=== PATIENT | female | born 1950 | race Caucasian/White ===

== ENCOUNTER 2021-01-12 12:39 | Inpatient (IN) | payer MEDICARE, OTHER ==
[2021-01-12] MEDS ORDERED: Polyethylene Glycol 3350 Powder 17 GM Packet PO PRN (13:44)
[2021-01-12] MEDS ORDERED: Albuterol 0.083% 2.5 MG/3 ML Neb Soln NEB PRN (13:44)
[2021-01-12] MEDS ORDERED: Ondansetron 4 MG/2 ML SDV IV PRN (13:44)
[2021-01-12] MEDS ORDERED: Albuterol 6.7 GM Inhaler INH PRN ×2 (13:48→15:00)
[2021-01-12] MEDS ORDERED: Melatonin 3 MG Tab PO PRN (14:01)
--- NOTE | 2021-01-12 14:38 | CR ---
Chest: Frontal view of the chest was obtained. Comparison: No prior chest imaging is available. Heart size is normal. Upper mediastinum is normal. Lungs are clear with no acute parenchymal change. Scattered old healed rib fractures are noted. Prior right shoulder surgery is seen. Impression: 1. Findings as described above. 2. Nothing acute is seen on frontal chest x-ray. Diagnostic code #2
--- NOTE | 2021-01-12 15:54 | PCM.HP.2 ---
H&P History of Present Illness - General Date of Service: 01/12/21 Admit Problem/Dx: Admission Diagnosis/Problem Admission Diagnosis/Problem Fracture of left hip History Limitations: Reports: Other (Poor historian. Patient falling asleep dur ing interview.) - History of Present Illness Initial Comments - Free Text/Narative: 70-year-old female who was transferred from [facility] secondary to fracture of the left femoral neck. Patient states that she started having pain the day after Thanksgiving. She denies any specific fall, but in another breath she tells me she falls regularly and shows me her bruised arms. She was brought from home to the emergency department in excruciating pain, 9 out of 10, that had progressively worsened over the last couple of days. In the emergency department she was given ketorolac and Dilaudid for pain relief. X-ray of the hips showed fracture of the left femoral neck. Initially patient did have significant hypertension and tachycardia which was mainly felt to be secondary to pain. Patient also did not take her Cardizem this morning. There was initially some question if the patient had atrial fibrillation, but EKG done in the emergency department showed sinus tachycardia. Dr. Mayes was contacted who agreed to repair the hip fracture. Patient was then transferred to the medical floor for admission. Blood work from the emergency department in [place] showed white count 16.3, hemoglobin 11.4, platelets 401, sodium 128, potassium 4.7, BUN 7, creatinine 1.22, glucose 127, albumin 3.3, AST 16, ALT 17, alk phos 196, total bilirubin 0.5. On arrival to floor white count 10.68, sodium 131, potassium 4.6, BUN 9, creatinine 1.7 with an estimated GFR of 30, AST 26, ALT 19, alkaline phosphatase 177, albumin 3.1 Patient admits to 1 pack/day smoking and 2 mixed drinks with fireball daily Past medical history includes alcohol abuse, hyponatremia, tobacco abuse, emphysema, adult failure to thrive, SIADH, anemia, hypertension, hyperlipidemia, dementing neurological disease or syndrome, atrial fibrillation, acute kidney injury, stroke, distal radial fracture, physical deconditioning - Related Data Allergies/Adverse Reactions: Allergies Allergy/AdvReac Type Severity Reaction Status Date / Time amoxicillin Allergy Cannot Verified 01/12/21 13:21 Remember doxycycline Allergy Cannot Verified 01/12/21 13:21 Remember hydrocodone Allergy Cannot Verified 01/12/21 13:21 Remember Penicillins Allergy Cannot Verified 01/12/21 13:21 Remember Home Medications: Home Meds Acetaminophen [Tylenol] 2 tab PO Q6H PRN 01/12/21 [History] Albuterol [Proventil HFA] 2 puff INH Q4H PRN 01/12/21 [History] Aspirin [Ecotrin EC] 81 mg PO DAILY 01/12/21 [History] Budesonide [Pulmicort] 2 ml NEB BID 01/12/21 [History] Cholecalciferol (Vitamin D3) [Vitamin D3] 1 tab PO DAILY 01/12/21 [History] Clopidogrel Bisulfate [Plavix] 1 tab PO DAILY 01/12/21 [History] DULoxetine [Cymbalta] 1 tab PO BEDTIME 01/12/21 [History] Ferrous Sulfate [Iron] 1 tab PO BID 01/12/21 [History] Folic Acid 1 tab PO DAILY 01/12/21 [History] Furosemide [Lasix] 20 mg PO DAILY 01/12/21 [History] Hydrocodone/Acetaminophen [HYDROcodone-Acetaminophen 5-325 MG] 1 tab PO Q6H PRN 01/12/21 [History] Melatonin 1 tab PO BEDTIME PRN 01/12/21 [History] Pantoprazole Sodium [Protonix] 40 mg PO DAILY 01/12/21 [History] Potassium Chloride [Klor-Con M20] 2 tab PO BID 01/12/21 [History] Pravastatin [Pravachol] 1 tab PO BEDTIME 01/12/21 [History] QUEtiapine Fumarate [Seroquel] 50 mg PO BEDTIME 01/12/21 [History] Sennosides/Docusate Sodium [Senna-Docusate Sodium Tablet] 2 tab PO BID 01/12/21 [History] Trolamine Salicylate/Aloe Vera [Aspercreme 10%] 1 applic TOP BID PRN 01/12/21 [History] dilTIAZem HCL [Dilt-XR] 1 tab PO DAILY 01/12/21 [History] traMADol [Ultram] 1 tab PO Q6H PRN 01/12/21 [History] Past Medical History HEENT History: Reports: Cataract, Impaired Vision Other HEENT History: wears glasses Cardiovascular History: Reports: Afib, Angina, Heart Failure, High Cholesterol, Hypertension Respiratory History: Reports: COPD, Pneumonia, Recurrent, Other (See Below) Other Respiratory History: emphysema Gastrointestinal History: Reports: Chronic Diarrhea Genitourinary History: Reports: Acute Renal Failure, Urinary Incontinence [employer] History: Reports: Musculoskeletal History: Reports: Fracture Other Musculoskeletal History: hx left wrist; current left hip Neurological History: Reports: CVA Psychiatric History: Reports: Dementia Other Psychiatric History: per visit summary 01/21/20 Ailyn Luong PA-c Endocrine/Metabolic History: Reports: Other (See Below) Other Endocrine/Metabolic History: hypochloremia; hyponatermia, Syndrom of inappropriate antidiuretic hormone Hematologic History: Reports: None Dermatologic History: Reports: None - Past Surgical History HEENT Surgical History: Reports: Cataract Surgery Cardiovascular Surgical History: Reports: Carotid Endarterectomy Other Respiratory Surgeries/Procedures: no home O2 GI Surgical History: Reports: None Other GI Surgeries/Procedures: patient denies abd surgical history Endocrine Surgical History: Reports: Thyroidectomy Other Endocrine Surgeries/Procedures: thyroidectomy per patient, not sure of name of surgical procedures Social & Family History - Tobacco Use Tobacco Use Status *Q: Current Every Day Tobacco User Years of Tobacco use: 40 Packs/Tins Daily: 2 - Alcohol Use Days Per Week of Alcohol Use: 7 Number of Drinks Per Day: 2 Total Drinks Per Week: 14 Date of Last Drink: 01/11/21 Time of Last Drink: 19:00 - Recreational Drug Use Recreational Drug Use: No H&P Review of Systems - Review of Systems: Review Of Systems: Comprehensive ROS is negative, except as noted in HPI. Exam - Exam Exam: See Below - Vital Signs Vital Signs: Last Vital Signs Temp 99.0 F 01/12/21 12:45 Pulse 108 H 01/12/21 13:01 Resp 20 01/12/21 12:45 BP 127/98 H 01/12/21 12:45 Pulse Ox 96 01/12/21 13:01 Weight: 171 lb 1.6 oz - Exam Quality Assessment: No: Supplemental Oxygen General: Sedated HEENT: Conjunctiva Clear, Hearing Intact, Mucosa Moist & [place], Pupils Equal, Pupils Reactive Neck: Supple, Trachea Midline, 2 Lungs: Clear to Auscultation, Normal Respiratory Effort Cardiovascular: Regular Rhythm, Normal S1, Normal S2, Tachycardia. No: Systolic Murmur, Diastolic Murmur GI/Abdominal Exam: Normal Bowel Sounds, Soft, Non-Tender, No Organomegaly, No Distention, No Abnormal Bruit, No Mass Back Exam: Normal Inspection Extremities: Normal Inspection, Normal Range of Motion, Non-Tender, No Pedal Edema, Normal Capillary Refill Peripheral Pulses: 2+: Posterior Tibial (L), Posterior Tibial (R), Dorsalis Pedis (L), Dorsalis Pedis (R) Skin: Warm, Dry, Intact Neuro Extensive - Mental Status: Alert, Oriented x3, Normal Mood/Affect, Normal Cognition, Memory Intact Neuro Extensive - Motor, Sensory, Reflexes: CN II-XII Intact Psychiatric: Alert, Normal Affect, Normal Mood - Patient Data Lab Results Last 24 hrs: Laboratory Results - last 24 hr 01/12/21 01/12/21 01/12/21 Range/Units 14:10 14:10 14:10 WBC 10.68 H (3.98-10.04) K/mm3 RBC 4.02 (3.98-5.22) M/mm3 Hgb 11.3 (11.2-15.7) gm/dl Hct 36.0 (34.1-44.9) % MCV 89.6 (79.4-94.8) fl MCH 28.1 (25.6-32.2) pg MCHC 31.4 L (32.2-35.5) g/dl RDW Std Deviation 45.9 (36.4-46.3) fL Plt Count 418 H (182-369) K/mm3 MPV 8.7 L (9.4-12.3) fl Neut % (Auto) 77.0 H (34.0-71.1) % Lymph % (Auto) 13.1 L (19.3-51.7) % [place] % (Auto) 8.2 (4.7-12.5) % Eos % (Auto) 1.0 (0.7-5.8) Baso % (Auto) 0.2 (0.1-1.2) % Neut # (Auto) 8.22 H (1.56-6.13) K/mm3 Lymph # (Auto) 1.40 (1.18-3.74) K/mm3 [place] # (Auto) 0.88 H (0.24-0.36) K/mm3 Eos # (Auto) 0.11 (0.04-0.36) K/mm3 Baso # (Auto) 0.02 (0.01-0.08) K/mm3 PT 10.3 (9.7-12.0) SECONDS INR 0.93 Sodium 131 L (136-145) mEq/L Potassium 4.6 (3.5-5.1) mEq/L Chloride 95 L (98-107) mEq/L Carbon Dioxide 26 (21-32) mEq/L Anion Gap 14.6 (5-15) BUN 9 (7-18) mg/dL Creatinine 1.7 H (0.55-1.02) mg/dL Est Cr Clr Drug Dosing 26.59 mL/min Estimated GFR (MDRD) 30 (>60) mL/min BUN/Creatinine Ratio 5.3 L (14-18) Glucose 104 H (70-99) mg/dL Calcium 8.7 (8.5-10.1) mg/dL Magnesium 2.4 (1.8-2.4) mg/dL Total Bilirubin 0.6 (0.2-1.0) mg/dL AST 26 (15-37) U/L ALT 19 (14-59) U/L Alkaline Phosphatase 177 H (46-116) U/L Total Protein 7.3 (6.4-8.2) g/dl Albumin 3.1 L (3.4-5.0) g/dl Globulin 4.2 gm/dL Albumin/Globulin Ratio 0.7 L (1-2) Result Diagrams: 01/12/21 14:10 01/12/21 14:10 Imaging Impressions Last 24 hrs: Chest x-ray: Nothing acute is seen on frontal chest #1 Interpretation EKG Date: 01/12/21 Time: 10:43 Rhythm: NSR Rate (Beats/Min): 120 [place]: Normal P-Wave: Present QRS: Normal ST-T: Normal QT: Normal Comparison: NA - No Prior EKG EKG Interpretation Comments: Sinus tachycardia otherwise normal EKG Sepsis Event Note - Evaluation Sepsis Screening Result: No Definite Risk - Focused Exam Vital Signs: Vital Signs Temp Pulse Resp BP Pulse Ox 01/12/21 13:01 108 H 96 01/12/21 12:45 99.0 F 20 127/98 H - Problem List (1) Left displaced femoral neck fracture SNOMED Code(s): 3405808, 125873955, 598231113, 24997736228530361 ICD Code: S72.002A - FRACTURE OF UNSP PART OF NECK OF LEFT FEMUR, INIT Status: Acute Current Visit: Yes (2) Acute kidney injury SNOMED Code(s): 91987517, 12707954 ICD Code: N17.9 - ACUTE KIDNEY FAILURE, UNSPECIFIED Status: Acute Current Visit: Yes (3) COPD (chronic obstructive pulmonary disease) with emphysema SNOMED Code(s): 85152076 ICD Code: J43.9 - EMPHYSEMA, UNSPECIFIED Status: Acute Current Visit: Yes (4) Hyponatremia SNOMED Code(s): 21910241 ICD Code: E87.1 - HYPO-OSMOLALITY AND HYPONATREMIA Status: Acute Current Visit: Yes (5) Alcohol abuse SNOMED Code(s): 71734658 ICD Code: F10.10 - ALCOHOL ABUSE, UNCOMPLICATED Status: Acute Current Visit: Yes (6) Tobacco abuse SNOMED Code(s): 192804560 ICD Code: Z72.0 - TOBACCO USE Status: Acute Current Visit: Yes (7) Recurrent falls SNOMED Code(s): 374568279 ICD Code: R29.6 - REPEATED FALLS Status: Acute Current Visit: Yes Problem List Initiated/Reviewed/Updated: Yes Orders Last 24hrs: Active Orders 24 hr Category Date Time Status Patient Status [ADT] Routine ADT 01/12/21 13:41 Active Antiembolic Devices [RC] Q8H Care 01/12/21 13:48 Active Bedrest Bedside Commode [RC] ASDIRECTED Care 01/12/21 13:44 Active Cardiac Monitoring [RC] CONTINUOUS Care 01/12/21 13:45 Active Height and Weight [RC] 06 Care 01/12/21 13:44 Active Intake and Output [RC] 04,16 Care 01/12/21 13:45 Active Oxygen Therapy [RC] PRN Care 01/12/21 13:44 Active RT Aerosol Therapy [RC] ASDIRECTED Care 01/12/21 13:48 Active RT Post Treatment Assessment [RC] Click to Edit Care 01/12/21 13:50 Active VTE/DVT Education [RC] PER UNIT ROUTINE Care 01/12/21 13:44 Active Vital Signs [RC] Q4HR Care 01/12/21 13:44 Active PT Evaluation and Treatment [CONS] Routine Cons 01/12/21 13:44 Active Regular Diet [DIET] Diet 01/12/21 Dinner Active CBC WITH AUTO DIFF [HEME] AM Lab 01/13/21 05:11 Ordered COMPREHENSIVE METABOLIC PN,CMP [CHEM] AM Lab 01/13/21 05:11 Ordered MAGNESIUM [CHEM] AM Lab 01/13/21 05:11 Ordered Acetaminophen [TylenoL] Med 01/12/21 13:44 Active 650 mg PO Q4H PRN Albuterol [Proventil HFA] Med 01/12/21 15:00 Active 0 gm INH Q4H PRN Albuterol [Proventil Neb Soln] Med 01/12/21 13:44 Active 2.5 mg NEB Q2H PRN Budesonide [Pulmicort] Med 01/12/21 21:00 Active 0.5 mg NEB BID DULoxetine [Cymbalta] Med 01/12/21 21:00 Active 30 mg PO BEDTIME Diltiazem [Cardizem CD] Med 01/13/21 09:00 Active 120 mg PO DAILY Folic Acid Med 01/13/21 09:00 Active 1 mg PO DAILY Furosemide [Lasix] Med 01/13/21 09:00 Active 20 mg PO DAILY HYDROmorphone [Dilaudid] Med 01/12/21 13:44 Active 0.5 mg IVPUSH Q2H PRN Melatonin Med 01/12/21 14:01 Active 3 mg PO BEDTIME PRN Ondansetron [Zofran] Med 01/12/21 13:44 Active 4 mg IV Q6H PRN Pantoprazole [ProTONIX] Med 01/13/21 09:00 Active 40 mg PO DAILY Potassium Chloride [Klor-Con M20] Med 01/12/21 21:00 Active 40 meq PO BID Pravastatin [Pravachol] Med 01/12/21 21:00 Active 20 mg PO BEDTIME QUEtiapine [SEROqueL] Med 01/12/21 21:00 Active 50 mg PO BEDTIME Sennosides [Senna] Med 01/12/21 21:00 Active 17.2 mg PO BID Sodium Chloride 0.9% @ 100 MLS/HR(1000ml Bag) Med 01/12/21 16:00 Ordered Sodium Chloride 0.9% [Normal Saline] 1,000 ml IV ASDIRECTED oxyCODONE Med 01/12/21 13:44 Active 5 mg PO Q4H PRN polyethylene glycoL 3350 [MiraLAX] Med 01/12/21 13:44 Active 17 gm PO DAILY PRN traMADol [Ultram] Med 01/12/21 13:48 Active 50 mg PO Q6H PRN Sequential Compression Device [OM.PC] Per Unit Routine Oth 01/12/21 13:46 Ordered Resuscitation Status Routine Resus Stat 01/12/21 13:44 Ordered Medication Orders Acetaminophen (Acetaminophen 325 Mg Tab) 650 mg PO Q4H PRN PRN Reason: Pain (Mild 1-3)/fever Albuterol (Albuterol 0.083% 2.5 Mg/3 Ml Neb Soln) 2.5 mg NEB Q2H PRN PRN Reason: Shortness Of Breath/wheezing Albuterol (Albuterol 6.7 Gm Inhaler) 0 gm INH Q4H PRN PRN Reason: shortness of breath Budesonide (Budesonide 0.5 Mg/2 Ml Neb Susp) 0.5 mg NEB BID KRISHNA Diltiazem HCl (Diltiazem 120 Mg Cap.Cd) 120 mg PO DAILY KRISHNA Duloxetine HCl (Duloxetine 30 Mg Cap) 30 mg PO BEDTIME KRISHNA Folic Acid (Folic Acid 1 Mg Tab) 1 mg PO DAILY KRISHNA Furosemide (Furosemide 20 Mg Tab) 20 mg PO DAILY KRISHNA Hydromorphone HCl (Hydromorphone 0.5 Mg/0.5 Ml Syringe) 0.5 mg IVPUSH Q2H PRN PRN Reason: Pain (severe 7-10) Sodium Chloride (Normal Saline) 1,000 mls @ 100 mls/hr IV ASDIRECTED [facility] Melatonin (Melatonin 3 Mg Tab) 3 mg PO BEDTIME PRN PRN Reason: INSOMNIA Ondansetron HCl (Ondansetron 4 Mg/2 Ml Sdv) 4 mg IV Q6H PRN PRN Reason: Nausea/Vomiting Oxycodone HCl (Oxycodone 5 Mg Tab) 5 mg PO Q4H PRN PRN Reason: Pain (moderate 4-6) Pantoprazole Sodium (Pantoprazole 40 Mg Tab.Cr) 40 mg PO DAILY [facility] Polyethylene Glycol (Polyethylene Glycol 3350 Powder 17 Gm Packet) 17 gm PO DAILY PRN PRN Reason: Constipation Potassium Chloride (Potassium Chloride 20 Meq Tab.Er) 40 meq PO BID KRISHNA Pravastatin Sodium (Pravastatin 20 Mg Tab) 20 mg PO BEDTIME KRISHNA Quetiapine Fumarate (Quetiapine 25 Mg Tab) 50 mg PO BEDTIME KRISHNA Senna (Sennosides 8.6 Mg Tab) 17.2 mg PO BID KRISHNA Tramadol HCl (Tramadol 50 Mg Tab) 50 mg PO Q6H PRN PRN Reason: Pain Assessment/Plan Comment:: 70-year-old female from [place], [place] transferred from [place] emergency department with left femoral neck fracture. Symptoms of pain started the day after Thanksgiving. Left femoral neck fracture * Dr. Mayes in orthopedics consulted * Patient denies recent fall History of recurrent falls Alcohol abuse with previous fractures secondary to falls * Patient admits to 2 mixed drinks with Fireball whiskey per day * Multiple bruises on her arms indicative of recent falls. * She is on Seroquel 50 mg nightly. Tobacco abuse * Admits to 1 pack/day COPD * Home meds include budesonide and albuterol Chronic hyponatremia * Sodium 131 on admission Acute kidney injury * Creatinine prior to arrival was 1.22 this morning. After receiving Toradol and on arrival here creatinine increased to 1.7 Dementia History of stroke * Patient has unreliable history secondary to the above. History of atrial fibrillation currently in sinus rhythm Plan * Admit to medical floor * Normal saline at 100 mL an hour * Offer nicotine patch * Follow CBC, CMP, mag, * Pain control * PT after surgery * Patient appears to be high risk for withdrawal. Current tachycardia is likely secondary to pain and mild dehydration. We will continue to monitor closely us [facility] protocols * EKG and chest x-ray suggest no significant cardiac medical problems * CODE STATUS: Full code * VTE prophylaxis currently with SCDs, but will need Lovenox. - Mortality Measure Prognosis:: Good
[2021-01-12] MEDS: HYDROmorphone 0.5 MG/0.5 ML Syringe IVPUSH PRN (16:30)
[2021-01-12] MEDS: Sodium Chloride 0.9% 1,000 ML IV SCH (16:30)
[2021-01-12] MEDS ORDERED: LORazepam 1 MG Tab PO PRN (18:38)
[2021-01-12] MEDS: QUEtiapine 25 MG Tab PO SCH (20:09)
[2021-01-12] MEDS: Potassium Chloride 20 MEQ Tab.ER PO SCH (20:09)
[2021-01-12] MEDS: Pravastatin 20 MG Tab PO SCH (20:10)
[2021-01-12] MEDS: DULoxetine 30 MG Cap PO SCH (20:10)
[2021-01-12] MEDS ORDERED: Sennosides 8.6 MG Tab PO SCH (21:00)
[2021-01-12] MEDS: Budesonide 0.5 MG/2 ML Neb Susp NEB SCH (21:03)
[2021-01-12] MEDS: Albuterol/Ipratropium 3.0-0.5 MG/3 ML Neb Soln NEB SCH (21:03)
[2021-01-13] MEDS: HYDROmorphone 0.5 MG/0.5 ML Syringe IVPUSH PRN ×2 (00:29→03:57)
[2021-01-13] MEDS: Sodium Chloride 0.9% 1,000 ML IV SCH ×2 (02:05→15:54)
[2021-01-13] MEDS: Albuterol/Ipratropium 3.0-0.5 MG/3 ML Neb Soln NEB SCH ×4 (02:57→21:30)
--- NOTE | 2021-01-13 08:25 | PCM.PN ---
- General Info Date of Service: 01/13/21 Admission Dx/Problem (Free Text): Admission Diagnosis/Problem Admission Diagnosis/Problem Fracture of left hip Functional Status: Reports: Pain Controlled, Tolerating Diet, Urinating. Denies: Ambulating (Bedrest), New Symptoms - Review of Systems General: Reports: No Symptoms. Denies: Fever, Weakness, Fatigue, Malaise, Chills HEENT: Reports: No Symptoms. Denies: Headaches, Sore Throat Pulmonary: Reports: No Symptoms. Denies: Shortness of Breath, Cough, Sputum, Wheezing Cardiovascular: Reports: No Symptoms. Denies: Chest Pain, Palpitations, Dyspnea on Exertion, Edema Gastrointestinal: Reports: No Symptoms. Denies: Abdominal Pain, Constipation, Diarrhea, Nausea, Vomiting Genitourinary: Reports: No Symptoms. Denies: Pain Musculoskeletal: Reports: Leg Pain (left ), Joint Pain (Left hip) Skin: Reports: No Symptoms. Denies: Cyanosis Neurological: Reports: Tremors, Difficulty Walking. Denies: Confusion, Seizure Psychiatric: Reports: No Symptoms. Denies: Confusion - Patient Data Vitals - Most Recent: Last Vital Signs Temp 98.2 F 01/13/21 03:55 Pulse 107 H 01/13/21 03:55 Resp 18 01/13/21 03:55 BP 126/82 01/13/21 03:55 Pulse Ox 92 L 01/13/21 03:55 Weight - Most Recent: 173 lb 14.4 oz I&O - Last 24 Hours: Intake & Output 01/12/21 01/13/21 01/13/21 22:59 06:59 14:59 Intake Total 1560 Balance 1560 Lab Results Last 24 Hours: Laboratory Results - last 24 hr 01/12/21 01/12/21 01/12/21 Range/Units 14:10 14:10 14:10 WBC 10.68 H (3.98-10.04) K/mm3 RBC 4.02 (3.98-5.22) M/mm3 Hgb 11.3 (11.2-15.7) gm/dl Hct 36.0 (34.1-44.9) % MCV 89.6 (79.4-94.8) fl MCH 28.1 (25.6-32.2) pg MCHC 31.4 L (32.2-35.5) g/dl RDW Std Deviation 45.9 (36.4-46.3) fL Plt Count 418 H (182-369) K/mm3 MPV 8.7 L (9.4-12.3) fl Neut % (Auto) 77.0 H (34.0-71.1) % Lymph % (Auto) 13.1 L (19.3-51.7) % [place] % (Auto) 8.2 (4.7-12.5) % Eos % (Auto) 1.0 (0.7-5.8) Baso % (Auto) 0.2 (0.1-1.2) % Neut # (Auto) 8.22 H (1.56-6.13) K/mm3 Lymph # (Auto) 1.40 (1.18-3.74) K/mm3 [place] # (Auto) 0.88 H (0.24-0.36) K/mm3 Eos # (Auto) 0.11 (0.04-0.36) K/mm3 Baso # (Auto) 0.02 (0.01-0.08) K/mm3 PT 10.3 (9.7-12.0) SECONDS INR 0.93 Sodium 131 L (136-145) mEq/L Potassium 4.6 (3.5-5.1) mEq/L Chloride 95 L (98-107) mEq/L Carbon Dioxide 26 (21-32) mEq/L Anion Gap 14.6 (5-15) BUN 9 (7-18) mg/dL Creatinine 1.7 H (0.55-1.02) mg/dL Est Cr Clr Drug Dosing 26.59 mL/min Estimated GFR (MDRD) 30 (>60) mL/min BUN/Creatinine Ratio 5.3 L (14-18) Glucose 104 H (70-99) mg/dL Calcium 8.7 (8.5-10.1) mg/dL Magnesium 2.4 (1.8-2.4) mg/dL Total Bilirubin 0.6 (0.2-1.0) mg/dL AST 26 (15-37) U/L ALT 19 (14-59) U/L Alkaline Phosphatase 177 H (46-116) U/L Total Protein 7.3 (6.4-8.2) g/dl Albumin 3.1 L (3.4-5.0) g/dl Globulin 4.2 gm/dL Albumin/Globulin Ratio 0.7 L (1-2) 01/13/21 01/13/21 Range/Units 06:10 06:10 WBC 11.72 H (3.98-10.04) K/mm3 RBC 3.68 L (3.98-5.22) M/mm3 Hgb 10.3 L (11.2-15.7) gm/dl Hct 33.5 L (34.1-44.9) % MCV 91.0 (79.4-94.8) fl MCH 28.0 (25.6-32.2) pg MCHC 30.7 L (32.2-35.5) g/dl RDW Std Deviation 47.6 H (36.4-46.3) fL Plt Count 351 (182-369) K/mm3 MPV 8.8 L (9.4-12.3) fl Neut % (Auto) 75.4 H (34.0-71.1) % Lymph % (Auto) 12.1 L (19.3-51.7) % [place] % (Auto) 8.1 (4.7-12.5) % Eos % (Auto) 3.9 (0.7-5.8) Baso % (Auto) 0.3 (0.1-1.2) % Neut # (Auto) 8.84 H (1.56-6.13) K/mm3 Lymph # (Auto) 1.42 (1.18-3.74) K/mm3 [place] # (Auto) 0.95 H (0.24-0.36) K/mm3 Eos # (Auto) 0.46 H (0.04-0.36) K/mm3 Baso # (Auto) 0.03 (0.01-0.08) K/mm3 PT (9.7-12.0) SECONDS INR Sodium 131 L (136-145) mEq/L Potassium 5.1 (3.5-5.1) mEq/L Chloride 99 (98-107) mEq/L Carbon Dioxide 23 (21-32) mEq/L Anion Gap 14.1 (5-15) BUN 11 (7-18) mg/dL Creatinine 1.6 H (0.55-1.02) mg/dL Est Cr Clr Drug Dosing 28.25 mL/min Estimated GFR (MDRD) 32 (>60) mL/min BUN/Creatinine Ratio 6.9 L (14-18) Glucose 104 H (70-99) mg/dL Calcium 8.1 L (8.5-10.1) mg/dL Magnesium 2.3 (1.8-2.4) mg/dL Total Bilirubin 0.6 (0.2-1.0) mg/dL AST 67 H (15-37) U/L ALT 25 (14-59) U/L Alkaline Phosphatase 148 H (46-116) U/L Total Protein 6.2 L (6.4-8.2) g/dl Albumin 2.8 L (3.4-5.0) g/dl Globulin 3.4 gm/dL Albumin/Globulin Ratio 0.8 L (1-2) Med Orders - Current: Current Medications Acetaminophen (Acetaminophen 325 Mg Tab) 650 mg PO Q4H PRN PRN Reason: Pain (Mild 1-3)/fever Albuterol (Albuterol 0.083% 2.5 Mg/3 Ml Neb Soln) 2.5 mg NEB Q2H PRN PRN Reason: Shortness Of Breath/wheezing Albuterol (Albuterol 6.7 Gm Inhaler) 0 gm INH Q4H PRN PRN Reason: shortness of breath Albuterol/Ipratropium (Albuterol/Ipratropium 3.0-0.5 Mg/3 Ml Neb Soln) 3 ml NEB Q6HRRT [facility] Last Admin: 01/13/21 02:57 Dose: 3 ml Documented by: Budesonide (Budesonide 0.5 Mg/2 Ml Neb Susp) 0.5 mg NEB BID [facility] Last Admin: 01/12/21 21:03 Dose: 0.5 mg Documented by: Morphine Sulfate 8 mg/Epinephrine HCl 0.3 mg/Cefuroxime Sodium 750 mg/Ketorolac Tromethamine 30 mg/Sodium Chloride 7.9 ml 0 mg .XX ASDIRECTED PRN PRN Reason: Pain Stop: 01/13/21 18:00 Diltiazem HCl (Diltiazem 120 Mg Cap.Cd) 120 mg PO DAILY [facility] Duloxetine HCl (Duloxetine 30 Mg Cap) 30 mg PO BEDTIME [facility] Last Admin: 01/12/21 20:10 Dose: 30 mg Documented by: Folic Acid (Folic Acid 1 Mg Tab) 1 mg PO DAILY [facility] Furosemide (Furosemide 20 Mg Tab) 20 mg PO DAILY [facility] Hydromorphone HCl (Hydromorphone 0.5 Mg/0.5 Ml Syringe) 0.5 mg IVPUSH Q2H PRN PRN Reason: Pain (severe 7-10) Last Admin: 01/13/21 03:57 Dose: 0.5 mg Documented by: Sodium Chloride (Normal Saline) 1,000 mls @ 100 mls/hr IV ASDIRECTED [facility] Last Admin: 01/13/21 02:05 Dose: 100 mls/hr Documented by: Lorazepam (Lorazepam 1 Mg Tab) 0 mg PO Q1H PRN; Protocol PRN Reason: Withdrawal Symptoms Lorazepam (Lorazepam 2 Mg/Ml Sdv) 0 mg IVPUSH Q15M PRN; Protocol PRN Reason: Withdrawal Symptoms Melatonin (Melatonin 3 Mg Tab) 3 mg PO BEDTIME PRN PRN Reason: INSOMNIA Ondansetron HCl (Ondansetron 4 Mg/2 Ml Sdv) 4 mg IV Q6H PRN PRN Reason: Nausea/Vomiting Oxycodone HCl (Oxycodone 5 Mg Tab) 5 mg PO Q4H PRN PRN Reason: Pain (moderate 4-6) Pantoprazole Sodium (Pantoprazole 40 Mg Tab.Cr) 40 mg PO DAILY [facility] Polyethylene Glycol (Polyethylene Glycol 3350 Powder 17 Gm Packet) 17 gm PO DAILY PRN PRN Reason: Constipation Potassium Chloride (Potassium Chloride 20 Meq Tab.Er) 40 meq PO BID [facility] Last Admin: 01/12/21 20:09 Dose: 40 meq Documented by: Pravastatin Sodium (Pravastatin 20 Mg Tab) 20 mg PO BEDTIME [facility] Last Admin: 01/12/21 20:10 Dose: 20 mg Documented by: Quetiapine Fumarate (Quetiapine 25 Mg Tab) 50 mg PO BEDTIME [facility] Last Admin: 01/12/21 20:09 Dose: 50 mg Documented by: Senna/Docusate Sodium (Docusate Sodium/Sennosides 50-8.6 Mg Tab) 2 tab PO BID [facility] Last Admin: 01/12/21 20:09 Dose: 2 tab Documented by: Tramadol HCl (Tramadol 50 Mg Tab) 50 mg PO Q6H PRN PRN Reason: Pain Discontinued Medications Albuterol (Albuterol 6.7 Gm Inhaler) 0 gm INH QID PRN PRN Reason: shortness of breath - Exam Quality Assessment: Supplemental Oxygen (1.5L), DVT Prophylaxis. No: Urine Catheter General: Alert, Oriented, Cooperative, No Acute Distress HEENT: Pupils Equal, Pupils Reactive, Mucous Membr. Moist/Blanding Neck: Supple, Trachea Midline Lungs: Clear to Auscultation, Normal Respiratory Effort Cardiovascular: Regular Rhythm, Tachycardia GI/Abdominal Exam: Normal Bowel Sounds, Soft, Non-Tender, No Distention (Female) Exam: Deferred Back Exam: Normal Inspection, Full Range of Motion Extremities: Normal Range of Motion, No Pedal Edema, Normal Capillary Refill, Leg Pain (left leg and hip), Limited Range of Motion (2/2 pain ) Skin: Warm, Dry, Intact, Ecchymosis (Scattered) Neurological: No New Focal Deficit Psy/Mental Status: Alert, Normal Affect, Normal Mood - Patient Data Lab Results Last 24 hrs: Laboratory Results - last 24 hr 01/12/21 01/12/21 01/12/21 Range/Units 14:10 14:10 14:10 WBC 10.68 H (3.98-10.04) K/mm3 RBC 4.02 (3.98-5.22) M/mm3 Hgb 11.3 (11.2-15.7) gm/dl Hct 36.0 (34.1-44.9) % MCV 89.6 (79.4-94.8) fl MCH 28.1 (25.6-32.2) pg MCHC 31.4 L (32.2-35.5) g/dl RDW Std Deviation 45.9 (36.4-46.3) fL Plt Count 418 H (182-369) K/mm3 MPV 8.7 L (9.4-12.3) fl Neut % (Auto) 77.0 H (34.0-71.1) % Lymph % (Auto) 13.1 L (19.3-51.7) % [place] % (Auto) 8.2 (4.7-12.5) % Eos % (Auto) 1.0 (0.7-5.8) Baso % (Auto) 0.2 (0.1-1.2) % Neut # (Auto) 8.22 H (1.56-6.13) K/mm3 Lymph # (Auto) 1.40 (1.18-3.74) K/mm3 [place] # (Auto) 0.88 H (0.24-0.36) K/mm3 Eos # (Auto) 0.11 (0.04-0.36) K/mm3 Baso # (Auto) 0.02 (0.01-0.08) K/mm3 PT 10.3 (9.7-12.0) SECONDS INR 0.93 Sodium 131 L (136-145) mEq/L Potassium 4.6 (3.5-5.1) mEq/L Chloride 95 L (98-107) mEq/L Carbon Dioxide 26 (21-32) mEq/L Anion Gap 14.6 (5-15) BUN 9 (7-18) mg/dL Creatinine 1.7 H (0.55-1.02) mg/dL Est Cr Clr Drug Dosing 26.59 mL/min Estimated GFR (MDRD) 30 (>60) mL/min BUN/Creatinine Ratio 5.3 L (14-18) Glucose 104 H (70-99) mg/dL Calcium 8.7 (8.5-10.1) mg/dL Magnesium 2.4 (1.8-2.4) mg/dL Total Bilirubin 0.6 (0.2-1.0) mg/dL AST 26 (15-37) U/L ALT 19 (14-59) U/L Alkaline Phosphatase 177 H (46-116) U/L Total Protein 7.3 (6.4-8.2) g/dl Albumin 3.1 L (3.4-5.0) g/dl Globulin 4.2 gm/dL Albumin/Globulin Ratio 0.7 L (1-2) 01/13/21 01/13/21 Range/Units 06:10 06:10 WBC 11.72 H (3.98-10.04) K/mm3 RBC 3.68 L (3.98-5.22) M/mm3 Hgb 10.3 L (11.2-15.7) gm/dl Hct 33.5 L (34.1-44.9) % MCV 91.0 (79.4-94.8) fl MCH 28.0 (25.6-32.2) pg MCHC 30.7 L (32.2-35.5) g/dl RDW Std Deviation 47.6 H (36.4-46.3) fL Plt Count 351 (182-369) K/mm3 MPV 8.8 L (9.4-12.3) fl Neut % (Auto) 75.4 H (34.0-71.1) % Lymph % (Auto) 12.1 L (19.3-51.7) % [place] % (Auto) 8.1 (4.7-12.5) % Eos % (Auto) 3.9 (0.7-5.8) Baso % (Auto) 0.3 (0.1-1.2) % Neut # (Auto) 8.84 H (1.56-6.13) K/mm3 Lymph # (Auto) 1.42 (1.18-3.74) K/mm3 [place] # (Auto) 0.95 H (0.24-0.36) K/mm3 Eos # (Auto) 0.46 H (0.04-0.36) K/mm3 Baso # (Auto) 0.03 (0.01-0.08) K/mm3 PT (9.7-12.0) SECONDS INR Sodium 131 L (136-145) mEq/L Potassium 5.1 (3.5-5.1) mEq/L Chloride 99 (98-107) mEq/L Carbon Dioxide 23 (21-32) mEq/L Anion Gap 14.1 (5-15) BUN 11 (7-18) mg/dL Creatinine 1.6 H (0.55-1.02) mg/dL Est Cr Clr Drug Dosing 28.25 mL/min Estimated GFR (MDRD) 32 (>60) mL/min BUN/Creatinine Ratio 6.9 L (14-18) Glucose 104 H (70-99) mg/dL Calcium 8.1 L (8.5-10.1) mg/dL Magnesium 2.3 (1.8-2.4) mg/dL Total Bilirubin 0.6 (0.2-1.0) mg/dL AST 67 H (15-37) U/L ALT 25 (14-59) U/L Alkaline Phosphatase 148 H (46-116) U/L Total Protein 6.2 L (6.4-8.2) g/dl Albumin 2.8 L (3.4-5.0) g/dl Globulin 3.4 gm/dL Albumin/Globulin Ratio 0.8 L (1-2) Result Diagrams: 01/13/21 06:10 01/13/21 06:10 Sepsis Event Note - Evaluation Sepsis Screening Result: No Definite Risk - Focused Exam Vital Signs: Vital Signs Temp Pulse Resp BP Pulse Ox Pulse Ox 01/13/21 03:55 98.2 F 107 H 18 126/82 92 L 01/13/21 02:57 95 01/12/21 23:59 98.4 F 111 H 20 130/64 93 L 01/12/21 21:05 91 L - Problem List & Annotations (1) Acute kidney injury SNOMED Code(s): 86226284, 08996057 Code(s): N17.9 - ACUTE KIDNEY FAILURE, UNSPECIFIED Status: Acute Priority: High Current Visit: Yes (2) Alcohol abuse SNOMED Code(s): 00567290 Code(s): F10.10 - ALCOHOL ABUSE, UNCOMPLICATED Status: Chronic Priority: High Current Visit: Yes (3) COPD (chronic obstructive pulmonary disease) with emphysema SNOMED Code(s): 28665793 Code(s): J43.9 - EMPHYSEMA, UNSPECIFIED Status: Chronic Priority: Medium Current Visit: Yes Qualifiers: Emphysema type: unspecified Qualified Code(s): J43.9 - Emphysema, unspecified (4) Hyponatremia SNOMED Code(s): 36718649 Code(s): E87.1 - HYPO-OSMOLALITY AND HYPONATREMIA Status: Chronic Priority: Medium Current Visit: Yes (5) Left displaced femoral neck fracture SNOMED Code(s): 7366920, 038193010, 581682894, 19476459820935649 Code(s): S72.002A - FRACTURE OF UNSP PART OF NECK OF LEFT FEMUR, INIT Status: Acute Priority: High Current Visit: Yes (6) Recurrent falls SNOMED Code(s): 858949793 Code(s): R29.6 - REPEATED FALLS Status: Chronic Priority: Medium Current Visit: Yes (7) Tobacco abuse SNOMED Code(s): 631828874 Code(s): Z72.0 - TOBACCO USE Status: Chronic Priority: Medium Current Visit: Yes - Problem List Review Problem List Initiated/Reviewed/Updated: Yes - Plan Plan:: 70-year-old female from [place], [place] transferred from [place] emergency department with left femoral neck fracture. Symptoms of pain started the day after Thanksgiving. 01/12/2021 Left femoral neck fracture * Dr. Mayes in orthopedics consulted * Patient denies recent fall History of recurrent falls Alcohol abuse with previous fractures secondary to falls * Patient admits to 2 mixed drinks with [place]ball whiskey per day * Multiple bruises on her arms indicative of recent falls. * She is on Seroquel 50 mg nightly. Tobacco abuse * Admits to 1 pack/day COPD * Home meds include budesonide and albuterol Chronic hyponatremia * Sodium 131 on admission Acute kidney injury * Creatinine prior to arrival was 1.22 this morning. After receiving Toradol and on arrival here creatinine increased to 1.7 Dementia History of stroke * Patient has unreliable history secondary to the above. History of atrial fibrillation currently in sinus rhythm 01/13/2021 7-year-old female admitted to floor with a left hip fracture requiring surgical fixation. Dr. Mayes, orthopedic surgeon is consulted and will perform surgery later today. Patient remains on bedrest. Normal saline continues at 100 mL/h. Renal function has slightly improved although we are unsure of her baseline. She does have a history of daily alcohol use. CIWAA score has been 5-6. She remains on CIWAA protocol. She is on a daily folic acid and we have added thiamine. She denies any history of withdrawal seizures. She is a daily nicotine user and on a nicotine patch. She remains tachycardic. WBC today is elevated 11.72 which is likely due to stress. Hemoglobin is down to 10.3 we will monitor. Neutrophils are elevated 75.4. Sodium remains 131. Potassium 5.1. Chloride 99. Carbon dioxide 23. Anion gap 14.1. BUN is 11. Creatinine is down to 1.6. GFR is up to 32. Glucose 104. Calcium 8.1. Magnesium 2.3. Total bilirubin 0.6. AST is 67, ALT 25, alkaline phosphatase 148. Protein is 6.2. Albumin is 2.8. She remains on 1.5 L of oxygen likely secondary to narcotic use. She is n.p.o. Home medications have been continued as ordered. She will have PT and OT after surgery. Plan will be for discharge tomorrow pending stability. Plan * Admit to medical floor * Normal saline at 100 mL an hour * Offer nicotine patch * Follow CBC, CMP, mag, * Pain control * PT/OT after surgery * Patient appears to be high risk for withdrawal. Current tachycardia is likely secondary to pain and mild dehydration. We will continue to monitor closely us CIWA protocols * EKG and chest x-ray suggest no significant cardiac medical problems * CODE STATUS: Full code * VTE prophylaxis currently with SCDs, but will need Lovenox post surgically
--- NOTE | 2021-01-13 08:26 | PCM.PREANE ---
Preanesthetic Assessment - Procedure Proposed Procedure: ORIF left hip - Anesthesia/Transfusion/Family Hx Anesthesia History: Prior Anesthesia Without Reaction Family History of Anesthesia Reaction: No Transfusion History: No Prior Transfusion(s) - Review of Systems General: Weakness Pulmonary: Shortness of Breath ("at times") Cardiovascular: Dyspnea on Exertion Gastrointestinal: No Symptoms Neurological: Numbness (feet), Difficulty Walking Other: Reports: Easy Bleeding, Easy Bruising, Thyroid Problems, Neck Pain - Physical Assessment NPO Status Date: 01/12/21 NPO Status Time: 00:00 Vital Signs: Last Vital Signs Temp 36.8 C 01/13/21 03:55 Pulse 107 H 01/13/21 03:55 Resp 18 01/13/21 03:55 BP 126/82 01/13/21 03:55 Pulse Ox 92 L 01/13/21 03:55 Height: 1.63 m Weight: 78.88 kg ASA Class: 3 Mental Status: Alert & Oriented x3 Airway Class: Mallampati = 2 Dentition: Reports: Dentures Thyro-Mental Finger Breadths: 2 Mouth Opening Finger Breadths: 2 ROM/Head Extension: Full Lungs: Clear to Auscultation, Normal Respiratory Effort Cardiovascular: Regular Rhythm, Tachycardia - Lab Values: Laboratory Last Values WBC 11.72 K/mm3 (3.98-10.04) H 01/13/21 06:10 RBC 3.68 M/mm3 (3.98-5.22) L 01/13/21 06:10 Hgb 10.3 gm/dl (11.2-15.7) L 01/13/21 06:10 Hct 33.5 % (34.1-44.9) L 01/13/21 06:10 MCV 91.0 fl (79.4-94.8) 01/13/21 06:10 MCH 28.0 pg (25.6-32.2) 01/13/21 06:10 MCHC 30.7 g/dl (32.2-35.5) L 01/13/21 06:10 RDW Std Deviation 47.6 fL (36.4-46.3) H 01/13/21 06:10 Plt Count 351 K/mm3 (182-369) 01/13/21 06:10 MPV 8.8 fl (9.4-12.3) L 01/13/21 06:10 Neut % (Auto) 75.4 % (34.0-71.1) H 01/13/21 06:10 Lymph % (Auto) 12.1 % (19.3-51.7) L 01/13/21 06:10 [place] % (Auto) 8.1 % (4.7-12.5) 01/13/21 06:10 Eos % (Auto) 3.9 (0.7-5.8) 01/13/21 06:10 Baso % (Auto) 0.3 % (0.1-1.2) 01/13/21 06:10 Neut # (Auto) 8.84 K/mm3 (1.56-6.13) H 01/13/21 06:10 Lymph # (Auto) 1.42 K/mm3 (1.18-3.74) 01/13/21 06:10 [place] # (Auto) 0.95 K/mm3 (0.24-0.36) H 01/13/21 06:10 Eos # (Auto) 0.46 K/mm3 (0.04-0.36) H 01/13/21 06:10 Baso # (Auto) 0.03 K/mm3 (0.01-0.08) 01/13/21 06:10 PT 10.3 SECONDS (9.7-12.0) 01/12/21 14:10 INR 0.93 01/12/21 14:10 Sodium 131 mEq/L (136-145) L 01/13/21 06:10 Potassium 5.1 mEq/L (3.5-5.1) 01/13/21 06:10 Chloride 99 mEq/L (98-107) 01/13/21 06:10 Carbon Dioxide 23 mEq/L (21-32) 01/13/21 06:10 Anion Gap 14.1 (5-15) 01/13/21 06:10 BUN 11 mg/dL (7-18) 01/13/21 06:10 Creatinine 1.6 mg/dL (0.55-1.02) H 01/13/21 06:10 Est Cr Clr Drug Dosing 28.25 mL/min 01/13/21 06:10 Estimated GFR (MDRD) 32 mL/min (>60) 01/13/21 06:10 BUN/Creatinine Ratio 6.9 (14-18) L 01/13/21 06:10 Glucose 104 mg/dL (70-99) H 01/13/21 06:10 Calcium 8.1 mg/dL (8.5-10.1) L 01/13/21 06:10 Magnesium 2.3 mg/dL (1.8-2.4) 01/13/21 06:10 Total Bilirubin 0.6 mg/dL (0.2-1.0) 01/13/21 06:10 AST 67 U/L (15-37) H 01/13/21 06:10 ALT 25 U/L (14-59) 01/13/21 06:10 Alkaline Phosphatase 148 U/L (46-116) H 01/13/21 06:10 Total Protein 6.2 g/dl (6.4-8.2) L 01/13/21 06:10 Albumin 2.8 g/dl (3.4-5.0) L 01/13/21 06:10 Globulin 3.4 gm/dL 01/13/21 06:10 Albumin/Globulin Ratio 0.8 (1-2) L 01/13/21 06:10 - Imaging/EKG Impressions: EKG sinus tachycardia rate 120 - Allergies Allergies/Adverse Reactions: Allergies Allergy/AdvReac Type Severity Reaction Status Date / Time amoxicillin Allergy Cannot Verified 01/12/21 13:21 Remember doxycycline Allergy Cannot Verified 01/12/21 13:21 Remember hydrocodone Allergy Cannot Verified 01/12/21 13:21 Remember Penicillins Allergy Cannot Verified 01/12/21 13:21 Remember - Anesthesia Plan Pre-Op Medication Ordered: None - Acknowledgements Anesthesia Type Planned: Spinal Pt an Appropriate Candidate for the Planned Anesthesia: Yes Alternatives and Risks of Anesthesia Discussed w Pt/Guardian: Yes Pt/Guardian Understands and Agrees with Anesthesia Plan: Yes PreAnesthesia Questionnaire HEENT History: Reports: Cataract, Impaired Vision Other HEENT History: wears glasses Cardiovascular History: Reports: Afib, Angina, Heart Failure, High Cholesterol, Hypertension Respiratory History: Reports: COPD, Pneumonia, Recurrent, Other (See Below) Other Respiratory History: emphysema Gastrointestinal History: Reports: Chronic Diarrhea Genitourinary History: Reports: Acute Renal Failure, Urinary Incontinence [employer] History: Reports: Musculoskeletal History: Reports: Fracture Other Musculoskeletal History: hx left wrist; current left hip Neurological History: Reports: CVA Psychiatric History: Reports: Dementia Other Psychiatric History: per visit summary 01/21/20 Ailyn Luong PA-c Endocrine/Metabolic History: Reports: Other (See Below) Other Endocrine/Metabolic History: hypochloremia; hyponatermia, Syndrom of inappropriate antidiuretic hormone Hematologic History: Reports: None Dermatologic History: Reports: None - Past Surgical History HEENT Surgical History: Reports: Cataract Surgery Cardiovascular Surgical History: Reports: Carotid Endarterectomy Other Respiratory Surgeries/Procedures: no home O2 GI Surgical History: Reports: None Other GI Surgeries/Procedures: patient denies abd surgical history Endocrine Surgical History: Reports: Thyroidectomy Other Endocrine Surgeries/Procedures: thyroidectomy per patient, not sure of name of surgical procedures - SUBSTANCE USE Tobacco Use Status *Q: Current Every Day Tobacco User Tobacco Use Within Last Twelve Months: Cigarettes Days Per Week of Alcohol Use: 7 Number of Drinks Per Day: 2 Total Drinks Per Week: 14 Date of Last Drink: 01/11/21 Time of Last Drink: 19:00 Recreational Drug Use History: No - HOME MEDS Home Medications: Home Meds Acetaminophen [Tylenol] 2 tab PO Q6H PRN 01/12/21 [History] Albuterol [Proventil HFA] 2 puff INH Q4H PRN 01/12/21 [History] Aspirin [Ecotrin EC] 81 mg PO DAILY 01/12/21 [History] Budesonide [Pulmicort] 2 ml NEB BID 01/12/21 [History] Cholecalciferol (Vitamin D3) [Vitamin D3] 1 tab PO DAILY 01/12/21 [History] Clopidogrel Bisulfate [Plavix] 1 tab PO DAILY 01/12/21 [History] DULoxetine [Cymbalta] 1 tab PO BEDTIME 01/12/21 [History] Ferrous Sulfate [Iron] 1 tab PO BID 01/12/21 [History] Folic Acid 1 tab PO DAILY 01/12/21 [History] Furosemide [Lasix] 20 mg PO DAILY 01/12/21 [History] Hydrocodone/Acetaminophen [HYDROcodone-Acetaminophen 5-325 MG] 1 tab PO Q6H PRN 01/12/21 [History] Melatonin 1 tab PO BEDTIME PRN 01/12/21 [History] Pantoprazole Sodium [Protonix] 40 mg PO DAILY 01/12/21 [History] Potassium Chloride [Klor-Con M20] 2 tab PO BID 01/12/21 [History] Pravastatin [Pravachol] 1 tab PO BEDTIME 01/12/21 [History] QUEtiapine Fumarate [Seroquel] 50 mg PO BEDTIME 01/12/21 [History] Sennosides/Docusate Sodium [Senna-Docusate Sodium Tablet] 2 tab PO BID 01/12/21 [History] Trolamine Salicylate/Aloe Vera [Aspercreme 10%] 1 applic TOP BID PRN 01/12/21 [History] dilTIAZem HCL [Dilt-XR] 1 tab PO DAILY 01/12/21 [History] traMADol [Ultram] 1 tab PO Q6H PRN 01/12/21 [History] - CURRENT (IN HOUSE) MEDS Current Meds: Current Medications Acetaminophen (Acetaminophen 325 Mg Tab) 650 mg PO Q4H PRN PRN Reason: Pain (Mild 1-3)/fever Albuterol (Albuterol 0.083% 2.5 Mg/3 Ml Neb Soln) 2.5 mg NEB Q2H PRN PRN Reason: Shortness Of Breath/wheezing Albuterol (Albuterol 6.7 Gm Inhaler) 0 gm INH Q4H PRN PRN Reason: shortness of breath Albuterol/Ipratropium (Albuterol/Ipratropium 3.0-0.5 Mg/3 Ml Neb Soln) 3 ml NEB Q6HRRT [facility] Last Admin: 01/13/21 02:57 Dose: 3 ml Documented by: Budesonide (Budesonide 0.5 Mg/2 Ml Neb Susp) 0.5 mg NEB BID [facility] Last Admin: 01/12/21 21:03 Dose: 0.5 mg Documented by: Morphine Sulfate 8 mg/Epinephrine HCl 0.3 mg/Cefuroxime Sodium 750 mg/Ketorolac Tromethamine 30 mg/Sodium Chloride 7.9 ml 0 mg .XX ASDIRECTED PRN PRN Reason: Pain Stop: 01/13/21 18:00 Diltiazem HCl (Diltiazem 120 Mg Cap.Cd) 120 mg PO DAILY [facility] Duloxetine HCl (Duloxetine 30 Mg Cap) 30 mg PO BEDTIME [facility] Last Admin: 01/12/21 20:10 Dose: 30 mg Documented by: Folic Acid (Folic Acid 1 Mg Tab) 1 mg PO DAILY [facility] Furosemide (Furosemide 20 Mg Tab) 20 mg PO DAILY [facility] Hydromorphone HCl (Hydromorphone 0.5 Mg/0.5 Ml Syringe) 0.5 mg IVPUSH Q2H PRN PRN Reason: Pain (severe 7-10) Last Admin: 01/13/21 03:57 Dose: 0.5 mg Documented by: Sodium Chloride (Normal Saline) 1,000 mls @ 100 mls/hr IV ASDIRECTED [facility] Last Admin: 01/13/21 02:05 Dose: 100 mls/hr Documented by: Lorazepam (Lorazepam 1 Mg Tab) 0 mg PO Q1H PRN; Protocol PRN Reason: Withdrawal Symptoms Lorazepam (Lorazepam 2 Mg/Ml Sdv) 0 mg IVPUSH Q15M PRN; Protocol PRN Reason: Withdrawal Symptoms Melatonin (Melatonin 3 Mg Tab) 3 mg PO BEDTIME PRN PRN Reason: INSOMNIA Ondansetron HCl (Ondansetron 4 Mg/2 Ml Sdv) 4 mg IV Q6H PRN PRN Reason: Nausea/Vomiting Oxycodone HCl (Oxycodone 5 Mg Tab) 5 mg PO Q4H PRN PRN Reason: Pain (moderate 4-6) Pantoprazole Sodium (Pantoprazole 40 Mg Tab.Cr) 40 mg PO DAILY [facility] Polyethylene Glycol (Polyethylene Glycol 3350 Powder 17 Gm Packet) 17 gm PO DAILY PRN PRN Reason: Constipation Potassium Chloride (Potassium Chloride 20 Meq Tab.Er) 40 meq PO BID [facility] Last Admin: 01/12/21 20:09 Dose: 40 meq Documented by: Pravastatin Sodium (Pravastatin 20 Mg Tab) 20 mg PO BEDTIME [facility] Last Admin: 01/12/21 20:10 Dose: 20 mg Documented by: Quetiapine Fumarate (Quetiapine 25 Mg Tab) 50 mg PO BEDTIME [facility] Last Admin: 01/12/21 20:09 Dose: 50 mg Documented by: Senna/Docusate Sodium (Docusate Sodium/Sennosides 50-8.6 Mg Tab) 2 tab PO BID [facility] Last Admin: 01/12/21 20:09 Dose: 2 tab Documented by: Tramadol HCl (Tramadol 50 Mg Tab) 50 mg PO Q6H PRN PRN Reason: Pain Discontinued Medications Albuterol (Albuterol 6.7 Gm Inhaler) 0 gm INH QID PRN PRN Reason: shortness of breath
[2021-01-13] MEDS: Potassium Chloride 20 MEQ Tab.ER PO SCH ×2 (09:27→20:58)
[2021-01-13] MEDS: Diltiazem 120 MG Cap.CD PO SCH (09:27)
[2021-01-13] MEDS: Pantoprazole 40 MG Tab.CR PO SCH (09:29)
[2021-01-13] MEDS: Budesonide 0.5 MG/2 ML Neb Susp NEB SCH ×2 (09:34→21:30)
[2021-01-13] MEDS ORDERED: Nicotine 14 MG/24 Hr Patch TRDERM ONE ×2 (10:21→16:00)
[2021-01-13] MEDS ORDERED: Midazolam 1 MG/ML 2 ML SDV ONE (10:41)
[2021-01-13] MEDS ORDERED: Propofol 200 MG/20 ML SDV ONE (10:41)
[2021-01-13] MEDS ORDERED: Ondansetron 4 MG/2 ML SDV ONE (10:41)
[2021-01-13] MEDS ORDERED: fentaNYL 250 MCG/5 ML SDV ONE ×2 (10:41→12:51)
[2021-01-13] MEDS ORDERED: Rocuronium 50 MG/5 ML Vial ONE (10:41)
[2021-01-13] MEDS ORDERED: Lidocaine 1% 4 ML ONE (10:42)
[2021-01-13] MEDS ORDERED: ceFAZolin 1 GM Vial ONE (10:47)
[2021-01-13] MEDS ORDERED: Lactated Ringers 1,000 ML ONE (11:05)
[2021-01-13] MEDS: Morphine 8 MG, EPINEPHrine 0.3 MG, Cefuroxime 750 MG, Ketorolac 30 MG, Sodium Chloride ... PRN ×10 (13:08→13:13)
[2021-01-13] MEDS: Vancomycin 1 GM SDV ONE ×2 (13:08→13:13)
[2021-01-13] MEDS ORDERED: fentaNYL 100 MCG/2 ML SDV IVPUSH PRN (13:55)
--- NOTE | 2021-01-13 13:56 | PCM.POSTAN ---
POST ANESTHESIA ASSESSMENT - MENTAL STATUS Mental Status: Alert, Somnolent - VITAL SIGNS Vital Signs: Last Vital Signs Temp 37.6 C 01/13/21 07:47 Pulse 104 H 01/13/21 09:27 Resp 22 H 01/13/21 07:47 BP 150/72 H 01/13/21 09:27 Pulse Ox 97 01/13/21 09:35 - RESPIRATORY Respiratory Status: Respiratory Rate WNL, Airway Patent, O2 Saturation Stable, Supplemental Oxygen - CARDIOVASCULAR CV Status: Pulse Rate WNL, Blood Pressure Stable - GASTROINTESTINAL GI Status: No Symptoms - PAIN Pain Score: 0 - POST OP HYDRATION Hydration Status: Adequate & Stable - OBSERVATIONS Free Text/Narrative:: no anesthesia complications noted
--- NOTE | 2021-01-13 15:09 | CR ---
Pelvis and left hip: AP view of the pelvis was obtained as well as crosstable lateral views of the left hip. Comparison: No prior study is available. Left hip prosthesis is seen. Components are aligned. Vascular calcification is noted. Underlying bony structure show nothing acute. Impression: 1. Normal appearing left hip prosthesis. 2. Vascular calcification. Diagnostic code #2
[2021-01-13] MEDS: Folic Acid 1 MG Tab PO SCH (15:33)
[2021-01-13] MEDS: Furosemide 20 MG Tab PO SCH (15:34)
[2021-01-13] MEDS: Thiamine 100 MG Tab PO SCH (15:34)
[2021-01-13] MEDS: ceFAZolin 2 GM in Premix Bag 1 BAG IV SCH (18:02)
[2021-01-13] MEDS: LORazepam 2 MG/ML SDV IVPUSH PRN (18:03)
[2021-01-13] MEDS: QUEtiapine 25 MG Tab PO SCH (21:05)
[2021-01-13] MEDS: DULoxetine 30 MG Cap PO SCH (21:05)
[2021-01-13] MEDS: Ferrous Sulfate 324 MG Tab.EC PO SCH (21:05)
[2021-01-13] MEDS: Pravastatin 20 MG Tab PO SCH (21:05)
[2021-01-14] MEDS: oxyCODONE 5 MG Tab PO PRN ×2 (02:15→08:54)
[2021-01-14] MEDS: Sodium Chloride 0.9% 1,000 ML IV SCH (02:16)
[2021-01-14] MEDS: Albuterol/Ipratropium 3.0-0.5 MG/3 ML Neb Soln NEB SCH ×4 (02:25→20:02)
[2021-01-14] MEDS: ceFAZolin 2 GM in Premix Bag 1 BAG IV SCH ×2 (03:17→10:40)
--- NOTE | 2021-01-14 08:04 | PCM48HPAN ---
Post Anesthesia Note - EVALUATION WITHIN 48HRS OF ANESTHETIC Vital Signs in Normal Range: Yes Patient Participated in Evaluation: Yes Respiratory Function Stable: Yes Airway Patent: Yes Cardiovascular Function Stable: Yes Hydration Status Stable: Yes Pain Control Satisfactory: Yes (states has a little pain) Nausea and Vomiting Control Satisfactory: Yes Mental Status Recovered: Yes Vital Signs: Last Vital Signs Temp 98.8 F 01/14/21 03:26 Pulse 100 01/14/21 03:26 Resp 18 01/14/21 03:26 BP 110/62 01/14/21 03:26 Pulse Ox 90 L 01/14/21 03:26 - COMMENTS/OBSERVATIONS Free Text/Narrative:: patient states only a little pain- pulling at covers and ekg cords. reorientated.
--- NOTE | 2021-01-14 08:35 | PCM.PN ---
- General Info Date of Service: 01/14/21 Admission Dx/Problem (Free Text): Admission Diagnosis/Problem Admission Diagnosis/Problem Fracture of left hip Functional Status: Reports: Pain Controlled, Tolerating Diet, Ambulating, Urinating. Denies: New Symptoms - Review of Systems General: Reports: Weakness. Denies: Fever, Fatigue, Malaise, Chills HEENT: Reports: No Symptoms. Denies: Headaches, Sore Throat Pulmonary: Reports: No Symptoms. Denies: Shortness of Breath, Cough, Sputum, Wheezing Cardiovascular: Reports: No Symptoms. Denies: Chest Pain, Palpitations, Dyspnea on Exertion Gastrointestinal: Reports: No Symptoms. Denies: Abdominal Pain, Constipation, Diarrhea, Nausea, Vomiting Genitourinary: Reports: No Symptoms. Denies: Pain Musculoskeletal: Reports: Leg Pain (left hip ), Joint Pain (left hip) Skin: Reports: No Symptoms. Denies: Cyanosis Neurological: Reports: Confusion, Tremors, Difficulty Walking, Weakness, Gait Disturbance. Denies: Dizziness, Headache, Numbness, Pre-Existing Deficit, Seizure, Syncope, Tingling, Trouble Speaking Psychiatric: Reports: Hallucinations. Denies: Agitation - Patient Data Vitals - Most Recent: Last Vital Signs Temp 98.8 F 01/14/21 03:26 Pulse 100 01/14/21 03:26 Resp 18 01/14/21 03:26 BP 110/62 01/14/21 03:26 Pulse Ox 90 L 01/14/21 03:26 Weight - Most Recent: 177 lb 3.2 oz I&O - Last 24 Hours: Intake & Output 01/13/21 01/14/21 01/14/21 22:59 06:59 14:59 Intake Total 0 1585 Balance 0 1585 Lab Results Last 24 Hours: Laboratory Results - last 24 hr 01/13/21 01/14/21 01/14/21 Range/Units 17:01 07:39 07:39 WBC 10.74 H (3.98-10.04) K/mm3 RBC 3.14 L (3.98-5.22) M/mm3 Hgb 9.0 L (11.2-15.7) gm/dl Hct 29.5 L (34.1-44.9) % MCV 93.9 (79.4-94.8) fl MCH 28.7 (25.6-32.2) pg MCHC 30.5 L (32.2-35.5) g/dl RDW Std Deviation 49.5 H (36.4-46.3) fL Plt Count 285 (182-369) K/mm3 MPV 9.0 L (9.4-12.3) fl Neut % (Auto) 78.0 H (34.0-71.1) % Lymph % (Auto) 11.0 L (19.3-51.7) % [place] % (Auto) 7.9 (4.7-12.5) % Eos % (Auto) 2.9 (0.7-5.8) Baso % (Auto) 0.2 (0.1-1.2) % Neut # (Auto) 8.38 H (1.56-6.13) K/mm3 Lymph # (Auto) 1.18 (1.18-3.74) K/mm3 [place] # (Auto) 0.85 H (0.24-0.36) K/mm3 Eos # (Auto) 0.31 (0.04-0.36) K/mm3 Baso # (Auto) 0.02 (0.01-0.08) K/mm3 Sodium 139 (136-145) mEq/L Potassium 4.9 (3.5-5.1) mEq/L Chloride 104 (98-107) mEq/L Carbon Dioxide 27 (21-32) mEq/L Anion Gap 12.9 (5-15) BUN 13 (7-18) mg/dL Creatinine 1.2 H (0.55-1.02) mg/dL Est Cr Clr Drug Dosing 37.67 mL/min Estimated GFR (MDRD) 44 (>60) mL/min BUN/Creatinine Ratio 10.8 L (14-18) Glucose 105 H (70-99) mg/dL Calcium 7.8 L (8.5-10.1) mg/dL Magnesium 2.1 (1.8-2.4) mg/dL Total Bilirubin 0.4 (0.2-1.0) mg/dL AST 62 H (15-37) U/L ALT 20 (14-59) U/L Alkaline Phosphatase 118 H (46-116) U/L Total Protein 5.6 L (6.4-8.2) g/dl Albumin 2.4 L (3.4-5.0) g/dl Globulin 3.2 gm/dL Albumin/Globulin Ratio 0.8 L (1-2) MRSA (PCR) Negative Med Orders - Current: Current Medications Acetaminophen (Acetaminophen 325 Mg Tab) 650 mg PO Q4H PRN PRN Reason: Pain (Mild 1-3)/fever Albuterol (Albuterol 0.083% 2.5 Mg/3 Ml Neb Soln) 2.5 mg NEB Q2H PRN PRN Reason: Shortness Of Breath/wheezing Albuterol (Albuterol 6.7 Gm Inhaler) 0 gm INH Q4H PRN PRN Reason: shortness of breath Albuterol/Ipratropium (Albuterol/Ipratropium 3.0-0.5 Mg/3 Ml Neb Soln) 3 ml NEB Q6HRRT [facility] Last Admin: 01/14/21 02:25 Dose: 3 ml Documented by: Aspirin (Aspirin 81 Mg Tab.Ec) 81 mg PO DAILY [facility] Budesonide (Budesonide 0.5 Mg/2 Ml Neb Susp) 0.5 mg NEB BID [facility] Last Admin: 01/13/21 21:30 Dose: 0.5 mg Documented by: Clopidogrel Bisulfate (Clopidogrel 75 Mg Tab) 75 mg PO DAILY [facility] Diltiazem HCl (Diltiazem 120 Mg Cap.Cd) 120 mg PO DAILY [facility] Last Admin: 01/13/21 09:27 Dose: 120 mg Documented by: Duloxetine HCl (Duloxetine 30 Mg Cap) 30 mg PO BEDTIME [facility] Last Admin: 01/13/21 21:05 Dose: 30 mg Documented by: Ferrous Sulfate (Ferrous Sulfate 324 Mg Tab.Ec) 324 mg PO BID [facility] Last Admin: 01/13/21 21:05 Dose: 324 mg Documented by: Folic Acid (Folic Acid 1 Mg Tab) 1 mg PO DAILY [facility] Last Admin: 01/13/21 15:33 Dose: Not Given Documented by: Furosemide (Furosemide 20 Mg Tab) 20 mg PO DAILY [facility] Last Admin: 01/13/21 15:34 Dose: Not Given Documented by: Hydromorphone HCl (Hydromorphone 0.5 Mg/0.5 Ml Syringe) 0.5 mg IVPUSH Q2H PRN PRN Reason: Pain (severe 7-10) Last Admin: 01/13/21 03:57 Dose: 0.5 mg Documented by: Sodium Chloride (Normal Saline) 1,000 mls @ 100 mls/hr IV ASDIRECTED [facility] Last Admin: 01/14/21 02:16 Dose: 100 mls/hr Documented by: Cefazolin Sodium/Dextrose 2 gm (/ Premix) 50 mls @ 100 mls/hr IV Q8H [facility] Stop: 01/14/21 11:29 Last Admin: 01/14/21 03:17 Dose: 100 mls/hr Documented by: Lorazepam (Lorazepam 1 Mg Tab) 0 mg PO Q1H PRN; Protocol PRN Reason: Withdrawal Symptoms Lorazepam (Lorazepam 2 Mg/Ml Sdv) 0 mg IVPUSH Q15M PRN; Protocol PRN Reason: Withdrawal Symptoms Last Admin: 01/13/21 18:03 Dose: 1 mg Documented by: Melatonin (Melatonin 3 Mg Tab) 3 mg PO BEDTIME PRN PRN Reason: INSOMNIA Ondansetron HCl (Ondansetron 4 Mg/2 Ml Sdv) 4 mg IV Q6H PRN PRN Reason: Nausea/Vomiting Oxycodone HCl (Oxycodone 5 Mg Tab) 5 mg PO Q4H PRN PRN Reason: Pain (moderate 4-6) Last Admin: 01/14/21 02:15 Dose: 5 mg Documented by: Pantoprazole Sodium (Pantoprazole 40 Mg Tab.Cr) 40 mg PO DAILY [facility] Last Admin: 01/13/21 09:29 Dose: 40 mg Documented by: Polyethylene Glycol (Polyethylene Glycol 3350 Powder 17 Gm Packet) 17 gm PO DAILY PRN PRN Reason: Constipation Pravastatin Sodium (Pravastatin 20 Mg Tab) 20 mg PO BEDTIME [facility] Last Admin: 01/13/21 21:05 Dose: 20 mg Documented by: Quetiapine Fumarate (Quetiapine 25 Mg Tab) 50 mg PO BEDTIME [facility] Last Admin: 01/13/21 21:05 Dose: 50 mg Documented by: Senna/Docusate Sodium (Docusate Sodium/Sennosides 50-8.6 Mg Tab) 2 tab PO BID [facility] Last Admin: 01/13/21 21:05 Dose: 2 tab Documented by: Thiamine HCl (Thiamine 100 Mg Tab) 100 mg PO DAILY [facility] Last Admin: 01/13/21 15:34 Dose: Not Given Documented by: Tramadol HCl (Tramadol 50 Mg Tab) 50 mg PO Q6H PRN PRN Reason: Pain Discontinued Medications Albuterol (Albuterol 6.7 Gm Inhaler) 0 gm INH QID PRN PRN Reason: shortness of breath Cefazolin Sodium (Cefazolin 1 Gm Vial) Confirm Administered Dose 2 gm .ROUTE .STK-MED ONE Stop: 01/13/21 10:48 Morphine Sulfate 8 mg/Epinephrine HCl 0.3 mg/Cefuroxime Sodium 750 mg/Ketorolac Tromethamine 30 mg/Sodium Chloride 7.9 ml 0 mg .XX ASDIRECTED PRN PRN Reason: Pain Stop: 01/13/21 18:00 Last Admin: 01/13/21 13:13 Dose: 788.3 mg Documented by: Fentanyl (Fentanyl 250 Mcg/5 Ml Sdv) Confirm Administered Dose 250 mcg .ROUTE .STK-MED ONE Stop: 01/13/21 10:42 Fentanyl (Fentanyl 250 Mcg/5 Ml Sdv) Confirm Administered Dose 250 mcg .ROUTE .STK-MED ONE Stop: 01/13/21 12:52 Fentanyl (Fentanyl 100 Mcg/2 Ml Sdv) 50 mcg IVPUSH Q5M PRN PRN Reason: Pain Stop: 01/13/21 18:00 Lidocaine HCl (Xylocaine-Mpf 1%) Confirm Administered Dose 4 mls @ as directed .ROUTE .STK-MED ONE Stop: 01/13/21 10:43 Lactated Ringer's (Ringers, Lactated) Confirm Administered Dose 1,000 mls @ as directed .ROUTE .STK-MED ONE Stop: 01/13/21 11:06 Midazolam HCl (Midazolam 1 Mg/Ml 2 Ml Sdv) Confirm Administered Dose 2 mg .ROUTE .STK-MED ONE Stop: 01/13/21 10:42 Miscellaneous Information (Remove Patch) 0 ea TRDERM ONETIME ONE Stop: 01/13/21 10:31 Last Admin: 01/13/21 15:48 Dose: Not Given Documented by: Miscellaneous Medication (Phenylephrine Hcl In 0.9% Nacl 1 Mg/10 Ml Syringe) Confirm Administered Dose 1 mg .ROUTE .STK-MED ONE Stop: 01/13/21 12:19 Nicotine (Nicotine 14 Mg/24 Hr Patch) 14 mg TRDERM ONETIME ONE Stop: 01/13/21 16:01 Last Admin: 01/13/21 15:54 Dose: 14 mg Documented by: Ondansetron HCl (Ondansetron 4 Mg/2 Ml Sdv) Confirm Administered Dose 4 mg .ROUTE .STK-MED ONE Stop: 01/13/21 10:42 Potassium Chloride (Potassium Chloride 20 Meq Tab.Er) 40 meq PO BID [facility] Last Admin: 01/13/21 20:58 Dose: Not Given Documented by: Propofol (Propofol 200 Mg/20 Ml Sdv) Confirm Administered Dose 200 mg .ROUTE .STK-MED ONE Stop: 01/13/21 10:42 Rocuronium [place] (Rocuronium 50 Mg/5 Ml Vial) Confirm Administered Dose 50 mg .ROUTE .STK-MED ONE Stop: 01/13/21 10:42 Tranexamic Acid (Tranexamic Acid 1,000 Mg/10 Ml Amp) Confirm Administered Dose 1,000 mg .ROUTE .STK-MED ONE Stop: 01/13/21 11:39 Last Admin: 01/13/21 13:13 Dose: 1,000 mg Documented by: Vancomycin HCl (Vancomycin 1 Gm Sdv) Confirm Administered Dose 1 gm .ROUTE .STK- MED ONE Stop: 01/13/21 11:39 Last Admin: 01/13/21 13:13 Dose: 1 gm Documented by: - Exam Quality Assessment: Supplemental Oxygen (1H), DVT Prophylaxis Urinary Catheter Total Time: 0Days 3Hours General: Alert, Cooperative, No Acute Distress. No: Oriented HEENT: Pupils Equal, Pupils Reactive, Mucous Membr. Moist/[place] Neck: Supple, Trachea Midline Lungs: Clear to Auscultation, Normal Respiratory Effort Cardiovascular: Regular Rate, Regular Rhythm GI/Abdominal Exam: Normal Bowel Sounds, Soft, Non-Tender, No Distention (Female) Exam: Deferred Back Exam: Normal Inspection, Full Range of Motion Extremities: Non-Tender, No Pedal Edema, Leg Pain, Limited Range of Motion Peripheral Pulses: 2+: Radial (L), Radial (R), Dorsalis Pedis (L), Dorsalis Pedis (R) Skin: Warm, Dry, Intact Wound/Incisions: Dressing Dry and Intact, No Drainage Neurological: No New Focal Deficit Psy/Mental Status: Alert, Normal Affect, Hallucinations, Withdrawal Symptoms. No: Labile Mood, Anxious, Depressed, Agitated - Patient Data Lab Results Last 24 hrs: Laboratory Results - last 24 hr 01/13/21 01/14/21 01/14/21 Range/Units 17:01 07:39 07:39 WBC 10.74 H (3.98-10.04) K/mm3 RBC 3.14 L (3.98-5.22) M/mm3 Hgb 9.0 L (11.2-15.7) gm/dl Hct 29.5 L (34.1-44.9) % MCV 93.9 (79.4-94.8) fl MCH 28.7 (25.6-32.2) pg MCHC 30.5 L (32.2-35.5) g/dl RDW Std Deviation 49.5 H (36.4-46.3) fL Plt Count 285 (182-369) K/mm3 MPV 9.0 L (9.4-12.3) fl Neut % (Auto) 78.0 H (34.0-71.1) % Lymph % (Auto) 11.0 L (19.3-51.7) % [place] % (Auto) 7.9 (4.7-12.5) % Eos % (Auto) 2.9 (0.7-5.8) Baso % (Auto) 0.2 (0.1-1.2) % Neut # (Auto) 8.38 H (1.56-6.13) K/mm3 Lymph # (Auto) 1.18 (1.18-3.74) K/mm3 [place] # (Auto) 0.85 H (0.24-0.36) K/mm3 Eos # (Auto) 0.31 (0.04-0.36) K/mm3 Baso # (Auto) 0.02 (0.01-0.08) K/mm3 Sodium 139 (136-145) mEq/L Potassium 4.9 (3.5-5.1) mEq/L Chloride 104 (98-107) mEq/L Carbon Dioxide 27 (21-32) mEq/L Anion Gap 12.9 (5-15) BUN 13 (7-18) mg/dL Creatinine 1.2 H (0.55-1.02) mg/dL Est Cr Clr Drug Dosing 37.67 mL/min Estimated GFR (MDRD) 44 (>60) mL/min BUN/Creatinine Ratio 10.8 L (14-18) Glucose 105 H (70-99) mg/dL Calcium 7.8 L (8.5-10.1) mg/dL Magnesium 2.1 (1.8-2.4) mg/dL Total Bilirubin 0.4 (0.2-1.0) mg/dL AST 62 H (15-37) U/L ALT 20 (14-59) U/L Alkaline Phosphatase 118 H (46-116) U/L Total Protein 5.6 L (6.4-8.2) g/dl Albumin 2.4 L (3.4-5.0) g/dl Globulin 3.2 gm/dL Albumin/Globulin Ratio 0.8 L (1-2) MRSA (PCR) Negative Result Diagrams: 01/14/21 07:39 01/14/21 07:39 Sepsis Event Note - Evaluation Sepsis Screening Result: No Definite Risk - Focused Exam Vital Signs: Vital Signs Temp Pulse Resp BP Pulse Ox Pulse Ox 01/14/21 03:26 98.8 F 100 18 110/62 90 L 01/14/21 02:26 91 L 01/14/21 02:19 103 H 98 01/13/21 23:55 97 01/13/21 23:54 97 01/13/21 23:49 98.2 F 69 18 123/81 97 01/13/21 21:33 96 01/13/21 21:30 96 01/13/21 21:29 96 01/13/21 21:20 98 01/13/21 21:02 99 140/87 92 L - Problem List & Annotations (1) Acute kidney injury SNOMED Code(s): 05401407, 66416256 Code(s): N17.9 - ACUTE KIDNEY FAILURE, UNSPECIFIED Status: Acute Priority: High Current Visit: Yes (2) Alcohol abuse SNOMED Code(s): 39587350 Code(s): F10.10 - ALCOHOL ABUSE, UNCOMPLICATED Status: Chronic Priority: High Current Visit: Yes (3) COPD (chronic obstructive pulmonary disease) with emphysema SNOMED Code(s): 87853887 Code(s): J43.9 - EMPHYSEMA, UNSPECIFIED Status: Chronic Priority: Medium Current Visit: Yes Qualifiers: Emphysema type: unspecified Qualified Code(s): J43.9 - Emphysema, unspecified (4) Hyponatremia SNOMED Code(s): 06417127 Code(s): E87.1 - HYPO-OSMOLALITY AND HYPONATREMIA Status: Resolved Prior ity: Medium Current Visit: Yes (5) Left displaced femoral neck fracture SNOMED Code(s): 8765712, 731521870, 955570017, 07383172514574583 Code(s): S72.002A - FRACTURE OF UNSP PART OF NECK OF LEFT FEMUR, INIT Status: Acute Priority: High Current Visit: Yes (6) Recurrent falls SNOMED Code(s): 397018353 Code(s): R29.6 - REPEATED FALLS Status: Chronic Priority: Medium Curre nt Visit: Yes (7) Tobacco abuse SNOMED Code(s): 008165598 Code(s): Z72.0 - TOBACCO USE Status: Chronic Priority: Medium Current Visit: Yes (8) Alcohol withdrawal SNOMED Code(s): 627776515 Code(s): F10.239 - ALCOHOL DEPENDENCE WITH WITHDRAWAL, UNSPECIFIED Status: Acute Priority: High Current Visit: Yes Qualifiers: Complication of substance-induced condition: with delirium Qualified Code(s): F10.231 - Alcohol dependence with withdrawal delirium (9) S/P hip hemiarthroplasty SNOMED Code(s): 924650776, 871945973, 072023228, 346013358 Code(s): Z96.649 - PRESENCE OF UNSPECIFIED ARTIFICIAL HIP JOINT Status: Acute Priority: High Current Visit: Yes - Problem List Review Problem List Initiated/Reviewed/Updated: Yes - My Orders Last 24 Hours: My Active Orders 01/13/21 08:26 Consult to Occupational Therapy [OT Evaluation and Treatment] [CONS] Routine 01/13/21 09:00 Thiamine [Vitamin B-1] 100 mg PO DAILY 01/13/21 Dinner Regular Diet [DIET] 01/13/21 21:00 Ferrous Sulfate 324 mg PO BID 01/14/21 09:00 Aspirin [Halfprin] 81 mg PO DAILY Clopidogrel [Plavix] 75 mg PO DAILY - Plan Plan:: 70-year-old female from [place], [place] transferred from [facility] emergency department with left femoral neck fracture. Symptoms of pain started the day after Thanksgiving. 01/12/2021 Left femoral neck fracture * Dr. Mayes in orthopedics consulted * Patient denies recent fall History of recurrent falls Alcohol abuse with previous fractures secondary to falls * Patient admits to 2 mixed drinks with [place]ball whiskey per day * Multiple bruises on her arms indicative of recent falls. * She is on Seroquel 50 mg nightly. Tobacco abuse * Admits to 1 pack/day COPD * Home meds include budesonide and albuterol Chronic hyponatremia * Sodium 131 on admission Acute kidney injury * Creatinine prior to arrival was 1.22 this morning. After receiving Toradol and on arrival here creatinine increased to 1.7 Dementia History of stroke * Patient has unreliable history secondary to the above. History of atrial fibrillation currently in sinus rhythm 01/13/2021 70-year-old female admitted to floor with a left hip fracture requiring surgical fixation. Dr. Mayes, orthopedic surgeon is consulted and will perform surgery later today. Patient remains on bedrest. Normal saline continues at 100 mL/h. Renal function has slightly improved although we are unsure of her baseline. She does have a history of daily alcohol use. CIWAA score has been 5-6. She remains on CIWAA protocol. She is on a daily folic acid and we have added patsy ine. She denies any history of withdrawal seizures. She is a daily nicotine user and on a nicotine patch. She remains tachycardic. WBC today is elevated 11.72 which is likely due to stress. Hemoglobin is down to 10.3 we will monitor. Neutrophils are elevated 75.4. Sodium remains 131. Potassium 5.1. Chloride 99. Carbon dioxide 23. Anion gap 14.1. BUN is 11. Creatinine is down to 1.6. GFR is up to 32. Glucose 104. Calcium 8.1. Magnesium 2.3. Total bilirubin 0.6. AST is 67, ALT 25, alkaline phosphatase 148. Protein is 6.2. Albumin is 2.8. She remains on 1.5 L of oxygen likely secondary to narcotic use. She is n.p.o. Home medications have been continued as ordered. She will have PT and OT after surgery. Plan will be for discharge tomorrow pending stability. 01/14/2021 Alcohol withdrawal * CIWA score up to 9 * Starting to hallucinate * Tremorous This is a 7-year-old female omitted the floor with a left hip fracture which was surgically repaired by Dr. Mayes on 01/13/2021 with a left hip hemiarthroplasty. Since that time patient has began displaying withdrawal symptoms. Her CIWA score has been up to 9 and she has been hallucinating at times. She is a daily drinker. CIWA protocol has been increased every hour. PT and OT did see her today and are recommending SNF placement although this evaluation is likely skew ed by her withdrawal symptoms. In addition to her CIWA protocol Ativan we have started Librium 50 mg twice daily. We will consider upgrading to the ICU if her symptoms continue to worsen. Labs today show WBC of 10.74 which is likely stress related. Hemoglobin is 9.0. Platelet 285,000. Neutrophils are elevated at 78.0. Sodium is 139. Potassium 4.9. Chloride 104. Carbon dioxide 27. Anion gap is 12.9. BUN is 13. Creatinine 1.2. GFR 44. Glucose 105. Calcium 7.8. Magnesium 2.1. Total bilirubin 0.4. AST 62, ALT is 20, alkaline phosphatase 118. Protein is 5.6. Albumin is 2.4. MRSA screen was negative. We will continue with SCDs and PAO hose for VT prophylaxis and at patient's home aspirin and Plavix. Patient is a very high fall risk. Nursing has noted a concern with the patient choking on water and we will add his swallow evaluation. Unknown length of stay pending severity of detox and progression with therapies. Plan * Admit to medical floor (Monitor need for ICU upgrade) * Nicotine patch * Follow CBC, CMP, mag * Pain control * PT/OT * CM/SW consultation * Q1Hr CIWA protocol * Start Librium 50mg BID * Telemetry * Swallow evaluation * Home medications as ordered * Thiamine supplementation * EKG and chest x-ray suggest no significant cardiac medical problems * CODE STATUS: Full code * VTE prophylaxis: SCDs and PAO hose, home ASA and Plavix
[2021-01-14] MEDS: Furosemide 20 MG Tab PO SCH (08:48)
[2021-01-14] MEDS: Folic Acid 1 MG Tab PO SCH (08:49)
[2021-01-14] MEDS: Pantoprazole 40 MG Tab.CR PO SCH (08:49)
[2021-01-14] MEDS: Diltiazem 120 MG Cap.CD PO SCH (08:49)
[2021-01-14] MEDS: Ferrous Sulfate 324 MG Tab.EC PO SCH ×2 (08:49→22:00)
[2021-01-14] MEDS: Clopidogrel 75 MG Tab PO SCH (08:49)
[2021-01-14] MEDS: Aspirin 81 MG Tab.EC PO SCH (08:54)
[2021-01-14] MEDS: Thiamine 100 MG Tab PO SCH (08:54)
[2021-01-14] MEDS: LORazepam 2 MG/ML SDV IVPUSH PRN (09:51)
[2021-01-14] MEDS: chlordiazePOXIDE 25 MG Cap PO SCH ×2 (11:04→21:59)
[2021-01-14] MEDS: Budesonide 0.5 MG/2 ML Neb Susp NEB SCH ×2 (11:33→20:02)
[2021-01-14] MEDS ORDERED: LORazepam 2 MG/ML SDV IVPUSH PRN (12:30)
[2021-01-14] MEDS ORDERED: LORazepam 2 MG/ML SDV IVPUSH STA (12:36)
[2021-01-14] MEDS: HYDROmorphone 0.5 MG/0.5 ML Syringe IVPUSH PRN (19:08)
[2021-01-14] MEDS: QUEtiapine 25 MG Tab PO SCH (21:58)
[2021-01-14] MEDS: Pravastatin 20 MG Tab PO SCH (21:59)
[2021-01-14] MEDS: DULoxetine 30 MG Cap PO SCH (22:02)
[2021-01-15] MEDS: Albuterol/Ipratropium 3.0-0.5 MG/3 ML Neb Soln NEB SCH ×4 (02:51→20:20)
[2021-01-15] MEDS: oxyCODONE 5 MG Tab PO PRN ×2 (05:11→13:36)
[2021-01-15] MEDS: chlordiazePOXIDE 25 MG Cap PO SCH ×2 (08:23→21:13)
[2021-01-15] MEDS: Ferrous Sulfate 324 MG Tab.EC PO SCH ×2 (08:27→21:15)
[2021-01-15] MEDS: Pantoprazole 40 MG Tab.CR PO SCH (08:27)
[2021-01-15] MEDS: Aspirin 81 MG Tab.EC PO SCH (08:27)
[2021-01-15] MEDS: Folic Acid 1 MG Tab PO SCH (08:28)
[2021-01-15] MEDS: Clopidogrel 75 MG Tab PO SCH (08:29)
[2021-01-15] MEDS: Diltiazem 120 MG Cap.CD PO SCH (08:29)
[2021-01-15] MEDS: Furosemide 20 MG Tab PO SCH (08:29)
[2021-01-15] MEDS: Thiamine 100 MG Tab PO SCH (08:29)
[2021-01-15] MEDS: Budesonide 0.5 MG/2 ML Neb Susp NEB SCH ×2 (08:53→20:20)
--- NOTE | 2021-01-15 12:58 | PCM.PN ---
- General Info Date of Service: 01/15/21 Admission Dx/Problem (Free Text): Admission Diagnosis/Problem Admission Diagnosis/Problem Fracture of left hip Subjective Update: Patient is confused this morning. She had mostly mumbling speech but denies any pain. Functional Status: Reports: Pain Controlled - Review of Systems General: Reports: Other (Unable to give review of systems) - Patient Data Vitals - Most Recent: Last Vital Signs Temp 99.0 F 01/15/21 08:19 Pulse 100 01/15/21 08:29 Resp 17 01/15/21 08:19 BP 134/64 01/15/21 08:29 Pulse Ox 92 L 01/15/21 08:54 Weight - Most Recent: 176 lb 14.4 oz I&O - Last 24 Hours: Intake & Output 01/14/21 01/15/21 01/15/21 22:59 06:59 14:59 Intake Total 770 400 Balance 770 400 Med Orders - Current: Current Medications Acetaminophen (Acetaminophen 325 Mg Tab) 650 mg PO Q4H PRN PRN Reason: Pain (Mild 1-3)/fever Albuterol (Albuterol 0.083% 2.5 Mg/3 Ml Neb Soln) 2.5 mg NEB Q2H PRN PRN Reason: Shortness Of Breath/wheezing Albuterol (Albuterol 6.7 Gm Inhaler) 0 gm INH Q4H PRN PRN Reason: shortness of breath Albuterol/Ipratropium (Albuterol/Ipratropium 3.0-0.5 Mg/3 Ml Neb Soln) 3 ml NEB Q6HRRT [facility] Last Admin: 01/15/21 08:53 Dose: 3 ml Documented by: Aspirin (Aspirin 81 Mg Tab.Ec) 81 mg PO DAILY [facility] Last Admin: 01/15/21 08:27 Dose: 81 mg Documented by: Budesonide (Budesonide 0.5 Mg/2 Ml Neb Susp) 0.5 mg NEB BID [facility] Last Admin: 01/15/21 08:53 Dose: 0.5 mg Documented by: Chlordiazepoxide HCl (Chlordiazepoxide 25 Mg Cap) 50 mg PO BID [facility] Last Admin: 01/15/21 08:23 Dose: 50 mg Documented by: Clopidogrel Bisulfate (Clopidogrel 75 Mg Tab) 75 mg PO DAILY [facility] Last Admin: 12/04/21 08:29 Dose: 75 mg Documented by: Diltiazem HCl (Diltiazem 120 Mg Cap.Cd) 120 mg PO DAILY [facility] Last Admin: 01/15/21 08:29 Dose: 120 mg Documented by: Duloxetine HCl (Duloxetine 30 Mg Cap) 30 mg PO BEDTIME [facility] Last Admin: 01/14/21 22:02 Dose: 30 mg Documented by: Ferrous Sulfate (Ferrous Sulfate 324 Mg Tab.Ec) 324 mg PO BID [facility] Last Admin: 01/15/21 08:27 Dose: 324 mg Documented by: Folic Acid (Folic Acid 1 Mg Tab) 1 mg PO DAILY [facility] Last Admin: 01/15/21 08:28 Dose: 1 mg Documented by: Furosemide (Furosemide 20 Mg Tab) 20 mg PO DAILY [facility] Last Admin: 01/15/21 08:29 Dose: 20 mg Documented by: Hydromorphone HCl (Hydromorphone 0.5 Mg/0.5 Ml Syringe) 0.5 mg IVPUSH Q2H PRN PRN Reason: Pain (severe 7-10) Last Admin: 01/14/21 19:08 Dose: 0.5 mg Documented by: Lorazepam (Lorazepam 2 Mg/Ml Sdv) 1 - 3 mg IVPUSH Q1H PRN; Protocol PRN Reason: withdrawl Melatonin (Melatonin 3 Mg Tab) 3 mg PO BEDTIME PRN PRN Reason: INSOMNIA Ondansetron HCl (Ondansetron 4 Mg/2 Ml Sdv) 4 mg IV Q6H PRN PRN Reason: Nausea/Vomiting Oxycodone HCl (Oxycodone 5 Mg Tab) 5 mg PO Q4H PRN PRN Reason: Pain (moderate 4-6) Last Admin: 01/15/21 05:11 Dose: 5 mg Documented by: Pantoprazole Sodium (Pantoprazole 40 Mg Tab.Cr) 40 mg PO DAILY [facility] Last Admin: 01/15/21 08:27 Dose: 40 mg Documented by: Polyethylene Glycol (Polyethylene Glycol 3350 Powder 17 Gm Packet) 17 gm PO DAILY PRN PRN Reason: Constipation Pravastatin Sodium (Pravastatin 20 Mg Tab) 20 mg PO BEDTIME [facility] Last Admin: 01/14/21 21:59 Dose: 20 mg Documented by: Quetiapine Fumarate (Quetiapine 25 Mg Tab) 50 mg PO BEDTIME [facility] Last Admin: 01/14/21 21:58 Dose: 50 mg Documented by: Senna/Docusate Sodium (Docusate Sodium/Sennosides 50-8.6 Mg Tab) 2 tab PO BID [facility] Last Admin: 01/15/21 08:23 Dose: 2 tab Documented by: Thiamine HCl (Thiamine 100 Mg Tab) 100 mg PO DAILY [facility] Last Admin: 01/15/21 08:29 Dose: 100 mg Documented by: Tramadol HCl (Tramadol 50 Mg Tab) 50 mg PO Q6H PRN PRN Reason: Pain Discontinued Medications Albuterol (Albuterol 6.7 Gm Inhaler) 0 gm INH QID PRN PRN Reason: shortness of breath Cefazolin Sodium (Cefazolin 1 Gm Vial) Confirm Administered Dose 2 gm .ROUTE .STK-MED ONE Stop: 01/13/21 10:48 Morphine Sulfate 8 mg/Epinephrine HCl 0.3 mg/Cefuroxime Sodium 750 mg/Ketorolac Tromethamine 30 mg/Sodium Chloride 7.9 ml 0 mg .XX ASDIRECTED PRN PRN Reason: Pain Stop: 01/13/21 18:00 Last Admin: 01/13/21 13:13 Dose: 788.3 mg Documented by: Fentanyl (Fentanyl 250 Mcg/5 Ml Sdv) Confirm Administered Dose 250 mcg .ROUTE .STK-MED ONE Stop: 01/13/21 10:42 Fentanyl (Fentanyl 250 Mcg/5 Ml Sdv) Confirm Administered Dose 250 mcg .ROUTE .STK-MED ONE Stop: 01/13/21 12:52 Fentanyl (Fentanyl 100 Mcg/2 Ml Sdv) 50 mcg IVPUSH Q5M PRN PRN Reason: Pain Stop: 01/13/21 18:00 Sodium Chloride (Normal Saline) 1,000 mls @ 100 mls/hr IV ASDIRECTED [facility] Last Admin: 01/14/21 02:16 Dose: 100 mls/hr Documented by: Lidocaine HCl (Xylocaine-Mpf 1%) Confirm Administered Dose 4 mls @ as directed .ROUTE .STK-MED ONE Stop: 01/13/21 10:43 Lactated Ringer's (Ringers, Lactated) Confirm Administered Dose 1,000 mls @ as directed .ROUTE .STK-MED ONE Stop: 01/13/21 11:06 Cefazolin Sodium/Dextrose 2 gm (/ Premix) 50 mls @ 100 mls/hr IV Q8H [facility] Stop: 01/14/21 11:29 Last Admin: 01/14/21 10:40 Dose: 100 mls/hr Documented by: Lorazepam (Lorazepam 1 Mg Tab) 0 mg PO Q1H PRN; Protocol PRN Reason: Withdrawal Symptoms Last Admin: 01/14/21 11:04 Dose: 1 mg Documented by: Lorazepam (Lorazepam 2 Mg/Ml Sdv) 0 mg IVPUSH Q15M PRN; Protocol PRN Reason: Withdrawal Symptoms Last Admin: 01/14/21 09:51 Dose: 1 mg Documented by: Lorazepam (Lorazepam 2 Mg/Ml Sdv) 2 mg IVPUSH ONETIME STA Stop: 01/14/21 12:37 Last Admin: 01/14/21 20:56 Dose: Not Given Documented by: Midazolam HCl (Midazolam 1 Mg/Ml 2 Ml Sdv) Confirm Administered Dose 2 mg .ROUTE .STK-MED ONE Stop: 01/13/21 10:42 Miscellaneous Information (Remove Patch) 0 ea TRDERM ONETIME ONE Stop: 01/13/21 10:31 Last Admin: 01/13/21 15:48 Dose: Not Given Documented by: Miscellaneous Medication (Phenylephrine Hcl In 0.9% Nacl 1 Mg/10 Ml Syringe) Confirm Administered Dose 1 mg .ROUTE .STK-MED ONE Stop: 01/13/21 12:19 Nicotine (Nicotine 14 Mg/24 Hr Patch) 14 mg TRDERM ONETIME ONE Stop: 01/13/21 16:01 Last Admin: 01/13/21 15:54 Dose: 14 mg Documented by: Ondansetron HCl (Ondansetron 4 Mg/2 Ml Sdv) Confirm Administered Dose 4 mg .ROUTE .STK-MED ONE Stop: 01/13/21 10:42 Potassium Chloride (Potassium Chloride 20 Meq Tab.Er) 40 meq PO BID [facility] Last Admin: 01/13/21 20:58 Dose: Not Given Documented by: Propofol (Propofol 200 Mg/20 Ml Sdv) Confirm Administered Dose 200 mg .ROUTE .S TK-MED ONE Stop: 01/13/21 10:42 Rocuronium Mcdonald (Rocuronium 50 Mg/5 Ml Vial) Confirm Administered Dose 50 mg .ROUTE .STK-MED ONE Stop: 01/13/21 10:42 Tranexamic Acid (Tranexamic Acid 1,000 Mg/10 Ml Amp) Confirm Administered Dose 1,000 mg .ROUTE .STK-MED ONE Stop: 01/13/21 11:39 Last Admin: 01/13/21 13:13 Dose: 1,000 mg Documented by: Vancomycin HCl (Vancomycin 1 Gm Sdv) Confirm Administered Dose 1 gm .ROUTE .STK- MED ONE Stop: 01/13/21 11:39 Last Admin: 01/13/21 13:13 Dose: 1 gm Documented by: - Exam Quality Assessment: Supplemental Oxygen Urinary Catheter Total Time: 0Days 3Hours General: Sedated. No: Alert HEENT: Pupils Equal Neck: Supple Lungs: Clear to Auscultation, Normal Respiratory Effort Cardiovascular: Regular Rate, Regular Rhythm GI/Abdominal Exam: Normal Bowel Sounds, Soft, Non-Tender, No Distention, No Abnormal Bruit Extremities: Normal Inspection, Normal Range of Motion, Non-Tender, No Pedal Edema, Normal Capillary Refill Skin: Warm, Dry, Intact Psy/Mental Status: Withdrawal Symptoms - Patient Data Result Diagrams: 01/14/21 07:39 01/14/21 07:39 Sepsis Event Note - Evaluation Sepsis Screening Result: No Definite Risk - Focused Exam Vital Signs: Vital Signs Temp Pulse Resp BP Pulse Ox Pulse Ox 01/15/21 08:54 92 L 01/15/21 08:29 100 134/64 01/15/21 08:19 99.0 F 100 17 134/64 92 L 01/15/21 05:09 97.9 F 97 14 146/75 H 97 01/15/21 02:55 97 - Problem List & Annotations (1) Left displaced femoral neck fracture SNOMED Code(s): 3031418, 063773735, 222635397, 66685985596708077 Code(s): S72.002A - FRACTURE OF UNSP PART OF NECK OF LEFT FEMUR, INIT Status: Acute Priority: High Current Visit: Yes (2) Acute kidney injury SNOMED Code(s): 03681031, 34463470 Code(s): N17.9 - ACUTE KIDNEY FAILURE, UNSPECIFIED Status: Acute Priority: High Current Visit: Yes (3) COPD (chronic obstructive pulmonary disease) with emphysema SNOMED Code(s): 40944232 Code(s): J43.9 - EMPHYSEMA, UNSPECIFIED Status: Chronic Priority: Medium Current Visit: Yes Qualifiers: Emphysema type: unspecified Qualified Code(s): J43.9 - Emphysema, unspecified (4) Hyponatremia SNOMED Code(s): 28394326 Code(s): E87.1 - HYPO-OSMOLALITY AND HYPONATREMIA Status: Resolved Priority: Medium Current Visit: Yes (5) Alcohol abuse SNOMED Code(s): 91277781 Code(s): F10.10 - ALCOHOL ABUSE, UNCOMPLICATED Status: Chronic Priority: High Current Visit: Yes (6) Tobacco abuse SNOMED Code(s): 411713118 Code(s): Z72.0 - TOBACCO USE Status: Chronic Priority: Medium Current Visit: Yes (7) Recurrent falls SNOMED Code(s): 349620835 Code(s): R29.6 - REPEATED FALLS Status: Chronic Priority: Medium Current Visit: Yes - Problem List Review Problem List Initiated/Reviewed/Updated: Yes - My Orders Last 24 Hours: My Active Orders 01/15/21 08:02 Antiembolic Devices [RC] PER UNIT ROUTINE PAO Hose [Antiembolic Hose] [OM.PC] Routine - Plan Plan:: 70-year-old female from [place], [place] transferred from [place] emergency department with left femoral neck fracture. Symptoms of pain started the day after Thanksgiving. 01/12/2021 Left femoral neck fracture * Dr. Mayes in orthopedics consulted * Patient denies recent fall History of recurrent falls Alcohol abuse with previous fractures secondary to falls * Patient admits to 2 mixed drinks with Fireball whiskey per day * Multiple bruises on her arms indicative of recent falls. * She is on Seroquel 50 mg nightly. Tobacco abuse * Admits to 1 pack/day COPD * Home meds include budesonide and albuterol Chronic hyponatremia * Sodium 131 on admission Acute kidney injury * Creatinine prior to arrival was 1.22 this morning. After receiving Toradol and on arrival here creatinine increased to 1.7 Dementia History of stroke * Patient has unreliable history secondary to the above. History of atrial fibrillation currently in sinus rhythm 01/13/2021 70-year-old female admitted to floor with a left hip fracture requiring surgical fixation. Dr. Mayes, orthopedic surgeon is consulted and will perform surgery later today. Patient remains on bedrest. Normal saline continues at 100 mL/h. Renal function has slightly improved although we are unsure of her baseline. She does have a history of daily alcohol use. CIWAA score has been 5-6. She remains on CIWAA protocol. She is on a daily folic acid and we have added thiamine. She denies any history of withdrawal seizures. She is a daily nicotine user and on a nicotine patch. She remains tachycardic. WBC today is elevated 11.72 which is likely due to stress. Hemoglobin is down to 10.3 we will monitor. Neutrophils are elevated 75.4. Sodium remains 131. Potassium 5.1. Chloride 99. Carbon dioxide 23. Anion gap 14.1. BUN is 11. Creatinine is down to 1.6. GFR is up to 32. Glucose 104. Calcium 8.1. Magnesium 2.3. Total bilirubin 0.6. AST is 67, ALT 25, alkaline phosphatase 148. Protein is 6.2. Albumin is 2.8. She remains on 1.5 L of oxygen likely secondary to narcotic use. She is n.p.o. Home medications have been continued as ordered. She will have PT and OT after surgery. Plan will be for discharge tomorrow pending stability. 01/14/2021 Alcohol withdrawal * CIWA score up to 9 * Starting to hallucinate * Tremorous This is a 7-year-old female omitted the floor with a left hip fracture which was surgically repaired by Dr. Mayes on 01/13/2021 with a left hip hemiarthroplasty. Since that time patient has began displaying withdrawal symptoms. Her CIWA score has been up to 9 and she has been hallucinating at times. She is a daily drinker. CIWA protocol has been increased every hour. PT and OT did see her today and are recommending SNF placement although this evaluation is likely skewed by her withdrawal symptoms. In addition to her CIWA protocol Ativan we have started Librium 50 mg twice daily. We will consider upgrading to the ICU if her symptoms continue to worsen. Labs today show WBC of 10.74 which is likely stress related. Hemoglobin is 9.0. Platelet 285,000. Neutrophils are elevated at 78.0. Sodium is 139. Potassium 4.9. Chloride 104. Carbon dioxide 27. Anion gap is 12.9. BUN is 13. Creatinine 1.2. GFR 44. Glucose 105. Calcium 7.8. Magnesium 2.1. Total bilirubin 0.4. AST 62, ALT is 20, alkaline phosphatase 118. Protein is 5.6. Albumin is 2.4. MRSA screen was negative. We will continue with SCDs and PAO hose for VT prophylaxis and at patient's home aspirin and Plavix. Patient is a very high fall risk. Nursing has noted a concern with the patient choking on water and we will add his swallow evaluat ion. Unknown length of stay pending severity of detox and progression with therapies. 01/15/2021 Patient CIWA scores have been low this morning at 1 and 2. She is on lithium s cheduled to help with withdrawal. She still has episodes of confusion, but according to nursing they are interspersed with times where she is alert and oriented. When asleep she does need 1 L nasal cannula. Patient is still requiring some oxycodone for pain. Patient will continue in the hospital for placement. Plan * Admit to medical floor (Monitor need for ICU upgrade) * Nicotine patch * Follow CBC, CMP, mag * Pain control * PT/OT * CM/SW consultation * Q1Hr CIWA protocol * Decrease to Librium 25mg 3 times daily in the morning * Telemetry * Swallow evaluation * Home medications as ordered * Thiamine supplementation * EKG and chest x-ray suggest no significant cardiac medical problems * CODE STATUS: Full code * VTE prophylaxis: SCDs and PAO hose, home ASA and Plavix
[2021-01-15] MEDS: DULoxetine 30 MG Cap PO SCH (21:14)
[2021-01-15] MEDS: QUEtiapine 25 MG Tab PO SCH (21:14)
[2021-01-15] MEDS: Pravastatin 20 MG Tab PO SCH (21:15)
[2021-01-16] MEDS: Albuterol/Ipratropium 3.0-0.5 MG/3 ML Neb Soln NEB SCH ×4 (02:23→20:44)
[2021-01-16] MEDS: oxyCODONE 5 MG Tab PO PRN ×3 (05:37→14:37)
[2021-01-16] MEDS: Budesonide 0.5 MG/2 ML Neb Susp NEB SCH ×2 (08:14→20:44)
[2021-01-16] MEDS ORDERED: Potassium Chloride 20 MEQ Tab.ER PO ONE (08:49)
[2021-01-16] MEDS ORDERED: chlordiazePOXIDE 25 MG Cap PO SCH (09:00)
[2021-01-16] MEDS: Magnesium Oxide 400 MG Tab PO SCH ×2 (10:03→22:26)
[2021-01-16] MEDS: Thiamine 100 MG Tab PO SCH (10:03)
[2021-01-16] MEDS: Pantoprazole 40 MG Tab.CR PO SCH (10:04)
[2021-01-16] MEDS: Diltiazem 120 MG Cap.CD PO SCH (10:04)
[2021-01-16] MEDS: Folic Acid 1 MG Tab PO SCH (10:04)
[2021-01-16] MEDS: Ferrous Sulfate 324 MG Tab.EC PO SCH ×2 (10:04→22:27)
[2021-01-16] MEDS: Clopidogrel 75 MG Tab PO SCH (10:04)
[2021-01-16] MEDS: Furosemide 20 MG Tab PO SCH (10:05)
[2021-01-16] MEDS: Aspirin 81 MG Tab.EC PO SCH (10:06)
--- NOTE | 2021-01-16 14:40 | PCM.PN ---
- General Info Date of Service: 01/16/21 Admission Dx/Problem (Free Text): Admission Diagnosis/Problem Admission Diagnosis/Problem Fracture of left hip Subjective Update: Patient had a little more confusion this morning. There was some reported choking on her medications and it was much more difficult for her to take her medications this morning. As the afternoon went on she had developed a fever and became more lethargic and required a Vikram lift. She responded less to vocal cues. This morning she was switched from Librium 50 mg every 12 hours to 25 mg every 12 hours. She continues to get oxycodone for pain. When I spoke to her this morning she did state that she drinks 2 large drinks a night. When I showed her based on my finger with it was at least 3 inches that she admitted to. - Review of Systems General: Reports: Other (Unable to obtain review of systems) - Patient Data Vitals - Most Recent: Last Vital Signs Temp 97.2 F 01/16/21 12:26 Pulse 114 H 01/16/21 12:26 Resp 30 H 01/16/21 12:26 BP 143/106 H 01/16/21 12:26 Pulse Ox 93 L 01/16/21 12:26 Weight - Most Recent: 175 lb 3.2 oz I&O - Last 24 Hours: Intake & Output 01/15/21 01/16/21 01/16/21 22:59 06:59 14:59 Intake Total 480 200 Balance 480 200 Lab Results Last 24 Hours: Laboratory Results - last 24 hr 01/16/21 01/16/21 Range/Units 06:00 06:00 WBC 10.20 H (3.98-10.04) K/mm3 RBC 3.62 L (3.98-5.22) M/mm3 Hgb 10.1 L (11.2-15.7) gm/dl Hct 33.2 L (34.1-44.9) % MCV 91.7 (79.4-94.8) fl MCH 27.9 (25.6-32.2) pg MCHC 30.4 L (32.2-35.5) g/dl RDW Std Deviation 47.9 H (36.4-46.3) fL Plt Count 385 H D (182-369) K/mm3 MPV 8.9 L (9.4-12.3) fl Neut % (Auto) 77.4 H (34.0-71.1) % Lymph % (Auto) 8.7 L (19.3-51.7) % [place] % (Auto) 9.5 (4.7-12.5) % Eos % (Auto) 3.9 (0.7-5.8) Baso % (Auto) 0.2 (0.1-1.2) % Neut # (Auto) 7.89 H (1.56-6.13) K/mm3 Lymph # (Auto) 0.89 L (1.18-3.74) K/mm3 [place]ton # (Auto) 0.97 H (0.24-0.36) K/mm3 Eos # (Auto) 0.40 H (0.04-0.36) K/mm3 Baso # (Auto) 0.02 (0.01-0.08) K/mm3 Sodium 138 (136-145) mEq/L Potassium 3.3 L D (3.5-5.1) mEq/L Chloride 100 (98-107) mEq/L Carbon Dioxide 26 (21-32) mEq/L Anion Gap 15.3 H (5-15) BUN 12 (7-18) mg/dL Creatinine 0.9 (0.55-1.02) mg/dL Est Cr Clr Drug Dosing 50.23 mL/min Estimated GFR (MDRD) > 60 (>60) mL/min BUN/Creatinine Ratio 13.3 L (14-18) Glucose 94 (70-99) mg/dL Calcium 8.1 L (8.5-10.1) mg/dL Phosphorus 2.9 (2.6-4.7) mg/dL Magnesium 1.7 L (1.8-2.4) mg/dL Total Bilirubin 0.5 (0.2-1.0) mg/dL AST 51 H (15-37) U/L ALT 13 L (14-59) U/L Alkaline Phosphatase 109 (46-116) U/L Total Protein 5.9 L (6.4-8.2) g/dl Albumin 2.3 L (3.4-5.0) g/dl Globulin 3.6 gm/dL Albumin/Globulin Ratio 0.6 L (1-2) Med Orders - Current: Current Medications Acetaminophen (Acetaminophen 325 Mg Tab) 650 mg PO Q4H PRN PRN Reason: Pain (Mild 1-3)/fever Albuterol (Albuterol 0.083% 2.5 Mg/3 Ml Neb Soln) 2.5 mg NEB Q2H PRN PRN Reason: Shortness Of Breath/wheezing Albuterol (Albuterol 6.7 Gm Inhaler) 0 gm INH Q4H PRN PRN Reason: shortness of breath Albuterol/Ipratropium (Albuterol/Ipratropium 3.0-0.5 Mg/3 Ml Neb Soln) 3 ml NEB Q6HRRT [facility] Last Admin: 01/16/21 08:14 Dose: 3 ml Documented by: Aspirin (Aspirin 81 Mg Tab.Ec) 81 mg PO DAILY [facility] Last Admin: 01/16/21 10:06 Dose: 81 mg Documented by: Budesonide (Budesonide 0.5 Mg/2 Ml Neb Susp) 0.5 mg NEB BID [facility] Last Admin: 01/16/21 08:14 Dose: 0.5 mg Documented by: Chlordiazepoxide HCl (Chlordiazepoxide 25 Mg Cap) 25 mg PO BID [facility] Last Admin: 01/16/21 10:05 Dose: 25 mg Documented by: Clopidogrel Bisulfate (Clopidogrel 75 Mg Tab) 75 mg PO DAILY [facility] Last Admin: 01/16/21 10:04 Dose: 75 mg Documented by: Diltiazem HCl (Diltiazem 120 Mg Cap.Cd) 120 mg PO DAILY [facility] Last Admin: 01/16/21 10:04 Dose: 120 mg Documented by: Duloxetine HCl (Duloxetine 30 Mg Cap) 30 mg PO BEDTIME [facility] Last Admin: 01/15/21 21:14 Dose: 30 mg Documented by: Ferrous Sulfate (Ferrous Sulfate 324 Mg Tab.Ec) 324 mg PO BID [facility] Last Admin: 01/16/21 10:04 Dose: 324 mg Documented by: Folic Acid (Folic Acid 1 Mg Tab) 1 mg PO DAILY [facility] Last Admin: 01/16/21 10:04 Dose: 1 mg Documented by: Furosemide (Furosemide 20 Mg Tab) 20 mg PO DAILY [facility] Last Admin: 01/16/21 10:05 Dose: 20 mg Documented by: Hydromorphone HCl (Hydromorphone 0.5 Mg/0.5 Ml Syringe) 0.5 mg IVPUSH Q2H PRN PRN Reason: Pain (severe 7-10) Last Admin: 01/14/21 19:08 Dose: 0.5 mg Documented by: Lorazepam (Lorazepam 2 Mg/Ml Sdv) 1 - 3 mg IVPUSH Q1H PRN; Protocol PRN Reason: withdrawl Magnesium Oxide (Magnesium Oxide 400 Mg Tab) 400 mg PO BID [facility] Last Admin: 01/16/21 10:03 Dose: 400 mg Documented by: Melatonin (Melatonin 3 Mg Tab) 3 mg PO BEDTIME PRN PRN Reason: INSOMNIA Ondansetron HCl (Ondansetron 4 Mg/2 Ml Sdv) 4 mg IV Q6H PRN PRN Reason: Nausea/Vomiting Oxycodone HCl (Oxycodone 5 Mg Tab) 5 mg PO Q4H PRN PRN Reason: Pain (moderate 4-6) Last Admin: 01/16/21 10:37 Dose: 5 mg Documented by: Pantoprazole Sodium (Pantoprazole 40 Mg Tab.Cr) 40 mg PO DAILY [facility] Last Admin: 01/16/21 10:04 Dose: 40 mg Documented by: Polyethylene Glycol (Polyethylene Glycol 3350 Powder 17 Gm Packet) 17 gm PO DAILY PRN PRN Reason: Constipation Pravastatin Sodium (Pravastatin 20 Mg Tab) 20 mg PO BEDTIME [facility] Last Admin: 01/15/21 21:15 Dose: 20 mg Documented by: Quetiapine Fumarate (Quetiapine 25 Mg Tab) 50 mg PO BEDTIME [facility] Last Admin: 01/15/21 21:14 Dose: 50 mg Documented by: Senna/Docusate Sodium (Docusate Sodium/Sennosides 50-8.6 Mg Tab) 2 tab PO BID [facility] Last Admin: 01/16/21 10:03 Dose: 2 tab Documented by: Thiamine HCl (Thiamine 100 Mg Tab) 100 mg PO DAILY [facility] Last Admin: 01/16/21 10:03 Dose: 100 mg Documented by: Tramadol HCl (Tramadol 50 Mg Tab) 50 mg PO Q6H PRN PRN Reason: Pain Discontinued Medications Albuterol (Albuterol 6.7 Gm Inhaler) 0 gm INH QID PRN PRN Reason: shortness of breath Cefazolin Sodium (Cefazolin 1 Gm Vial) Confirm Administered Dose 2 gm .ROUTE .[facility]-MED ONE Stop: 01/13/21 10:48 Chlordiazepoxide HCl (Chlordiazepoxide 25 Mg Cap) 50 mg PO BID [facility] Last Admin: 01/15/21 21:13 Dose: 50 mg Documented by: Morphine Sulfate 8 mg/Epinephrine HCl 0.3 mg/Cefuroxime Sodium 750 mg/Ketorolac Tromethamine 30 mg/Sodium Chloride 7.9 ml 0 mg .XX ASDIRECTED PRN PRN Reason: Pain Stop: 01/13/21 18:00 Last Admin: 01/13/21 13:13 Dose: 788.3 mg Documented by: Fentanyl (Fentanyl 250 Mcg/5 Ml Sdv) Confirm Administered Dose 250 mcg .ROUTE .STK-MED ONE Stop: 01/13/21 10:42 Fentanyl (Fentanyl 250 Mcg/5 Ml Sdv) Confirm Administered Dose 250 mcg .ROUTE .STK-MED ONE Stop: 01/13/21 12:52 Fentanyl (Fentanyl 100 Mcg/2 Ml Sdv) 50 mcg IVPUSH Q5M PRN PRN Reason: Pain Stop: 01/13/21 18:00 Sodium Chloride (Normal Saline) 1,000 mls @ 100 mls/hr IV ASDIRECTED [facility] Last Admin: 01/14/21 02:16 Dose: 100 mls/hr Documented by: Lidocaine HCl (Xylocaine-Mpf 1%) Confirm Administered Dose 4 mls @ as directed .ROUTE .STK-MED ONE Stop: 01/13/21 10:43 Lactated Ringer's (Ringers, Lactated) Confirm Administered Dose 1,000 mls @ as directed .ROUTE .STK-MED ONE Stop: 01/13/21 11:06 Cefazolin Sodium/Dextrose 2 gm (/ Premix) 50 mls @ 100 mls/hr IV Q8H [facility] Stop: 01/14/21 11:29 Last Admin: 01/14/21 10:40 Dose: 100 mls/hr Documented by: Lorazepam (Lorazepam 1 Mg Tab) 0 mg PO Q1H PRN; Protocol PRN Reason: Withdrawal Symptoms Last Admin: 01/14/21 11:04 Dose: 1 mg Documented by: Lorazepam (Lorazepam 2 Mg/Ml Sdv) 0 mg IVPUSH Q15M PRN; Protocol PRN Reason: Withdrawal Symptoms Last Admin: 01/14/21 09:51 Dose: 1 mg Documented by: Lorazepam (Lorazepam 2 Mg/Ml Sdv) 2 mg IVPUSH ONETIME STA Stop: 01/14/21 12:37 Last Admin: 01/14/21 20:56 Dose: Not Given Documented by: Midazolam HCl (Midazolam 1 Mg/Ml 2 Ml Sdv) Confirm Administered Dose 2 mg .ROUTE .STK-MED ONE Stop: 01/13/21 10:42 Miscellaneous Information (Remove Patch) 0 ea TRDERM ONETIME ONE Stop: 01/13/21 10:31 Last Admin: 01/13/21 15:48 Dose: Not Given Documented by: Miscellaneous Medication (Phenylephrine Hcl In 0.9% Nacl 1 Mg/10 Ml Syringe) Confirm Administered Dose 1 mg .ROUTE .STK-MED ONE Stop: 01/13/21 12:19 Nicotine (Nicotine 14 Mg/24 Hr Patch) 14 mg TRDERM ONETIME ONE Stop: 01/13/21 16:01 Last Admin: 01/13/21 15:54 Dose: 14 mg Documented by: Ondansetron HCl (Ondansetron 4 Mg/2 Ml Sdv) Confirm Administered Dose 4 mg .ROUTE .STK-MED ONE Stop: 01/13/21 10:42 Potassium Chloride (Potassium Chloride 20 Meq Tab.Er) 40 meq PO BID [facility] Last Admin: 01/13/21 20:58 Dose: Not Given Documented by: Potassium Chloride (Potassium Chloride 20 Meq Tab.Er) 40 meq PO ONETIME ONE Stop: 01/16/21 08:50 Last Admin: 01/16/21 10:05 Dose: 40 meq Documented by: Propofol (Propofol 200 Mg/20 Ml Sdv) Confirm Administered Dose 200 mg .ROUTE .STK-MED ONE Stop: 01/13/21 10:42 Rocuronium [place] (Rocuronium 50 Mg/5 Ml Vial) Confirm Administered Dose 50 mg .ROUTE .STK-MED ONE Stop: 01/13/21 10:42 Tranexamic Acid (Tranexamic Acid 1,000 Mg/10 Ml Amp) Confirm Administered Dose 1,000 mg .ROUTE .STK-MED ONE Stop: 01/13/21 11:39 Last Admin: 01/13/21 13:13 Dose: 1,000 mg Documented by: Vancomycin HCl (Vancomycin 1 Gm Sdv) Confirm Administered Dose 1 gm .ROUTE .STK- MED ONE Stop: 01/13/21 11:39 Last Admin: 12/02/21 13:13 Dose: 1 gm Documented by: - Exam Quality Assessment: Supplemental Oxygen Urinary Catheter Total Time: 0Days 3Hours General: Lethargic HEENT: Pupils Equal Neck: Supple Lungs: Normal Respiratory Effort, Crackles (Bibasilar) Cardiovascular: Regular Rhythm, Tachycardia GI/Abdominal Exam: Normal Bowel Sounds, Soft, Non-Tender, No Distention Extremities: Normal Inspection, No Pedal Edema, Normal Capillary Refill Skin: Warm, Dry, Intact Psy/Mental Status: Withdrawal Symptoms - Patient Data Lab Results Last 24 hrs: Laboratory Results - last 24 hr 01/16/21 01/16/21 Range/Units 06:00 06:00 WBC 10.20 H (3.98-10.04) K/mm3 RBC 3.62 L (3.98-5.22) M/mm3 Hgb 10.1 L (11.2-15.7) gm/dl Hct 33.2 L (34.1-44.9) % MCV 91.7 (79.4-94.8) fl MCH 27.9 (25.6-32.2) pg MCHC 30.4 L (32.2-35.5) g/dl RDW Std Deviation 47.9 H (36.4-46.3) fL Plt Count 385 H D (182-369) K/mm3 MPV 8.9 L (9.4-12.3) fl Neut % (Auto) 77.4 H (34.0-71.1) % Lymph % (Auto) 8.7 L (19.3-51.7) % Overton % (Auto) 9.5 (4.7-12.5) % Eos % (Auto) 3.9 (0.7-5.8) Baso % (Auto) 0.2 (0.1-1.2) % Neut # (Auto) 7.89 H (1.56-6.13) K/mm3 Lymph # (Auto) 0.89 L (1.18-3.74) K/mm3 [place]ton # (Auto) 0.97 H (0.24-0.36) K/mm3 Eos # (Auto) 0.40 H (0.04-0.36) K/mm3 Baso # (Auto) 0.02 (0.01-0.08) K/mm3 Sodium 138 (136-145) mEq/L Potassium 3.3 L D (3.5-5.1) mEq/L Chloride 100 (98-107) mEq/L Carbon Dioxide 26 (21-32) mEq/L Anion Gap 15.3 H (5-15) BUN 12 (7-18) mg/dL Creatinine 0.9 (0.55-1.02) mg/dL Est Cr Clr Drug Dosing 50.23 mL/min Estimated GFR (MDRD) > 60 (>60) mL/min BUN/Creatinine Ratio 13.3 L (14-18) Glucose 94 (70-99) mg/dL Calcium 8.1 L (8.5-10.1) mg/dL Phosphorus 2.9 (2.6-4.7) mg/dL Magnesium 1.7 L (1.8-2.4) mg/dL Total Bilirubin 0.5 (0.2-1.0) mg/dL AST 51 H (15-37) U/L ALT 13 L (14-59) U/L Alkaline Phosphatase 109 (46-116) U/L Total Protein 5.9 L (6.4-8.2) g/dl Albumin 2.3 L (3.4-5.0) g/dl Globulin 3.6 gm/dL Albumin/Globulin Ratio 0.6 L (1-2) Result Diagrams: 01/16/21 15:29 01/16/21 06:00 Sepsis Event Note - Evaluation Sepsis Screening Result: No Definite Risk - Focused Exam Vital Signs: Vital Signs Temp Pulse Resp BP BP Pulse Ox Pulse Ox 01/16/21 12:26 97.2 F 114 H 30 H 143/106 H 93 L 01/16/21 10:04 109 H 134/90 01/16/21 08:14 91 L 01/16/21 08:02 99.3 F 109 H 24 H 134/90 89 L 01/16/21 05:19 98.2 F 106 H 18 147/86 H 92 L - Problem List & Annotations (1) Left displaced femoral neck fracture SNOMED Code(s): 8016859, 967501022, 740653055, 67067117417967476 Code(s): S72.002A - FRACTURE OF UNSP PART OF NECK OF LEFT FEMUR, INIT Status: Acute Priority: High Current Visit: Yes (2) Acute kidney injury SNOMED Code(s): 23753055, 40126660 Code(s): N17.9 - ACUTE KIDNEY FAILURE, UNSPECIFIED Status: Acute P riority: High Current Visit: Yes (3) COPD (chronic obstructive pulmonary disease) with emphysema SNOMED Code(s): 17844117 Code(s): J43.9 - EMPHYSEMA, UNSPECIFIED Status: Chronic Priority: Medium Current Visit: Yes Qualifiers: Emphysema type: unspecified Qualified Code(s): J43.9 - Emphysema, unspecified (4) Hyponatremia SNOMED Code(s): 69608850 Code(s): E87.1 - HYPO-OSMOLALITY AND HYPONATREMIA Status: Resolved Priority: Medium Current Visit: Yes (5) Alcohol abuse SNOMED Code(s): 67309096 Code(s): F10.10 - ALCOHOL ABUSE, UNCOMPLICATED Status: Chronic Priority: High Current Visit: Yes (6) Tobacco abuse SNOMED Code(s): 230751444 Code(s): Z72.0 - TOBACCO USE Status: Chronic Priority: Medium Current Visit: Yes (7) Recurrent falls SNOMED Code(s): 569989639 Code(s): R29.6 - REPEATED FALLS Status: Chronic Priority: Medium Current Visit: Yes - Problem List Review Problem List Initiated/Reviewed/Updated: Yes - My Orders Last 24 Hours: My Active Orders 01/16/21 09:00 Magnesium Oxide 400 mg PO BID chlordiazePOXIDE [Librium] 25 mg PO BID - Plan Plan:: 70-year-old female from [place], [place] transferred from [place] emergency department with left femoral neck fracture. Symptoms of pain started the day after Thanksgiving. 01/12/2021 Left femoral neck fracture * Dr. Mayes in orthopedics consulted * Patient denies recent fall History of recurrent falls Alcohol abuse with previous fractures secondary to falls * Patient admits to 2 mixed drinks with Fireball whiskey per day * Multiple bruises on her arms indicative of recent falls. * She is on Seroquel 50 mg nightly. Tobacco abuse * Admits to 1 pack/day COPD * Home meds include budesonide and albuterol Chronic hyponatremia * Sodium 131 on admission Acute kidney injury * Creatinine prior to arrival was 1.22 this morning. After receiving Toradol and on arrival here creatinine increased to 1.7 Dementia History of stroke * Patient has unreliable history secondary to the above. History of atrial fibrillation currently in sinus rhythm 01/13/2021 70-year-old female admitted to floor with a left hip fracture requiring surgical fixation. Dr. Mayes, orthopedic surgeon is consulted and will perform surgery later today. Patient remains on bedrest. Normal saline continues at 100 mL/h. Renal function has slightly improved although we are unsure of her baseline. She does have a history of daily alcohol use. CIWAA score has been 5-6. She remains on CIWAA protocol. She is on a daily folic acid and we have added thiamine. She denies any history of withdrawal seizures. She is a daily nicotine user and on a nicotine patch. She remains tachycardic. WBC today is elevated 11.72 which is likely due to stress. Hemoglobin is down to 10.3 we will monitor. Neutrophils are elevated 75.4. Sodium remains 131. Potassium 5.1. Chloride 99. Carbon dioxide 23. Anion gap 14.1. BUN is 11. Creatinine is down to 1.6. GFR is up to 32. Glucose 104. Calcium 8.1. Magnesium 2.3. Total bilirubin 0.6. AST is 67, ALT 25, alkaline phosphatase 148. Protein is 6.2. Albumin is 2.8. She remains on 1.5 L of oxygen likely secondary to n arcotic use. She is n.p.o. Home medications have been continued as ordered. She will have PT and OT after surgery. Plan will be for discharge tomorrow pending stability. 01/14/2021 Alcohol withdrawal * CIWA score up to 9 * Starting to hallucinate * Tremorous This is a 7-year-old female omitted the floor with a left hip fracture which was surgically repaired by Dr. Maeys on 01/13/2021 with a left hip hemiarthroplasty. Since that time patient has began displaying withdrawal symptoms. Her CIWA score has been up to 9 and she has been hallucinating at times. She is a daily drinker. CIWA protocol has been increased every hour. PT and OT did see her today and are recommending SNF placement although this evaluation is likely skewed by her withdrawal symptoms. In addition to her CIWA protocol Ativan we have started Librium 50 mg twice daily. We will consider upgrading to the ICU if her symptoms continue to worsen. Labs today show WBC of 10.74 which is likely stress related. Hemoglobin is 9.0. Platelet 285,000. Neutrophils are elevat ed at 78.0. Sodium is 139. Potassium 4.9. Chloride 104. Carbon dioxide 27. Anion gap is 12.9. BUN is 13. Creatinine 1.2. GFR 44. Glucose 105. Calcium 7.8. Magnesium 2.1. Total bilirubin 0.4. AST 62, ALT is 20, alkaline phosphatase 118. Protein is 5.6. Albumin is 2.4. MRSA screen was negative. We will continue with SCDs and PAO kay for VT prophylaxis and at patient's home aspirin and Plavix. Patient is a very high fall risk. Nursing has noted a concern with the patient choking on water and we will add his swallow evaluation. Unknown length of stay pending severity of detox and progression with therapies. 01/15/2021 Patient CIWA scores have been low this morning at 1 and 2. She is on lithium scheduled to help with withdrawal. She still has episodes of confusion, but according to nursing they are interspersed with times where she is alert and or iented. When asleep she does need 1 L nasal cannula. Patient is still requiring some oxycodone for pain. Patient will continue in the hospital for placement. 01/16/2021 70-year-old female with left hip fracture and alcohol withdrawal developed worsening mental status this morning and more difficulty taking her medications. Nurse reports that she did choke a little on her medications this morning. By this afternoon patient had a fever, became more lethargic and was less responsive. Morning labs were improved with a white count of 10.2. Potassium was down a little at 3.3 as well as a lower magnesium 1.7. Both of these were replaced. Renal function was normal with a creatinine of 0.9. AST was 51 and ALT 13. Patient is receiving oxycodone for breakthrough pain. Last dose of Librium 50 mg was last night at 9 PM and she was switched to 15 mg this morning. Sepsis protocol was started at approximately 1515, please see nursing note for exact timing. CBC, CMP, lactic acid, chest x-ray, blood cultures, UA were all ordered. Fluid bolus of 500 mL of normal saline was ordered. Zosyn after blood cultures obtained. Chest x-ray showed poor inspiration making it difficult to rule out vascular congestion. No significant infiltrates noted. Plan * Admit to medical floor (Monitor need for ICU upgrade) * Nicotine patch * Follow CBC, CMP, mag * Pain control * PT/OT * CM/SW consultation * Q1Hr CIWA protocol * Stop Librium * Start Zosyn for possible aspiration pneumonitis * Continue CIWAA's * Telemetry * Swallow evaluation * Home medications as ordered * Thiamine supplementation * CODE STATUS: Full code * VTE prophylaxis: SCDs and PAO jonie, home ASA and Plavix
[2021-01-16] MEDS ORDERED: Acetaminophen 650 MG Supp RECTAL ONE (15:52)
[2021-01-16] MEDS ORDERED: Sodium Chloride 0.9% 500 ML IV ONE (15:57)
--- NOTE | 2021-01-16 16:20 | CR ---
Chest: Portable view of the chest was obtained. Comparison: Prior chest x-ray of 01/12/21. Heart size is normal. Upper mediastinum felt to be within normal limits for portable technique. Lungs are clear with no acute parenchymal change. Prior right shoulder surgery is noted. Bony structures are osteopenic. Old fractures are noted within several left-sided ribs. Impression: 1. Findings as noted above. 2. Nothing acute is seen on portable chest x-ray. Diagnostic code #2
[2021-01-16 17:26] LABS: CORONAVIRUS COVID-19 NAA NEGATIVE (NEGATIVE)
[2021-01-16] MEDS ORDERED: Diltiazem IR 30 MG Tab PO ONE (19:55)
[2021-01-16] MEDS ORDERED: Piperacillin/Tazobactam 4.5 GM in Sodium Chloride 0.9% 100 ML IV ONE (20:55)
[2021-01-16] MEDS ORDERED: cefTRIAXone 2 GM in Sodium Chloride 0.9% 100 ML IV SCH (21:00)
[2021-01-16] MEDS: cefTRIAXone 2 GM in Sodium Chloride 0.9% 100 ML IV SCH (22:09)
[2021-01-16] MEDS: Sodium Chloride 0.9% 1,000 ML IV SCH (22:09)
[2021-01-16] MEDS: DULoxetine 30 MG Cap PO SCH (22:27)
[2021-01-16] MEDS: Pravastatin 20 MG Tab PO SCH (22:27)
[2021-01-16] MEDS: QUEtiapine 25 MG Tab PO SCH (22:27)
[2021-01-16] MEDS: Acetaminophen 325 MG Tab PO PRN (22:27)
[2021-01-17] MEDS: Albuterol/Ipratropium 3.0-0.5 MG/3 ML Neb Soln NEB SCH ×4 (02:17→20:37)
[2021-01-17] MEDS: oxyCODONE 5 MG Tab PO PRN (04:18)
[2021-01-17] MEDS: Sodium Chloride 0.9% 1,000 ML IV SCH (06:34)
[2021-01-17] MEDS: Budesonide 0.5 MG/2 ML Neb Susp NEB SCH ×2 (08:07→20:37)
--- NOTE | 2021-01-17 08:51 | PCM.PN ---
- General Info Date of Service: 01/17/21 Admission Dx/Problem (Free Text): Admission Diagnosis/Problem Admission Diagnosis/Problem Fracture of left hip Functional Status: Reports: Pain Controlled, Urinating, New Symptoms. Denies: Ambulating - Review of Systems Systems Review Comment:: Unable to reliably obtain ROS due to patient's mental status. - Patient Data Vitals - Most Recent: Last Vital Signs Temp 99.0 F 01/17/21 04:08 Pulse 91 01/17/21 04:08 Resp 18 01/17/21 04:08 BP 134/81 01/17/21 04:08 Pulse Ox 96 01/17/21 08:08 Weight - Most Recent: 174 lb 14.4 oz I&O - Last 24 Hours: Intake & Output 01/16/21 01/17/21 01/17/21 22:59 06:59 14:59 Intake Total 1420 891 Output Total 80 Balance 1340 891 Lab Results Last 24 Hours: Laboratory Results - last 24 hr 01/16/21 01/16/21 01/16/21 Range/Units 15:29 16:42 16:57 WBC 12.80 H (3.98-10.04) K/mm3 RBC 4.20 (3.98-5.22) M/mm3 Hgb 11.8 D (11.2-15.7) gm/dl Hct 37.9 (34.1-44.9) % MCV 90.2 (79.4-94.8) fl MCH 28.1 (25.6-32.2) pg MCHC 31.1 L (32.2-35.5) g/dl RDW Std Deviation 47.8 H (36.4-46.3) fL Plt Count 371 H (182-369) K/mm3 MPV 9.0 L (9.4-12.3) fl Puncture Site ABG pH (7.35-7.45) ABG pCO2 (35.0-45.0) mmHg ABG pO2 (80.0-100.0) mmHg ABG HCO3 (22.0-26.0) meq/L ABG O2 Saturation (96.0-97.0) % ABG Base Excess (-2-2.0) Mario Test A-a Gradient mmHg O2 Delivery Device Oxygen Flow Rate FiO2 (21.00-100.00) % Sodium (136-145) mEq/L Potassium (3.5-5.1) mEq/L Chloride (98-107) mEq/L Carbon Dioxide (21-32) mEq/L Anion Gap (5-15) BUN (7-18) mg/dL Creatinine (0.55-1.02) mg/dL Est Cr Clr Drug Dosing mL/min Estimated GFR (MDRD) (>60) mL/min BUN/Creatinine Ratio (14-18) Glucose (70-99) mg/dL Lactic Acid 1.2 (0.4-2.0) mmol/L Calcium (8.5-10.1) mg/dL Magnesium (1.8-2.4) mg/dL Total Bilirubin (0.2-1.0) mg/dL AST (15-37) U/L ALT (14-59) U/L Alkaline Phosphatase (46-116) U/L Total Protein (6.4-8.2) g/dl Albumin (3.4-5.0) g/dl Globulin gm/dL Albumin/Globulin Ratio (1-2) Urine Color (Yellow) Urine Appearance (Clear) Urine pH (5.0-8.0) Ur Specific [place] (1.005-1.030) Urine Protein (Negative) Urine Glucose (UA) (Negative) Urine Ketones (Negative) Urine Occult Blood (Negative) Urine Nitrite (Negative) Urine Bilirubin (Negative) Urine Urobilinogen (0.2-1.0) Ur Leukocyte Esterase (Negative) U Hyaline Cast (Auto) (0-5) /lpf Urine RBC (0-5) /hpf Urine WBC (0-5) /hpf Ur Squamous Epith Cells (0-5) /hpf Urine Bacteria (FEW) /hpf Urine Mucus (FEW) /hpf Influenza Type A RNA Negative (NEGATIVE) Influenza Type B RNA Negative (NEGATIVE) SARS-CoV-2 RNA (BASIM) Negative (NEGATIVE) 01/16/21 01/16/21 01/17/21 Range/Units 17:15 17:50 08:15 WBC (3.98-10.04) K/mm3 RBC (3.98-5.22) M/mm3 Hgb (11.2-15.7) gm/dl Hct (34.1-44.9) % MCV (79.4-94.8) fl MCH (25.6-32.2) pg MCHC (32.2-35.5) g/dl RDW Std Deviation (36.4-46.3) fL Plt Count (182-369) K/mm3 MPV (9.4-12.3) fl Puncture Site Rt radial ABG pH 7.45 (7.35-7.45) ABG pCO2 38.2 (35.0-45.0) mmHg ABG pO2 57.0 L (80.0-100.0) mmHg ABG HCO3 25.8 (22.0-26.0) meq/L ABG O2 Saturation 86.2 L (96.0-97.0) % ABG Base Excess 2.3 H (-2-2.0) Mario Test Positive A-a Gradient 66 mmHg O2 Delivery Device Nasal cannula Oxygen Flow Rate 1.0 FiO2 24.00 (21.00-100.00) % Sodium 138 (136-145) mEq/L Potassium 3.6 (3.5-5.1) mEq/L Chloride 100 (98-107) mEq/L Carbon Dioxide 28 (21-32) mEq/L Anion Gap 13.6 (5-15) BUN 13 (7-18) mg/dL Creatinine 1.1 H (0.55-1.02) mg/dL Est Cr Clr Drug Dosing 41.09 mL/min Estimated GFR (MDRD) 49 (>60) mL/min BUN/Creatinine Ratio 11.8 L (14-18) Glucose 113 H (70-99) mg/dL Lactic Acid (0.4-2.0) mmol/L Calcium 8.6 (8.5-10.1) mg/dL Magnesium 1.8 (1.8-2.4) mg/dL Total Bilirubin 0.6 (0.2-1.0) mg/dL AST 51 H (15-37) U/L ALT 14 (14-59) U/L Alkaline Phosphatase 110 (46-116) U/L Total Protein 7.0 (6.4-8.2) g/dl Albumin 2.4 L (3.4-5.0) g/dl Globulin 4.6 gm/dL Albumin/Globulin Ratio 0.5 L (1-2) Urine Color Light yellow (Yellow) Urine Appearance Slt cloudy H (Clear) Urine pH 5.5 (5.0-8.0) Ur Specific [place] 1.015 (1.005-1.030) Urine Protein Negative (Negative) Urine Glucose (UA) Negative (Negative) Urine Ketones 1+ H (Negative) Urine Occult Blood Trace-lysed H (Negative) Urine Nitrite Negative (Negative) Urine Bilirubin Negative (Negative) Urine Urobilinogen 0.2 (0.2-1.0) Ur Leukocyte Esterase 1+ H (Negative) U Hyaline Cast (Auto) 5-10 H (0-5) /lpf Urine RBC 5-10 H (0-5) /hpf Urine WBC 40-50 H (0-5) /hpf Ur Squamous Epith Cells 10-20 H (0-5) /hpf Urine Bacteria Few (FEW) /hpf Urine Mucus Few (FEW) /hpf Influenza Type A RNA (NEGATIVE) Influenza Type B RNA (NEGATIVE) SARS-CoV-2 RNA (BASIM) (NEGATIVE) Med Orders - Current: Current Medications Acetaminophen (Acetaminophen 325 Mg Tab) 650 mg PO Q4H PRN PRN Reason: Pain (Mild 1-3)/fever Last Admin: 01/16/21 22:27 Dose: 650 mg Documented by: Albuterol (Albuterol 0.083% 2.5 Mg/3 Ml Neb Soln) 2.5 mg NEB Q2H PRN PRN Reason: Shortness Of Breath/wheezing Albuterol (Albuterol 6.7 Gm Inhaler) 0 gm INH Q4H PRN PRN Reason: shortness of breath Albuterol/Ipratropium (Albuterol/Ipratropium 3.0-0.5 Mg/3 Ml Neb Soln) 3 ml NEB Q6HRRT [facility] Last Admin: 01/17/21 08:07 Dose: 3 ml Documented by: Aspirin (Aspirin 81 Mg Tab.Ec) 81 mg PO DAILY [facility] Last Admin: 01/16/21 10:06 Dose: 81 mg Documented by: Budesonide (Budesonide 0.5 Mg/2 Ml Neb Susp) 0.5 mg NEB BID [facility] Last Admin: 01/17/21 08:07 Dose: 0.5 mg Documented by: Clopidogrel Bisulfate (Clopidogrel 75 Mg Tab) 75 mg PO DAILY [facility] Last Admin: 01/16/21 10:04 Dose: 75 mg Documented by: Diltiazem HCl (Diltiazem 180 Mg Cap.Cd) 180 mg PO DAILY [facility] Duloxetine HCl (Duloxetine 30 Mg Cap) 30 mg PO BEDTIME [facility] Last Admin: 01/16/21 22:27 Dose: 30 mg Documented by: Ferrous Sulfate (Ferrous Sulfate 324 Mg Tab.Ec) 324 mg PO BID [facility] Last Admin: 01/16/21 22:27 Dose: 324 mg Documented by: Folic Acid (Folic Acid 1 Mg Tab) 1 mg PO DAILY [facility] Last Admin: 01/16/21 10:04 Dose: 1 mg Documented by: Furosemide (Furosemide 20 Mg Tab) 20 mg PO DAILY [facility] Last Admin: 01/16/21 10:05 Dose: 20 mg Documented by: Hydromorphone HCl (Hydromorphone 0.5 Mg/0.5 Ml Syringe) 0.5 mg IVPUSH Q2H PRN PRN Reason: Pain (severe 7-10) Last Admin: 01/14/21 19:08 Dose: 0.5 mg Documented by: Sodium Chloride (Normal Saline) 1,000 mls @ 125 mls/hr IV ASDIRECTED [facility] Last Admin: 01/17/21 06:34 Dose: 125 mls/hr Documented by: Ceftriaxone Sodium 2 gm/ (Sodium Chloride) 100 mls @ 200 mls/hr IV Q24H [facility] Last Admin: 01/16/21 22:09 Dose: 200 mls/hr Documented by: Lorazepam (Lorazepam 2 Mg/Ml Sdv) 1 - 3 mg IVPUSH Q1H PRN; Protocol PRN Reason: withdrawl Magnesium Oxide (Magnesium Oxide 400 Mg Tab) 400 mg PO BID [facility] Last Admin: 01/16/21 22:26 Dose: 400 mg Documented by: Melatonin (Melatonin 3 Mg Tab) 3 mg PO BEDTIME PRN PRN Reason: INSOMNIA Ondansetron HCl (Ondansetron 4 Mg/2 Ml Sdv) 4 mg IV Q6H PRN PRN Reason: Nausea/Vomiting Oxycodone HCl (Oxycodone 5 Mg Tab) 5 mg PO Q4H PRN PRN Reason: Pain (moderate 4-6) Last Admin: 01/17/21 04:18 Dose: 5 mg Documented by: Pantoprazole Sodium (Pantoprazole 40 Mg Tab.Cr) 40 mg PO DAILY [facility] Last Admin: 01/16/21 10:04 Dose: 40 mg Documented by: Polyethylene Glycol (Polyethylene Glycol 3350 Powder 17 Gm Packet) 17 gm PO DAILY PRN PRN Reason: Constipation Pravastatin Sodium (Pravastatin 20 Mg Tab) 20 mg PO BEDTIME [facility] Last Admin: 01/16/21 22:27 Dose: 20 mg Documented by: Quetiapine Fumarate (Quetiapine 25 Mg Tab) 50 mg PO BEDTIME [facility] Last Admin: 01/16/21 22:27 Dose: 50 mg Documented by: Senna/Docusate Sodium (Docusate Sodium/Sennosides 50-8.6 Mg Tab) 2 tab PO BID [facility] Last Admin: 01/17/21 04:46 Dose: Not Given Documented by: Thiamine HCl (Thiamine 100 Mg Tab) 100 mg PO DAILY [facility] Last Admin: 01/16/21 10:03 Dose: 100 mg Documented by: Tramadol HCl (Tramadol 50 Mg Tab) 50 mg PO Q6H PRN PRN Reason: Pain Discontinued Medications Acetaminophen (Acetaminophen 650 Mg Supp) 650 mg RECTAL ONETIME ONE Stop: 01/16/21 15:53 Last Admin: 01/16/21 16:03 Dose: 650 mg Documented by: Albuterol (Albuterol 6.7 Gm Inhaler) 0 gm INH QID PRN PRN Reason: shortness of breath Cefazolin Sodium (Cefazolin 1 Gm Vial) Confirm Administered Dose 2 gm .ROUTE .STK-MED ONE Stop: 01/13/21 10:48 Chlordiazepoxide HCl (Chlordiazepoxide 25 Mg Cap) 50 mg PO BID [facility] Last Admin: 01/15/21 21:13 Dose: 50 mg Documented by: Chlordiazepoxide HCl (Chlordiazepoxide 25 Mg Cap) 25 mg PO BID [facility] Last Admin: 01/16/21 10:05 Dose: 25 mg Documented by: Morphine Sulfate 8 mg/Epinephrine HCl 0.3 mg/Cefuroxime Sodium 750 mg/Ketorolac Tromethamine 30 mg/Sodium Chloride 7.9 ml 0 mg .XX ASDIRECTED PRN PRN Reason: Pain Stop: 01/13/21 18:00 Last Admin: 01/13/21 13:13 Dose: 788.3 mg Documented by: Diltiazem HCl (Diltiazem 120 Mg Cap.Cd) 120 mg PO DAILY [facility] Last Admin: 01/16/21 10:04 Dose: 120 mg Documented by: Diltiazem HCl (Diltiazem Ir 30 Mg Tab) 30 mg PO ONETIME ONE Stop: 01/16/21 19:56 Last Admin: 01/16/21 22:08 Dose: 30 mg Documented by: Fentanyl (Fentanyl 250 Mcg/5 Ml Sdv) Confirm Administered Dose 250 mcg .ROUTE .STK-MED ONE Stop: 01/13/21 10:42 Fentanyl (Fentanyl 250 Mcg/5 Ml Sdv) Confirm Administered Dose 250 mcg .ROUTE .STK-MED ONE Stop: 01/13/21 12:52 Fentanyl (Fentanyl 100 Mcg/2 Ml Sdv) 50 mcg IVPUSH Q5M PRN PRN Reason: Pain Stop: 01/13/21 18:00 Sodium Chloride (Normal Saline) 1,000 mls @ 100 mls/hr IV ASDIRECTED [facility] Last Admin: 01/14/21 02:16 Dose: 100 mls/hr Documented by: Lidocaine HCl (Xylocaine-Mpf 1%) Confirm Administered Dose 4 mls @ as directed .ROUTE .STK-MED ONE Stop: 01/13/21 10:43 Lactated Ringer's (Ringers, Lactated) Confirm Administered Dose 1,000 mls @ as directed .ROUTE .STK-MED ONE Stop: 01/13/21 11:06 Cefazolin Sodium/Dextrose 2 gm (/ Premix) 50 mls @ 100 mls/hr IV Q8H [facility] Stop: 01/14/21 11:29 Last Admin: 01/14/21 10:40 Dose: 100 mls/hr Documented by: Sodium Chloride (Normal Saline) 500 mls @ 999 mls/hr IV .BOLUS ONE Stop: 01/16/21 16:27 Last Admin: 01/16/21 16:16 Dose: 999 mls/hr Documented by: Piperacillin Sod/Tazobactam (Sod 4.5 gm/ Sodium Chloride) 100 mls @ 200 mls/hr IV ONETIME ONE Stop: 01/16/21 21:24 Last Admin: 01/16/21 22:50 Dose: Not Given Documented by: Lorazepam (Lorazepam 1 Mg Tab) 0 mg PO Q1H PRN; Protocol PRN Reason: Withdrawal Symptoms Last Admin: 01/14/21 11:04 Dose: 1 mg Documented by: Lorazepam (Lorazepam 2 Mg/Ml Sdv) 0 mg IVPUSH Q15M PRN; Protocol PRN Reason: Withdrawal Symptoms Last Admin: 01/14/21 09:51 Dose: 1 mg Documented by: Lorazepam (Lorazepam 2 Mg/Ml Sdv) 2 mg IVPUSH ONETIME STA Stop: 01/14/21 12:37 Last Admin: 01/14/21 20:56 Dose: Not Given Documented by: Midazolam HCl (Midazolam 1 Mg/Ml 2 Ml Sdv) Confirm Administered Dose 2 mg .ROUTE .STK-MED ONE Stop: 01/13/21 10:42 Miscellaneous Information (Remove Patch) 0 ea TRDERM ONETIME ONE Stop: 01/13/21 10:31 Last Admin: 01/13/21 15:48 Dose: Not Given Documented by: Miscellaneous Medication (Phenylephrine Hcl In 0.9% Nacl 1 Mg/10 Ml Syringe) Confirm Administered Dose 1 mg .ROUTE .STK-MED ONE Stop: 01/13/21 12:19 Nicotine (Nicotine 14 Mg/24 Hr Patch) 14 mg TRDERM ONETIME ONE Stop: 01/13/21 16:01 Last Admin: 01/13/21 15:54 Dose: 14 mg Documented by: Ondansetron HCl (Ondansetron 4 Mg/2 Ml Sdv) Confirm Administered Dose 4 mg .ROUTE .STK-MED ONE Stop: 01/13/21 10:42 Potassium Chloride (Potassium Chloride 20 Meq Tab.Er) 40 meq PO BID [facility] Last Admin: 01/13/21 20:58 Dose: Not Given Documented by: Potassium Chloride (Potassium Chloride 20 Meq Tab.Er) 40 meq PO ONETIME ONE Stop: 01/16/21 08:50 Last Admin: 01/16/21 10:05 Dose: 40 meq Documented by: Propofol (Propofol 200 Mg/20 Ml Sdv) Confirm Administered Dose 200 mg .ROUTE .STK-MED ONE Stop: 01/13/21 10:42 Rocuronium [place] (Rocuronium 50 Mg/5 Ml Vial) Confirm Administered Dose 50 mg .ROUTE .STK-MED ONE Stop: 01/13/21 10:42 Tranexamic Acid (Tranexamic Acid 1,000 Mg/10 Ml Amp) Confirm Administered Dose 1,000 mg .ROUTE .STK-MED ONE Stop: 01/13/21 11:39 Last Admin: 01/13/21 13:13 Dose: 1,000 mg Documented by: Vancomycin HCl (Vancomycin 1 Gm Sdv) Confirm Administered Dose 1 gm .ROUTE .[employer] ONE Stop: 01/13/21 11:39 Last Admin: 01/13/21 13:13 Dose: 1 gm Documented by: - Exam Quality Assessment: Supplemental Oxygen (1L), DVT Prophylaxis. No: Urine Catheter Urinary Catheter Total Time: 3Days 6Hours General: Cooperative, Lethargic (Somewhat ). No: Oriented HEENT: Pupils Equal, Pupils Reactive, Mucous Membr. Moist/[place] Neck: Supple, Trachea Midline Lungs: Normal Respiratory Effort, Rhonchi Cardiovascular: Regular Rhythm, Tachycardia GI/Abdominal Exam: Normal Bowel Sounds, Soft, Non-Tender, No Distention (Female) Exam: Deferred Back Exam: Normal Inspection, Full Range of Motion Extremities: Normal Inspection, Normal Range of Motion, Non-Tender, No Pedal Edema, Normal Capillary Refill, Other (Bandage in place on left upper thigh) Peripheral Pulses: 3+: Radial (L), Radial (R), Dorsalis Pedis (L), Dorsalis Pedis (R) Skin: Warm, Dry, Intact Wound/Incisions: Dressing Dry and Intact Neurological: No New Focal Deficit Psy/Mental Status: Withdrawal Symptoms (Questionable). No: Hallucinations - Patient Data Lab Results Last 24 hrs: Laboratory Results - last 24 hr 01/16/21 01/16/21 01/16/21 Range/Units 15:29 16:42 16:57 WBC 12.80 H (3.98-10.04) K/mm3 RBC 4.20 (3.98-5.22) M/mm3 Hgb 11.8 D (11.2-15.7) gm/dl Hct 37.9 (34.1-44.9) % MCV 90.2 (79.4-94.8) fl MCH 28.1 (25.6-32.2) pg MCHC 31.1 L (32.2-35.5) g/dl RDW Std Deviation 47.8 H (36.4-46.3) fL Plt Count 371 H (182-369) K/mm3 MPV 9.0 L (9.4-12.3) fl Puncture Site ABG pH (7.35-7.45) ABG pCO2 (35.0-45.0) mmHg ABG pO2 (80.0-100.0) mmHg ABG HCO3 (22.0-26.0) meq/L ABG O2 Saturation (96.0-97.0) % ABG Base Excess (-2-2.0) Mario Test A-a Gradient mmHg O2 Delivery Device Oxygen Flow Rate FiO2 (21.00-100.00) % Sodium (136-145) mEq/L Potassium (3.5-5.1) mEq/L Chloride (98-107) mEq/L Carbon Dioxide (21-32) mEq/L Anion Gap (5-15) BUN (7-18) mg/dL Creatinine (0.55-1.02) mg/dL Est Cr Clr Drug Dosing mL/min Estimated GFR (MDRD) (>60) mL/min BUN/Creatinine Ratio (14-18) Glucose (70-99) mg/dL Lactic Acid 1.2 (0.4-2.0) mmol/L Calcium (8.5-10.1) mg/dL Magnesium (1.8-2.4) mg/dL Total Bilirubin (0.2-1.0) mg/dL AST (15-37) U/L ALT (14-59) U/L Alkaline Phosphatase (46-116) U/L Total Protein (6.4-8.2) g/dl Albumin (3.4-5.0) g/dl Globulin gm/dL Albumin/Globulin Ratio (1-2) Urine Color (Yellow) Urine Appearance (Clear) Urine pH (5.0-8.0) Ur Specific [place] (1.005-1.030) Urine Protein (Negative) Urine Glucose (UA) (Negative) Urine Ketones (Negative) Urine Occult Blood (Negative) Urine Nitrite (Negative) Urine Bilirubin (Negative) Urine Urobilinogen (0.2-1.0) Ur Leukocyte Esterase (Negative) U Hyaline Cast (Auto) (0-5) /lpf Urine RBC (0-5) /hpf Urine WBC (0-5) /hpf Ur Squamous Epith Cells (0-5) /hpf Urine Bacteria (FEW) /hpf Urine Mucus (FEW) /hpf Influenza Type A RNA Negative (NEGATIVE) Influenza Type B RNA Negative (NEGATIVE) SARS-CoV-2 RNA (BASIM) Negative (NEGATIVE) 01/16/21 01/16/21 01/17/21 Range/Units 17:15 17:50 08:15 WBC (3.98-10.04) K/mm3 RBC (3.98-5.22) M/mm3 Hgb (11.2-15.7) gm/dl Hct (34.1-44.9) % MCV (79.4-94.8) fl MCH (25.6-32.2) pg MCHC (32.2-35.5) g/dl RDW Std Deviation (36.4-46.3) fL Plt Count (182-369) K/mm3 MPV (9.4-12.3) fl Puncture Site Rt radial ABG pH 7.45 (7.35-7.45) ABG pCO2 38.2 (35.0-45.0) mmHg ABG pO2 57.0 L (80.0-100.0) mmHg ABG HCO3 25.8 (22.0-26.0) meq/L ABG O2 Saturation 86.2 L (96.0-97.0) % ABG Base Excess 2.3 H (-2-2.0) Mario Test Positive A-a Gradient 66 mmHg O2 Delivery Device Nasal cannula Oxygen Flow Rate 1.0 FiO2 24.00 (21.00-100.00) % Sodium 138 (136-145) mEq/L Potassium 3.6 (3.5-5.1) mEq/L Chloride 100 (98-107) mEq/L Carbon Dioxide 28 (21-32) mEq/L Anion Gap 13.6 (5-15) BUN 13 (7-18) mg/dL Creatinine 1.1 H (0.55-1.02) mg/dL Est Cr Clr Drug Dosing 41.09 mL/min Estimated GFR (MDRD) 49 (>60) mL/min BUN/Creatinine Ratio 11.8 L (14-18) Glucose 113 H (70-99) mg/dL Lactic Acid (0.4-2.0) mmol/L Calcium 8.6 (8.5-10.1) mg/dL Magnesium 1.8 (1.8-2.4) mg/dL Total Bilirubin 0.6 (0.2-1.0) mg/dL AST 51 H (15-37) U/L ALT 14 (14-59) U/L Alkaline Phosphatase 110 (46-116) U/L Total Protein 7.0 (6.4-8.2) g/dl Albumin 2.4 L (3.4-5.0) g/dl Globulin 4.6 gm/dL Albumin/Globulin Ratio 0.5 L (1-2) Urine Color Light yellow (Yellow) Urine Appearance Slt cloudy H (Clear) Urine pH 5.5 (5.0-8.0) Ur Specific [place] 1.015 (1.005-1.030) Urine Protein Negative (Negative) Urine Glucose (UA) Negative (Negative) Urine Ketones 1+ H (Negative) Urine Occult Blood Trace-lysed H (Negative) Urine Nitrite Negative (Negative) Urine Bilirubin Negative (Negative) Urine Urobilinogen 0.2 (0.2-1.0) Ur Leukocyte Esterase 1+ H (Negative) U Hyaline Cast (Auto) 5-10 H (0-5) /lpf Urine RBC 5-10 H (0-5) /hpf Urine WBC 40-50 H (0-5) /hpf Ur Squamous Epith Cells 10-20 H (0-5) /hpf Urine Bacteria Few (FEW) /hpf Urine Mucus Few (FEW) /hpf Influenza Type A RNA (NEGATIVE) Influenza Type B RNA (NEGATIVE) SARS-CoV-2 RNA (BASIM) (NEGATIVE) Result Diagrams: 01/17/21 09:00 01/17/21 09:00 Sepsis Event Note - Evaluation Sepsis Screening Result: No Definite Risk - Focused Exam Vital Signs: Vital Signs Temp Temp Pulse Resp BP Pulse Ox Pulse Ox 01/17/21 08:08 96 01/17/21 04:08 99.0 F 91 18 134/81 94 L 01/17/21 02:17 96 01/16/21 23:25 98.9 F 98.9 F 01/16/21 23:13 100.4 F 113 H 24 H 140/74 92 L 01/16/21 22:27 100.4 F - Problem List & Annotations (1) Acute kidney injury SNOMED Code(s): 41723819, 39222003 Code(s): N17.9 - ACUTE KIDNEY FAILURE, UNSPECIFIED Status: Acute Priority: High Current Visit: Yes (2) Alcohol abuse SNOMED Code(s): 40079035 Code(s): F10.10 - ALCOHOL ABUSE, UNCOMPLICATED Status: Chronic Priority: High Current Visit: Yes (3) COPD (chronic obstructive pulmonary disease) with emphysema SNOMED Code(s): 60355475 Code(s): J43.9 - EMPHYSEMA, UNSPECIFIED Status: Chronic Priority: Medium Current Visit: Yes Qualifiers: Emphysema type: unspecified Qualified Code(s): J43.9 - Emphysema, unspecified (4) Hyponatremia SNOMED Code(s): 37674691 Code(s): E87.1 - HYPO-OSMOLALITY AND HYPONATREMIA Status: Resolved Priority: Medium Current Visit: Yes (5) Left displaced femoral neck fracture SNOMED Code(s): 8096718, 103550962, 575536365, [id number] Code(s): S72.002A - FRACTURE OF UNSP PART OF NECK OF LEFT FEMUR, INIT Status: Acute Priority: High Current Visit: Yes (6) Recurrent falls SNOMED Code(s): 484317476 Code(s): R29.6 - REPEATED FALLS Status: Chronic Priority: Medium Current Visit: Yes (7) Tobacco abuse SNOMED Code(s): 394739087 Code(s): Z72.0 - TOBACCO USE Status: Chronic Priority: Medium Current Visit: Yes (8) Alcohol withdrawal SNOMED Code(s): 649342841 Code(s): F10.239 - ALCOHOL DEPENDENCE WITH WITHDRAWAL, UNSPECIFIED Status: Acute Priority: High Current Visit: Yes Qualifiers: Complication of substance-induced condition: with delirium Qualified Code(s): F10.231 - Alcohol dependence with withdrawal delirium (9) S/P hip hemiarthroplasty SNOMED Code(s): 899441935, 298691092, 696717179, 506885078 Code(s): Z96.649 - PRESENCE OF UNSPECIFIED ARTIFICIAL HIP JOINT Status: Acute Priority: High Current Visit: Yes (10) Fever SNOMED Code(s): 117155032 Code(s): R50.9 - FEVER, UNSPECIFIED Status: Acute Priority: High Current Visit: Yes Qualifiers: Fever type: unspecified Qualified Code(s): R50.9 - Fever, unspecified (11) UTI (urinary tract infection) SNOMED Code(s): 14484295 Code(s): N39.0 - URINARY TRACT INFECTION, SITE NOT SPECIFIED Status: Acute Priority: High Current Visit: Yes Qualifiers: Urinary tract infection type: acute cystitis Hematuria presence: with hematuria Qualified Code(s): N30.01 - Acute cystitis with hematuria (12) Sepsis SNOMED Code(s): 52304341 Code(s): A41.9 - SEPSIS, UNSPECIFIED ORGANISM Status: Acute Priority: High Current Visit: Yes Qualifiers: Sepsis type: sepsis due to unspecified organism Sepsis acute organ dysfunction status: with acute organ dysfunction Severe sepsis acute organ dysfunction type: acute renal failure Acute renal failure type: unspecified Severe sepsis shock status: without septic shock Qualified Code(s): A41.9 - Sepsis, unspecified organism; R65.20 - Severe sepsis without septic shock; N17.9 - Acute kidney failure, unspecified (13) Hypomagnesemia SNOMED Code(s): 920798230 Code(s): E83.42 - HYPOMAGNESEMIA Status: Acute Priority: Medium Current Visit: Yes (14) Hypokalemia SNOMED Code(s): 16560115 Code(s): E87.6 - HYPOKALEMIA Status: Acute Priority: High Current Visit: Yes (15) Leukocytosis SNOMED Code(s): 249693768, 949621215 Code(s): D72.829 - ELEVATED WHITE BLOOD CELL COUNT, UNSPECIFIED Status: Acu te Priority: High Current Visit: Yes Qualifiers: Leukocytosis type: unspecified Qualified Code(s): D72.829 - Elevated white blood cell count, unspecified (16) Elevated C-reactive protein (CRP) SNOMED Code(s): 509855529651770 Code(s): R79.82 - ELEVATED C-REACTIVE PROTEIN (CRP) Status: Acute Priority: High Current Visit: Yes - Problem List Review Problem List Initiated/Reviewed/Updated: Yes - Plan Plan:: 70-year-old female from [place], [place] transferred from [place] emergency department with left femoral neck fracture. Symptoms of pain started the day after Thanksgiving. 01/12/2021 Left femoral neck fracture * Dr. Mayes in orthopedics consulted * Patient denies recent fall History of recurrent falls Alcohol abuse with previous fractures secondary to falls * Patient admits to 2 mixed drinks with Fireball whiskey per day * Multiple bruises on her arms indicative of recent falls. * She is on Seroquel 50 mg nightly. Tobacco abuse * Admits to 1 pack/day COPD * Home meds include budesonide and albuterol Chronic hyponatremia * Sodium 131 on admission Acute kidney injury * Creatinine prior to arrival was 1.22 this morning. After receiving Toradol and on arrival here creatinine increased to 1.7 Dementia History of stroke * Patient has unreliable history secondary to the above. History of atrial fibrillation currently in sinus rhythm 01/13/2021 70-year-old female admitted to floor with a left hip fracture requiring surgical fixation. Dr. Mayes, orthopedic surgeon is consulted and will perform surgery later today. Patient remains on bedrest. Normal saline continues at 100 mL/h. Renal function has slightly improved although we are unsure of her baseline. She does have a history of daily alcohol use. CIWAA score has been 5-6. She remains on CIWAA protocol. She is on a daily folic acid and we have added patsy ine. She denies any history of withdrawal seizures. She is a daily nicotine user and on a nicotine patch. She remains tachycardic. WBC today is elevated 11.72 which is likely due to stress. Hemoglobin is down to 10.3 we will monitor. Neutrophils are elevated 75.4. Sodium remains 131. Potassium 5.1. Chloride 99. Carbon dioxide 23. Anion gap 14.1. BUN is 11. Creatinine is down to 1.6. GFR is up to 32. Glucose 104. Calcium 8.1. Magnesium 2.3. Total bilirubin 0.6. AST is 67, ALT 25, alkaline phosphatase 148. Protein is 6.2. Albumin is 2.8. She remains on 1.5 L of oxygen likely secondary to narcotic use. She is n.p.o. Home medications have been continued as ordered. She will have PT and OT after surgery. Plan will be for discharge tomorrow pending stability. 01/14/2021 Alcohol withdrawal * CIWA score up to 9 * Starting to hallucinate * Tremorous This is a 7-year-old female omitted the floor with a left hip fracture which was surgically repaired by Dr. Mayes on 01/13/2021 with a left hip hemiarthroplasty. Since that time patient has began displaying withdrawal symptoms. Her CIWA score has been up to 9 and she has been hallucinating at times. She is a daily drinker. CIWA protocol has been increased every hour. PT and OT did see her today and are recommending SNF placement although this evaluation is likely skew ed by her withdrawal symptoms. In addition to her CIWA protocol Ativan we have started Librium 50 mg twice daily. We will consider upgrading to the ICU if her symptoms continue to worsen. Labs today show WBC of 10.74 which is likely stress related. Hemoglobin is 9.0. Platelet 285,000. Neutrophils are elevated at 78.0. Sodium is 139. Potassium 4.9. Chloride 104. Carbon dioxide 27. Anion gap is 12.9. BUN is 13. Creatinine 1.2. GFR 44. Glucose 105. Calcium 7.8. Magnesium 2.1. Total bilirubin 0.4. AST 62, ALT is 20, alkaline phosphatase 118. Protein is 5.6. Albumin is 2.4. MRSA screen was negative. We will continue with SCDs and PAO quinonese for VT prophylaxis and at patient's home aspirin and Plavix. Patient is a very high fall risk. Nursing has noted a concern with the patient choking on water and we will add his swallow evaluation. Unknown length of stay pending severity of detox and progression with therapies. 01/15/2021 Patient CIWA scores have been low this morning at 1 and 2. She is on lithium scheduled to help with withdrawal. She still has episodes of confusion, but according to nursing they are interspersed with times where she is alert and oriented. When asleep she does need 1 L nasal cannula. Patient is still requiring some oxycodone for pain. Patient will continue in the hospital for placement. 01/16/2021 70-year-old female with left hip fracture and alcohol withdrawal developed worsening mental status this morning and more difficulty taking her medications. Nurse reports that she did choke a little on her medications this morning. By this afternoon patient had a fever, became more lethargic and was less responsive. Morning labs were improved with a white count of 10.2. Potassium was down a little at 3.3 as well as a lower magnesium 1.7. Both of these were replaced. Renal function was normal with a creatinine of 0.9. AST was 51 and ALT 13. Patient is receiving oxycodone for breakthrough pain. Last dose of Librium 50 mg was last night at 9 PM and she was switched to 15 mg this morning. Sepsis protocol was started at approximately 1515, please see nursing note for exact timing. CBC, CMP, lactic acid, chest x-ray, blood cultures, UA were all ordered. Fluid bolus of 500 mL of normal saline was ordered. Zosyn after blood cultures obtained. Chest x-ray showed poor inspiration making it difficult to rule out vascular congestion. No significant infiltrates noted. 01/17/2021 SANTIAGO, Improved Sepsis Suspected UTI Fever Leukocytosis Elevated CRP * Fever 102.9 on evening of 01/16/2021 * UA obtained but contaminated * Urine culture pending * Mildly lethargic * Vikram lift currently * Blood cultures obtained and pending * Renal function improving * Started on Rocephin Hypomagnesemia * Magnesium 1.7 * Supplemented Hypokalemia * Potassium 3.2 * Supplemented 01/17/2021 This is a 7-year-old female admitted the floor after a fall resulting in a left hip hemireplacement which was performed by Dr. Mayes on 01/13/2021. Patient is a known chronic alcohol abuser and does report at least 2 large drinks per night. Unfortunately postsurgically she did begin to detox and was started on Librium which has since been stopped due to changes in her mentation. On the evening of 01/16/2021 she was noted to have acute fever of 102.9. Blood cultures were obtained along with a UA and chest x-ray. UA appears contaminated and unfortunately repeat was not obtained. Unfortunately antibiotic choice is somewhat limited due to patient's allergies to doxycycline and penicillins. She was ultimately started on 2 g Rocephin and today vancomycin with pharmacy to dose was added due to recent surgery and continued low-grade fevers. Patient remains quite confused and at times somewhat lethargic. Swallow eval was ordered and as this progressed patient begins to trail off and lose focus. At this time they are recommending nectar thickened liquids with clear liquid diet and they will attempt to reevaluate. CIWA score has been between 4 and 6 when assessed. This has been lengthened to every 6 4 hours. She remains on 1 L of oxygen. Labs today show an elevated WBC of 15.68. Hemoglobin is 10.9. Platelet are 407,000. Neutrophils are elevated at 89.2%. ABG was obtained in the right radial with a pH of 7.45. PCO2 of 38.2. PO2 57.0. HCO3 of 25.8. O2 saturation of 86.2. Base excess of 2.3. This was obtained on 1 L. Sodium is 141. Potassium is 3.2 and this will be supplemented IV. Chloride is 104. Carbon dioxide is 25. Anion gap is 15.2. BUN is 11. Creatinine 1.0. GFR is up to 55. Magnesium is 1.7 and this will be supplemented via IV. Total bilirubin 0.4. AST is 31, ALT 13, alkaline phosphatase 101. CRP is up to 17.7 although this may be skewed due to the patient's recent surgery. Protein is 6.1. Albumin is 2.3. Procalcitonin and blood and urine cultures are still pending we will watch for these. We will order a 2 view chest x-ray today. Unknown length of stay due to new onset fever with sepsis and suspected UTI. Plan * Admit to medical floor (Monitor need for ICU upgrade) * Nicotine patch * Follow CBC, CMP, mag * Pain control * PT/OT * CM/SW consultation for placement * Q4Hr CIWA protocol * Continue rocephin 2gm for possible UTI * Start vancomycin with pharmacy to dose * Telemetry * Swallow evaluation - nectar thick with clear liquids recommended at moment due to non-cooperation/lethargy * Home medications as ordered * Thiamine supplementation * Supplement magnesium and potassium IV due to swallow difficulty * Repeat CXR today * CODE STATUS: Full code * VTE prophylaxis: SCDs and PAO kay, home ASA and Plavix
[2021-01-17] MEDS: Magnesium Oxide 400 MG Tab PO SCH (09:44)
[2021-01-17] MEDS: Ferrous Sulfate 324 MG Tab.EC PO SCH ×2 (09:45→21:12)
[2021-01-17] MEDS: Pantoprazole 40 MG Tab.CR PO SCH (09:45)
[2021-01-17] MEDS: Thiamine 100 MG Tab PO SCH (09:45)
[2021-01-17] MEDS: Furosemide 20 MG Tab PO SCH (09:45)
[2021-01-17] MEDS: Diltiazem 180 MG Cap.CD PO SCH (09:45)
[2021-01-17] MEDS: Clopidogrel 75 MG Tab PO SCH (09:45)
[2021-01-17] MEDS: Aspirin 81 MG Tab.EC PO SCH (09:45)
[2021-01-17] MEDS: Folic Acid 1 MG Tab PO SCH (09:45)
[2021-01-17] MEDS ORDERED: LORazepam 2 MG/ML SDV IVPUSH PRN (11:18)
[2021-01-17] MEDS ORDERED: Vancomycin 1 GM, Vancomycin 250 MG in Sodium Chloride 0.9% 250 ML IV ONE (11:30)
[2021-01-17] MEDS ORDERED: Magnesium Sulfate/Water 2 GM in Premix Bag 1 BAG IV ONE (11:30)
--- NOTE | 2021-01-17 11:41 | CR ---
Chest: PA and lateral views of the chest were obtained. Comparison: Prior chest x-ray of 01/16/11. Heart size is normal. Upper mediastinum is within normal limits. Slight haziness is seen within the lingula. Lungs otherwise are clear. Prior right shoulder surgery is seen. Impression: 1. Slight haziness within the lingula most likely due to atelectasis. 2. Nothing acute is otherwise seen. Diagnostic code #2
[2021-01-17] MEDS: Potassium Chloride 10 MEQ in Premix Bag 1 BAG IV SCH ×4 (11:49→15:17)
[2021-01-17] MEDS: HYDROmorphone 0.5 MG/0.5 ML Syringe IVPUSH PRN (13:42)
--- NOTE | 2021-01-17 17:37 | CT ---
Head CT Technique: Multiple axial sections through the brain were obtained. Intravenous contrast was not utilized. Reconstructed coronal and sagittal images were obtained. Comparison: No prior intracranial imaging is available. Findings: Ventricles along with basal cisterns and sulci over the convexities are mildly prominent. There is diminished density noted within the periventricular and subcortical white matter which is most likely due to small vessel ischemic demyelination change. 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 No other abnormal parenchymal densities are seen. No evidence of intracranial hemorrhage is seen. No midline shift or mass-effect is seen. Bone window settings were reviewed. Visualized mastoid sinuses and paranasal sinuses show nothing acute. No acute calvarial abnormality is appreciated. Slight atherosclerotic calcification is seen within the carotid siphon. Impression: 1. Senescent change as noted above. 2. No acute intracranial abnormality is appreciated. Diagnostic code #2
[2021-01-17] MEDS: cefTRIAXone 2 GM in Sodium Chloride 0.9% 100 ML IV SCH (21:10)
[2021-01-17] MEDS: Acetaminophen 325 MG Tab PO PRN (21:11)
[2021-01-17] MEDS: DULoxetine 30 MG Cap PO SCH (21:12)
[2021-01-17] MEDS: Pravastatin 20 MG Tab PO SCH (21:12)
[2021-01-18] MEDS: Albuterol/Ipratropium 3.0-0.5 MG/3 ML Neb Soln NEB SCH ×4 (02:40→20:14)
[2021-01-18] MEDS: Acetaminophen 325 MG Tab PO PRN ×2 (04:27→12:14)
--- NOTE | 2021-01-18 07:11 | PCM.PN ---
- General Info Date of Service: 01/18/21 Admission Dx/Problem (Free Text): Admission Diagnosis/Problem Admission Diagnosis/Problem Fracture of left hip Functional Status: Reports: Pain Controlled, Urinating. Denies: Tolerating Diet (NPO but advancing to nectar thickened clear liquids now. NURSE PRACTITIONER ADULT eval today to further advance ), Ambulating, New Symptoms - Review of Systems General: Reports: Weakness. Denies: Fever, Fatigue, Malaise, Chills HEENT: Reports: No Symptoms. Denies: Headaches, Sore Throat Pulmonary: Reports: No Symptoms. Denies: Shortness of Breath, Cough, Sputum, Wheezing Cardiovascular: Reports: No Symptoms. Denies: Chest Pain, Palpitations, Dyspnea on Exertion, Edema Gastrointestinal: Reports: No Symptoms. Denies: Abdominal Pain, Constipation, Diarrhea, Nausea, Vomiting Genitourinary: Reports: No Symptoms. Denies: Pain Musculoskeletal: Reports: Leg Pain (left ), Joint Pain (left hip) Skin: Reports: No Symptoms. Denies: Cyanosis Neurological: Reports: Confusion (mild - improving ), Difficulty Walking, Weakness, Gait Disturbance. Denies: Dizziness, Headache, Numbness, Paresthesia, Pre-Existing Deficit, Seizure, Syncope, Tingling, Tremors, Trouble Speaking, Change in Speech Psychiatric: Reports: No Symptoms. Denies: Depression, Mood Lability, Anxiety, Agitation, Hallucinations - Patient Data Vitals - Most Recent: Last Vital Signs Temp 98.8 F 01/18/21 04:08 Pulse 97 01/18/21 04:08 Resp 16 01/18/21 04:08 BP 136/100 H 01/18/21 04:19 Pulse Ox 96 01/18/21 04:08 Weight - Most Recent: 174 lb 12.8 oz I&O - Last 24 Hours: Intake & Output 01/17/21 01/18/21 01/18/21 22:59 06:59 14:59 Intake Total 800 450 Output Total 60 Balance 740 450 Lab Results Last 24 Hours: Laboratory Results - last 24 hr 01/16/21 01/17/21 01/17/21 Range/Units 20:10 08:15 09:00 WBC 15.68 H (3.98-10.04) K/mm3 RBC 3.84 L (3.98-5.22) M/mm3 Hgb 10.9 L (11.2-15.7) gm/dl Hct 35.0 (34.1-44.9) % MCV 91.1 (79.4-94.8) fl MCH 28.4 (25.6-32.2) pg MCHC 31.1 L (32.2-35.5) g/dl RDW Std Deviation 47.8 H (36.4-46.3) fL Plt Count 407 H (182-369) K/mm3 MPV 9.2 L (9.4-12.3) fl Neut % (Auto) 89.2 H (34.0-71.1) % Lymph % (Auto) 4.1 L (19.3-51.7) % [place] % (Auto) 6.1 (4.7-12.5) % Eos % (Auto) 0.1 L (0.7-5.8) Baso % (Auto) 0.2 (0.1-1.2) % Neut # (Auto) 13.97 H (1.56-6.13) K/mm3 Lymph # (Auto) 0.65 L (1.18-3.74) K/mm3 [place] # (Auto) 0.96 H (0.24-0.36) K/mm3 Eos # (Auto) 0.02 L (0.04-0.36) K/mm3 Baso # (Auto) 0.03 (0.01-0.08) K/mm3 Puncture Site Rt radial ABG pH 7.45 (7.35-7.45) ABG pCO2 38.2 (35.0-45.0) mmHg ABG pO2 57.0 L (80.0-100.0) mmHg ABG HCO3 25.8 (22.0-26.0) meq/L ABG O2 Saturation 86.2 L (96.0-97.0) % ABG Base Excess 2.3 H (-2-2.0) Mario Test Positive A-a Gradient 66 mmHg O2 Delivery Device Nasal cannula Oxygen Flow Rate 1.0 FiO2 24.00 (21.00-100.00) % Sodium (136-145) mEq/L Potassium (3.5-5.1) mEq/L Chloride (98-107) mEq/L Carbon Dioxide (21-32) mEq/L Anion Gap (5-15) BUN (7-18) mg/dL Creatinine (0.55-1.02) mg/dL Est Cr Clr Drug Dosing mL/min Estimated GFR (MDRD) (>60) mL/min BUN/Creatinine Ratio (14-18) Glucose (70-99) mg/dL Calcium (8.5-10.1) mg/dL Magnesium (1.8-2.4) mg/dL Total Bilirubin (0.2-1.0) mg/dL AST (15-37) U/L ALT (14-59) U/L Alkaline Phosphatase (46-116) U/L Ammonia (11-32) umol/L C-Reactive Protein (<1.0) mg/dL Total Protein (6.4-8.2) g/dl Albumin (3.4-5.0) g/dl Globulin gm/dL Albumin/Globulin Ratio (1-2) Procalcitonin 0.19 H ng/mL 01/17/21 01/17/21 01/18/21 Range/Units 09:00 19:48 05:10 WBC 13.89 H (3.98-10.04) K/mm3 RBC 3.74 L (3.98-5.22) M/mm3 Hgb 10.5 L (11.2-15.7) gm/dl Hct 33.6 L (34.1-44.9) % MCV 89.8 (79.4-94.8) fl MCH 28.1 (25.6-32.2) pg MCHC 31.3 L (32.2-35.5) g/dl RDW Std Deviation 47.1 H (36.4-46.3) fL Plt Count 366 (182-369) K/mm3 MPV 9.2 L (9.4-12.3) fl Neut % (Auto) 86.3 H (34.0-71.1) % Lymph % (Auto) 5.6 L (19.3-51.7) % [place] % (Auto) 5.9 (4.7-12.5) % Eos % (Auto) 1.6 (0.7-5.8) Baso % (Auto) 0.3 (0.1-1.2) % Neut # (Auto) 11.99 H (1.56-6.13) K/mm3 Lymph # (Auto) 0.78 L (1.18-3.74) K/mm3 [place] # (Auto) 0.82 H (0.24-0.36) K/mm3 Eos # (Auto) 0.22 (0.04-0.36) K/mm3 Baso # (Auto) 0.04 (0.01-0.08) K/mm3 Puncture Site ABG pH (7.35-7.45) ABG pCO2 (35.0-45.0) mmHg ABG pO2 (80.0-100.0) mmHg ABG HCO3 (22.0-26.0) meq/L ABG O2 Saturation (96.0-97.0) % ABG Base Excess (-2-2.0) Mario Test A-a Gradient mmHg O2 Delivery Device Oxygen Flow Rate FiO2 (21.00-100.00) % Sodium 141 (136-145) mEq/L Potassium 3.2 L (3.5-5.1) mEq/L Chloride 104 (98-107) mEq/L Carbon Dioxide 25 (21-32) mEq/L Anion Gap 15.2 H (5-15) BUN 11 (7-18) mg/dL Creatinine 1.0 (0.55-1.02) mg/dL Est Cr Clr Drug Dosing 45.20 mL/min Estimated GFR (MDRD) 55 (>60) mL/min BUN/Creatinine Ratio 11.0 L (14-18) Glucose 104 H (70-99) mg/dL Calcium 8.0 L (8.5-10.1) mg/dL Magnesium 1.7 L (1.8-2.4) mg/dL Total Bilirubin 0.4 (0.2-1.0) mg/dL AST 31 (15-37) U/L ALT 13 L (14-59) U/L Alkaline Phosphatase 101 (46-116) U/L Ammonia < 10 L (11-32) umol/L C-Reactive Protein 17.1 H* (<1.0) mg/dL Total Protein 6.1 L (6.4-8.2) g/dl Albumin 2.3 L (3.4-5.0) g/dl Globulin 3.8 gm/dL Albumin/Globulin Ratio 0.6 L (1-2) Procalcitonin ng/mL 01/18/21 Range/Units 05:10 WBC (3.98-10.04) K/mm3 RBC (3.98-5.22) M/mm3 Hgb (11.2-15.7) gm/dl Hct (34.1-44.9) % MCV (79.4-94.8) fl MCH (25.6-32.2) pg MCHC (32.2-35.5) g/dl RDW Std Deviation (36.4-46.3) fL Plt Count (182-369) K/mm3 MPV (9.4-12.3) fl Neut % (Auto) (34.0-71.1) % Lymph % (Auto) (19.3-51.7) % [place] % (Auto) (4.7-12.5) % Eos % (Auto) (0.7-5.8) Baso % (Auto) (0.1-1.2) % Neut # (Auto) (1.56-6.13) K/mm3 Lymph # (Auto) (1.18-3.74) K/mm3 [place] # (Auto) (0.24-0.36) K/mm3 Eos # (Auto) (0.04-0.36) K/mm3 Baso # (Auto) (0.01-0.08) K/mm3 Puncture Site ABG pH (7.35-7.45) ABG pCO2 (35.0-45.0) mmHg ABG pO2 (80.0-100.0) mmHg ABG HCO3 (22.0-26.0) meq/L ABG O2 Saturation (96.0-97.0) % ABG Base Excess (-2-2.0) Mario Test A-a Gradient mmHg O2 Delivery Device Oxygen Flow Rate FiO2 (21.00-100.00) % Sodium 143 (136-145) mEq/L Potassium 2.7 L (3.5-5.1) mEq/L Chloride 104 (98-107) mEq/L Carbon Dioxide 26 (21-32) mEq/L Anion Gap 15.7 H (5-15) BUN 13 (7-18) mg/dL Creatinine 0.9 (0.55-1.02) mg/dL Est Cr Clr Drug Dosing 50.23 mL/min Estimated GFR (MDRD) > 60 (>60) mL/min BUN/Creatinine Ratio 14.4 (14-18) Glucose 106 H (70-99) mg/dL Calcium 7.9 L (8.5-10.1) mg/dL Magnesium (1.8-2.4) mg/dL Total Bilirubin 0.3 (0.2-1.0) mg/dL AST 21 (15-37) U/L ALT 15 (14-59) U/L Alkaline Phosphatase 88 (46-116) U/L Ammonia (11-32) umol/L C-Reactive Protein 16.0 H* (<1.0) mg/dL Total Protein 5.7 L (6.4-8.2) g/dl Albumin 2.1 L (3.4-5.0) g/dl Globulin 3.6 gm/dL Albumin/Globulin Ratio 0.6 L (1-2) Procalcitonin ng/mL Med Orders - Current: Current Medications Acetaminophen (Acetaminophen 325 Mg Tab) 650 mg PO Q4H PRN PRN Reason: Pain (Mild 1-3)/fever Last Admin: 01/18/21 04:27 Dose: 650 mg Documented by: Albuterol (Albuterol 0.083% 2.5 Mg/3 Ml Neb Soln) 2.5 mg NEB Q2H PRN PRN Reason: Shortness Of Breath/wheezing Albuterol (Albuterol 6.7 Gm Inhaler) 0 gm INH Q4H PRN PRN Reason: shortness of breath Albuterol/Ipratropium (Albuterol/Ipratropium 3.0-0.5 Mg/3 Ml Neb Soln) 3 ml NEB Q6HRRT [facility] Last Admin: 01/18/21 02:40 Dose: 3 ml Documented by: Aspirin (Aspirin 81 Mg Tab.Ec) 81 mg PO DAILY [facility] Last Admin: 01/17/21 09:45 Dose: 81 mg Documented by: Budesonide (Budesonide 0.5 Mg/2 Ml Neb Susp) 0.5 mg NEB BID [facility] Last Admin: 01/17/21 20:37 Dose: 0.5 mg Documented by: Clopidogrel Bisulfate (Clopidogrel 75 Mg Tab) 75 mg PO DAILY [facility] Last Admin: 01/17/21 09:45 Dose: 75 mg Documented by: Diltiazem HCl (Diltiazem 180 Mg Cap.Cd) 180 mg PO DAILY [facility] Last Admin: 01/17/21 09:45 Dose: 180 mg Documented by: Duloxetine HCl (Duloxetine 30 Mg Cap) 30 mg PO BEDTIME [facility] Last Admin: 01/17/21 21:12 Dose: 30 mg Documented by: Ferrous Sulfate (Ferrous Sulfate 324 Mg Tab.Ec) 324 mg PO BID [facility] Last Admin: 01/17/21 21:12 Dose: 324 mg Documented by: Folic Acid (Folic Acid 1 Mg Tab) 1 mg PO DAILY [facility] Last Admin: 01/17/21 09:45 Dose: 1 mg Documented by: Furosemide (Furosemide 20 Mg Tab) 20 mg PO DAILY [facility] Last Admin: 01/17/21 09:45 Dose: 20 mg Documented by: Hydromorphone HCl (Hydromorphone 0.5 Mg/0.5 Ml Syringe) 0.5 mg IVPUSH Q2H PRN PRN Reason: Pain (severe 7-10) Last Admin: 01/17/21 13:42 Dose: 0.5 mg Documented by: Ceftriaxone Sodium 2 gm/ (Sodium Chloride) 100 mls @ 200 mls/hr IV Q24H [facility] Last Admin: 01/17/21 21:10 Dose: 200 mls/hr Documented by: Vancomycin HCl 1 gm/ Sodium (Chloride) 250 mls @ 250 mls/hr IV Q12H [facility] Last Admin: 01/17/21 22:32 Dose: 250 mls/hr Documented by: Lorazepam (Lorazepam 2 Mg/Ml Sdv) 1 - 3 mg IVPUSH Q4H PRN; Protocol PRN Reason: withdrawl Melatonin (Melatonin 3 Mg Tab) 3 mg PO BEDTIME PRN PRN Reason: INSOMNIA Ondansetron HCl (Ondansetron 4 Mg/2 Ml Sdv) 4 mg IV Q6H PRN PRN Reason: Nausea/Vomiting Oxycodone HCl (Oxycodone 5 Mg Tab) 5 mg PO Q4H PRN PRN Reason: Pain (moderate 4-6) Last Admin: 01/17/21 04:18 Dose: 5 mg Documented by: Pantoprazole Sodium (Pantoprazole 40 Mg Tab.Cr) 40 mg PO DAILY [facility] Last Admin: 01/17/21 09:45 Dose: 40 mg Documented by: Polyethylene Glycol (Polyethylene Glycol 3350 Powder 17 Gm Packet) 17 gm PO DAILY PRN PRN Reason: Constipation Pravastatin Sodium (Pravastatin 20 Mg Tab) 20 mg PO BEDTIME [facility] Last Admin: 01/17/21 21:12 Dose: 20 mg Documented by: Senna/Docusate Sodium (Docusate Sodium/Sennosides 50-8.6 Mg Tab) 2 tab PO BID [facility] Last Admin: 01/17/21 21:18 Dose: Not Given Documented by: Thiamine HCl (Thiamine 100 Mg Tab) 100 mg PO DAILY [facility] Last Admin: 01/17/21 09:45 Dose: 100 mg Documented by: Tramadol HCl (Tramadol 50 Mg Tab) 50 mg PO Q6H PRN PRN Reason: Pain Vancomycin HCl (Pharmacy To Dose - Vancomycin) 1 dose .XX ASDIRECTED PRN PRN Reason: RX TO DOSE VANCO Discontinued Medications Acetaminophen (Acetaminophen 650 Mg Supp) 650 mg RECTAL ONETIME ONE Stop: 01/16/21 15:53 Last Admin: 01/16/21 16:03 Dose: 650 mg Documented by: Albuterol (Albuterol 6.7 Gm Inhaler) 0 gm INH QID PRN PRN Reason: shortness of breath Cefazolin Sodium (Cefazolin 1 Gm Vial) Confirm Administered Dose 2 gm .ROUTE .STK-MED ONE Stop: 01/13/21 10:48 Chlordiazepoxide HCl (Chlordiazepoxide 25 Mg Cap) 50 mg PO BID [facility] Last Admin: 01/15/21 21:13 Dose: 50 mg Documented by: Chlordiazepoxide HCl (Chlordiazepoxide 25 Mg Cap) 25 mg PO BID [facility] Last Admin: 01/16/21 10:05 Dose: 25 mg Documented by: Morphine Sulfate 8 mg/Epinephrine HCl 0.3 mg/Cefuroxime Sodium 750 mg/Ketorolac Tromethamine 30 mg/Sodium Chloride 7.9 ml 0 mg .XX ASDIRECTED PRN PRN Reason: Pain Stop: 01/13/21 18:00 Last Admin: 01/13/21 13:13 Dose: 788.3 mg Documented by: Diltiazem HCl (Diltiazem 120 Mg Cap.Cd) 120 mg PO DAILY [facility] Last Admin: 01/16/21 10:04 Dose: 120 mg Documented by: Diltiazem HCl (Diltiazem Ir 30 Mg Tab) 30 mg PO ONETIME ONE Stop: 01/16/21 19:56 Last Admin: 01/16/21 22:08 Dose: 30 mg Documented by: Fentanyl (Fentanyl 250 Mcg/5 Ml Sdv) Confirm Administered Dose 250 mcg .ROUTE .STK-MED ONE Stop: 01/13/21 10:42 Fentanyl (Fentanyl 250 Mcg/5 Ml Sdv) Confirm Administered Dose 250 mcg .ROUTE .STK-MED ONE Stop: 01/13/21 12:52 Fentanyl (Fentanyl 100 Mcg/2 Ml Sdv) 50 mcg IVPUSH Q5M PRN PRN Reason: Pain Stop: 01/13/21 18:00 Sodium Chloride (Normal Saline) 1,000 mls @ 100 mls/hr IV ASDIRECTED [facility] Last Admin: 01/14/21 02:16 Dose: 100 mls/hr Documented by: Lidocaine HCl (Xylocaine-Mpf 1%) Confirm Administered Dose 4 mls @ as directed .ROUTE .STK-MED ONE Stop: 01/13/21 10:43 Lactated Ringer's (Ringers, Lactated) Confirm Administered Dose 1,000 mls @ as directed .ROUTE .STK-MED ONE Stop: 01/13/21 11:06 Cefazolin Sodium/Dextrose 2 gm (/ Premix) 50 mls @ 100 mls/hr IV Q8H [facility] Stop: 01/14/21 11:29 Last Admin: 01/14/21 10:40 Dose: 100 mls/hr Documented by: Sodium Chloride (Normal Saline) 500 mls @ 999 mls/hr IV .BOLUS ONE Stop: 01/16/21 16:27 Last Admin: 01/16/21 16:16 Dose: 999 mls/hr Documented by: Sodium Chloride (Normal Saline) 1,000 mls @ 125 mls/hr IV ASDIRECTED [facility] Last Admin: 01/17/21 06:34 Dose: 125 mls/hr Documented by: Piperacillin Sod/Tazobactam (Sod 4.5 gm/ Sodium Chloride) 100 mls @ 200 mls/hr IV ONETIME ONE Stop: 01/16/21 21:24 Last Admin: 01/16/21 22:50 Dose: Not Given Documented by: Potassium Chloride 10 meq/ (Premix) 100 mls @ 100 mls/hr IV Q1H [facility] Stop: 01/17/21 14:29 Last Admin: 01/17/21 15:17 Dose: 100 mls/hr Documented by: Vancomycin HCl 1 gm/Vancomycin HCl 250 mg/ Sodium Chloride 250 mls @ 166.667 mls/hr IV ONETIME ONE Stop: 01/17/21 12:59 Last Admin: 01/17/21 11:48 Dose: 166.667 mls/hr Documented by: Magnesium Sulfate 2 gm/ Premix 50 mls @ 25 mls/hr IV ONETIME ONE Stop: 01/17/21 13:29 Last Admin: 01/17/21 13:04 Dose: 25 mls/hr Documented by: Lorazepam (Lorazepam 1 Mg Tab) 0 mg PO Q1H PRN; Protocol PRN Reason: Withdrawal Symptoms Last Admin: 01/14/21 11:04 Dose: 1 mg Documented by: Lorazepam (Lorazepam 2 Mg/Ml Sdv) 0 mg IVPUSH Q15M PRN; Protocol PRN Reason: Withdrawal Symptoms Last Admin: 01/14/21 09:51 Dose: 1 mg Documented by: Lorazepam (Lorazepam 2 Mg/Ml Sdv) 1 - 3 mg IVPUSH Q1H PRN; Protocol PRN Reason: withdrawl Lorazepam (Lorazepam 2 Mg/Ml Sdv) 2 mg IVPUSH ONETIME STA Stop: 01/14/21 12:37 Last Admin: 01/14/21 20:56 Dose: Not Given Documented by: Magnesium Oxide (Magnesium Oxide 400 Mg Tab) 400 mg PO BID [facility] Last Admin: 01/17/21 09:44 Dose: 400 mg Documented by: Midazolam HCl (Midazolam 1 Mg/Ml 2 Ml Sdv) Confirm Administered Dose 2 mg .ROUTE .STK-MED ONE Stop: 01/13/21 10:42 Miscellaneous Information (Remove Patch) 0 ea TRDERM ONETIME ONE Stop: 01/13/21 10:31 Last Admin: 01/13/21 15:48 Dose: Not Given Documented by: Miscellaneous Medication (Phenylephrine Hcl In 0.9% Nacl 1 Mg/10 Ml Syringe) Confirm Administered Dose 1 mg .ROUTE .STK-MED ONE Stop: 01/13/21 12:19 Nicotine (Nicotine 14 Mg/24 Hr Patch) 14 mg TRDERM ONETIME ONE Stop: 01/13/21 16:01 Last Admin: 01/13/21 15:54 Dose: 14 mg Documented by: Ondansetron HCl (Ondansetron 4 Mg/2 Ml Sdv) Confirm Administered Dose 4 mg .ROUTE .STK-MED ONE Stop: 01/13/21 10:42 Potassium Chloride (Potassium Chloride 20 Meq Tab.Er) 40 meq PO BID [facility] Last Admin: 01/13/21 20:58 Dose: Not Given Documented by: Potassium Chloride (Potassium Chloride 20 Meq Tab.Er) 40 meq PO ONETIME ONE Stop: 01/16/21 08:50 Last Admin: 01/16/21 10:05 Dose: 40 meq Documented by: Propofol (Propofol 200 Mg/20 Ml Sdv) Confirm Administered Dose 200 mg .ROUTE .STK-MED ONE Stop: 01/13/21 10:42 Quetiapine Fumarate (Quetiapine 25 Mg Tab) 50 mg PO BEDTIME [facility] Last Admin: 01/16/21 22:27 Dose: 50 mg Documented by: Rocuronium [place] (Rocuronium 50 Mg/5 Ml Vial) Confirm Administered Dose 50 mg .ROUTE .STK-MED ONE Stop: 01/13/21 10:42 Tranexamic Acid (Tranexamic Acid 1,000 Mg/10 Ml Amp) Confirm Administered Dose 1,000 mg .ROUTE .STK-MED ONE Stop: 01/13/21 11:39 Last Admin: 01/13/21 13:13 Dose: 1,000 mg Documented by: Vancomycin HCl (Vancomycin 1 Gm Sdv) Confirm Administered Dose 1 gm .ROUTE .STK- MED ONE Stop: 01/13/21 11:39 Last Admin: 01/13/21 13:13 Dose: 1 gm Documented by: - Exam Quality Assessment: DVT Prophylaxis. No: Supplemental Oxygen, Urine Catheter Urinary Catheter Total Time: 3Days 6Hours General: Alert, Oriented (mostly), Cooperative, No Acute Distress. No: Sedated, Lethargic, Obtunded HEENT: Pupils Equal, Pupils Reactive, Mucous Membr. Moist/[place] Neck: Supple, Trachea Midline Lungs: Normal Respiratory Effort, Decreased Breath Sounds, Rhonchi Cardiovascular: Regular Rate, Regular Rhythm GI/Abdominal Exam: Normal Bowel Sounds, Soft, Non-Tender, No Distention (Female) Exam: Deferred Back Exam: Normal Inspection, Decreased Range of Motion Extremities: Normal Inspection, Normal Range of Motion, Non-Tender, No Pedal Edema, Normal Capillary Refill, Other (Bandage in place on left upper thigh) Peripheral Pulses: 2+: Radial (L), Radial (R), Dorsalis Pedis (L), Dorsalis Pedis (R) Skin: Warm, Dry, Intact Wound/Incisions: Dressing Dry and Intact Neurological: No New Focal Deficit Psy/Mental Status: Alert. No: Labile Mood, Anxious, Agitated, Hallucinations, Withdrawal Symptoms - Patient Data Lab Results Last 24 hrs: Laboratory Results - last 24 hr 01/16/21 01/17/21 01/17/21 Range/Units 20:10 08:15 09:00 WBC 15.68 H (3.98-10.04) K/mm3 RBC 3.84 L (3.98-5.22) M/mm3 Hgb 10.9 L (11.2-15.7) gm/dl Hct 35.0 (34.1-44.9) % MCV 91.1 (79.4-94.8) fl MCH 28.4 (25.6-32.2) pg MCHC 31.1 L (32.2-35.5) g/dl RDW Std Deviation 47.8 H (36.4-46.3) fL Plt Count 407 H (182-369) K/mm3 MPV 9.2 L (9.4-12.3) fl Neut % (Auto) 89.2 H (34.0-71.1) % Lymph % (Auto) 4.1 L (19.3-51.7) % [place] % (Auto) 6.1 (4.7-12.5) % Eos % (Auto) 0.1 L (0.7-5.8) Baso % (Auto) 0.2 (0.1-1.2) % Neut # (Auto) 13.97 H (1.56-6.13) K/mm3 Lymph # (Auto) 0.65 L (1.18-3.74) K/mm3 [place] # (Auto) 0.96 H (0.24-0.36) K/mm3 Eos # (Auto) 0.02 L (0.04-0.36) K/mm3 Baso # (Auto) 0.03 (0.01-0.08) K/mm3 Puncture Site Rt radial ABG pH 7.45 (7.35-7.45) ABG pCO2 38.2 (35.0-45.0) mmHg ABG pO2 57.0 L (80.0-100.0) mmHg ABG HCO3 25.8 (22.0-26.0) meq/L ABG O2 Saturation 86.2 L (96.0-97.0) % ABG Base Excess 2.3 H (-2-2.0) Mario Test Positive A-a Gradient 66 mmHg O2 Delivery Device Nasal cannula Oxygen Flow Rate 1.0 FiO2 24.00 (21.00-100.00) % Sodium (136-145) mEq/L Potassium (3.5-5.1) mEq/L Chloride (98-107) mEq/L Carbon Dioxide (21-32) mEq/L Anion Gap (5-15) BUN (7-18) mg/dL Creatinine (0.55-1.02) mg/dL Est Cr Clr Drug Dosing mL/min Estimated GFR (MDRD) (>60) mL/min BUN/Creatinine Ratio (14-18) Glucose (70-99) mg/dL Calcium (8.5-10.1) mg/dL Magnesium (1.8-2.4) mg/dL Total Bilirubin (0.2-1.0) mg/dL AST (15-37) U/L ALT (14-59) U/L Alkaline Phosphatase (46-116) U/L Ammonia (11-32) umol/L C-Reactive Protein (<1.0) mg/dL Total Protein (6.4-8.2) g/dl Albumin (3.4-5.0) g/dl Globulin gm/dL Albumin/Globulin Ratio (1-2) Procalcitonin 0.19 H ng/mL 01/17/21 01/17/21 01/18/21 Range/Units 09:00 19:48 05:10 WBC 13.89 H (3.98-10.04) K/mm3 RBC 3.74 L (3.98-5.22) M/mm3 Hgb 10.5 L (11.2-15.7) gm/dl Hct 33.6 L (34.1-44.9) % MCV 89.8 (79.4-94.8) fl MCH 28.1 (25.6-32.2) pg MCHC 31.3 L (32.2-35.5) g/dl RDW Std Deviation 47.1 H (36.4-46.3) fL Plt Count 366 (182-369) K/mm3 MPV 9.2 L (9.4-12.3) fl Neut % (Auto) 86.3 H (34.0-71.1) % Lymph % (Auto) 5.6 L (19.3-51.7) % [place] % (Auto) 5.9 (4.7-12.5) % Eos % (Auto) 1.6 (0.7-5.8) Baso % (Auto) 0.3 (0.1-1.2) % Neut # (Auto) 11.99 H (1.56-6.13) K/mm3 Lymph # (Auto) 0.78 L (1.18-3.74) K/mm3 [place] # (Auto) 0.82 H (0.24-0.36) K/mm3 Eos # (Auto) 0.22 (0.04-0.36) K/mm3 Baso # (Auto) 0.04 (0.01-0.08) K/mm3 Puncture Site ABG pH (7.35-7.45) ABG pCO2 (35.0-45.0) mmHg ABG pO2 (80.0-100.0) mmHg ABG HCO3 (22.0-26.0) meq/L ABG O2 Saturation (96.0-97.0) % ABG Base Excess (-2-2.0) Mario Test A-a Gradient mmHg O2 Delivery Device Oxygen Flow Rate FiO2 (21.00-100.00) % Sodium 141 (136-145) mEq/L Potassium 3.2 L (3.5-5.1) mEq/L Chloride 104 (98-107) mEq/L Carbon Dioxide 25 (21-32) mEq/L Anion Gap 15.2 H (5-15) BUN 11 (7-18) mg/dL Creatinine 1.0 (0.55-1.02) mg/dL Est Cr Clr Drug Dosing 45.20 mL/min Estimated GFR (MDRD) 55 (>60) mL/min BUN/Creatinine Ratio 11.0 L (14-18) Glucose 104 H (70-99) mg/dL Calcium 8.0 L (8.5-10.1) mg/dL Magnesium 1.7 L (1.8-2.4) mg/dL Total Bilirubin 0.4 (0.2-1.0) mg/dL AST 31 (15-37) U/L ALT 13 L (14-59) U/L Alkaline Phosphatase 101 (46-116) U/L Ammonia < 10 L (11-32) umol/L C-Reactive Protein 17.1 H* (<1.0) mg/dL Total Protein 6.1 L (6.4-8.2) g/dl Albumin 2.3 L (3.4-5.0) g/dl Globulin 3.8 gm/dL Albumin/Globulin Ratio 0.6 L (1-2) Procalcitonin ng/mL 01/18/21 Range/Units 05:10 WBC (3.98-10.04) K/mm3 RBC (3.98-5.22) M/mm3 Hgb (11.2-15.7) gm/dl Hct (34.1-44.9) % MCV (79.4-94.8) fl MCH (25.6-32.2) pg MCHC (32.2-35.5) g/dl RDW Std Deviation (36.4-46.3) fL Plt Count (182-369) K/mm3 MPV (9.4-12.3) fl Neut % (Auto) (34.0-71.1) % Lymph % (Auto) (19.3-51.7) % [place] % (Auto) (4.7-12.5) % Eos % (Auto) (0.7-5.8) Baso % (Auto) (0.1-1.2) % Neut # (Auto) (1.56-6.13) K/mm3 Lymph # (Auto) (1.18-3.74) K/mm3 [place] # (Auto) (0.24-0.36) K/mm3 Eos # (Auto) (0.04-0.36) K/mm3 Baso # (Auto) (0.01-0.08) K/mm3 Puncture Site ABG pH (7.35-7.45) ABG pCO2 (35.0-45.0) mmHg ABG pO2 (80.0-100.0) mmHg ABG HCO3 (22.0-26.0) meq/L ABG O2 Saturation (96.0-97.0) % ABG Base Excess (-2-2.0) Mario Test A-a Gradient mmHg O2 Delivery Device Oxygen Flow Rate FiO2 (21.00-100.00) % Sodium 143 (136-145) mEq/L Potassium 2.7 L (3.5-5.1) mEq/L Chloride 104 (98-107) mEq/L Carbon Dioxide 26 (21-32) mEq/L Anion Gap 15.7 H (5-15) BUN 13 (7-18) mg/dL Creatinine 0.9 (0.55-1.02) mg/dL Est Cr Clr Drug Dosing 50.23 mL/min Estimated GFR (MDRD) > 60 (>60) mL/min BUN/Creatinine Ratio 14.4 (14-18) Glucose 106 H (70-99) mg/dL Calcium 7.9 L (8.5-10.1) mg/dL Magnesium (1.8-2.4) mg/dL Total Bilirubin 0.3 (0.2-1.0) mg/dL AST 21 (15-37) U/L ALT 15 (14-59) U/L Alkaline Phosphatase 88 (46-116) U/L Ammonia (11-32) umol/L C-Reactive Protein 16.0 H* (<1.0) mg/dL Total Protein 5.7 L (6.4-8.2) g/dl Albumin 2.1 L (3.4-5.0) g/dl Globulin 3.6 gm/dL Albumin/Globulin Ratio 0.6 L (1-2) Procalcitonin ng/mL Result Diagrams: 01/18/21 05:10 01/18/21 05:10 Sepsis Event Note - Evaluation Sepsis Screening Result: Sepsis Risk - Focused Exam Vital Signs: Vital Signs Temp Temp Pulse Resp BP Pulse Ox Pulse Ox 01/18/21 04:19 136/100 H 01/18/21 04:08 98.8 F 97 16 166/97 H 96 01/18/21 02:41 94 L 01/17/21 23:53 97.9 F 100 18 141/93 H 95 01/17/21 21:20 98.2 F 01/17/21 20:37 97 01/17/21 20:15 103 H 92 L 01/17/21 20:14 99.0 F 107 H 21 H 141/95 H 93 L - Problem List & Annotations (1) Acute kidney injury SNOMED Code(s): 36029084, 77899300 Code(s): N17.9 - ACUTE KIDNEY FAILURE, UNSPECIFIED Status: Resolved Priority: High Current Visit: Yes (2) Alcohol abuse SNOMED Code(s): 05692064 Code(s): F10.10 - ALCOHOL ABUSE, UNCOMPLICATED Status: Chronic Priority: High Current Visit: Yes (3) COPD (chronic obstructive pulmonary disease) with emphysema SNOMED Code(s): 73158597 Code(s): J43.9 - EMPHYSEMA, UNSPECIFIED Status: Chronic Priority: Medium Current Visit: Yes Qualifiers: Emphysema type: unspecified Qualified Code(s): J43.9 - Emphysema, unspecified (4) Hyponatremia SNOMED Code(s): 01940020 Code(s): E87.1 - HYPO-OSMOLALITY AND HYPONATREMIA Status: Resolved Priority: Medium Current Visit: Yes (5) Left displaced femoral neck fracture SNOMED Code(s): 8567350, 809510879, 194389076, [id number] Code(s): S72.002A - FRACTURE OF UNSP PART OF NECK OF LEFT FEMUR, INIT Status: Acute Priority: High Current Visit: Yes (6) Recurrent falls SNOMED Code(s): 620338772 Code(s): R29.6 - REPEATED FALLS Status: Chronic Priority: Medium Current Visit: Yes (7) Tobacco abuse SNOMED Code(s): 416962605 Code(s): Z72.0 - TOBACCO USE Status: Chronic Priority: Medium Current Visit: Yes (8) Alcohol withdrawal SNOMED Code(s): 223214941 Code(s): F10.239 - ALCOHOL DEPENDENCE WITH WITHDRAWAL, UNSPECIFIED Status: Resolved Priority: High Current Visit: Yes Qualifiers: Complication of substance-induced condition: with delirium Qualified Code(s): F10.231 - Alcohol dependence with withdrawal delirium (9) S/P hip hemiarthroplasty SNOMED Code(s): 715671650, 431913758, 798674668, 769460009 Code(s): Z96.649 - PRESENCE OF UNSPECIFIED ARTIFICIAL HIP JOINT Status: Acute Priority: High Current Visit: Yes (10) Fever SNOMED Code(s): 360149380 Code(s): R50.9 - FEVER, UNSPECIFIED Status: Resolved Priority: High Current Visit: Yes Qualifiers: Fever type: unspecified Qualified Code(s): R50.9 - Fever, unspecified (11) UTI (urinary tract infection) SNOMED Code(s): 46430775 Code(s): N39.0 - URINARY TRACT INFECTION, SITE NOT SPECIFIED Status: Ruled- out Priority: High Current Visit: Yes Qualifiers: Urinary tract infection type: acute cystitis Hematuria presence: with hematuria Qualified Code(s): N30.01 - Acute cystitis with hematuria (12) Sepsis SNOMED Code(s): 61704188 Code(s): A41.9 - SEPSIS, UNSPECIFIED ORGANISM Status: Resolved Priority: High Current Visit: Yes Qualifiers: Sepsis type: sepsis due to unspecified organism Sepsis acute organ dysfunction status: with acute organ dysfunction Severe sepsis acute organ dysfunction type: acute renal failure Acute renal failure type: unspecified Severe sepsis shock status: without septic shock Qualified Code(s): A41.9 - Sepsis, unspecified organism; R65.20 - Severe sepsis without septic shock; N17.9 - Acute kidney failure, unspecified (13) Hypomagnesemia SNOMED Code(s): 470640215 Code(s): E83.42 - HYPOMAGNESEMIA Status: Resolved Priority: Medium Current Visit: Yes (14) Hypokalemia SNOMED Code(s): 65920302 Code(s): E87.6 - HYPOKALEMIA Status: Acute Priority: High Current Visit: Yes (15) Leukocytosis SNOMED Code(s): 224310755, 975270507 Code(s): D72.829 - ELEVATED WHITE BLOOD CELL COUNT, UNSPECIFIED Status: Acute Priority: High Current Visit: Yes Qualifiers: Leukocytosis type: unspecified Qualified Code(s): D72.829 - Elevated white blood cell count, unspecified (16) Elevated C-reactive protein (CRP) SNOMED Code(s): 349976159878662 Code(s): R79.82 - ELEVATED C-REACTIVE PROTEIN (CRP) Status: Acute Priority: High Current Visit: Yes - Problem List Review Problem List Initiated/Reviewed/Updated: Yes - My Orders Last 24 Hours: My Active Orders 01/17/21 10:30 Pharmacy to Dose - Vancomycin 1 dose .XX ASDIRECTED PRN 01/17/21 11:18 LORazepam [Ativan] 1 - 3 mg IVPUSH Q4H PRN 01/17/21 Dinner NPO [Nothing Per Oral Diet] [DIET] 01/17/21 23:30 Vancomycin [Vancocin] 1 gm Sodium Chloride 0.9% [Normal Saline AdvBag] 250 ml IV Q12H 01/19/21 05:11 CBC WITH AUTO DIFF [HEME] AM CMP [COMPREHENSIVE METABOLIC PN,CMP] [CHEM] AM CRP [C-REACTIVE PROTEIN] [CHEM] AM 01/19/21 10:30 VANCOMYCIN TROUGH [CHEM] Timed 01/20/21 05:11 CBC WITH AUTO DIFF [HEME] AM CMP [COMPREHENSIVE METABOLIC PN,CMP] [CHEM] AM CRP [C-REACTIVE PROTEIN] [CHEM] AM 01/21/21 05:11 CBC WITH AUTO DIFF [HEME] AM CMP [COMPREHENSIVE METABOLIC PN,CMP] [CHEM] AM CRP [C-REACTIVE PROTEIN] [CHEM] AM - Plan Plan:: 70-year-old female from [place], [place] transferred from [facility] emergency department with left femoral neck fracture. Symptoms of pain started the day after Thanksgiving. 01/12/2021 Left femoral neck fracture * Dr. Mayes in orthopedics consulted * Patient denies recent fall History of recurrent falls Alcohol abuse with previous fractures secondary to falls * Patient admits to 2 mixed drinks with Fireball whiskey per day * Multiple bruises on her arms indicative of recent falls. * She is on Seroquel 50 mg nightly. Tobacco abuse * Admits to 1 pack/day COPD * Home meds include budesonide and albuterol Chronic hyponatremia * Sodium 131 on admission Acute kidney injury * Creatinine prior to arrival was 1.22 this morning. After receiving Toradol and on arrival here creatinine increased to 1.7 Dementia History of stroke * Patient has unreliable history secondary to the above. History of atrial fibrillation currently in sinus rhythm 01/13/2021 70-year-old female admitted to floor with a left hip fracture requiring surgical fixation. Dr. Mayes, orthopedic surgeon is consulted and will perform surgery later today. Patient remains on bedrest. Normal saline continues at 100 mL/h. Renal function has slightly improved although we are unsure of her baseline. She does have a history of daily alcohol use. CIWAA score has been 5-6. She remains on CIWAA protocol. She is on a daily folic acid and we have added thiamine. She denies any history of withdrawal seizures. She is a daily nicotine user and on a nicotine patch. She remains tachycardic. WBC today is elevated 11.72 which is likely due to stress. Hemoglobin is down to 10.3 we will monitor. Neutrophils are elevated 75.4. Sodium remains 131. Potassium 5.1. Chloride 99. Carbon dioxide 23. Anion gap 14.1. BUN is 11. Creatinine is down to 1.6. GFR is up to 32. Glucose 104. Calcium 8.1. Magnesium 2.3. Total bilirubin 0.6. AST is 67, ALT 25, alkaline phosphatase 148. Protein is 6.2. Albumin is 2.8. She remains on 1.5 L of oxygen likely secondary to jimmie cotic use. She is n.p.o. Home medications have been continued as ordered. She will have PT and OT after surgery. Plan will be for discharge tomorrow pending stability. 01/14/2021 Alcohol withdrawal * CIWA score up to 9 * Starting to hallucinate * Tremorous This is a 7-year-old female omitted the floor with a left hip fracture which was surgically repaired by Dr. Mayes on 01/13/2021 with a left hip hemiarthroplasty. Since that time patient has began displaying withdrawal symptoms. Her CIWA score has been up to 9 and she has been hallucinating at times. She is a daily drinker. CIWA protocol has been increased every hour. PT and OT did see her today and are recommending SNF placement although this evaluation is likely skewed by her withdrawal symptoms. In addition to her CIWA protocol Ativan we have started Librium 50 mg twice daily. We will consider upgrading to the ICU if her symptoms continue to worsen. Labs today show WBC of 10.74 which is likely stress related. Hemoglobin is 9.0. Platelet 285,000. Neutrophils are elevated at 78.0. Sodium is 139. Potassium 4.9. Chloride 104. Carbon dioxide 27. Anion gap is 12.9. BUN is 13. Creatinine 1.2. GFR 44. Glucose 105. Calcium 7.8. Magnesium 2.1. Total bilirubin 0.4. AST 62, ALT is 20, alkaline phosphatase 118. Protein is 5.6. Albumin is 2.4. MRSA screen was negative. We will continue with SCDs and PAO hose for VT prophylaxis and at patient's home aspirin and Plavix. Patient is a very high fall risk. Nursing has noted a concern with the patient choking on water and we will add his swallow evaluation. Unknown length of stay pending severity of detox and progression with therapies. 01/15/2021 Patient CIWA scores have been low this morning at 1 and 2. She is on lithium scheduled to help with withdrawal. She still has episodes of confusion, but according to nursing they are interspersed with times where she is alert and oriented. When asleep she does need 1 L nasal cannula. Patient is still requiring some oxycodone for pain. Patient will continue in the hospital for placement. 01/16/2021 70-year-old female with left hip fracture and alcohol withdrawal developed worsening mental status this morning and more difficulty taking her medications. Nurse reports that she did choke a little on her medications this morning. By this afternoon patient had a fever, became more lethargic and was less responsive. Morning labs were improved with a white count of 10.2. Potassium was down a little at 3.3 as well as a lower magnesium 1.7. Both of these were replaced. Renal function was normal with a creatinine of 0.9. AST was 51 and ALT 13. Patient is receiving oxycodone for breakthrough pain. Last dose of Librium 50 mg was last night at 9 PM and she was switched to 15 mg this morning. Sepsis protocol was started at approximately 1515, please see nursing note for exact timing. CBC, CMP, lactic acid, chest x-ray, blood cultures, UA were all ordered. Fluid bolus of 500 mL of normal saline was ordered. Zosyn after blood cultures obtained. Chest x-ray showed poor inspiration making it difficult to rule out vascular congestion. No significant infiltrates noted. 01/17/2021 SANTIAGO, Improved Sepsis Suspected UTI Fever Leukocytosis Elevated CRP * Fever 102.9 on evening of 01/16/2021 * UA obtained but contaminated * Urine culture pending * Mildly lethargic * Vikram lift currently * Blood cultures obtained and pending * Renal function improving * Started on Rocephin Hypomagnesemia * Magnesium 1.7 * Supplemented Hypokalemia * Potassium 3.2 * Supplemented 01/17/2021 This is a 70-year-old female admitted the floor after a fall resulting in a left hip hemireplacement which was performed by Dr. Mayes on 01/13/2021. Patient is a known chronic alcohol abuser and does report at least 2 large drinks per night. Unfortunately postsurgically she did begin to detox and was started on Librium which has since been stopped due to changes in her mentation. On the evening of 01/16/2021 she was noted to have acute fever of 102.9. Blood cultures were obtained along with a UA and chest x-ray. UA appears contaminated and unfortunately repeat was not obtained. Unfortunately antibiotic choice is somewhat limited due to patient's allergies to doxycycline and penicillins. She was ultimately started on 2 g Rocephin and today vancomycin with pharmacy to dose was added due to recent surgery and continued low-grade fevers. Patient remains quite confused and at times somewhat lethargic. Swallow eval was ordered and as this progressed patient begins to trail off and lose focus. At this time they are recommending nectar thickened liquids with clear liquid diet and they will attempt to reevaluate. CIWA score has been between 4 and 6 when assessed. This has been lengthened to every 6 4 hours. She remains on 1 L of oxygen. Labs today show an elevated WBC of 15.68. Hemoglobin is 10.9. Platel et are 407,000. Neutrophils are elevated at 89.2%. ABG was obtained in the right radial with a pH of 7.45. PCO2 of 38.2. PO2 57.0. HCO3 of 25.8. O2 saturation of 86.2. Base excess of 2.3. This was obtained on 1 L. Sodium is 141. Potassium is 3.2 and this will be supplemented IV. Chloride is 104. Carbon dioxide is 25. Anion gap is 15.2. BUN is 11. Creatinine 1.0. GFR is up to 55. Magnesium is 1.7 and this will be supplemented via IV. Total bilirubin 0.4. AST is 31, ALT 13, alkaline phosphatase 101. CRP is up to 17.7 although this may be skewed due to the patient's recent surgery. Protein is 6.1. Albumin is 2.3. Procalcitonin and blood and urine cultures are still pending we will watch for these. We will order a 2 view chest x-ray today. Unknown length of stay due to new onset fever with sepsis and suspected UTI. 01/18/2021 70-year-old female admitted to the floor for surgery after a fall. Left hip hemireplacement was performed by Dr. Mayes on 01/13/2021. Postsurgically patient was noted to go through alcohol withdrawals. She was on Librium and Ativan. Her CIWA score has greatly decreased and she has been stopped from Librium. For the past few days she has been noted to have a decreased mental status and yesterday was placed n.p.o. at advice of NURSE PRACTITIONER ADULT. Her home Seroquel was stopped. She has had no more fevers. Ammonia level was checked and was less than 10 due to her AMS. Head CT scan without contrast was obtained and showed senescent change but nothing acute. Chest x-ray yesterday showed atelectasis but no infiltrates. Urine culture obtained when patient was noted to have fevers shows no growth. Blood cultures are still pending. She remains on Rocephin 2 g daily and vancomycin with pharmacy to dose. Procalcitonin was mildly elevated at 0.19. Patient has otherwise become much more alert today. She remains mildly confused but is able to carry on a conversation. Diet will be advanced to clear liquids with nectar thick and we will have NURSE PRACTITIONER ADULT evaluate her again with the plan to further advance. PT and OT will resume. Labs today show WBC of 13.89 which is likely skewed due to her recent surgery. Hemoglobin is 10.5. Platelet 366,000. Neutrophils are elevated 86.3. Sodium is 143. Potassium is down to 2.7 and will be supplemented. This is likely low due to her not eating for a few days. Chloride is 104. Carbon dioxide is 26. Anion gap is 15.7. BUN is 13. Creatinine 0.9. GFR greater than 60. Glucose is 106. Calcium 7.9. Magnesium 2.1. Bilirubin 0.3. AST is 21, ALT 15, alkaline phosphatase 88. CRP is 16.0, again likely skewed due to patient's recent surgery. Protein is 5.7. Albumin is 2.1. Plan will be to advance diet and work with therapies today. We will look into antibiotics more once blood cultures return. Likely discharge in 1 to 2 days pending continued improvement and progression with therapies. Plan * Admit to medical floor (Monitor need for ICU upgrade) * Nicotine patch * Follow CBC, CMP, mag * Pain control * PT/OT * CM/SW consultation for placement * Q4Hr CIWA protocol * Continue rocephin 2gm * Continue vancomycin with pharmacy to dose * Telemetry * Swallow evaluation - nectar thick with clear liquids recommended at moment and will advance further * Home medications as ordered * Thiamine supplementation * Supplement potassium IV due to swallow difficulty * CODE STATUS: Full code * VTE prophylaxis: SCDs and PAO kay, home ASA and Plavix
[2021-01-18] MEDS: Budesonide 0.5 MG/2 ML Neb Susp NEB SCH ×2 (08:45→20:14)
[2021-01-18] MEDS: Diltiazem 180 MG Cap.CD PO SCH (09:18)
[2021-01-18] MEDS: Furosemide 20 MG Tab PO SCH (09:18)
[2021-01-18] MEDS: Ferrous Sulfate 324 MG Tab.EC PO SCH ×2 (09:18→21:52)
[2021-01-18] MEDS: Pantoprazole 40 MG Tab.CR PO SCH (09:18)
[2021-01-18] MEDS: Potassium Chloride 10 MEQ in Premix Bag 1 BAG IV SCH ×6 (09:18→16:23)
[2021-01-18] MEDS: Folic Acid 1 MG Tab PO SCH (09:18)
[2021-01-18] MEDS: Aspirin 81 MG Tab.EC PO SCH (09:18)
[2021-01-18] MEDS: Clopidogrel 75 MG Tab PO SCH (09:18)
[2021-01-18] MEDS: Thiamine 100 MG Tab PO SCH (09:18)
[2021-01-18] MEDS ORDERED: Sodium Chloride 0.9% 0 ML ONE (09:39)
[2021-01-18] MEDS ORDERED: Sodium Chloride 0.9% 250 ML ONE (09:40)
[2021-01-18] MEDS: Vancomycin 125 MG Cap PO SCH ×2 (17:45→21:52)
[2021-01-18] MEDS: cefTRIAXone 2 GM in Sodium Chloride 0.9% 100 ML IV SCH (21:49)
[2021-01-18] MEDS: Pravastatin 20 MG Tab PO SCH (21:51)
[2021-01-18] MEDS: DULoxetine 30 MG Cap PO SCH (21:52)
[2021-01-19] MEDS: Acetaminophen 325 MG Tab PO PRN ×2 (00:59→20:50)
[2021-01-19] MEDS: Albuterol/Ipratropium 3.0-0.5 MG/3 ML Neb Soln NEB SCH ×4 (02:41→20:00)
--- NOTE | 2021-01-19 07:00 | PCM.PN ---
<Carlos Ramirez - Last Filed: 01/19/21 09:21> - General Info Date of Service: 01/19/21 Admission Dx/Problem (Free Text): Admission Diagnosis/Problem Admission Diagnosis/Problem Fracture of left hip Functional Status: Reports: Pain Controlled, Tolerating Diet (Advanced today ), Ambulating, Urinating, New Symptoms (Significant diarrhea for past few days). Denies: Incentive Spirometry - Review of Systems General: Reports: No Symptoms, Weakness. Denies: Fever, Fatigue, Malaise, Chills HEENT: Reports: No Symptoms. Denies: Headaches, Sore Throat Pulmonary: Reports: No Symptoms. Denies: Shortness of Breath, Cough, Sputum, Wheezing Cardiovascular: Reports: No Symptoms. Denies: Chest Pain, Palpitations, Dyspnea on Exertion, Edema Gastrointestinal: Reports: Diarrhea. Denies: Abdominal Pain, Constipation, Nausea, Vomiting Genitourinary: Reports: No Symptoms. Denies: Pain Musculoskeletal: Reports: Leg Pain Skin: Reports: No Symptoms. Denies: Cyanosis Neurological: Reports: Difficulty Walking, Weakness, Gait Disturbance. Denies: Confusion, Dizziness, Headache, Numbness, Seizure, Syncope, Tingling, Trouble Speaking, Change in Speech Psychiatric: Reports: No Symptoms - Patient Data Vitals - Most Recent: Last Vital Signs Temp 96.6 F L 01/19/21 03:35 Pulse 99 01/19/21 03:35 Resp 18 01/19/21 03:35 BP 158/90 H 01/19/21 04:00 Pulse Ox 93 L 01/19/21 03:35 Weight - Most Recent: 174 lb 12.8 oz I&O - Last 24 Hours: Intake & Output 01/18/21 01/19/21 01/19/21 22:59 06:59 14:59 Intake Total 1574 451 Balance 1574 451 Lab Results Last 24 Hours: Laboratory Results - last 24 hr 01/18/21 01/18/21 01/18/21 Range/Units 05:10 05:10 14:30 WBC (3.98-10.04) K/mm3 RBC (3.98-5.22) M/mm3 Hgb (11.2-15.7) gm/dl Hct (34.1-44.9) % MCV (79.4-94.8) fl MCH (25.6-32.2) pg MCHC (32.2-35.5) g/dl RDW Std Deviation (36.4-46.3) fL Plt Count (182-369) K/mm3 MPV (9.4-12.3) fl Neut % (Auto) (34.0-71.1) % Lymph % (Auto) (19.3-51.7) % Wirt % (Auto) (4.7-12.5) % Eos % (Auto) (0.7-5.8) Baso % (Auto) (0.1-1.2) % Neut # (Auto) (1.56-6.13) K/mm3 Lymph # (Auto) (1.18-3.74) K/mm3 Wirt # (Auto) (0.24-0.36) K/mm3 Eos # (Auto) (0.04-0.36) K/mm3 Baso # (Auto) (0.01-0.08) K/mm3 Magnesium 2.1 (1.8-2.4) mg/dL C-Reactive Protein 16.0 H* (<1.0) mg/dL C.difficile 027-NAP1-B1 Presumptive negative C. difficile Tox (PCR) Positive H 01/19/21 Range/Units 05:20 WBC 13.33 H (3.98-10.04) K/mm3 RBC 3.65 L (3.98-5.22) M/mm3 Hgb 10.3 L (11.2-15.7) gm/dl Hct 32.6 L (34.1-44.9) % MCV 89.3 (79.4-94.8) fl MCH 28.2 (25.6-32.2) pg MCHC 31.6 L (32.2-35.5) g/dl RDW Std Deviation 46.3 (36.4-46.3) fL Plt Count 366 (182-369) K/mm3 MPV 10.0 (9.4-12.3) fl Neut % (Auto) 77.4 H (34.0-71.1) % Lymph % (Auto) 10.5 L (19.3-51.7) % Wirt % (Auto) 6.8 (4.7-12.5) % Eos % (Auto) 4.7 (0.7-5.8) Baso % (Auto) 0.2 (0.1-1.2) % Neut # (Auto) 10.34 H (1.56-6.13) K/mm3 Lymph # (Auto) 1.40 (1.18-3.74) K/mm3 Wirt # (Auto) 0.90 H (0.24-0.36) K/mm3 Eos # (Auto) 0.62 H (0.04-0.36) K/mm3 Baso # (Auto) 0.02 (0.01-0.08) K/mm3 Magnesium (1.8-2.4) mg/dL C-Reactive Protein (<1.0) mg/dL C.difficile 027-NAP1-B1 C. difficile Tox (PCR) Christian Results Last 24 Hours: Microbiology 01/16/21 17:15 Blood Culture - Preliminary Blood - Venous - Lab Draw 01/16/21 16:57 Blood Culture - Preliminary Blood - Venous 01/16/21 17:50 Urine Culture - Final Urine Med Orders - Current: Current Medications Acetaminophen (Acetaminophen 325 Mg Tab) 650 mg PO Q4H PRN PRN Reason: Pain (Mild 1-3)/fever Last Admin: 01/19/21 00:59 Dose: 650 mg Documented by: Albuterol (Albuterol 0.083% 2.5 Mg/3 Ml Neb Soln) 2.5 mg NEB Q2H PRN PRN Reason: Shortness Of Breath/wheezing Albuterol (Albuterol 6.7 Gm Inhaler) 0 gm INH Q4H PRN PRN Reason: shortness of breath Albuterol/Ipratropium (Albuterol/Ipratropium 3.0-0.5 Mg/3 Ml Neb Soln) 3 ml NEB Q6HRRT [facility] Last Admin: 01/19/21 02:41 Dose: 3 ml Documented by: Aspirin (Aspirin 81 Mg Tab.Ec) 81 mg PO DAILY [facility] Last Admin: 01/18/21 09:18 Dose: 81 mg Documented by: Budesonide (Budesonide 0.5 Mg/2 Ml Neb Susp) 0.5 mg NEB BID [facility] Last Admin: 01/18/21 20:14 Dose: 0.5 mg Documented by: Clopidogrel Bisulfate (Clopidogrel 75 Mg Tab) 75 mg PO DAILY [facility] Last Admin: 01/18/21 09:18 Dose: 75 mg Documented by: Diltiazem HCl (Diltiazem 180 Mg Cap.Cd) 180 mg PO DAILY [facility] Last Admin: 01/18/21 09:18 Dose: 180 mg Documented by: Duloxetine HCl (Duloxetine 30 Mg Cap) 30 mg PO BEDTIME [facility] Last Admin: 01/18/21 21:52 Dose: 30 mg Documented by: Ferrous Sulfate (Ferrous Sulfate 324 Mg Tab.Ec) 324 mg PO BID [facility] Last Admin: 01/18/21 21:52 Dose: 324 mg Documented by: Folic Acid (Folic Acid 1 Mg Tab) 1 mg PO DAILY [facility] Last Admin: 01/18/21 09:18 Dose: 1 mg Documented by: Furosemide (Furosemide 20 Mg Tab) 20 mg PO DAILY [facility] Last Admin: 01/18/21 09:18 Dose: 20 mg Documented by: Hydromorphone HCl (Hydromorphone 0.5 Mg/0.5 Ml Syringe) 0.5 mg IVPUSH Q2H PRN PRN Reason: Pain (severe 7-10) Last Admin: 01/17/21 13:42 Dose: 0.5 mg Documented by: Ceftriaxone Sodium 2 gm/ (Sodium Chloride) 100 mls @ 200 mls/hr IV Q24H [facility] Stop: 01/20/21 22:29 Last Admin: 01/18/21 21:49 Dose: 200 mls/hr Documented by: Lorazepam (Lorazepam 2 Mg/Ml Sdv) 1 - 3 mg IVPUSH Q4H PRN; Protocol PRN Reason: withdrawl Melatonin (Melatonin 3 Mg Tab) 3 mg PO BEDTIME PRN PRN Reason: INSOMNIA Ondansetron HCl (Ondansetron 4 Mg/2 Ml Sdv) 4 mg IV Q6H PRN PRN Reason: Nausea/Vomiting Oxycodone HCl (Oxycodone 5 Mg Tab) 5 mg PO Q4H PRN PRN Reason: Pain (moderate 4-6) Last Admin: 01/17/21 04:18 Dose: 5 mg Documented by: Pantoprazole Sodium (Pantoprazole 40 Mg Tab.Cr) 40 mg PO DAILY [facility] Last Admin: 01/18/21 09:18 Dose: 40 mg Documented by: Polyethylene Glycol (Polyethylene Glycol 3350 Powder 17 Gm Packet) 17 gm PO DAILY PRN PRN Reason: Constipation Pravastatin Sodium (Pravastatin 20 Mg Tab) 20 mg PO BEDTIME [facility] Last Admin: 01/18/21 21:51 Dose: 20 mg Documented by: Senna/Docusate Sodium (Docusate Sodium/Sennosides 50-8.6 Mg Tab) 2 tab PO BID [facility] Last Admin: 01/18/21 21:51 Dose: Not Given Documented by: Thiamine HCl (Thiamine 100 Mg Tab) 100 mg PO DAILY [facility] Last Admin: 01/18/21 09:18 Dose: 100 mg Documented by: Tramadol HCl (Tramadol 50 Mg Tab) 50 mg PO Q6H PRN PRN Reason: Pain Vancomycin HCl (Vancomycin 125 Mg Cap) 125 mg PO QID [facility] Stop: 01/28/21 17:01 Last Admin: 01/18/21 21:52 Dose: 125 mg Documented by: Discontinued Medications Acetaminophen (Acetaminophen 650 Mg Supp) 650 mg RECTAL ONETIME ONE Stop: 01/16/21 15:53 Last Admin: 01/16/21 16:03 Dose: 650 mg Documented by: Albuterol (Albuterol 6.7 Gm Inhaler) 0 gm INH QID PRN PRN Reason: shortness of breath Cefazolin Sodium (Cefazolin 1 Gm Vial) Confirm Administered Dose 2 gm .ROUTE .STK-MED ONE Stop: 01/13/21 10:48 Chlordiazepoxide HCl (Chlordiazepoxide 25 Mg Cap) 50 mg PO BID [facility] Last Admin: 01/15/21 21:13 Dose: 50 mg Documented by: Chlordiazepoxide HCl (Chlordiazepoxide 25 Mg Cap) 25 mg PO BID [facility] Last Admin: 01/16/21 10:05 Dose: 25 mg Documented by: Morphine Sulfate 8 mg/Epinephrine HCl 0.3 mg/Cefuroxime Sodium 750 mg/Ketorolac Tromethamine 30 mg/Sodium Chloride 7.9 ml 0 mg .XX ASDIRECTED PRN PRN Reason: Pain Stop: 01/13/21 18:00 Last Admin: 01/13/21 13:13 Dose: 788.3 mg Documented by: Diltiazem HCl (Diltiazem 120 Mg Cap.Cd) 120 mg PO DAILY [facility] Last Admin: 01/16/21 10:04 Dose: 120 mg Documented by: Diltiazem HCl (Diltiazem Ir 30 Mg Tab) 30 mg PO ONETIME ONE Stop: 01/16/21 19:56 Last Admin: 01/16/21 22:08 Dose: 30 mg Documented by: Fentanyl (Fentanyl 250 Mcg/5 Ml Sdv) Confirm Administered Dose 250 mcg .ROUTE .STK-MED ONE Stop: 01/13/21 10:42 Fentanyl (Fentanyl 250 Mcg/5 Ml Sdv) Confirm Administered Dose 250 mcg .ROUTE .STK-MED ONE Stop: 01/13/21 12:52 Fentanyl (Fentanyl 100 Mcg/2 Ml Sdv) 50 mcg IVPUSH Q5M PRN PRN Reason: Pain Stop: 01/13/21 18:00 Sodium Chloride (Normal Saline) 1,000 mls @ 100 mls/hr IV ASDIRECTED [facility] Last Admin: 01/14/21 02:16 Dose: 100 mls/hr Documented by: Lidocaine HCl (Xylocaine-Mpf 1%) Confirm Administered Dose 4 mls @ as directed .ROUTE .STK-MED ONE Stop: 01/13/21 10:43 Lactated Ringer's (Ringers, Lactated) Confirm Administered Dose 1,000 mls @ as directed .ROUTE .STK-MED ONE Stop: 01/13/21 11:06 Cefazolin Sodium/Dextrose 2 gm (/ Premix) 50 mls @ 100 mls/hr IV Q8H [facility] Stop: 01/14/21 11:29 Last Admin: 01/14/21 10:40 Dose: 100 mls/hr Documented by: Sodium Chloride (Normal Saline) 500 mls @ 999 mls/hr IV .BOLUS ONE Stop: 01/16/21 16:27 Last Admin: 01/16/21 16:16 Dose: 999 mls/hr Documented by: Sodium Chloride (Normal Saline) 1,000 mls @ 125 mls/hr IV ASDIRECTED [facility] Last Admin: 01/17/21 06:34 Dose: 125 mls/hr Documented by: Piperacillin Sod/Tazobactam (Sod 4.5 gm/ Sodium Chloride) 100 mls @ 200 mls/hr IV ONETIME ONE Stop: 01/16/21 21:24 Last Admin: 01/16/21 22:50 Dose: Not Given Documented by: Potassium Chloride 10 meq/ (Premix) 100 mls @ 100 mls/hr IV Q1H [facility] Stop: 01/17/21 14:29 Last Admin: 01/17/21 15:17 Dose: 100 mls/hr Documented by: Vancomycin HCl 1 gm/Vancomycin HCl 250 mg/ Sodium Chloride 250 mls @ 166.667 mls/hr IV ONETIME ONE Stop: 01/17/21 12:59 Last Admin: 01/17/21 11:48 Dose: 166.667 mls/hr Documented by: Magnesium Sulfate 2 gm/ Premix 50 mls @ 25 mls/hr IV ONETIME ONE Stop: 01/17/21 13:29 Last Admin: 01/17/21 13:04 Dose: 25 mls/hr Documented by: Vancomycin HCl 1 gm/ Sodium (Chloride) 250 mls @ 250 mls/hr IV Q12H [facility] Last Admin: 01/17/21 22:32 Dose: 250 mls/hr Documented by: Potassium Chloride 10 meq/ (Premix) 100 mls @ 100 mls/hr IV Q1H [facility] Stop: 01/18/21 14:59 Last Admin: 01/18/21 16:23 Dose: 100 mls/hr Documented by: Sodium Chloride (Normal Saline Advbag) Confirm Administered Dose 100 mls @ as directed .ROUTE .STK-MED ONE Stop: 01/18/21 09:40 Last Admin: 01/18/21 10:08 Dose: Not Given Documented by: Sodium Chloride (Normal Saline Advbag) Confirm Administered Dose 250 mls @ as directed .ROUTE .STK-MED ONE Stop: 01/18/21 09:41 Last Admin: 01/18/21 10:41 Dose: 30 mls/hr Documented by: Lorazepam (Lorazepam 1 Mg Tab) 0 mg PO Q1H PRN; Protocol PRN Reason: Withdrawal Symptoms Last Admin: 01/14/21 11:04 Dose: 1 mg Documented by: Lorazepam (Lorazepam 2 Mg/Ml Sdv) 0 mg IVPUSH Q15M PRN; Protocol PRN Reason: Withdrawal Symptoms Last Admin: 01/14/21 09:51 Dose: 1 mg Documented by: Lorazepam (Lorazepam 2 Mg/Ml Sdv) 1 - 3 mg IVPUSH Q1H PRN; Protocol PRN Reason: withdrawl Lorazepam (Lorazepam 2 Mg/Ml Sdv) 2 mg IVPUSH ONETIME [facility] Stop: 01/14/21 12:37 Last Admin: 01/14/21 20:56 Dose: Not Given Documented by: Magnesium Oxide (Magnesium Oxide 400 Mg Tab) 400 mg PO BID [facility] Last Admin: 01/17/21 09:44 Dose: 400 mg Documented by: Midazolam HCl (Midazolam 1 Mg/Ml 2 Ml Sdv) Confirm Administered Dose 2 mg .ROUTE .STK-MED ONE Stop: 01/13/21 10:42 Miscellaneous Information (Remove Patch) 0 ea TRDERM ONETIME ONE Stop: 01/13/21 10:31 Last Admin: 01/13/21 15:48 Dose: Not Given Documented by: Miscellaneous Medication (Phenylephrine Hcl In 0.9% Nacl 1 Mg/10 Ml Syringe) Confirm Administered Dose 1 mg .ROUTE .STK-MED ONE Stop: 01/13/21 12:19 Nicotine (Nicotine 14 Mg/24 Hr Patch) 14 mg TRDERM ONETIME ONE Stop: 01/13/21 16:01 Last Admin: 01/13/21 15:54 Dose: 14 mg Documented by: Ondansetron HCl (Ondansetron 4 Mg/2 Ml Sdv) Confirm Administered Dose 4 mg .ROUTE .STK-MED ONE Stop: 01/13/21 10:42 Potassium Chloride (Potassium Chloride 20 Meq Tab.Er) 40 meq PO BID [facility] Last Admin: 01/13/21 20:58 Dose: Not Given Documented by: Potassium Chloride (Potassium Chloride 20 Meq Tab.Er) 40 meq PO ONETIME ONE Stop: 01/16/21 08:50 Last Admin: 01/16/21 10:05 Dose: 40 meq Documented by: Propofol (Propofol 200 Mg/20 Ml Sdv) Confirm Administered Dose 200 mg .ROUTE .STK-MED ONE Stop: 01/13/21 10:42 Quetiapine Fumarate (Quetiapine 25 Mg Tab) 50 mg PO BEDTIME [facility] Last Admin: 01/16/21 22:27 Dose: 50 mg Documented by: Rocuronium [place] (Rocuronium 50 Mg/5 Ml Vial) Confirm Administered Dose 50 mg .ROUTE .STK-MED ONE Stop: 01/13/21 10:42 Tranexamic Acid (Tranexamic Acid 1,000 Mg/10 Ml Amp) Confirm Administered Dose 1,000 mg .ROUTE .STK-MED ONE Stop: 01/13/21 11:39 Last Admin: 01/13/21 13:13 Dose: 1,000 mg Documented by: Vancomycin HCl (Vancomycin 1 Gm Sdv) Confirm Administered Dose 1 gm .ROUTE .STK- MED ONE Stop: 01/13/21 11:39 Last Admin: 01/13/21 13:13 Dose: 1 gm Documented by: Vancomycin HCl (Pharmacy To Dose - Vancomycin) 1 dose .XX ASDIRECTED PRN PRN Reason: RX TO DOSE VANCO - Exam Quality Assessment: DVT Prophylaxis. No: Supplemental Oxygen, Urine Catheter Urinary Catheter Total Time: 3Days 6Hours General: Alert, Oriented, Cooperative, No Acute Distress HEENT: Pupils Equal, Pupils Reactive, Mucous Membr. Moist/[place] Neck: Supple, Trachea Midline Lungs: Clear to Auscultation, Normal Respiratory Effort Cardiovascular: Regular Rate, Regular Rhythm GI/Abdominal Exam: Normal Bowel Sounds, Soft, Non-Tender, No Distention (Female) Exam: Deferred Back Exam: Normal Inspection, Decreased Range of Motion Extremities: No Pedal Edema, Normal Capillary Refill, Leg Pain (Left hip), Limited Range of Motion Peripheral Pulses: 2+: Radial (L), Radial (R), Dorsalis Pedis (L), Dorsalis Pedis (R) Skin: Warm, Dry, Intact Wound/Incisions: Dressing Dry and Intact Neurological: No New Focal Deficit Psy/Mental Status: Alert, Normal Affect, Normal Mood. No: Withdrawal Symptoms - Patient Data Lab Results Last 24 hrs: Laboratory Results - last 24 hr 01/18/21 01/18/21 01/18/21 Range/Units 05:10 05:10 14:30 WBC (3.98-10.04) K/mm3 RBC (3.98-5.22) M/mm3 Hgb (11.2-15.7) gm/dl Hct (34.1-44.9) % MCV (79.4-94.8) fl MCH (25.6-32.2) pg MCHC (32.2-35.5) g/dl RDW Std Deviation (36.4-46.3) fL Plt Count (182-369) K/mm3 MPV (9.4-12.3) fl Neut % (Auto) (34.0-71.1) % Lymph % (Auto) (19.3-51.7) % Wirt % (Auto) (4.7-12.5) % Eos % (Auto) (0.7-5.8) Baso % (Auto) (0.1-1.2) % Neut # (Auto) (1.56-6.13) K/mm3 Lymph # (Auto) (1.18-3.74) K/mm3 Wirt # (Auto) (0.24-0.36) K/mm3 Eos # (Auto) (0.04-0.36) K/mm3 Baso # (Auto) (0.01-0.08) K/mm3 Magnesium 2.1 (1.8-2.4) mg/dL C-Reactive Protein 16.0 H* (<1.0) mg/dL C.difficile 027-NAP1-B1 Presumptive negative C. difficile Tox (PCR) Positive H 01/19/21 Range/Units 05:20 WBC 13.33 H (3.98-10.04) K/mm3 RBC 3.65 L (3.98-5.22) M/mm3 Hgb 10.3 L (11.2-15.7) gm/dl Hct 32.6 L (34.1-44.9) % MCV 89.3 (79.4-94.8) fl MCH 28.2 (25.6-32.2) pg MCHC 31.6 L (32.2-35.5) g/dl RDW Std Deviation 46.3 (36.4-46.3) fL Plt Count 366 (182-369) K/mm3 MPV 10.0 (9.4-12.3) fl Neut % (Auto) 77.4 H (34.0-71.1) % Lymph % (Auto) 10.5 L (19.3-51.7) % Wirt % (Auto) 6.8 (4.7-12.5) % Eos % (Auto) 4.7 (0.7-5.8) Baso % (Auto) 0.2 (0.1-1.2) % Neut # (Auto) 10.34 H (1.56-6.13) K/mm3 Lymph # (Auto) 1.40 (1.18-3.74) K/mm3 Wirt # (Auto) 0.90 H (0.24-0.36) K/mm3 Eos # (Auto) 0.62 H (0.04-0.36) K/mm3 Baso # (Auto) 0.02 (0.01-0.08) K/mm3 Magnesium (1.8-2.4) mg/dL C-Reactive Protein (<1.0) mg/dL C.difficile 027-NAP1-B1 C. difficile Tox (PCR) Result Diagrams: 01/19/21 05:20 01/19/21 05:20 Christian Results Last 24 hrs: Microbiology 01/16/21 17:15 Blood Culture - Preliminary Blood - Venous - Lab Draw 01/16/21 16:57 Blood Culture - Preliminary Blood - Venous 01/16/21 17:50 Urine Culture - Final Urine Sepsis Event Note - Evaluation Sepsis Screening Result: No Definite Risk - Focused Exam Vital Signs: Vital Signs Temp Pulse Resp BP BP Pulse Ox Pulse Ox 01/19/21 04:00 158/90 H 01/19/21 03:35 96.6 F L 99 18 167/88 H 93 L 01/19/21 02:41 93 L 01/19/21 00:10 97.9 F 98 20 165/83 H 92 L 01/18/21 22:58 98.6 F 96 18 163/84 H 94 L 01/18/21 20:15 95 01/18/21 19:42 88 159/88 H 95 01/18/21 19:40 97.3 F 87 20 143/104 H 94 L - Problem List & Annotations (1) Acute kidney injury SNOMED Code(s): 90220974, 67755286 Code(s): N17.9 - ACUTE KIDNEY FAILURE, UNSPECIFIED Status: Resolved Priority: High Current Visit: Yes (2) Alcohol abuse SNOMED Code(s): 21987654 Code(s): F10.10 - ALCOHOL ABUSE, UNCOMPLICATED Status: Chronic Priority: High Current Visit: Yes (3) COPD (chronic obstructive pulmonary disease) with emphysema SNOMED Code(s): 50515531 Code(s): J43.9 - EMPHYSEMA, UNSPECIFIED Status: Chronic Priority: Medium Current Visit: Yes Qualifiers: Emphysema type: unspecified Qualified Code(s): J43.9 - Emphysema, unspecified (4) Hyponatremia SNOMED Code(s): 25213760 Code(s): E87.1 - HYPO-OSMOLALITY AND HYPONATREMIA Status: Resolved Priority: Medium Current Visit: Yes (5) Left displaced femoral neck fracture SNOMED Code(s): 0668611, 844279188, 306514087, 00565078860836126 Code(s): S72.002A - FRACTURE OF UNSP PART OF NECK OF LEFT FEMUR, INIT Status: Acute Priority: High Current Visit: Yes (6) Recurrent falls SNOMED Code(s): 393378769 Code(s): R29.6 - REPEATED FALLS Status: Chronic Priority: Medium Current Visit: Yes (7) Tobacco abuse SNOMED Code(s): 848872197 Code(s): Z72.0 - TOBACCO USE Status: Chronic Priority: Medium Current Visit: Yes (8) Alcohol withdrawal SNOMED Code(s): 961301787 Code(s): F10.239 - ALCOHOL DEPENDENCE WITH WITHDRAWAL, UNSPECIFIED Status: Resolved Priority: High Current Visit: Yes Qualifiers: Complication of substance-induced condition: with delirium Qualified Code(s): F10.231 - Alcohol dependence with withdrawal delirium (9) S/P hip hemiarthroplasty SNOMED Code(s): 396226935, 429848430, 038994365, 251574566 Code(s): Z96.649 - PRESENCE OF UNSPECIFIED ARTIFICIAL HIP JOINT Status: Acute Priority: High Current Visit: Yes (10) Fever SNOMED Code(s): 936787153 Code(s): R50.9 - FEVER, UNSPECIFIED Status: Resolved Priority: High Current Visit: Yes Qualifiers: Fever type: unspecified Qualified Code(s): R50.9 - Fever, unspecified (11) UTI (urinary tract infection) SNOMED Code(s): 25103016 Code(s): N39.0 - URINARY TRACT INFECTION, SITE NOT SPECIFIED Status: Ruled- out Priority: High Current Visit: Yes Qualifiers: Urinary tract infection type: acute cystitis Hematuria presence: with hematuria Qualified Code(s): N30.01 - Acute cystitis with hematuria (12) Sepsis SNOMED Code(s): 41991315 Code(s): A41.9 - SEPSIS, UNSPECIFIED ORGANISM Status: Resolved Priority: High Current Visit: Yes Qualifiers: Sepsis type: sepsis due to unspecified organism Sepsis acute organ dysfunction status: with acute organ dysfunction Severe sepsis acute organ dysfunction type: acute renal failure Acute renal failure type: unspecified Severe sepsis shock status: without septic shock Qualified Code(s): A41.9 - Sepsis, unspecified organism; R65.20 - Severe sepsis without septic shock; N17.9 - Acute kidney failure, unspecified (13) Hypomagnesemia SNOMED Code(s): 404552597 Code(s): E83.42 - HYPOMAGNESEMIA Status: Resolved Priority: Medium Current Visit: Yes (14) Hypokalemia SNOMED Code(s): 39301640 Code(s): E87.6 - HYPOKALEMIA Status: Acute Priority: High Current Visit: Yes (15) Leukocytosis SNOMED Code(s): 770816207, 584223051 Code(s): D72.829 - ELEVATED WHITE BLOOD CELL COUNT, UNSPECIFIED Status: Acute Priority: High Current Visit: Yes Qualifiers: Leukocytosis type: unspecified Qualified Code(s): D72.829 - Elevated white blood cell count, unspecified (16) Elevated C-reactive protein (CRP) SNOMED Code(s): 535122399111208 Code(s): R79.82 - ELEVATED C-REACTIVE PROTEIN (CRP) Status: Acute Priority: High Current Visit: Yes (17) C. difficile diarrhea SNOMED Code(s): 1422688392690 Code(s): A04.72 - ENTEROCOLITIS D/T CLOSTRIDIUM DIFFICILE, NOT SPCF RECUR Status: Acute Priority: High Current Visit: Yes - Problem List Review Problem List Initiated/Reviewed/Updated: Yes - My Orders Last 24 Hours: My Active Orders 01/18/21 Lunch Thickened Liquids [DIET] 01/18/21 14:30 C DIFFICILE TOXIN IMMUNOASSAY [MREF] Stat 01/18/21 15:15 Aspiration Precautions [RC] ASDIRECTED 01/18/21 15:24 Isolation [COMM] Stat 01/18/21 17:00 Vancomycin [Vancocin 125 MG Capsule] 125 mg PO QID 01/19/21 05:20 CMP [COMPREHENSIVE METABOLIC PN,CMP] [CHEM] AM CRP [C-REACTIVE PROTEIN] [CHEM] AM MAGNESIUM [CHEM] AM 01/20/21 05:11 CBC WITH AUTO DIFF [HEME] AM CMP [COMPREHENSIVE METABOLIC PN,CMP] [CHEM] AM CRP [C-REACTIVE PROTEIN] [CHEM] AM MAGNESIUM [CHEM] AM 01/21/21 05:11 CBC WITH AUTO DIFF [HEME] AM CMP [COMPREHENSIVE METABOLIC PN,CMP] [CHEM] AM CRP [C-REACTIVE PROTEIN] [CHEM] AM MAGNESIUM [CHEM] AM 01/22/21 05:11 MAGNESIUM [CHEM] AM - Plan Plan:: 70-year-old female from [place], [place] transferred from [place] emergency department with left femoral neck fracture. Symptoms of pain started the day after Thanksgiving. 01/12/2021 Left femoral neck fracture * Dr. Mayes in orthopedics consulted * Patient denies recent fall History of recurrent falls Alcohol abuse with previous fractures secondary to falls * Patient admits to 2 mixed drinks with [place] whiskey per day * Multiple bruises on her arms indicative of recent falls. * She is on Seroquel 50 mg nightly. Tobacco abuse * Admits to 1 pack/day COPD * Home meds include budesonide and albuterol Chronic hyponatremia * Sodium 131 on admission Acute kidney injury * Creatinine prior to arrival was 1.22 this morning. After receiving Toradol and on arrival here creatinine increased to 1.7 Dementia History of stroke * Patient has unreliable history secondary to the above. History of atrial fibrillation currently in sinus rhythm 01/13/2021 70-year-old female admitted to floor with a left hip fracture requiring surgical fixation. Dr. Mayes, orthopedic surgeon is consulted and will perform surgery later today. Patient remains on bedrest. Normal saline continues at 100 mL/h. Renal function has slightly improved although we are unsure of her baseline. She does have a history of daily alcohol use. CIWAA score has been 5-6. She remains on CIWAA protocol. She is on a daily folic acid and we have added thiamine. She denies any history of withdrawal seizures. She is a daily nicotine user and on a nicotine patch. She remains tachycardic. WBC today is elevated 11.72 which is likely due to stress. Hemoglobin is down to 10.3 we will monitor. Neutrophils are elevated 75.4. Sodium remains 131. Potassium 5.1. Chloride 99. Carbon dioxide 23. Anion gap 14.1. BUN is 11. Creatinine is down to 1.6. GFR is up to 32. Glucose 104. Calcium 8.1. Magnesium 2.3. Total bilirubin 0.6. AST is 67, ALT 25, alkaline phosphatase 148. Protein is 6.2. Albumin is 2.8. She remains on 1.5 L of oxygen likely secondary to narcotic use. She is n.p.o. Home medications have been continued as ordered. She will have PT and OT after surgery. Plan will be for discharge tomorrow pending stability. 01/14/2021 Alcohol withdrawal * CIWA score up to 9 * Starting to hallucinate * Tremorous This is a 7-year-old female omitted the floor with a left hip fracture which was surgically repaired by Dr. Mayes on 01/13/2021 with a left hip hemiarthroplasty. Since that time patient has began displaying withdrawal symptoms. Her CIWA score has been up to 9 and she has been hallucinating at times. She is a daily drinker. CIWA protocol has been increased every hour. PT and OT did see her today and are recommending SNF placement although this evaluation is likely skewed by her withdrawal symptoms. In addition to her CIWA protocol Ativan we have started Librium 50 mg twice daily. We will consider upgrading to the ICU if her symptoms continue to worsen. Labs today show WBC of 10.74 which is likely stress related. Hemoglobin is 9.0. Platelet 285,000. Neutrophils are elevated at 78.0. Sodium is 139. Potassium 4.9. Chloride 104. Carbon dioxide 27. Anion gap is 12.9. BUN is 13. Creatinine 1.2. GFR 44. Glucose 105. Calcium 7.8. Magnesium 2.1. Total bilirubin 0.4. AST 62, ALT is 20, alkaline phosphatase 118. Protein is 5.6. Albumin is 2.4. MRSA screen was negative. We will continue with SCDs and PAO hose for VT prophylaxis and at patient's home aspirin and Plavix. Patient is a very high fall risk. Nursing has noted a concern with the patient choking on water and we will add his swallow evaluation. Unknown length of stay pending severity of detox and progression with therapies. 01/15/2021 Patient CIWA scores have been low this morning at 1 and 2. She is on lithium scheduled to help with withdrawal. She still has episodes of confusion, but according to nursing they are interspersed with times where she is alert and oriented. When asleep she does need 1 L nasal cannula. Patient is still requiring some oxycodone for pain. Patient will continue in the hospital for placement. 01/16/2021 70-year-old female with left hip fracture and alcohol withdrawal developed worsening mental status this morning and more difficulty taking her medications. Nurse reports that she did choke a little on her medications this morning. By this afternoon patient had a fever, became more lethargic and was less responsive. Morning labs were improved with a white count of 10.2. Potassium was down a little at 3.3 as well as a lower magnesium 1.7. Both of these were replaced. Renal function was normal with a creatinine of 0.9. AST was 51 and ALT 13. Patient is receiving oxycodone for breakthrough pain. Last dose of Librium 50 mg was last night at 9 PM and she was switched to 15 mg this morning. Sepsis protocol was started at approximately 1515, please see nursing note for exact timing. CBC, CMP, lactic acid, chest x-ray, blood cultures, UA were all ordered. Fluid bolus of 500 mL of normal saline was ordered. Zosyn after blood cultures obtained. Chest x-ray showed poor inspiration making it difficult to rule out vascular congestion. No significant infiltrates noted. 01/17/2021 SANTIAGO, Improved Sepsis Suspected UTI Fever Leukocytosis Elevated CRP * Fever 102.9 on evening of 01/16/2021 * UA obtained but contaminated * Urine culture pending * Mildly lethargic * Vikram lift currently * Blood cultures obtained and pending * Renal function improving * Started on Rocephin Hypomagnesemia * Magnesium 1.7 * Supplemented Hypokalemia * Potassium 3.2 * Supplemented This is a 70-year-old female admitted the floor after a fall resulting in a left hip hemireplacement which was performed by Dr. Mayes on 01/13/2021. Patient is a known chronic alcohol abuser and does report at least 2 large drinks per night. Unfortunately postsurgically she did begin to detox and was started on Librium which has since been stopped due to changes in her mentation. On the evening of 01/16/2021 she was noted to have acute fever of 102.9. Blood cultures were obtained along with a UA and chest x-ray. UA appears contaminated and un fortunately repeat was not obtained. Unfortunately antibiotic choice is somewhat limited due to patient's allergies to doxycycline and penicillins. She was ultimately started on 2 g Rocephin and today vancomycin with pharmacy to dose was added due to recent surgery and continued low-grade fevers. Patient remains quite confused and at times somewhat lethargic. Swallow eval was ordered and as this progressed patient begins to trail off and lose focus. At this time they are recommending nectar thickened liquids with clear liquid diet and they will attempt to reevaluate. CIWA score has been between 4 and 6 when assessed. This has been lengthened to every 6 4 hours. She remains on 1 L of oxygen. Labs today show an elevated WBC of 15.68. Hemoglobin is 10.9. Platelet are 407,000. Neutrophils are elevated at 89.2%. ABG was obtained in the right radial with a pH of 7.45. PCO2 of 38.2. PO2 57.0. HCO3 of 25.8. O2 saturation of 86.2. Base excess of 2.3. This was obtained on 1 L. Sodium is 141. Potassium is 3.2 and this will be supplemented IV. Chloride is 104. Carbon dioxide is 25. Anion gap is 15.2. BUN is 11. Creatinine 1.0. GFR is up to 55. Magnesium is 1.7 and this will be supplemented via IV. Total bilirubin 0.4. AST is 31, ALT 13, alkaline phosphatase 101. CRP is up to 17.7 although this may be skewed due to the patient's recent surgery. Protein is 6.1 . Albumin is 2.3. Procalcitonin and blood and urine cultures are still pending we will watch for these. We will order a 2 view chest x-ray today. Unknown length of stay due to new onset fever with sepsis and suspected UTI. 01/18/2021 70-year-old female admitted to the floor for surgery after a fall. Left hip hemireplacement was performed by Dr. Mayes on 01/13/2021. Postsurgically patient was noted to go through alcohol withdrawals. She was on Librium and Ativan. He r CIWA score has greatly decreased and she has been stopped from Librium. For the past few days she has been noted to have a decreased mental status and yesterday was placed n.p.o. at advice of [facility]. Her home Seroquel was stopped. She has had no more fevers. Ammonia level was checked and was less than 10 due to her AMS. Head CT scan without contrast was obtained and showed senescent change but nothing acute. Chest x-ray yesterday showed atelectasis but no infiltrates. Urine culture obtained when patient was noted to have fevers shows no growth. Blood cultures are still pending. She remains on Rocephin 2 g daily and vancomycin with pharmacy to dose. Procalcitonin was mildly elevated at 0.19. Patient has otherwise become much more alert today. She remains mildly confused but is able to carry on a conversation. Diet will be advanced to clear liquids with nectar thick and we will have [facility] evaluate her again with the plan to further advance. PT and OT will resume. Labs today show WBC of 13.89 which is likely skewed due to her recent surgery. Hemoglobin is 10.5. Platelet 366,000. Neutrophils are elevated 86.3. Sodium is 143. Potassium is down to 2.7 and will be supplemented. This is likely low due to her not eating for a few days. Chloride is 104. Carbon dioxide is 26. Anion gap is 15.7. BUN is 13. Creatinine 0.9. GFR greater than 60. Glucose is 106. Calcium 7.9. Magnesium 2.1. Bilirubin 0.3. AST is 21, ALT 15, alkaline phosphatase 88. CRP is 16.0, again likely skewed due to patient's recent surgery. Protein is 5.7. Albumin is 2.1. Plan will be to advance diet and work with therapies today. We will look into antibiotics more once blood cultures return. Likely discharge in 1 to 2 days pending continued improvement and progression with therapies. 01/19/2021 C. difficile diarrhea * Multiple diarrhea stools noted by nursing * Patient reports generalized abdominal pain * Patient did receive antibiotics while here * C. difficile positive on 01/18/2021 This is a 70-year-old female admitted to the floor after a fall resulting in left hip fracture. She underwent surgical fixation and subsequently started to detox thereafter while recovering. She has since been doing well and CIWA protocol was discontinued. She was noted to have altered mental status and her home Seroquel was discontinued. She was having difficulty with eating and a swallow eval was ordered. This has improved with her mentation and she is now o n NDD3 diet with thin liquids and crushed pills. Unfortunately she was noted to have significant watery diarrhea and C. difficile was obtained and was positive. Patient did have multiple antibiotics due to surgery and a postoperative fever. She has had no's fever since then. Blood and urine cult ures remain negative. IV antibiotics have been discontinued and p.o. vancomycin has been started for her C. difficile. Today labs show WBC of 13.33. Hemoglobin is 10.3. Platelet 366,000. Neutrophils are elevated at 77.4%. Sodium is 138. Potassium is 2.8. Chloride is 100. Carbon dioxide is 27. Anion gap is 13.8. BUN is 9. Creatinine is 0.8. GFR is greater than 60. Glucose is 96. Magnesium is 1.6. Calcium is 8.2. Bilirubin is 0.2. AST is 34, ALT is 20. Alkaline phosphatase is 87. CRP is 12.8. Protein is 5.6. Albumin is 2.1. We will supplement magnesium and potassium which are likely low due to GI losses. Patient continues on PT and OT and will likely need placement. Plan * Admitted to medical floor * Nicotine patch * Follow CBC, CMP, mag * Pain control * PT/OT * CM/SW consultation for placement * Discontinue CIWA protocol * Discontinue Rocephin * Discontinued vancomycin * P.o. vancomycin 125 mg 4 times daily for a total of 10 days * Telemetry * Swallow evaluation -NDD3 diet with thin liquids and crushed pills * Home medications as ordered * Thiamine supplementation * Supplement potassium IV and effervescent due to swallowing difficulty * Supplement magnesium 2 g IV * CODE STATUS: Full code * VTE prophylaxis: SCDs and PAO hose, home ASA and Plavix <Josef Rodriguez Jr - Last Filed: 01/19/21 20:03> - Patient Data Vitals - Most Recent: Last Vital Signs Temp 96.1 F L 01/19/21 14:48 Pulse 91 01/19/21 14:48 Resp 21 H 01/19/21 14:48 BP 173/88 H 01/19/21 14:48 Pulse Ox 95 01/19/21 19:58 I&O - Last 24 Hours: Intake & Output 01/19/21 01/19/21 01/19/21 06:59 14:59 22:59 Intake Total 451 240 600 Balance 451 240 600 Lab Results Last 24 Hours: Laboratory Results - last 24 hr 01/19/21 01/19/21 Range/Units 05:20 05:20 WBC 13.33 H (3.98-10.04) K/mm3 RBC 3.65 L (3.98-5.22) M/mm3 Hgb 10.3 L (11.2-15.7) gm/dl Hct 32.6 L (34.1-44.9) % MCV 89.3 (79.4-94.8) fl MCH 28.2 (25.6-32.2) pg MCHC 31.6 L (32.2-35.5) g/dl RDW Std Deviation 46.3 (36.4-46.3) fL Plt Count 366 (182-369) K/mm3 MPV 10.0 (9.4-12.3) fl Neut % (Auto) 77.4 H (34.0-71.1) % Lymph % (Auto) 10.5 L (19.3-51.7) % Wirt % (Auto) 6.8 (4.7-12.5) % Eos % (Auto) 4.7 (0.7-5.8) Baso % (Auto) 0.2 (0.1-1.2) % Neut # (Auto) 10.34 H (1.56-6.13) K/mm3 Lymph # (Auto) 1.40 (1.18-3.74) K/mm3 Wirt # (Auto) 0.90 H (0.24-0.36) K/mm3 Eos # (Auto) 0.62 H (0.04-0.36) K/mm3 Baso # (Auto) 0.02 (0.01-0.08) K/mm3 Sodium 138 (136-145) mEq/L Potassium 2.8 L (3.5-5.1) mEq/L Chloride 100 (98-107) mEq/L Carbon Dioxide 27 (21-32) mEq/L Anion Gap 13.8 (5-15) BUN 9 (7-18) mg/dL Creatinine 0.8 (0.55-1.02) mg/dL Est Cr Clr Drug Dosing 56.50 mL/min Estimated GFR (MDRD) > 60 (>60) mL/min BUN/Creatinine Ratio 11.3 L (14-18) Glucose 96 (70-99) mg/dL Calcium 8.2 L (8.5-10.1) mg/dL Magnesium 1.6 L (1.8-2.4) mg/dL Total Bilirubin 0.2 (0.2-1.0) mg/dL AST 34 (15-37) U/L ALT 20 (14-59) U/L Alkaline Phosphatase 87 (46-116) U/L C-Reactive Protein 12.8 H* (<1.0) mg/dL Total Protein 5.6 L (6.4-8.2) g/dl Albumin 2.1 L (3.4-5.0) g/dl Globulin 3.5 gm/dL Albumin/Globulin Ratio 0.6 L (1-2) Christian Results Last 24 Hours: Microbiology 01/18/21 14:30 Clostridioides difficile Toxin Assay - Final Stool / Feces Med Orders - Current: Current Medications Acetaminophen (Acetaminophen 325 Mg Tab) 650 mg PO Q4H PRN PRN Reason: Pain (Mild 1-3)/fever Last Admin: 01/19/21 00:59 Dose: 650 mg Documented by: Albuterol (Albuterol 0.083% 2.5 Mg/3 Ml Neb Soln) 2.5 mg NEB Q2H PRN PRN Reason: Shortness Of Breath/wheezing Albuterol (Albuterol 6.7 Gm Inhaler) 0 gm INH Q4H PRN PRN Reason: shortness of breath Albuterol/Ipratropium (Albuterol/Ipratropium 3.0-0.5 Mg/3 Ml Neb Soln) 3 ml NEB Q6HRRT [facility] Last Admin: 01/19/21 20:00 Dose: 3 ml Documented by: Aspirin (Aspirin 81 Mg Tab.Ec) 81 mg PO DAILY [facility] Last Admin: 01/19/21 08:13 Dose: 81 mg Documented by: Budesonide (Budesonide 0.5 Mg/2 Ml Neb Susp) 0.5 mg NEB BID [facility] Last Admin: 01/19/21 20:00 Dose: 0.5 mg Documented by: Clopidogrel Bisulfate (Clopidogrel 75 Mg Tab) 75 mg PO DAILY [facility] Last Admin: 01/19/21 08:14 Dose: 75 mg Documented by: Diltiazem HCl (Diltiazem 180 Mg Cap.Cd) 180 mg PO DAILY [facility] Last Admin: 01/19/21 08:13 Dose: 180 mg Documented by: Duloxetine HCl (Duloxetine 30 Mg Cap) 30 mg PO BEDTIME [facility] Last Admin: 01/18/21 21:52 Dose: 30 mg Documented by: Ferrous Sulfate (Ferrous Sulfate 324 Mg Tab.Ec) 324 mg PO BID [facility] Last Admin: 01/19/21 08:13 Dose: 324 mg Documented by: Folic Acid (Folic Acid 1 Mg Tab) 1 mg PO DAILY [facility] Last Admin: 01/19/21 08:14 Dose: 1 mg Documented by: Furosemide (Furosemide 20 Mg Tab) 20 mg PO DAILY [facility] Last Admin: 01/19/21 08:13 Dose: 20 mg Documented by: Hydromorphone HCl (Hydromorphone 0.5 Mg/0.5 Ml Syringe) 0.5 mg IVPUSH Q2H PRN PRN Reason: Pain (severe 7-10) Last Admin: 01/17/21 13:42 Dose: 0.5 mg Documented by: Lorazepam (Lorazepam 2 Mg/Ml Sdv) 1 - 3 mg IVPUSH Q4H PRN; Protocol PRN Reason: withdrawl Melatonin (Melatonin 3 Mg Tab) 3 mg PO BEDTIME PRN PRN Reason: INSOMNIA Ondansetron HCl (Ondansetron 4 Mg/2 Ml Sdv) 4 mg IV Q6H PRN PRN Reason: Nausea/Vomiting Oxycodone HCl (Oxycodone 5 Mg Tab) 5 mg PO Q4H PRN PRN Reason: Pain (moderate 4-6) Last Admin: 01/17/21 04:18 Dose: 5 mg Documented by: Pantoprazole Sodium (Pantoprazole 40 Mg Tab.Cr) 40 mg PO DAILY [facility] Last Admin: 01/19/21 08:14 Dose: 40 mg Documented by: Polyethylene Glycol (Polyethylene Glycol 3350 Powder 17 Gm Packet) 17 gm PO DAILY PRN PRN Reason: Constipation Pravastatin Sodium (Pravastatin 20 Mg Tab) 20 mg PO BEDTIME [facility] Last Admin: 01/18/21 21:51 Dose: 20 mg Documented by: Thiamine HCl (Thiamine 100 Mg Tab) 100 mg PO DAILY [facility] Last Admin: 01/19/21 08:13 Dose: 100 mg Documented by: Tramadol HCl (Tramadol 50 Mg Tab) 50 mg PO Q6H PRN PRN Reason: Pain Vancomycin HCl (Vancomycin 125 Mg Cap) 125 mg PO QID [facility] Stop: 01/28/21 17:01 Last Admin: 01/19/21 16:50 Dose: 125 mg Documented by: Discontinued Medications Acetaminophen (Acetaminophen 650 Mg Supp) 650 mg RECTAL ONETIME ONE Stop: 01/16/21 15:53 Last Admin: 01/16/21 16:03 Dose: 650 mg Documented by: Albuterol (Albuterol 6.7 Gm Inhaler) 0 gm INH QID PRN PRN Reason: shortness of breath Cefazolin Sodium (Cefazolin 1 Gm Vial) Confirm Administered Dose 2 gm .ROUTE .STK-MED ONE Stop: 01/13/21 10:48 Chlordiazepoxide HCl (Chlordiazepoxide 25 Mg Cap) 50 mg PO BID [facility] Last Admin: 01/15/21 21:13 Dose: 50 mg Documented by: Chlordiazepoxide HCl (Chlordiazepoxide 25 Mg Cap) 25 mg PO BID [facility] Last Admin: 01/16/21 10:05 Dose: 25 mg Documented by: Morphine Sulfate 8 mg/Epinephrine HCl 0.3 mg/Cefuroxime Sodium 750 mg/Ketorolac Tromethamine 30 mg/Sodium Chloride 7.9 ml 0 mg .XX ASDIRECTED PRN PRN Reason: Pain Stop: 01/13/21 18:00 Last Admin: 01/13/21 13:13 Dose: 788.3 mg Documented by: Diltiazem HCl (Diltiazem 120 Mg Cap.Cd) 120 mg PO DAILY [facility] Last Admin: 01/16/21 10:04 Dose: 120 mg Documented by: Diltiazem HCl (Diltiazem Ir 30 Mg Tab) 30 mg PO ONETIME ONE Stop: 01/16/21 19:56 Last Admin: 01/16/21 22:08 Dose: 30 mg Documented by: Fentanyl (Fentanyl 250 Mcg/5 Ml Sdv) Confirm Administered Dose 250 mcg .ROUTE .STK-MED ONE Stop: 01/13/21 10:42 Fentanyl (Fentanyl 250 Mcg/5 Ml Sdv) Confirm Administered Dose 250 mcg .ROUTE .STK-MED ONE Stop: 01/13/21 12:52 Fentanyl (Fentanyl 100 Mcg/2 Ml Sdv) 50 mcg IVPUSH Q5M PRN PRN Reason: Pain Stop: 01/13/21 18:00 Sodium Chloride (Normal Saline) 1,000 mls @ 100 mls/hr IV ASDIRECTED [facility] Last Admin: 01/14/21 02:16 Dose: 100 mls/hr Documented by: Lidocaine HCl (Xylocaine-Mpf 1%) Confirm Administered Dose 4 mls @ as directed .ROUTE .STK-MED ONE Stop: 01/13/21 10:43 Lactated Ringer's (Ringers, Lactated) Confirm Administered Dose 1,000 mls @ as directed .ROUTE .STK-MED ONE Stop: 01/13/21 11:06 Cefazolin Sodium/Dextrose 2 gm (/ Premix) 50 mls @ 100 mls/hr IV Q8H [facility] Stop: 01/14/21 11:29 Last Admin: 01/14/21 10:40 Dose: 100 mls/hr Documented by: Sodium Chloride (Normal Saline) 500 mls @ 999 mls/hr IV .BOLUS ONE Stop: 01/16/21 16:27 Last Admin: 01/16/21 16:16 Dose: 999 mls/hr Documented by: Sodium Chloride (Normal Saline) 1,000 mls @ 125 mls/hr IV ASDIRECTED [facility] Last Admin: 01/17/21 06:34 Dose: 125 mls/hr Documented by: Piperacillin Sod/Tazobactam (Sod 4.5 gm/ Sodium Chloride) 100 mls @ 200 mls/hr IV ONETIME ONE Stop: 01/16/21 21:24 Last Admin: 01/16/21 22:50 Dose: Not Given Documented by: Ceftriaxone Sodium 2 gm/ (Sodium Chloride) 100 mls @ 200 mls/hr IV Q24H [facility] Stop: 01/20/21 22:29 Last Admin: 01/18/21 21:49 Dose: 200 mls/hr Documented by: Potassium Chloride 10 meq/ (Premix) 100 mls @ 100 mls/hr IV Q1H [facility] Stop: 01/17/21 14:29 Last Admin: 01/17/21 15:17 Dose: 100 mls/hr Documented by: Vancomycin HCl 1 gm/Vancomycin HCl 250 mg/ Sodium Chloride 250 mls @ 166.667 mls/hr IV ONETIME ONE Stop: 01/17/21 12:59 Last Admin: 01/17/21 11:48 Dose: 166.667 mls/hr Documented by: Magnesium Sulfate 2 gm/ Premix 50 mls @ 25 mls/hr IV ONETIME ONE Stop: 01/17/21 13:29 Last Admin: 01/17/21 13:04 Dose: 25 mls/hr Documented by: Vancomycin HCl 1 gm/ Sodium (Chloride) 250 mls @ 250 mls/hr IV Q12H [facility] Last Admin: 01/17/21 22:32 Dose: 250 mls/hr Documented by: Potassium Chloride 10 meq/ (Premix) 100 mls @ 100 mls/hr IV Q1H [facility] Stop: 01/18/21 14:59 Last Admin: 01/18/21 16:23 Dose: 100 mls/hr Documented by: Sodium Chloride (Normal Saline Advbag) Confirm Administered Dose 100 mls @ as directed .ROUTE .STK-MED ONE Stop: 01/18/21 09:40 Last Admin: 01/18/21 10:08 Dose: Not Given Documented by: Sodium Chloride (Normal Saline Advbag) Confirm Administered Dose 250 mls @ as directed .ROUTE .STK-MED ONE Stop: 01/18/21 09:41 Last Admin: 01/18/21 10:41 Dose: 30 mls/hr Documented by: Magnesium Sulfate 2 gm/ Premix 50 mls @ 25 mls/hr IV ONETIME ONE Stop: 01/19/21 10:25 Last Admin: 01/19/21 09:57 Dose: 25 mls/hr Documented by: Potassium Chloride 10 meq/ (Premix) 100 mls @ 100 mls/hr IV Q1H [facility] Stop: 01/19/21 12:29 Last Admin: 01/19/21 13:48 Dose: 100 mls/hr Documented by: Lorazepam (Lorazepam 1 Mg Tab) 0 mg PO Q1H PRN; Protocol PRN Reason: Withdrawal Symptoms Last Admin: 01/14/21 11:04 Dose: 1 mg Documented by: Lorazepam (Lorazepam 2 Mg/Ml Sdv) 0 mg IVPUSH Q15M PRN; Protocol PRN Reason: Withdrawal Symptoms Last Admin: 01/14/21 09:51 Dose: 1 mg Documented by: Lorazepam (Lorazepam 2 Mg/Ml Sdv) 1 - 3 mg IVPUSH Q1H PRN; Protocol PRN Reason: withdrawl Lorazepam (Lorazepam 2 Mg/Ml Sdv) 2 mg IVPUSH ONETIME [facility] Stop: 01/14/21 12:37 Last Admin: 01/14/21 20:56 Dose: Not Given Documented by: Magnesium Oxide (Magnesium Oxide 400 Mg Tab) 400 mg PO BID [facility] Last Admin: 01/17/21 09:44 Dose: 400 mg Documented by: Midazolam HCl (Midazolam 1 Mg/Ml 2 Ml Sdv) Confirm Administered Dose 2 mg .ROUTE .STK-MED ONE Stop: 01/13/21 10:42 Miscellaneous Information (Remove Patch) 0 ea TRDERM ONETIME ONE Stop: 01/13/21 10:31 Last Admin: 01/13/21 15:48 Dose: Not Given Documented by: Miscellaneous Medication (Phenylephrine Hcl In 0.9% Nacl 1 Mg/10 Ml Syringe) Confirm Administered Dose 1 mg .ROUTE .STK-MED ONE Stop: 01/13/21 12:19 Nicotine (Nicotine 14 Mg/24 Hr Patch) 14 mg TRDERM ONETIME ONE Stop: 01/13/21 16:01 Last Admin: 01/13/21 15:54 Dose: 14 mg Documented by: Ondansetron HCl (Ondansetron 4 Mg/2 Ml Sdv) Confirm Administered Dose 4 mg .ROUTE .STK-MED ONE Stop: 01/13/21 10:42 Potassium Bicarbonate (Potassium Bicarbonate/Cit Ac 20 Meq Effervescent Tab) 40 meq PO ONETIME ONE Stop: 01/19/21 08:26 Last Admin: 01/19/21 09:57 Dose: 40 meq Documented by: Potassium Chloride (Potassium Chloride 20 Meq Tab.Er) 40 meq PO BID [facility] Last Admin: 01/13/21 20:58 Dose: Not Given Documented by: Potassium Chloride (Potassium Chloride 20 Meq Tab.Er) 40 meq PO ONETIME ONE Stop: 01/16/21 08:50 Last Admin: 01/16/21 10:05 Dose: 40 meq Documented by: Propofol (Propofol 200 Mg/20 Ml Sdv) Confirm Administered Dose 200 mg .ROUTE .STK-MED ONE Stop: 01/13/21 10:42 Quetiapine Fumarate (Quetiapine 25 Mg Tab) 50 mg PO BEDTIME [facility] Last Admin: 01/16/21 22:27 Dose: 50 mg Documented by: Rocuronium [place] (Rocuronium 50 Mg/5 Ml Vial) Confirm Administered Dose 50 mg .ROUTE .STK-MED ONE Stop: 01/13/21 10:42 Senna/Docusate Sodium (Docusate Sodium/Sennosides 50-8.6 Mg Tab) 2 tab PO BID [facility] Last Admin: 01/19/21 08:15 Dose: Not Given Documented by: Tranexamic Acid (Tranexamic Acid 1,000 Mg/10 Ml Amp) Confirm Administered Dose 1,000 mg .ROUTE .STK-MED ONE Stop: 01/13/21 11:39 Last Admin: 01/13/21 13:13 Dose: 1,000 mg Documented by: Vancomycin HCl (Vancomycin 1 Gm Sdv) Confirm Administered Dose 1 gm .ROUTE .STK- MED ONE Stop: 01/13/21 11:39 Last Admin: 01/13/21 13:13 Dose: 1 gm Documented by: Vancomycin HCl (Pharmacy To Dose - Vancomycin) 1 dose .XX ASDIRECTED PRN PRN Reason: RX TO DOSE VANCO - Patient Data Lab Results Last 24 hrs: Laboratory Results - last 24 hr 01/19/21 01/19/21 Range/Units 05:20 05:20 WBC 13.33 H (3.98-10.04) K/mm3 RBC 3.65 L (3.98-5.22) M/mm3 Hgb 10.3 L (11.2-15.7) gm/dl Hct 32.6 L (34.1-44.9) % MCV 89.3 (79.4-94.8) fl MCH 28.2 (25.6-32.2) pg MCHC 31.6 L (32.2-35.5) g/dl RDW Std Deviation 46.3 (36.4-46.3) fL Plt Count 366 (182-369) K/mm3 MPV 10.0 (9.4-12.3) fl Neut % (Auto) 77.4 H (34.0-71.1) % Lymph % (Auto) 10.5 L (19.3-51.7) % Wirt % (Auto) 6.8 (4.7-12.5) % Eos % (Auto) 4.7 (0.7-5.8) Baso % (Auto) 0.2 (0.1-1.2) % Neut # (Auto) 10.34 H (1.56-6.13) K/mm3 Lymph # (Auto) 1.40 (1.18-3.74) K/mm3 Wirt # (Auto) 0.90 H (0.24-0.36) K/mm3 Eos # (Auto) 0.62 H (0.04-0.36) K/mm3 Baso # (Auto) 0.02 (0.01-0.08) K/mm3 Sodium 138 (136-145) mEq/L Potassium 2.8 L (3.5-5.1) mEq/L Chloride 100 (98-107) mEq/L Carbon Dioxide 27 (21-32) mEq/L Anion Gap 13.8 (5-15) BUN 9 (7-18) mg/dL Creatinine 0.8 (0.55-1.02) mg/dL Est Cr Clr Drug Dosing 56.50 mL/min Estimated GFR (MDRD) > 60 (>60) mL/min BUN/Creatinine Ratio 11.3 L (14-18) Glucose 96 (70-99) mg/dL Calcium 8.2 L (8.5-10.1) mg/dL Magnesium 1.6 L (1.8-2.4) mg/dL Total Bilirubin 0.2 (0.2-1.0) mg/dL AST 34 (15-37) U/L ALT 20 (14-59) U/L Alkaline Phosphatase 87 (46-116) U/L C-Reactive Protein 12.8 H* (<1.0) mg/dL Total Protein 5.6 L (6.4-8.2) g/dl Albumin 2.1 L (3.4-5.0) g/dl Globulin 3.5 gm/dL Albumin/Globulin Ratio 0.6 L (1-2) Result Diagrams: 01/19/21 05:20 01/19/21 05:20 Christian Results Last 24 hrs: Microbiology 01/18/21 14:30 Clostridioides difficile Toxin Assay - Final Stool / Feces Sepsis Event Note - Focused Exam Vital Signs: Vital Signs Temp Pulse Resp BP Pulse Ox Pulse Ox 01/19/21 19:58 95 01/19/21 15:03 95 01/19/21 14:48 96.1 F L 91 21 H 173/88 H 95 01/19/21 12:02 96.4 F L 52 L 21 H 136/94 H 93 L 01/19/21 08:16 97.9 F 95 18 179/85 H 93 L - Plan Plan:: Case discussed in full. Agree with evaluation, assessment and plan. -Be Lopez Jr.
[2021-01-19] MEDS: Furosemide 20 MG Tab PO SCH (08:13)
[2021-01-19] MEDS: Aspirin 81 MG Tab.EC PO SCH (08:13)
[2021-01-19] MEDS: Thiamine 100 MG Tab PO SCH (08:13)
[2021-01-19] MEDS: Ferrous Sulfate 324 MG Tab.EC PO SCH ×2 (08:13→20:46)
[2021-01-19] MEDS: Diltiazem 180 MG Cap.CD PO SCH (08:13)
[2021-01-19] MEDS: Clopidogrel 75 MG Tab PO SCH (08:14)
[2021-01-19] MEDS: Vancomycin 125 MG Cap PO SCH ×4 (08:14→20:46)
[2021-01-19] MEDS: Folic Acid 1 MG Tab PO SCH (08:14)
[2021-01-19] MEDS: Pantoprazole 40 MG Tab.CR PO SCH (08:14)
[2021-01-19] MEDS ORDERED: Potassium Bicarbonate/Cit Ac 20 MEQ Effervescent Tab PO ONE (08:25)
[2021-01-19] MEDS ORDERED: Magnesium Sulfate/Water 2 GM in Premix Bag 1 BAG IV ONE (08:26)
--- NOTE | 2021-01-19 08:52 | PCM.OPNOTE ---
- General Post-Op/Procedure Note Date of Surgery/Procedure: 01/13/21 Operative Procedure(s): left hip hemiarthroplasty Pre Op Diagnosis: left hip displaced femoral neck fracture Post-Op Diagnosis: Same Anesthesia Technique: General ET Tube, Local Primary Surgeon: Bard Mayes Anesthesia Provider: Samy Maloney Website Developer: Maricruz Winkler Website Developer: Sasha Burciaga EBL in mLs: 250 Complications: None Condition: Good Free Text/Narrative:: Intake & Output 01/18/21 01/19/21 01/19/21 22:59 06:59 14:59 Intake Total 1574 451 Balance 1574 451 5 stem 43 head +0 neck sleeve
[2021-01-19] MEDS: Potassium Chloride 10 MEQ in Premix Bag 1 BAG IV SCH ×4 (09:57→13:48)
[2021-01-19] MEDS: Budesonide 0.5 MG/2 ML Neb Susp NEB SCH ×2 (11:26→20:00)
--- NOTE | 2021-01-19 12:11 | OR ---
DATE OF OPERATION: 01/13/2021 SURGEON: Brad Mayes MD OPERATION PERFORMED: Left hip hemiarthroplasty. PREOPERATIVE DIAGNOSIS: Left hip displaced femoral neck fracture. POSTOPERATIVE DIAGNOSIS: Left hip displaced femoral neck fracture. ANESTHESIA: General endotracheal intubation with local. ANESTHESIA PROVIDER: Samy Maloney CRNA ASSISTANTS: Maricruz Winkler PA-C and Sasha Burciaga LPN. ESTIMATED BLOOD LOSS: 250 mL. COMPLICATIONS: None. CONDITION: Stable. IMPLANTS: 1. [place] size 5 Accolade II stem. 2. [place] size 43 mm hemiarthroplasty unipolar head. 3. Breanne +0 neck sleeve. DESCRIPTION OF PROCEDURE: The patient was identified in the preoperative holding area. Proper site was marked and identified by the surgeon. The patient was taken back to the operating theater where after adequate anesthesia, the patient was placed in right lateral decubitus position. Axillary roll was placed. Pegs were placed. Bony prominences were well padded, pegs were well padded. The patient's gluteal fold was parallel to the floor, and left hip was then sterilely prepped and draped in usual sterile fashion. OR time-out was performed. The patient received 2 g IV Ancef. At this time, standard posterior incision was made, centered over the greater trochanter. This was taken down to the IT band and gluteal fascia, which was incised along the incisional length. Charnley retractor was placed. Short external rotators were identified and takedown of the short external rotators was done from the level of the piriformis down to the lesser trochanter making sure to keep the hip labrum intact. The fracture site was identified. The fracture was removed with the head and neck. No clean- up cut was needed as it broke right at the level of the lesser trochanter, but the lesser and greater trochanter were intact. At this time, starter awl was placed down the canal. Starting with the 0 broach, I was able to broach up to a size 5 which was found to be rotationally and vertically stable. A standard 127 degree neck with a 0 neck sleeve and 43 head were then placed. The patient had adequate denominational of leg lengths and was stable throughout range of motion. Hip was dislocated. The trial implants were removed. The size 5 Accolade II stem was impacted in place along with the 0 neck sleeve and a 43 mm hemiarthroplasty unipolar head. Hip was then relocated. #5 Ethibond suture was used for closure of the short external rotators and capsule. 1 L pulse lavage irrigation with Ancef was irrigated through the hip along with 400 mL Irrisept irrigation. Topical tranexamic acid and vancomycin powder were applied. Periarticular injection was completed. #2 barbed suture was used for closure of the IT band and gluteal fascia. 2-0 Vicryl was used subcutaneously, and Prineo was used for skin closure. The patient tolerated the procedure well and was sent to the PACU in stable condition. REKHA /[id number]
[2021-01-19] MEDS: DULoxetine 30 MG Cap PO SCH (20:46)
[2021-01-19] MEDS: Pravastatin 20 MG Tab PO SCH (20:46)
[2021-01-20] MEDS: Albuterol/Ipratropium 3.0-0.5 MG/3 ML Neb Soln NEB SCH ×4 (02:50→20:24)
[2021-01-20] MEDS: Acetaminophen 325 MG Tab PO PRN ×3 (03:26→17:23)
[2021-01-20] MEDS ORDERED: Potassium Bicarbonate/Cit Ac 20 MEQ Effervescent Tab PO ONE (07:04)
[2021-01-20] MEDS ORDERED: Magnesium Sulfate/Water 4 GM in Premix Bag 1 BAG IV ONE (07:05)
--- NOTE | 2021-01-20 07:06 | PCM.PN ---
<Carlos Ramirez - Last Filed: 01/20/21 09:24> - General Info Date of Service: 01/20/21 Admission Dx/Problem (Free Text): Admission Diagnosis/Problem Admission Diagnosis/Problem Fracture of left hip Functional Status: Reports: Pain Controlled, Tolerating Diet, Ambulating, Urinating. Denies: New Symptoms - Review of Systems General: Reports: Weakness. Denies: Fever, Fatigue, Malaise, Chills HEENT: Reports: No Symptoms. Denies: Headaches, Sore Throat Pulmonary: Reports: No Symptoms. Denies: Shortness of Breath, Cough, Sputum, Wheezing Cardiovascular: Reports: No Symptoms. Denies: Chest Pain, Palpitations, Dyspnea on Exertion, Edema Gastrointestinal: Reports: Abdominal Pain (Mild generalized), Diarrhea (Improving). Denies: Constipation, Nausea, Vomiting Genitourinary: Reports: No Symptoms. Denies: Pain Musculoskeletal: Reports: Leg Pain (left), Joint Pain (left hip) Skin: Reports: No Symptoms. Denies: Cyanosis Neurological: Reports: Difficulty Walking, Weakness, Gait Disturbance. Denies: Confusion, Dizziness, Headache, Numbness, Seizure, Syncope, Tingling Psychiatric: Reports: No Symptoms - Patient Data Vitals - Most Recent: Last Vital Signs Temp 97.2 F 01/20/21 03:27 Pulse 104 H 01/20/21 03:27 Resp 18 01/20/21 03:27 BP 168/92 H 01/20/21 03:43 Pulse Ox 97 01/20/21 03:27 Weight - Most Recent: 173 lb 1.6 oz I&O - Last 24 Hours: Intake & Output 01/19/21 01/20/21 01/20/21 22:59 06:59 14:59 Intake Total 600 900 Output Total 150 Balance 600 750 Lab Results Last 24 Hours: Laboratory Results - last 24 hr 01/19/21 01/20/21 01/20/21 Range/Units 05:20 05:00 05:00 WBC 14.12 H (3.98-10.04) K/mm3 RBC 3.93 L (3.98-5.22) M/mm3 Hgb 10.9 L (11.2-15.7) gm/dl Hct 34.4 (34.1-44.9) % MCV 87.5 (79.4-94.8) fl MCH 27.7 (25.6-32.2) pg MCHC 31.7 L (32.2-35.5) g/dl RDW Std Deviation 45.1 (36.4-46.3) fL Plt Count 411 H (182-369) K/mm3 MPV 10.3 (9.4-12.3) fl Neut % (Auto) 78.4 H (34.0-71.1) % Lymph % (Auto) 10.1 L (19.3-51.7) % [place] % (Auto) 6.1 (4.7-12.5) % Eos % (Auto) 4.5 (0.7-5.8) Baso % (Auto) 0.2 (0.1-1.2) % Neut # (Auto) 11.07 H (1.56-6.13) K/mm3 Lymph # (Auto) 1.42 (1.18-3.74) K/mm3 [place] # (Auto) 0.86 H (0.24-0.36) K/mm3 Eos # (Auto) 0.64 H (0.04-0.36) K/mm3 Baso # (Auto) 0.03 (0.01-0.08) K/mm3 Sodium 138 133 L (136-145) mEq/L Potassium 2.8 L 3.0 L (3.5-5.1) mEq/L Chloride 100 96 L (98-107) mEq/L Carbon Dioxide 27 27 (21-32) mEq/L Anion Gap 13.8 13.0 (5-15) BUN 9 11 (7-18) mg/dL Creatinine 0.8 0.9 (0.55-1.02) mg/dL Est Cr Clr Drug Dosing 56.50 50.23 mL/min Estimated GFR (MDRD) > 60 > 60 (>60) mL/min BUN/Creatinine Ratio 11.3 L 12.2 L (14-18) Glucose 96 112 H (70-99) mg/dL Calcium 8.2 L 8.3 L (8.5-10.1) mg/dL Magnesium 1.6 L 1.6 L (1.8-2.4) mg/dL Total Bilirubin 0.2 0.3 (0.2-1.0) mg/dL AST 34 23 (15-37) U/L ALT 20 19 (14-59) U/L Alkaline Phosphatase 87 100 (46-116) U/L C-Reactive Protein 12.8 H* 11.4 H* (<1.0) mg/dL Total Protein 5.6 L 5.9 L (6.4-8.2) g/dl Albumin 2.1 L 2.3 L (3.4-5.0) g/dl Globulin 3.5 3.6 gm/dL Albumin/Globulin Ratio 0.6 L 0.6 L (1-2) Christian Results Last 24 Hours: Microbiology 01/18/21 14:30 Clostridioides difficile Toxin Assay - Final Stool / Feces Med Orders - Current: Current Medications Acetaminophen (Acetaminophen 325 Mg Tab) 650 mg PO Q4H PRN PRN Reason: Pain (Mild 1-3)/fever Last Admin: 01/20/21 03:26 Dose: 650 mg Documented by: Albuterol (Albuterol 0.083% 2.5 Mg/3 Ml Neb Soln) 2.5 mg NEB Q2H PRN PRN Reason: Shortness Of Breath/wheezing Albuterol (Albuterol 6.7 Gm Inhaler) 0 gm INH Q4H PRN PRN Reason: shortness of breath Albuterol/Ipratropium (Albuterol/Ipratropium 3.0-0.5 Mg/3 Ml Neb Soln) 3 ml NEB Q6HRRT [facility] Last Admin: 01/20/21 02:50 Dose: 3 ml Documented by: Aspirin (Aspirin 81 Mg Tab.Ec) 81 mg PO DAILY [facility] Last Admin: 01/19/21 08:13 Dose: 81 mg Documented by: Budesonide (Budesonide 0.5 Mg/2 Ml Neb Susp) 0.5 mg NEB BID [facility] Last Admin: 01/19/21 20:00 Dose: 0.5 mg Documented by: Clopidogrel Bisulfate (Clopidogrel 75 Mg Tab) 75 mg PO DAILY [facility] Last Admin: 01/19/21 08:14 Dose: 75 mg Documented by: Diltiazem HCl (Diltiazem 180 Mg Cap.Cd) 180 mg PO DAILY [facility] Last Admin: 01/19/21 08:13 Dose: 180 mg Documented by: Duloxetine HCl (Duloxetine 30 Mg Cap) 30 mg PO BEDTIME [facility] Last Admin: 01/19/21 20:46 Dose: 30 mg Documented by: Ferrous Sulfate (Ferrous Sulfate 324 Mg Tab.Ec) 324 mg PO BID [facility] Last Admin: 01/19/21 20:46 Dose: 324 mg Documented by: Folic Acid (Folic Acid 1 Mg Tab) 1 mg PO DAILY [facility] Last Admin: 01/19/21 08:14 Dose: 1 mg Documented by: Furosemide (Furosemide 20 Mg Tab) 20 mg PO DAILY [facility] Last Admin: 01/19/21 08:13 Dose: 20 mg Documented by: Hydromorphone HCl (Hydromorphone 0.5 Mg/0.5 Ml Syringe) 0.5 mg IVPUSH Q2H PRN PRN Reason: Pain (severe 7-10) Last Admin: 01/17/21 13:42 Dose: 0.5 mg Documented by: Potassium Chloride 10 meq/ (Premix) 100 mls @ 100 mls/hr IV Q1H [facility]ISHNA Stop: 01/20/21 11:14 Magnesium Sulfate 4 gm/ Premix 50 mls @ 12.5 mls/hr IV ONETIME ONE Stop: 01/20/21 11:04 Lorazepam (Lorazepam 2 Mg/Ml Sdv) 1 - 3 mg IVPUSH Q4H PRN; Protocol PRN Reason: withdrawl Melatonin (Melatonin 3 Mg Tab) 3 mg PO BEDTIME PRN PRN Reason: INSOMNIA Last Admin: 01/19/21 20:50 Dose: 3 mg Documented by: Ondansetron HCl (Ondansetron 4 Mg/2 Ml Sdv) 4 mg IV Q6H PRN PRN Reason: Nausea/Vomiting Oxycodone HCl (Oxycodone 5 Mg Tab) 5 mg PO Q4H PRN PRN Reason: Pain (moderate 4-6) Last Admin: 01/17/21 04:18 Dose: 5 mg Documented by: Pantoprazole Sodium (Pantoprazole 40 Mg Tab.Cr) 40 mg PO DAILY [facility] Last Admin: 01/19/21 08:14 Dose: 40 mg Documented by: Polyethylene Glycol (Polyethylene Glycol 3350 Powder 17 Gm Packet) 17 gm PO DAILY PRN PRN Reason: Constipation Pravastatin Sodium (Pravastatin 20 Mg Tab) 20 mg PO BEDTIME [facility] Last Admin: 01/19/21 20:46 Dose: 20 mg Documented by: Thiamine HCl (Thiamine 100 Mg Tab) 100 mg PO DAILY [facility] Last Admin: 01/19/21 08:13 Dose: 100 mg Documented by: Tramadol HCl (Tramadol 50 Mg Tab) 50 mg PO Q6H PRN PRN Reason: Pain Vancomycin HCl (Vancomycin 125 Mg Cap) 125 mg PO QID [facility] Stop: 01/28/21 17:01 Last Admin: 01/19/21 20:46 Dose: 125 mg Documented by: Discontinued Medications Acetaminophen (Acetaminophen 650 Mg Supp) 650 mg RECTAL ONETIME ONE Stop: 01/16/21 15:53 Last Admin: 01/16/21 16:03 Dose: 650 mg Documented by: Albuterol (Albuterol 6.7 Gm Inhaler) 0 gm INH QID PRN PRN Reason: shortness of breath Cefazolin Sodium (Cefazolin 1 Gm Vial) Confirm Administered Dose 2 gm .ROUTE .STK-MED ONE Stop: 01/13/21 10:48 Chlordiazepoxide HCl (Chlordiazepoxide 25 Mg Cap) 50 mg PO BID [facility] Last Admin: 01/15/21 21:13 Dose: 50 mg Documented by: Chlordiazepoxide HCl (Chlordiazepoxide 25 Mg Cap) 25 mg PO BID [facility] Last Admin: 01/16/21 10:05 Dose: 25 mg Documented by: Morphine Sulfate 8 mg/Epinephrine HCl 0.3 mg/Cefuroxime Sodium 750 mg/Ketorolac Tromethamine 30 mg/Sodium Chloride 7.9 ml 0 mg .XX ASDIRECTED PRN PRN Reason: Pain Stop: 01/13/21 18:00 Last Admin: 01/13/21 13:13 Dose: 788.3 mg Documented by: Diltiazem HCl (Diltiazem 120 Mg Cap.Cd) 120 mg PO DAILY [facility] Last Admin: 01/16/21 10:04 Dose: 120 mg Documented by: Diltiazem HCl (Diltiazem Ir 30 Mg Tab) 30 mg PO ONETIME ONE Stop: 01/16/21 19:56 Last Admin: 01/16/21 22:08 Dose: 30 mg Documented by: Fentanyl (Fentanyl 250 Mcg/5 Ml Sdv) Confirm Administered Dose 250 mcg .ROUTE .STK-MED ONE Stop: 01/13/21 10:42 Fentanyl (Fentanyl 250 Mcg/5 Ml Sdv) Confirm Administered Dose 250 mcg .ROUTE .STK-MED ONE Stop: 01/13/21 12:52 Fentanyl (Fentanyl 100 Mcg/2 Ml Sdv) 50 mcg IVPUSH Q5M PRN PRN Reason: Pain Stop: 01/13/21 18:00 Sodium Chloride (Normal Saline) 1,000 mls @ 100 mls/hr IV ASDIRECTED [facility] Last Admin: 01/14/21 02:16 Dose: 100 mls/hr Documented by: Lidocaine HCl (Xylocaine-Mpf 1%) Confirm Administered Dose 4 mls @ as directed .ROUTE .STK-MED ONE Stop: 01/13/21 10:43 Lactated Ringer's (Ringers, Lactated) Confirm Administered Dose 1,000 mls @ as directed .ROUTE .STK-MED ONE Stop: 01/13/21 11:06 Cefazolin Sodium/Dextrose 2 gm (/ Premix) 50 mls @ 100 mls/hr IV Q8H [facility] Stop: 01/14/21 11:29 Last Admin: 01/14/21 10:40 Dose: 100 mls/hr Documented by: Sodium Chloride (Normal Saline) 500 mls @ 999 mls/hr IV .BOLUS ONE Stop: 01/16/21 16:27 Last Admin: 01/16/21 16:16 Dose: 999 mls/hr Documented by: Sodium Chloride (Normal Saline) 1,000 mls @ 125 mls/hr IV ASDIRECTED [facility] Last Admin: 01/17/21 06:34 Dose: 125 mls/hr Documented by: Piperacillin Sod/Tazobactam (Sod 4.5 gm/ Sodium Chloride) 100 mls @ 200 mls/hr IV ONETIME ONE Stop: 01/16/21 21:24 Last Admin: 01/16/21 22:50 Dose: Not Given Documented by: Ceftriaxone Sodium 2 gm/ (Sodium Chloride) 100 mls @ 200 mls/hr IV Q24H [facility] Stop: 01/20/21 22:29 Last Admin: 01/18/21 21:49 Dose: 200 mls/hr Documented by: Potassium Chloride 10 meq/ (Premix) 100 mls @ 100 mls/hr IV Q1H [facility] Stop: 01/17/21 14:29 Last Admin: 01/17/21 15:17 Dose: 100 mls/hr Documented by: Vancomycin HCl 1 gm/Vancomycin HCl 250 mg/ Sodium Chloride 250 mls @ 166.667 mls/hr IV ONETIME ONE Stop: 01/17/21 12:59 Last Admin: 01/17/21 11:48 Dose: 166.667 mls/hr Documented by: Magnesium Sulfate 2 gm/ Premix 50 mls @ 25 mls/hr IV ONETIME ONE Stop: 01/17/21 13:29 Last Admin: 01/17/21 13:04 Dose: 25 mls/hr Documented by: Vancomycin HCl 1 gm/ Sodium (Chloride) 250 mls @ 250 mls/hr IV Q12H [facility] Last Admin: 01/17/21 22:32 Dose: 250 mls/hr Documented by: Potassium Chloride 10 meq/ (Premix) 100 mls @ 100 mls/hr IV Q1H [facility] Stop: 01/18/21 14:59 Last Admin: 01/18/21 16:23 Dose: 100 mls/hr Documented by: Sodium Chloride (Normal Saline Advbag) Confirm Administered Dose 100 mls @ as directed .ROUTE .STK-MED ONE Stop: 01/18/21 09:40 Last Admin: 01/18/21 10:08 Dose: Not Given Documented by: Sodium Chloride (Normal Saline Advbag) Confirm Administered Dose 250 mls @ as directed .ROUTE .STK-MED ONE Stop: 01/18/21 09:41 Last Admin: 01/18/21 10:41 Dose: 30 mls/hr Documented by: Magnesium Sulfate 2 gm/ Premix 50 mls @ 25 mls/hr IV ONETIME ONE Stop: 01/19/21 10:25 Last Admin: 01/19/21 09:57 Dose: 25 mls/hr Documented by: Potassium Chloride 10 meq/ (Premix) 100 mls @ 100 mls/hr IV Q1H [facility] Stop: 01/19/21 12:29 Last Admin: 01/19/21 13:48 Dose: 100 mls/hr Documented by: Lorazepam (Lorazepam 1 Mg Tab) 0 mg PO Q1H PRN; Protocol PRN Reason: Withdrawal Symptoms Last Admin: 01/14/21 11:04 Dose: 1 mg Documented by: Lorazepam (Lorazepam 2 Mg/Ml Sdv) 0 mg IVPUSH Q15M PRN; Protocol PRN Reason: Withdrawal Symptoms Last Admin: 01/14/21 09:51 Dose: 1 mg Documented by: Lorazepam (Lorazepam 2 Mg/Ml Sdv) 1 - 3 mg IVPUSH Q1H PRN; Protocol PRN Reason: withdrawl Lorazepam (Lorazepam 2 Mg/Ml Sdv) 2 mg IVPUSH ONETIME STA Stop: 01/14/21 12:37 Last Admin: 01/14/21 20:56 Dose: Not Given Documented by: Magnesium Oxide (Magnesium Oxide 400 Mg Tab) 400 mg PO BID [facility] Last Admin: 01/17/21 09:44 Dose: 400 mg Documented by: Midazolam HCl (Midazolam 1 Mg/Ml 2 Ml Sdv) Confirm Administered Dose 2 mg .ROUTE .STK-MED ONE Stop: 01/13/21 10:42 Miscellaneous Information (Remove Patch) 0 ea TRDERM ONETIME ONE Stop: 01/13/21 10:31 Last Admin: 01/13/21 15:48 Dose: Not Given Documented by: Miscellaneous Medication (Phenylephrine Hcl In 0.9% Nacl 1 Mg/10 Ml Syringe) Confirm Administered Dose 1 mg .ROUTE .STK-MED ONE Stop: 01/13/21 12:19 Nicotine (Nicotine 14 Mg/24 Hr Patch) 14 mg TRDERM ONETIME ONE Stop: 01/13/21 16:01 Last Admin: 01/13/21 15:54 Dose: 14 mg Documented by: Ondansetron HCl (Ondansetron 4 Mg/2 Ml Sdv) Confirm Administered Dose 4 mg .ROUTE .STK-MED ONE Stop: 01/13/21 10:42 Potassium Bicarbonate (Potassium Bicarbonate/Cit Ac 20 Meq Effervescent Tab) 40 meq PO ONETIME ONE Stop: 01/19/21 08:26 Last Admin: 01/19/21 09:57 Dose: 40 meq Documented by: Potassium Bicarbonate (Potassium Bicarbonate/Cit Ac 20 Meq Effervescent Tab) 40 meq PO ONETIME ONE Stop: 01/20/21 07:05 Potassium Chloride (Potassium Chloride 20 Meq Tab.Er) 40 meq PO BID [facility] Last Admin: 01/13/21 20:58 Dose: Not Given Documented by: Potassium Chloride (Potassium Chloride 20 Meq Tab.Er) 40 meq PO ONETIME ONE Stop: 01/16/21 08:50 Last Admin: 01/16/21 10:05 Dose: 40 meq Documented by: Propofol (Propofol 200 Mg/20 Ml Sdv) Confirm Administered Dose 200 mg .ROUTE .STK-MED ONE Stop: 01/13/21 10:42 Quetiapine Fumarate (Quetiapine 25 Mg Tab) 50 mg PO BEDTIME [facility] Last Admin: 01/16/21 22:27 Dose: 50 mg Documented by: Rocuronium [place] (Rocuronium 50 Mg/5 Ml Vial) Confirm Administered Dose 50 mg .ROUTE .STK-MED ONE Stop: 01/13/21 10:42 Senna/Docusate Sodium (Docusate Sodium/Sennosides 50-8.6 Mg Tab) 2 tab PO BID [facility] Last Admin: 01/19/21 08:15 Dose: Not Given Documented by: Tranexamic Acid (Tranexamic Acid 1,000 Mg/10 Ml Amp) Confirm Administered Dose 1,000 mg .ROUTE .STK-MED ONE Stop: 01/13/21 11:39 Last Admin: 01/13/21 13:13 Dose: 1,000 mg Documented by: Vancomycin HCl (Vancomycin 1 Gm Sdv) Confirm Administered Dose 1 gm .ROUTE .STK- MED ONE Stop: 01/13/21 11:39 Last Admin: 01/13/21 13:13 Dose: 1 gm Documented by: Vancomycin HCl (Pharmacy To Dose - Vancomycin) 1 dose .XX ASDIRECTED PRN PRN Reason: RX TO DOSE VANCO - Exam Quality Assessment: DVT Prophylaxis. No: Supplemental Oxygen, Urine Catheter Urinary Catheter Total Time: 3Days 6Hours General: Alert, Oriented, Cooperative, No Acute Distress HEENT: Pupils Equal, Pupils Reactive, Mucous Membr. Moist/Gann Neck: Supple, Trachea Midline Lungs: Clear to Auscultation, Normal Respiratory Effort Cardiovascular: Regular Rate, Regular Rhythm GI/Abdominal Exam: Normal Bowel Sounds, Soft, No Distention, Tender (mild generalized ) (Female) Exam: Deferred Back Exam: Normal Inspection, Decreased Range of Motion Extremities: Normal Inspection, Normal Range of Motion, No Pedal Edema, Normal Capillary Refill, Leg Pain (left ), Other (Bandage in place on left upper thigh) Peripheral Pulses: 2+: Radial (L), Radial (R), Dorsalis Pedis (L), Dorsalis Pedis (R) Skin: Warm, Dry, Intact Wound/Incisions: Dressing Dry and Intact Neurological: No New Focal Deficit Psy/Mental Status: Alert, Normal Affect, Normal Mood - Patient Data Lab Results Last 24 hrs: Laboratory Results - last 24 hr 01/19/21 01/20/2101/20/21 Range/Units 05:20 05:00 05:00 WBC 14.12 H (3.98-10.04) K/mm3 RBC 3.93 L (3.98-5.22) M/mm3 Hgb 10.9 L (11.2-15.7) gm/dl Hct 34.4 (34.1-44.9) % MCV 87.5 (79.4-94.8) fl MCH 27.7 (25.6-32.2) pg MCHC 31.7 L (32.2-35.5) g/dl RDW Std Deviation 45.1 (36.4-46.3) fL Plt Count 411 H (182-369) K/mm3 MPV 10.3 (9.4-12.3) fl Neut % (Auto) 78.4 H (34.0-71.1) % Lymph % (Auto) 10.1 L (19.3-51.7) % [place] % (Auto) 6.1 (4.7-12.5) % Eos % (Auto) 4.5 (0.7-5.8) Baso % (Auto) 0.2 (0.1-1.2) % Neut # (Auto) 11.07 H (1.56-6.13) K/mm3 Lymph # (Auto) 1.42 (1.18-3.74) K/mm3 [place] # (Auto) 0.86 H (0.24-0.36) K/mm3 Eos # (Auto) 0.64 H (0.04-0.36) K/mm3 Baso # (Auto) 0.03 (0.01-0.08) K/mm3 Sodium 138 133 L (136-145) mEq/L Potassium 2.8 L 3.0 L (3.5-5.1) mEq/L Chloride 100 96 L (98-107) mEq/L Carbon Dioxide 27 27 (21-32) mEq/L Anion Gap 13.8 13.0 (5-15) BUN 9 11 (7-18) mg/dL Creatinine 0.8 0.9 (0.55-1.02) mg/dL Est Cr Clr Drug Dosing 56.50 50.23 mL/min Estimated GFR (MDRD) > 60 > 60 (>60) mL/min BUN/Creatinine Ratio 11.3 L 12.2 L (14-18) Glucose 96 112 H (70-99) mg/dL Calcium 8.2 L 8.3 L (8.5-10.1) mg/dL Magnesium 1.6 L 1.6 L (1.8-2.4) mg/dL Total Bilirubin 0.2 0.3 (0.2-1.0) mg/dL AST 34 23 (15-37) U/L ALT 20 19 (14-59) U/L Alkaline Phosphatase 87 100 (46-116) U/L C-Reactive Protein 12.8 H* 11.4 H* (<1.0) mg/dL Total Protein 5.6 L 5.9 L (6.4-8.2) g/dl Albumin 2.1 L 2.3 L (3.4-5.0) g/dl Globulin 3.5 3.6 gm/dL Albumin/Globulin Ratio 0.6 L 0.6 L (1-2) Result Diagrams: 01/20/21 05:00 01/20/21 05:00 Christian Results Last 24 hrs: Microbiology 01/18/21 14:30 Clostridioides difficile Toxin Assay - Final Stool / Feces Sepsis Event Note - Evaluation Sepsis Screening Result: No Definite Risk - Focused Exam Vital Signs: Vital Signs Temp Pulse Resp BP BP Pulse Ox Pulse Ox 01/20/21 03:43 168/92 H 01/20/21 03:27 97.2 F 104 H 18 97 01/20/21 02:50 95 01/20/21 00:14 96.6 F L 92 18 136/77 94 L 01/19/21 20:37 98.2 F 99 18 166/87 H 92 L 01/19/21 19:58 95 - Problem List & Annotations (1) Acute kidney injury SNOMED Code(s): 51488275, 01496529 Code(s): N17.9 - ACUTE KIDNEY FAILURE, UNSPECIFIED Status: Resolved Priority: High Current Visit: Yes (2) Alcohol abuse SNOMED Code(s): 73264306 Code(s): F10.10 - ALCOHOL ABUSE, UNCOMPLICATED Status: Chronic Priority: High Current Visit: Yes (3) COPD (chronic obstructive pulmonary disease) with emphysema SNOMED Code(s): 50979741 Code(s): J43.9 - EMPHYSEMA, UNSPECIFIED Status: Chronic Priority: Medium Current Visit: Yes Qualifiers: Emphysema type: unspecified Qualified Code(s): J43.9 - Emphysema, unspecified (4) Hyponatremia SNOMED Code(s): 30082242 Code(s): E87.1 - HYPO-OSMOLALITY AND HYPONATREMIA Status: Resolved Priority: Medium Current Visit: Yes (5) Left displaced femoral neck fracture SNOMED Code(s): 4709376, 623219633, 550992753, 70167567792504257 Code(s): S72.002A - FRACTURE OF UNSP PART OF NECK OF LEFT FEMUR, INIT Status: Acute Priority: High Current Visit: Yes (6) Recurrent falls SNOMED Code(s): 752144139 Code(s): R29.6 - REPEATED FALLS Status: Chronic Priority: Medium Current Visit: Yes (7) Tobacco abuse SNOMED Code(s): 471791446 Code(s): Z72.0 - TOBACCO USE Status: Chronic Priority: Medium Current Visit: Yes (8) Alcohol withdrawal SNOMED Code(s): 503226053 Code(s): F10.239 - ALCOHOL DEPENDENCE WITH WITHDRAWAL, UNSPECIFIED Status: Resolved Priority: High Current Visit: Yes Qualifiers: Complication of substance-induced condition: with delirium Qualified Code(s): F10.231 - Alcohol dependence with withdrawal delirium (9) S/P hip hemiarthroplasty SNOMED Code(s): 804308653, 813355760, 715206773, 921040989 Code(s): Z96.649 - PRESENCE OF UNSPECIFIED ARTIFICIAL HIP JOINT Status: Acute Priority: High Current Visit: Yes (10) Fever SNOMED Code(s): 467905627 Code(s): R50.9 - FEVER, UNSPECIFIED Status: Resolved Priority: High Current Visit: Yes Qualifiers: Fever type: unspecified Qualified Code(s): R50.9 - Fever, unspecified (11) UTI (urinary tract infection) SNOMED Code(s): 02246761 Code(s): N39.0 - URINARY TRACT INFECTION, SITE NOT SPECIFIED Status: Ruled- out Priority: High Current Visit: Yes Qualifiers: Urinary tract infection type: acute cystitis Hematuria presence: with hematuria Qualified Code(s): N30.01 - Acute cystitis with hematuria (12) Sepsis SNOMED Code(s): 74840120 Code(s): A41.9 - SEPSIS, UNSPECIFIED ORGANISM Status: Resolved Priority: High Current Visit: Yes Qualifiers: Sepsis type: sepsis due to unspecified organism Sepsis acute organ dysfunction status: with acute organ dysfunction Severe sepsis acute organ dysfunction type: acute renal failure Acute renal failure type: unspecified Severe sepsis shock status: without septic shock Qualified Code(s): A41.9 - Sepsis, unspecified organism; R65.20 - Severe sepsis without septic shock; N17.9 - Acute kidney failure, unspecified (13) Hypomagnesemia SNOMED Code(s): 937691651 Code(s): E83.42 - HYPOMAGNESEMIA Status: Resolved Priority: Medium Current Visit: Yes (14) Hypokalemia SNOMED Code(s): 93390567 Code(s): E87.6 - HYPOKALEMIA Status: Acute Priority: High Current Visit: Yes (15) Leukocytosis SNOMED Code(s): 392450852, 276897918 Code(s): D72.829 - ELEVATED WHITE BLOOD CELL COUNT, UNSPECIFIED Status: Acute Priority: High Current Visit: Yes Qualifiers: Leukocytosis type: unspecified Qualified Code(s): D72.829 - Elevated white blood cell count, unspecified (16) Elevated C-reactive protein (CRP) SNOMED Code(s): 410260343551978 Code(s): R79.82 - ELEVATED C-REACTIVE PROTEIN (CRP) Status: Acute Priority: High Current Visit: Yes (17) C. difficile diarrhea SNOMED Code(s): 5936996948558 Code(s): A04.72 - ENTEROCOLITIS D/T CLOSTRIDIUM DIFFICILE, NOT SPCF RECUR Status: Acute Priority: High Current Visit: Yes - Problem List Review Problem List Initiated/Reviewed/Updated: Yes - My Orders Last 24 Hours: My Active Orders 01/20/21 07:05 Magnesium Sulfate/Water [Magnesium Sulfate in Water 4 GM/50 ML] 4 gm Premix Bag 1 bag IV ONETIME 01/20/21 07:15 Potassium Chloride [KCl in Water 10 MEQ/100 ML] 10 meq Premix Bag 1 bag IV Q1H 01/21/21 05:11 CBC WITH AUTO DIFF [HEME] AM CMP [COMPREHENSIVE METABOLIC PN,CMP] [CHEM] AM CRP [C-REACTIVE PROTEIN] [CHEM] AM MAGNESIUM [CHEM] AM 01/22/21 05:11 MAGNESIUM [CHEM] AM - Plan Plan:: 70-year-old female from [place], [place] transferred from [facility] emergency department with left femoral neck fracture. Symptoms of pain started the day after Thanksgiving. 01/12/2021 Left femoral neck fracture * Dr. Mayes in orthopedics consulted * Patient denies recent fall History of recurrent falls Alcohol abuse with previous fractures secondary to falls * Patient admits to 2 mixed drinks with Fireball whiskey per day * Multiple bruises on her arms indicative of recent falls. * She is on Seroquel 50 mg nightly. Tobacco abuse * Admits to 1 pack/day COPD * Home meds include budesonide and albuterol Chronic hyponatremia * Sodium 131 on admission Acute kidney injury * Creatinine prior to arrival was 1.22 this morning. After receiving Toradol and on arrival here creatinine increased to 1.7 Dementia History of stroke * Patient has unreliable history secondary to the above. History of atrial fibrillation currently in sinus rhythm 01/13/2021 70-year-old female admitted to floor with a left hip fracture requiring surgical fixation. Dr. Mayes, orthopedic surgeon is consulted and will perform surgery later today. Patient remains on bedrest. Normal saline continues at 100 mL/h. Renal function has slightly improved although we are unsure of her baseline. She does have a history of daily alcohol use. CIWAA score has been 5-6. She remains on CIWAA protocol. She is on a daily folic acid and we have added thiamine. She denies any history of withdrawal seizures. She is a daily nicotine user and on a nicotine patch. She remains tachycardic. WBC today is elevated 11.72 which is likely due to stress. Hemoglobin is down to 10.3 we will monitor. Neutrophils are elevated 75.4. Sodium remains 131. Potassium 5.1. Chloride 99. Carbon dioxide 23. Anion gap 14.1. BUN is 11. Creatinine is down to 1.6. GFR is up to 32. Glucose 104. Calcium 8.1. Magnesium 2.3. Total bilirubin 0.6. AST is 67, ALT 25, alkaline phosphatase 148. Protein is 6.2. Albumin is 2.8. She remains on 1.5 L of oxygen likely secondary to narcotic use. She is n.p.o. Home medications have been continued as ordered. She will have PT and OT after surgery. Plan will be for discharge tomorrow pending stability. 01/14/2021 Alcohol withdrawal * CIWA score up to 9 * Starting to hallucinate * Tremorous This is a 7-year-old female omitted the floor with a left hip fracture which was surgically repaired by Dr. Mayes on 01/13/2021 with a left hip hemiarthroplasty. Since that time patient has began displaying withdrawal symptoms. Her CIWA score has been up to 9 and she has been hallucinating at times. She is a daily drinker. CIWA protocol has been increased every hour. PT and OT did see her today and are recommending SNF placement although this evaluation is likely skewed by her withdrawal symptoms. In addition to her CIWA protocol Ativan we have started Librium 50 mg twice daily. We will consider upgrading to the ICU if her symptoms continue to worsen. Labs today show WBC of 10.74 which is likely stress related. Hemoglobin is 9.0. Platelet 285,000. Neutrophils are elevated at 78.0. Sodium is 139. Potassium 4.9. Chloride 104. Carbon dioxide 27. Anion gap is 12.9. BUN is 13. Creatinine 1.2. GFR 44. Glucose 105. Calcium 7.8. Magnesium 2.1. Total bilirubin 0.4. AST 62, ALT is 20, alkaline phosphatase 118. Protein is 5.6. Albumin is 2.4. MRSA screen was negative. We will continue with SCDs and PAO quinonese for VT prophylaxis and at patient's home aspirin and Plavix. Patient is a very high fall risk. Nursing has noted a concern with the patient choking on water and we will add his swallow evaluation. Unknown length of stay pending severity of detox and progression with therapies. 01/15/2021 Patient CIWA scores have been low this morning at 1 and 2. She is on lithium scheduled to help with withdrawal. She still has episodes of confusion, but according to nursing they are interspersed with times where she is alert and oriented. When asleep she does need 1 L nasal cannula. Patient is still requiring some oxycodone for pain. Patient will continue in the hospital for placement. 01/16/2021 70-year-old female with left hip fracture and alcohol withdrawal developed worsening mental status this morning and more difficulty taking her medications. Nurse reports that she did choke a little on her medications this morning. By this afternoon patient had a fever, became more lethargic and was less responsive. Morning labs were improved with a white count of 10.2. Potassium was down a little at 3.3 as well as a lower magnesium 1.7. Both of these were replaced. Renal function was normal with a creatinine of 0.9. AST was 51 and ALT 13. Patient is receiving oxycodone for breakthrough pain. Last dose of Librium 50 mg was last night at 9 PM and she was switched to 15 mg this morning. Sepsis protocol was started at approximately 1515, please see nursing note for exact timing. CBC, CMP, lactic acid, chest x-ray, blood cultures, UA were all ordered. Fluid bolus of 500 mL of normal saline was ordered. Zosyn after blood cultures obtained. Chest x-ray showed poor inspiration making it difficult to rule out vascular congestion. No significant infiltrates noted. 01/17/2021 SANTIAGO, Improved Sepsis Suspected UTI Fever Leukocytosis Elevated CRP * Fever 102.9 on evening of 01/16/2021 * UA obtained but contaminated * Urine culture pending * Mildly lethargic * Vikram lift currently * Blood cultures obtained and pending * Renal function improving * Started on Rocephin Hypomagnesemia * Magnesium 1.7 * Supplemented Hypokalemia * Potassium 3.2 * Supplemented This is a 70-year-old female admitted the floor after a fall resulting in a left hip hemireplacement which was performed by Dr. Mayes on 01/13/2021. Patient is a known chronic alcohol abuser and does report at least 2 large drinks per night. Unfortunately postsurgically she did begin to detox and was started on Librium which has since been stopped due to changes in her mentation. On the evening of 01/16/2021 she was noted to have acute fever of 102.9. Blood cultures were obtained along with a UA and chest x-ray. UA appears contaminated and unfortunately repeat was not obtained. Unfortunately antibiotic choice is somewhat limited due to patient's allergies to doxycycline and penicillins. She was ultimately started on 2 g Rocephin and today vancomycin with pharmacy to dose was added due to recent surgery and continued low-grade fevers. Patient remains quite confused and at times somewhat lethargic. Swallow eval was ordered and as this progressed patient begins to trail off and lose focus. At this time they are recommending nectar thickened liquids with clear liquid diet and they will attempt to reevaluate. CIWA score has been between 4 and 6 when assessed. This has been lengthened to every 6 4 hours. She remains on 1 L of oxygen. Labs today show an elevated WBC of 15.68. Hemoglobin is 10.9. Platelet are 407,000. Neutrophils are elevated at 89.2%. ABG was obtained in the right radial with a pH of 7.45. PCO2 of 38.2. PO2 57.0. HCO3 of 25.8. O2 saturation of 86.2. Base excess of 2.3. This was obtained on 1 L. Sodium is 141. Potassium is 3.2 and this will be supplemented IV. Chloride is 104. Carbon dioxide is 25. Anion gap is 15.2. BUN is 11. Creatinine 1.0. GFR is up to 55. Magnesium is 1.7 and this will be supplemented via IV. Total bilirubin 0.4. AST is 31, ALT 13, alkaline phosphatase 101. CRP is up to 17.7 although this may be skewed due to the patient's recent surgery. Protein is 6.1. Albumin is 2.3. Procalcitonin and blood and urine cultures are still pending we will watch for these. We will order a 2 view chest x-ray today. Unknown length of stay due to new onset fever with sepsis and suspected UTI. 01/18/2021 70-year-old female admitted to the floor for surgery after a fall. Left hip hemireplacement was performed by Dr. Mayes on 01/13/2021. Postsurgically patient was noted to go through alcohol withdrawals. She was on Librium and Ativan. Her CIWA score has greatly decreased and she has been stopped from Librium. For the past few days she has been noted to have a decreased mental status and yesterday was placed n.p.o. at advice of [employer]. Her home Seroquel was stopped. She has had no more fevers. Ammonia level was checked and was less than 10 due to her AMS. Head CT scan without contrast was obtained and showed senescent change but nothing acute. Chest x-ray yesterday showed atelectasis but no infiltrates. Urine culture obtained when patient was noted to have fevers shows no growth. Blood cultures are still pending. She remains on Rocephin 2 g daily and vancomycin with pharmacy to dose. Procalcitonin was mildly elevated at 0.19. Patient has otherwise become much more alert today. She remains mildly confused but is able to carry on a conversation. Diet will be advanced to clear liquids with nectar thick and we will have [employer] evaluate her again with the plan to further advance. PT and OT will resume. Labs today show WBC of 13.89 which is likely skewed due to her recent surgery. Hemoglobin is 10.5. Platelet 366,000. Neutrophils are elevated 86.3. Sodium is 143. Potassium is down to 2.7 and will be supplemented. This is likely low due to her not eating for a few days. Chloride is 104. Carbon dioxide is 26. Anion gap is 15.7. BUN is 13. Creatinine 0.9. GFR greater than 60. Glucose is 106. Calcium 7.9. Magnesium 2.1. Bilirubin 0.3. AST is 21, ALT 15, alkaline phosphatase 88. CRP is 16.0, again likely skewed due to patient's recent surgery. Protein is 5.7. Albumin is 2.1. Plan will be to advance diet and work with therapies today. We will look into antibiotics more once blood cultures return. Likely discharge in 1 to 2 days pending continued improvement and progression with therapies. 01/19/2021 C. difficile diarrhea * Multiple diarrhea stools noted by nursing * Patient reports generalized abdominal pain * Patient did receive antibiotics while here * C. difficile positive on 01/18/2021 This is a 70-year-old female admitted to the floor after a fall resulting in left hip fracture. She underwent surgical fixation and subsequently started to detox thereafter while recovering. She has since been doing well and CIWA protocol was discontinued. She was noted to have altered mental status and her home Seroquel was discontinued. She was having difficulty with eating and a swallow eval was ordered. This has improved with her mentation and she is now on NDD3 diet with thin liquids and crushed pills. Unfortunately she was noted to have significant watery diarrhea and C. difficile was obtained and was po sitive. Patient did have multiple antibiotics due to surgery and a postoperative fever. She has had no's fever since then. Blood and urine cultures remain negative. IV antibiotics have been discontinued and p.o. vancomycin has been started for her C. difficile. Today labs show WBC of 13.33. Hemoglobin is 10.3. Platelet 366,000. Neutrophils are elevated at 77.4%. Sodium is 138. Potassium is 2.8. Chloride is 100. Carbon dioxide is 27. Anion gap is 13.8. BUN is 9. Creatinine is 0.8. GFR is greater than 60. Glucose is 96. Magnesium is 1.6. Calcium is 8.2. Bilirubin is 0.2. AST is 34, ALT is 20. Alkaline phosphatase is 87. CRP is 12.8. Protein is 5.6. Albumin is 2.1. We will supplement magnesium and potassium which are likely low due to GI losses. Patient continues on PT and OT and will likely need placement. 01/20/2021 70-year-old female admitted to the floor for left hip fracture secondary to a fall. She underwent surgical fixation and started to display withdrawal symptoms thereafter. She has since recovered. She remains on a NDD 3 diet with thin liquids and crushed pills. She remains on p.o. vancomycin for her C. difficile diarrhea. She continues to improve. Her diarrhea has lessened. Labs today show WBC of 14.12. Hemoglobin is 10.9. Platelet 411,000. Neutrophils are elevated 78.4%. Sodium is down to 133. Potassium is up to 3.0, likely due to GI losses and we will continue to supplement this via IV and effervescent, due to her swallowing concerns. Chloride is 96. Carbon dioxide 27. Anion gap is 13.0. BUN is 11. Creatinine 0.9. GFR greater than 60. Glucose is 112. Calcium is 8.3. Magnesium is 1.6 and this will be supplemented via IV as well. Total bilirubin 0.3. AST is 23, ALT 19, alkaline phosphatase 100. CRP is 11.4. Protein is 5.9. Albumin is 2.3. Plan will be to discharge to [facility] once patient improves. Per social work the earliest they would be willing to take the patient is next week. Likely discharge on Sunday pending continued improvements. Plan * Admitted to medical floor * Nicotine patch * Follow CBC, CMP, mag * Pain control * PT/OT * CM/SW consultation for placement * P.o. vancomycin 125 mg 4 times daily for a total of 10 days * Telemetry * Swallow evaluation -NDD3 diet with thin liquids and crushed pills * Home medications as ordered * Thiamine supplementation * Supplement potassium IV and effervescent due to swallowing difficulty * Supplement magnesium 4 g IV * CODE STATUS: Full code * VTE prophylaxis: SCDs and PAO hose, home ASA and Plavix <JenniferJosef Yehuda Jr - Last Filed: 01/20/21 18:25> - Patient Data Vitals - Most Recent: Last Vital Signs Temp 97.2 F 01/20/21 12:18 Pulse 101 H 01/20/21 12:18 Resp 20 01/20/21 12:18 BP 133/75 01/20/21 12:18 Pulse Ox 96 01/20/21 14:51 I&O - Last 24 Hours: Intake & Output 01/20/21 01/20/21 01/20/21 06:59 14:59 22:59 Intake Total 900 310 90 Output Total 150 Balance 750 310 90 Lab Results Last 24 Hours: Laboratory Results - last 24 hr 01/20/21 01/20/21 Range/Units 05:00 05:00 WBC 14.12 H (3.98-10.04) K/mm3 RBC 3.93 L (3.98-5.22) M/mm3 Hgb 10.9 L (11.2-15.7) gm/dl Hct 34.4 (34.1-44.9) % MCV 87.5 (79.4-94.8) fl MCH 27.7 (25.6-32.2) pg MCHC 31.7 L (32.2-35.5) g/dl RDW Std Deviation 45.1 (36.4-46.3) fL Plt Count 411 H (182-369) K/mm3 MPV 10.3 (9.4-12.3) fl Neut % (Auto) 78.4 H (34.0-71.1) % Lymph % (Auto) 10.1 L (19.3-51.7) % [place] % (Auto) 6.1 (4.7-12.5) % Eos % (Auto) 4.5 (0.7-5.8) Baso % (Auto) 0.2 (0.1-1.2) % Neut # (Auto) 11.07 H (1.56-6.13) K/mm3 Lymph # (Auto) 1.42 (1.18-3.74) K/mm3 [place] # (Auto) 0.86 H (0.24-0.36) K/mm3 Eos # (Auto) 0.64 H (0.04-0.36) K/mm3 Baso # (Auto) 0.03 (0.01-0.08) K/mm3 Sodium 133 L (136-145) mEq/L Potassium 3.0 L (3.5-5.1) mEq/L Chloride 96 L (98-107) mEq/L Carbon Dioxide 27 (21-32) mEq/L Anion Gap 13.0 (5-15) BUN 11 (7-18) mg/dL Creatinine 0.9 (0.55-1.02) mg/dL Est Cr Clr Drug Dosing 50.23 mL/min Estimated GFR (MDRD) > 60 (>60) mL/min BUN/Creatinine Ratio 12.2 L (14-18) Glucose 112 H (70-99) mg/dL Calcium 8.3 L (8.5-10.1) mg/dL Magnesium 1.6 L (1.8-2.4) mg/dL Total Bilirubin 0.3 (0.2-1.0) mg/dL AST 23 (15-37) U/L ALT 19 (14-59) U/L Alkaline Phosphatase 100 (46-116) U/L C-Reactive Protein 11.4 H* (<1.0) mg/dL Total Protein 5.9 L (6.4-8.2) g/dl Albumin 2.3 L (3.4-5.0) g/dl Globulin 3.6 gm/dL Albumin/Globulin Ratio 0.6 L (1-2) Christian Results Last 24 Hours: Microbiology 01/18/21 14:30 Clostridioides difficile Toxin Assay - Final Stool / Feces Med Orders - Current: Current Medications Acetaminophen (Acetaminophen 325 Mg Tab) 650 mg PO Q4H PRN PRN Reason: Pain (Mild 1-3)/fever Last Admin: 01/20/21 17:23 Dose: 650 mg Documented by: Albuterol (Albuterol 0.083% 2.5 Mg/3 Ml Neb Soln) 2.5 mg NEB Q2H PRN PRN Reason: Shortness Of Breath/wheezing Albuterol (Albuterol 6.7 Gm Inhaler) 0 gm INH Q4H PRN PRN Reason: shortness of breath Albuterol/Ipratropium (Albuterol/Ipratropium 3.0-0.5 Mg/3 Ml Neb Soln) 3 ml NEB Q6HRRT [facility] Last Admin: 01/20/21 14:50 Dose: 3 ml Documented by: Aspirin (Aspirin 81 Mg Tab.Ec) 81 mg PO DAILY [facility] Last Admin: 01/20/21 08:43 Dose: 81 mg Documented by: Budesonide (Budesonide 0.5 Mg/2 Ml Neb Susp) 0.5 mg NEB BID [facility] Last Admin: 01/20/21 11:14 Dose: 0.5 mg Documented by: Clopidogrel Bisulfate (Clopidogrel 75 Mg Tab) 75 mg PO DAILY [facility] Last Admin: 01/20/21 08:43 Dose: 75 mg Documented by: Diltiazem HCl (Diltiazem 180 Mg Cap.Cd) 180 mg PO DAILY [facility] Last Admin: 01/20/21 08:44 Dose: 180 mg Documented by: Duloxetine HCl (Duloxetine 30 Mg Cap) 30 mg PO BEDTIME [facility] Last Admin: 01/19/21 20:46 Dose: 30 mg Documented by: Ferrous Sulfate (Ferrous Sulfate 324 Mg Tab.Ec) 324 mg PO BID [facility] Last Admin: 01/20/21 08:41 Dose: 324 mg Documented by: Folic Acid (Folic Acid 1 Mg Tab) 1 mg PO DAILY [facility] Last Admin: 01/20/21 08:42 Dose: 1 mg Documented by: Furosemide (Furosemide 20 Mg Tab) 20 mg PO DAILY [facility] Last Admin: 01/20/21 08:43 Dose: 20 mg Documented by: Hydromorphone HCl (Hydromorphone 0.5 Mg/0.5 Ml Syringe) 0.5 mg IVPUSH Q2H PRN PRN Reason: Pain (severe 7-10) Last Admin: 01/17/21 13:42 Dose: 0.5 mg Documented by: Lorazepam (Lorazepam 2 Mg/Ml Sdv) 1 - 3 mg IVPUSH Q4H PRN; Protocol PRN Reason: withdrawl Melatonin (Melatonin 3 Mg Tab) 3 mg PO BEDTIME PRN PRN Reason: INSOMNIA Last Admin: 01/19/21 20:50 Dose: 3 mg Documented by: Ondansetron HCl (Ondansetron 4 Mg/2 Ml Sdv) 4 mg IV Q6H PRN PRN Reason: Nausea/Vomiting Oxycodone HCl (Oxycodone 5 Mg Tab) 5 mg PO Q4H PRN PRN Reason: Pain (moderate 4-6) Last Admin: 01/17/21 04:18 Dose: 5 mg Documented by: Pantoprazole Sodium (Pantoprazole 40 Mg Tab.Cr) 40 mg PO DAILY [facility] Last Admin: 01/20/21 08:42 Dose: 40 mg Documented by: Polyethylene Glycol (Polyethylene Glycol 3350 Powder 17 Gm Packet) 17 gm PO DAILY PRN PRN Reason: Constipation Pravastatin Sodium (Pravastatin 20 Mg Tab) 20 mg PO BEDTIME [facility] Last Admin: 01/19/21 20:46 Dose: 20 mg Documented by: Thiamine HCl (Thiamine 100 Mg Tab) 100 mg PO DAILY [facility] Last Admin: 01/20/21 08:42 Dose: 100 mg Documented by: Tramadol HCl (Tramadol 50 Mg Tab) 50 mg PO Q6H PRN PRN Reason: Pain Vancomycin HCl (Vancomycin 125 Mg Cap) 125 mg PO QID [facility] Stop: 01/28/21 17:01 Last Admin: 01/20/21 17:23 Dose: 125 mg Documented by: Discontinued Medications Acetaminophen (Acetaminophen 650 Mg Supp) 650 mg RECTAL ONETIME ONE Stop: 01/16/21 15:53 Last Admin: 01/16/21 16:03 Dose: 650 mg Documented by: Albuterol (Albuterol 6.7 Gm Inhaler) 0 gm INH QID PRN PRN Reason: shortness of breath Cefazolin Sodium (Cefazolin 1 Gm Vial) Confirm Administered Dose 2 gm .ROUTE .STK-MED ONE Stop: 01/13/21 10:48 Chlordiazepoxide HCl (Chlordiazepoxide 25 Mg Cap) 50 mg PO BID [facility] Last Admin: 01/15/21 21:13 Dose: 50 mg Documented by: Chlordiazepoxide HCl (Chlordiazepoxide 25 Mg Cap) 25 mg PO BID [facility] Last Admin: 01/16/21 10:05 Dose: 25 mg Documented by: Morphine Sulfate 8 mg/Epinephrine HCl 0.3 mg/Cefuroxime Sodium 750 mg/Ketorolac Tromethamine 30 mg/Sodium Chloride 7.9 ml 0 mg .XX ASDIRECTED PRN PRN Reason: Pain Stop: 01/13/21 18:00 Last Admin: 01/13/21 13:13 Dose: 788.3 mg Documented by: Diltiazem HCl (Diltiazem 120 Mg Cap.Cd) 120 mg PO DAILY [facility] Last Admin: 01/16/21 10:04 Dose: 120 mg Documented by: Diltiazem HCl (Diltiazem Ir 30 Mg Tab) 30 mg PO ONETIME ONE Stop: 01/16/21 19:56 Last Admin: 01/16/21 22:08 Dose: 30 mg Documented by: Fentanyl (Fentanyl 250 Mcg/5 Ml Sdv) Confirm Administered Dose 250 mcg .ROUTE .STK-MED ONE Stop: 01/13/21 10:42 Fentanyl (Fentanyl 250 Mcg/5 Ml Sdv) Confirm Administered Dose 250 mcg .ROUTE .STK-MED ONE Stop: 01/13/21 12:52 Fentanyl (Fentanyl 100 Mcg/2 Ml Sdv) 50 mcg IVPUSH Q5M PRN PRN Reason: Pain Stop: 01/13/21 18:00 Sodium Chloride (Normal Saline) 1,000 mls @ 100 [facility]ls[facility] Last Admin: 01/14/21 02:16 Dose: 100 mls/hr Documented by: Lidocaine HCl (Xylocaine-Mpf 1%) Confirm Administered Dose 4 mls @ as directed .ROUTE .STK-MED ONE Stop: 01/13/21 10:43 Lactated Ringer's (Ringers, Lactated) Confirm Administered Dose 1,000 mls @ as directed .ROUTE .STK-MED ONE Stop: 01/13/21 11:06 Cefazolin Sodium/Dextrose 2 gm (/ Premix) 50 mls @ 100 mls/hr IV Q8H [facility] Stop: 01/14/21 11:29 Last Admin: 01/14/21 10:40 Dose: 100 mls/hr Documented by: Sodium Chloride (Normal Saline) 500 mls @ 999 mls/hr IV .BOLUS ONE Stop: 01/16/21 16:27 Last Admin: 01/16/21 16:16 Dose: 999 mls/hr Documented by: Sodium Chloride (Normal Saline) 1,000 mls @ 125 mls/hr IV ASDIRECTED [facility] Last Admin: 01/17/21 06:34 Dose: 125 mls/hr Documented by: Piperacillin Sod/Tazobactam (Sod 4.5 gm/ Sodium Chloride) 100 mls @ 200 mls/hr IV ONETIME ONE Stop: 01/16/21 21:24 Last Admin: 01/16/21 22:50 Dose: Not Given Documented by: Ceftriaxone Sodium 2 gm/ (Sodium Chloride) 100 mls @ 200 mls/hr IV Q24H [facility] Stop: 01/20/21 22:29 Last Admin: 01/18/21 21:49 Dose: 200 mls/hr Documented by: Potassium Chloride 10 meq/ (Premix) 100 mls @ 100 mls/hr IV Q1H [facility] Stop: 01/17/21 14:29 Last Admin: 01/17/21 15:17 Dose: 100 mls/hr Documented by: Vancomycin HCl 1 gm/Vancomycin HCl 250 mg/ Sodium Chloride 250 mls @ 166.667 mls/hr IV ONETIME ONE Stop: 01/17/21 12:59 Last Admin: 01/17/21 11:48 Dose: 166.667 mls/hr Documented by: Magnesium Sulfate 2 gm/ Premix 50 mls @ 25 mls/hr IV ONETIME ONE Stop: 01/17/21 13:29 Last Admin: 01/17/21 13:04 Dose: 25 mls/hr Documented by: Vancomycin HCl 1 gm/ Sodium (Chloride) 250 mls @ 250 mls/hr IV Q12H [facility] Last Admin: 01/17/21 22:32 Dose: 250 mls/hr Documented by: Potassium Chloride 10 meq/ (Premix) 100 mls @ 100 mls/hr IV Q1H [facility] Stop: 01/18/21 14:59 Last Admin: 01/18/21 16:23 Dose: 100 mls/hr Documented by: Sodium Chloride (Normal Saline Advbag) Confirm Administered Dose 100 mls @ as directed .ROUTE .STK-MED ONE Stop: 01/18/21 09:40 Last Admin: 01/18/21 10:08 Dose: Not Given Documented by: Sodium Chloride (Normal Saline Advbag) Confirm Administered Dose 250 mls @ as directed .ROUTE .STK-MED ONE Stop: 01/18/21 09:41 Last Admin: 01/18/21 10:41 Dose: 30 mls/hr Documented by: Magnesium Sulfate 2 gm/ Premix 50 mls @ 25 mls/hr IV ONETIME ONE Stop: 01/19/21 10:25 Last Admin: 01/19/21 09:57 Dose: 25 mls/hr Documented by: Potassium Chloride 10 meq/ (Premix) 100 mls @ 100 mls/hr IV Q1H [facility] Stop: 01/19/21 12:29 Last Admin: 01/19/21 13:48 Dose: 100 mls/hr Documented by: Potassium Chloride 10 meq/ (Premix) 100 mls @ 100 mls/hr IV Q1H [facility] Stop: 01/20/21 11:14 Last Admin: 01/20/21 13:50 Dose: 100 mls/hr Documented by: Magnesium Sulfate 4 gm/ Premix 50 mls @ 12.5 mls/hr IV ONETIME ONE Stop: 01/20/21 11:04 Last Admin: 01/20/21 08:34 Dose: 12.5 mls/hr Documented by: Potassium Chloride 10 meq/ (Premix) 100 mls @ 75 mls/hr IV ONETIME ONE Stop: 01/20/21 15:19 Lorazepam (Lorazepam 1 Mg Tab) 0 mg PO Q1H PRN; Protocol PRN Reason: Withdrawal Symptoms Last Admin: 01/14/21 11:04 Dose: 1 mg Documented by: Lorazepam (Lorazepam 2 Mg/Ml Sdv) 0 mg IVPUSH Q15M PRN; Protocol PRN Reason: Withdrawal Symptoms Last Admin: 01/14/21 09:51 Dose: 1 mg Documented by: Lorazepam (Lorazepam 2 Mg/Ml Sdv) 1 - 3 mg IVPUSH Q1H PRN; Protocol PRN Reason: withdrawl Lorazepam (Lorazepam 2 Mg/Ml Sdv) 2 mg IVPUSH ONETIME STA Stop: 01/14/21 12:37 Last Admin: 01/14/21 20:56 Dose: Not Given Documented by: Magnesium Oxide (Magnesium Oxide 400 Mg Tab) 400 mg PO BID [facility] Last Admin: 01/17/21 09:44 Dose: 400 mg Documented by: Midazolam HCl (Midazolam 1 Mg/Ml 2 Ml Sdv) Confirm Administered Dose 2 mg .ROUTE .STK-MED ONE Stop: 01/13/21 10:42 Miscellaneous Information (Remove Patch) 0 ea TRDERM ONETIME ONE Stop: 01/13/21 10:31 Last Admin: 01/13/21 15:48 Dose: Not Given Documented by: Miscellaneous Medication (Phenylephrine Hcl In 0.9% Nacl 1 Mg/10 Ml Syringe) Confirm Administered Dose 1 mg .ROUTE .STK-MED ONE Stop: 01/13/21 12:19 Nicotine (Nicotine 14 Mg/24 Hr Patch) 14 mg TRDERM ONETIME ONE Stop: 01/13/21 16:01 Last Admin: 01/13/21 15:54 Dose: 14 mg Documented by: Ondansetron HCl (Ondansetron 4 Mg/2 Ml Sdv) Confirm Administered Dose 4 mg .ROUTE .STK-MED ONE Stop: 01/13/21 10:42 Potassium Bicarbonate (Potassium Bicarbonate/Cit Ac 20 Meq Effervescent Tab) 40 meq PO ONETIME ONE Stop: 01/19/21 08:26 Last Admin: 01/19/21 09:57 Dose: 40 meq Documented by: Potassium Bicarbonate (Potassium Bicarbonate/Cit Ac 20 Meq Effervescent Tab) 40 meq PO ONETIME ONE Stop: 01/20/21 07:05 Last Admin: 01/20/21 08:39 Dose: 40 meq Documented by: Potassium Chloride (Potassium Chloride 20 Meq Tab.Er) 40 meq PO BID [facility] Last Admin: 01/13/21 20:58 Dose: Not Given Documented by: Potassium Chloride (Potassium Chloride 20 Meq Tab.Er) 40 meq PO ONETIME ONE Stop: 01/16/21 08:50 Last Admin: 01/16/21 10:05 Dose: 40 meq Documented by: Propofol (Propofol 200 Mg/20 Ml Sdv) Confirm Administered Dose 200 mg .ROUTE .STK-MED ONE Stop: 01/13/21 10:42 Quetiapine Fumarate (Quetiapine 25 Mg Tab) 50 mg PO BEDTIME [facility] Last Admin: 01/16/21 22:27 Dose: 50 mg Documented by: Rocuronium [place] (Rocuronium 50 Mg/5 Ml Vial) Confirm Administered Dose 50 mg .ROUTE .STK-MED ONE Stop: 01/13/21 10:42 Senna/Docusate Sodium (Docusate Sodium/Sennosides 50-8.6 Mg Tab) 2 tab PO BID [facility] Last Admin: 01/19/21 08:15 Dose: Not Given Documented by: Tranexamic Acid (Tranexamic Acid 1,000 Mg/10 Ml Amp) Confirm Administered Dose 1,000 mg .ROUTE .STK-MED ONE Stop: 01/13/21 11:39 Last Admin: 01/13/21 13:13 Dose: 1,000 mg Documented by: Vancomycin HCl (Vancomycin 1 Gm Sdv) Confirm Administered Dose 1 gm .ROUTE .STK- MED ONE Stop: 01/13/21 11:39 Last Admin: 01/13/21 13:13 Dose: 1 gm Documented by: Vancomycin HCl (Pharmacy To Dose - Vancomycin) 1 dose .XX ASDIRECTED PRN PRN Reason: RX TO DOSE VANCO - Patient Data Lab Results Last 24 hrs: Laboratory Results - last 24 hr 01/20/21 01/20/21 Range/Units 05:00 05:00 WBC 14.12 H (3.98-10.04) K/mm3 RBC 3.93 L (3.98-5.22) M/mm3 Hgb 10.9 L (11.2-15.7) gm/dl Hct 34.4 (34.1-44.9) % MCV 87.5 (79.4-94.8) fl MCH 27.7 (25.6-32.2) pg MCHC 31.7 L (32.2-35.5) g/dl RDW Std Deviation 45.1 (36.4-46.3) fL Plt Count 411 H (182-369) K/mm3 MPV 10.3 (9.4-12.3) fl Neut % (Auto) 78.4 H (34.0-71.1) % Lymph % (Auto) 10.1 L (19.3-51.7) % [place] % (Auto) 6.1 (4.7-12.5) % Eos % (Auto) 4.5 (0.7-5.8) Baso % (Auto) 0.2 (0.1-1.2) % Neut # (Auto) 11.07 H (1.56-6.13) K/mm3 Lymph # (Auto) 1.42 (1.18-3.74) K/mm3 [place] # (Auto) 0.86 H (0.24-0.36) K/mm3 Eos # (Auto) 0.64 H (0.04-0.36) K/mm3 Baso # (Auto) 0.03 (0.01-0.08) K/mm3 Sodium 133 L (136-145) mEq/L Potassium 3.0 L (3.5-5.1) mEq/L Chloride 96 L (98-107) mEq/L Carbon Dioxide 27 (21-32) mEq/L Anion Gap 13.0 (5-15) BUN 11 (7-18) mg/dL Creatinine 0.9 (0.55-1.02) mg/dL Est Cr Clr Drug Dosing 50.23 mL/min Estimated GFR (MDRD) > 60 (>60) mL/min BUN/Creatinine Ratio 12.2 L (14-18) Glucose 112 H (70-99) mg/dL Calcium 8.3 L (8.5-10.1) mg/dL Magnesium 1.6 L (1.8-2.4) mg/dL Total Bilirubin 0.3 (0.2-1.0) mg/dL AST 23 (15-37) U/L ALT 19 (14-59) U/L Alkaline Phosphatase 100 (46-116) U/L C-Reactive Protein 11.4 H* (<1.0) mg/dL Total Protein 5.9 L (6.4-8.2) g/dl Albumin 2.3 L (3.4-5.0) g/dl Globulin 3.6 gm/dL Albumin/Globulin Ratio 0.6 L (1-2) Result Diagrams: 01/20/21 05:00 01/20/21 05:00 [facility] Results Last 24 hrs: Microbiology 01/18/21 14:30 Clostridioides difficile Toxin Assay - Final Stool / Feces Sepsis Event Note - Focused Exam Vital Signs: Vital Signs Temp Pulse Resp BP Pulse Ox Pulse Ox 01/20/21 14:51 96 01/20/21 12:18 97.2 F 101 H 20 133/75 97 01/20/21 11:15 97 01/20/21 08:03 97.2 F 94 21 H 152/87 H 95 - Plan Plan:: Case discussed in full. Agree with evaluation, assessment and plan. -Be Lopez Jr., DO
[2021-01-20] MEDS: Ferrous Sulfate 324 MG Tab.EC PO SCH ×2 (08:41→21:21)
[2021-01-20] MEDS: Folic Acid 1 MG Tab PO SCH (08:42)
[2021-01-20] MEDS: Thiamine 100 MG Tab PO SCH (08:42)
[2021-01-20] MEDS: Pantoprazole 40 MG Tab.CR PO SCH (08:42)
[2021-01-20] MEDS: Vancomycin 125 MG Cap PO SCH ×4 (08:43→21:21)
[2021-01-20] MEDS: Clopidogrel 75 MG Tab PO SCH (08:43)
[2021-01-20] MEDS: Furosemide 20 MG Tab PO SCH (08:43)
[2021-01-20] MEDS: Aspirin 81 MG Tab.EC PO SCH (08:43)
[2021-01-20] MEDS: Diltiazem 180 MG Cap.CD PO SCH (08:44)
[2021-01-20] MEDS: Potassium Chloride 10 MEQ in Premix Bag 1 BAG IV SCH ×5 (08:45→13:50)
[2021-01-20] MEDS: Budesonide 0.5 MG/2 ML Neb Susp NEB SCH ×2 (11:14→20:24)
[2021-01-20] MEDS ORDERED: Potassium Chloride 10 MEQ in Premix Bag 1 BAG IV ONE (14:00)
[2021-01-20] MEDS: DULoxetine 30 MG Cap PO SCH (21:21)
[2021-01-20] MEDS: Pravastatin 20 MG Tab PO SCH (21:21)
[2021-01-21] MEDS: Albuterol/Ipratropium 3.0-0.5 MG/3 ML Neb Soln NEB SCH ×4 (02:51→21:11)
[2021-01-21] MEDS ORDERED: Potassium Bicarbonate/Cit Ac 20 MEQ Effervescent Tab PO ONE ×3 (07:36→13:00)
--- NOTE | 2021-01-21 07:38 | PCM.PN ---
<Carlos Ramirez - Last Filed: 01/21/21 10:07> - General Info Date of Service: 01/21/21 Admission Dx/Problem (Free Text): Admission Diagnosis/Problem Admission Diagnosis/Problem Fracture of left hip Functional Status: Reports: Pain Controlled, Tolerating Diet, Ambulating, Urinating, Incentive Spirometry. Denies: New Symptoms - Review of Systems General: Reports: Weakness. Denies: Fever, Fatigue, Malaise, Chills HEENT: Reports: No Symptoms. Denies: Headaches, Sore Throat Pulmonary: Reports: No Symptoms. Denies: Shortness of Breath, Cough, Sputum, W heezing Cardiovascular: Reports: No Symptoms. Denies: Chest Pain, Palpitations, Dyspnea on Exertion, Edema Gastrointestinal: Reports: Abdominal Pain (Mild lower quadrant ), Diarrhea (improved ). Denies: Constipation, Decreased Appetite, Nausea, Vomiting Genitourinary: Reports: No Symptoms. Denies: Pain Musculoskeletal: Reports: Leg Pain (left ), Joint Pain (left hip) Skin: Reports: No Symptoms. Denies: Cyanosis Neurological: Reports: Difficulty Walking, Weakness, Gait Disturbance. Denies: Confusion, Dizziness, Headache, Numbness, Seizure, Syncope, Tingling Psychiatric: Reports: No Symptoms - Patient Data Vitals - Most Recent: Last Vital Signs Temp 97.3 F 01/21/21 03:37 Pulse 91 01/21/21 03:37 Resp 16 01/21/21 03:37 BP 144/78 H 01/21/21 03:37 Pulse Ox 96 01/21/21 03:37 Weight - Most Recent: 171 lb 4.8 oz I&O - Last 24 Hours: Intake & Output 01/20/21 01/21/21 01/21/21 22:59 06:59 14:59 Intake Total 540 800 Balance 540 800 Lab Results Last 24 Hours: Laboratory Results - last 24 hr 01/21/21 01/21/21 Range/Units 06:04 06:04 WBC 13.90 H (3.98-10.04) K/mm3 RBC 3.75 L (3.98-5.22) M/mm3 Hgb 10.4 L (11.2-15.7) gm/dl Hct 32.7 L (34.1-44.9) % MCV 87.2 (79.4-94.8) fl MCH 27.7 (25.6-32.2) pg MCHC 31.8 L (32.2-35.5) g/dl RDW Std Deviation 45.1 (36.4-46.3) fL Plt Count 423 H (182-369) K/mm3 MPV 10.2 (9.4-12.3) fl Neut % (Auto) 73.4 H (34.0-71.1) % Lymph % (Auto) 13.1 L (19.3-51.7) % Adams % (Auto) 6.5 (4.7-12.5) % Eos % (Auto) 5.3 (0.7-5.8) Baso % (Auto) 0.2 (0.1-1.2) % Neut # (Auto) 10.20 H (1.56-6.13) K/mm3 Lymph # (Auto) 1.82 (1.18-3.74) K/mm3 Adams # (Auto) 0.90 H (0.24-0.36) K/mm3 Eos # (Auto) 0.74 H (0.04-0.36) K/mm3 Baso # (Auto) 0.03 (0.01-0.08) K/mm3 Sodium 133 L (136-145) mEq/L Potassium 3.5 (3.5-5.1) mEq/L Chloride 96 L (98-107) mEq/L Carbon Dioxide 27 (21-32) mEq/L Anion Gap 13.5 (5-15) BUN 13 (7-18) mg/dL Creatinine 0.9 (0.55-1.02) mg/dL Est Cr Clr Drug Dosing 50.23 mL/min Estimated GFR (MDRD) > 60 (>60) mL/min BUN/Creatinine Ratio 14.4 (14-18) Glucose 98 (70-99) mg/dL Calcium 8.6 (8.5-10.1) mg/dL Magnesium 2.0 (1.8-2.4) mg/dL Total Bilirubin 0.3 (0.2-1.0) mg/dL AST 25 (15-37) U/L ALT 22 (14-59) U/L Alkaline Phosphatase 105 (46-116) U/L C-Reactive Protein 9.6 H* (<1.0) mg/dL Total Protein 5.7 L (6.4-8.2) g/dl Albumin 2.2 L (3.4-5.0) g/dl Globulin 3.5 gm/dL Albumin/Globulin Ratio 0.6 L (1-2) Med Orders - Current: Current Medications Acetaminophen (Acetaminophen 325 Mg Tab) 650 mg PO Q4H PRN PRN Reason: Pain (Mild 1-3)/fever Last Admin: 01/20/21 17:23 Dose: 650 mg Documented by: Albuterol (Albuterol 0.083% 2.5 Mg/3 Ml Neb Soln) 2.5 mg NEB Q2H PRN PRN Reason: Shortness Of Breath/wheezing Albuterol (Albuterol 6.7 Gm Inhaler) 0 gm INH Q4H PRN PRN Reason: shortness of breath Albuterol/Ipratropium (Albuterol/Ipratropium 3.0-0.5 Mg/3 Ml Neb Soln) 3 ml NEB Q6HRRT [facility] Last Admin: 01/21/21 02:51 Dose: 3 ml Documented by: Aspirin (Aspirin 81 Mg Tab.Ec) 81 mg PO DAILY [facility] Last Admin: 01/20/21 08:43 Dose: 81 mg Documented by: Budesonide (Budesonide 0.5 Mg/2 Ml Neb Susp) 0.5 mg NEB BID [facility] Last Admin: 01/20/21 20:24 Dose: 0.5 mg Documented by: Clopidogrel Bisulfate (Clopidogrel 75 Mg Tab) 75 mg PO DAILY [facility] Last Admin: 01/20/21 08:43 Dose: 75 mg Documented by: Diltiazem HCl (Diltiazem 180 Mg Cap.Cd) 180 mg PO DAILY [facility] Last Admin: 01/20/21 08:44 Dose: 180 mg Documented by: Duloxetine HCl (Duloxetine 30 Mg Cap) 30 mg PO BEDTIME [facility] Last Admin: 01/20/21 21:21 Dose: 30 mg Documented by: Ferrous Sulfate (Ferrous Sulfate 324 Mg Tab.Ec) 324 mg PO BID [facility] Last Admin: 01/20/21 21:21 Dose: 324 mg Documented by: Folic Acid (Folic Acid 1 Mg Tab) 1 mg PO DAILY [facility] Last Admin: 01/20/21 08:42 Dose: 1 mg Documented by: Furosemide (Furosemide 20 Mg Tab) 20 mg PO DAILY [facility] Last Admin: 01/20/21 08:43 Dose: 20 mg Documented by: Hydromorphone HCl (Hydromorphone 0.5 Mg/0.5 Ml Syringe) 0.5 mg IVPUSH Q2H PRN PRN Reason: Pain (severe 7-10) Last Admin: 01/17/21 13:42 Dose: 0.5 mg Documented by: Potassium Chloride 10 meq/ (Premix) 100 mls @ 100 mls/hr IV Q1H [facility] Stop: 01/21/21 11:44 Lorazepam (Lorazepam 2 Mg/Ml Sdv) 1 - 3 mg IVPUSH Q4H PRN; Protocol PRN Reason: withdrawl Melatonin (Melatonin 3 Mg Tab) 3 mg PO BEDTIME PRN PRN Reason: INSOMNIA Last Admin: 01/19/21 20:50 Dose: 3 mg Documented by: Ondansetron HCl (Ondansetron 4 Mg/2 Ml Sdv) 4 mg IV Q6H PRN PRN Reason: Nausea/Vomiting Oxycodone HCl (Oxycodone 5 Mg Tab) 5 mg PO Q4H PRN PRN Reason: Pain (moderate 4-6) Last Admin: 01/17/21 04:18 Dose: 5 mg Documented by: Pantoprazole Sodium (Pantoprazole 40 Mg Tab.Cr) 40 mg PO DAILY [facility] Last Admin: 01/20/21 08:42 Dose: 40 mg Documented by: Polyethylene Glycol (Polyethylene Glycol 3350 Powder 17 Gm Packet) 17 gm PO DAILY PRN PRN Reason: Constipation Pravastatin Sodium (Pravastatin 20 Mg Tab) 20 mg PO BEDTIME [facility] Last Admin: 01/20/21 21:21 Dose: 20 mg Documented by: Thiamine HCl (Thiamine 100 Mg Tab) 100 mg PO DAILY [facility] Last Admin: 01/20/21 08:42 Dose: 100 mg Documented by: Tramadol HCl (Tramadol 50 Mg Tab) 50 mg PO Q6H PRN PRN Reason: Pain Vancomycin HCl (Vancomycin 125 Mg Cap) 125 mg PO QID [facility] Stop: 01/28/21 17:01 Last Admin: 01/20/21 21:21 Dose: 125 mg Documented by: Discontinued Medications Acetaminophen (Acetaminophen 650 Mg Supp) 650 mg RECTAL ONETIME ONE Stop: 01/16/21 15:53 Last Admin: 01/16/21 16:03 Dose: 650 mg Documented by: Albuterol (Albuterol 6.7 Gm Inhaler) 0 gm INH QID PRN PRN Reason: shortness of breath Cefazolin Sodium (Cefazolin 1 Gm Vial) Confirm Administered Dose 2 gm .ROUTE .STK-MED ONE Stop: 01/13/21 10:48 Chlordiazepoxide HCl (Chlordiazepoxide 25 Mg Cap) 50 mg PO BID [facility] Last Admin: 01/15/21 21:13 Dose: 50 mg Documented by: Chlordiazepoxide HCl (Chlordiazepoxide 25 Mg Cap) 25 mg PO BID [facility] Last Admin: 01/16/21 10:05 Dose: 25 mg Documented by: Morphine Sulfate 8 mg/Epinephrine HCl 0.3 mg/Cefuroxime Sodium 750 mg/Ketorolac Tromethamine 30 mg/Sodium Chloride 7.9 ml 0 mg .XX ASDIRECTED PRN PRN Reason: Pain Stop: 01/13/21 18:00 Last Admin: 01/13/21 13:13 Dose: 788.3 mg Documented by: Diltiazem HCl (Diltiazem 120 Mg Cap.Cd) 120 mg PO DAILY [facility] Last Admin: 01/16/21 10:04 Dose: 120 mg Documented by: Diltiazem HCl (Diltiazem Ir 30 Mg Tab) 30 mg PO ONETIME ONE Stop: 01/16/21 19:56 Last Admin: 01/16/21 22:08 Dose: 30 mg Documented by: Fentanyl (Fentanyl 250 Mcg/5 Ml Sdv) Confirm Administered Dose 250 mcg .ROUTE .STK-MED ONE Stop: 01/13/21 10:42 Fentanyl (Fentanyl 250 Mcg/5 Ml Sdv) Confirm Administered Dose 250 mcg .ROUTE .STK-MED ONE Stop: 01/13/21 12:52 Fentanyl (Fentanyl 100 Mcg/2 Ml Sdv) 50 mcg IVPUSH Q5M PRN PRN Reason: Pain Stop: 01/13/21 18:00 Sodium Chloride (Normal Saline) 1,000 mls @ 100 mls/hr IV ASDIRECTED [facility] Last Admin: 01/14/21 02:16 Dose: 100 mls/hr Documented by: Lidocaine HCl (Xylocaine-Mpf 1%) Confirm Administered Dose 4 mls @ as directed .ROUTE .STK-MED ONE Stop: 01/13/21 10:43 Lactated Ringer's (Ringers, Lactated) Confirm Administered Dose 1,000 mls @ as directed .ROUTE .STK-MED ONE Stop: 01/13/21 11:06 Cefazolin Sodium/Dextrose 2 gm (/ Premix) 50 mls @ 100 mls/hr IV Q8H [facility] Stop: 01/14/21 11:29 Last Admin: 01/14/21 10:40 Dose: 100 mls/hr Documented by: Sodium Chloride (Normal Saline) 500 mls @ 999 mls/hr IV .BOLUS ONE Stop: 01/16/21 16:27 Last Admin: 01/16/21 16:16 Dose: 999 mls/hr Documented by: Sodium Chloride (Normal Saline) 1,000 mls @ 125 mls/hr IV ASDIRECTED [facility] Last Admin: 01/17/21 06:34 Dose: 125 mls/hr Documented by: Piperacillin Sod/Tazobactam (Sod 4.5 gm/ Sodium Chloride) 100 mls @ 200 mls/hr IV ONETIME ONE Stop: 01/16/21 21:24 Last Admin: 01/16/21 22:50 Dose: Not Given Documented by: Ceftriaxone Sodium 2 gm/ (Sodium Chloride) 100 mls @ 200 mls/hr IV Q24H [facility] Stop: 01/20/21 22:29 Last Admin: 01/18/21 21:49 Dose: 200 mls/hr Documented by: Potassium Chloride 10 meq/ (Premix) 100 mls @ 100 mls/hr IV Q1H [facility] Stop: 01/17/21 14:29 Last Admin: 01/17/21 15:17 Dose: 100 mls/hr Documented by: Vancomycin HCl 1 gm/Vancomycin HCl 250 mg/ Sodium Chloride 250 mls @ 166.667 mls/hr IV ONETIME ONE Stop: 01/17/21 12:59 Last Admin: 01/17/21 11:48 Dose: 166.667 mls/hr Documented by: Magnesium Sulfate 2 gm/ Premix 50 mls @ 25 mls/hr IV ONETIME ONE Stop: 01/17/21 13:29 Last Admin: 01/17/21 13:04 Dose: 25 mls/hr Documented by: Vancomycin HCl 1 gm/ Sodium (Chloride) 250 mls @ 250 mls/hr IV Q12H [facility] Last Admin: 01/17/21 22:32 Dose: 250 mls/hr Documented by: Potassium Chloride 10 meq/ (Premix) 100 mls @ 100 mls/hr IV Q1H [facility] Stop: 01/18/21 14:59 Last Admin: 01/18/21 16:23 Dose: 100 mls/hr Documented by: Sodium Chloride (Normal Saline Advbag) Confirm Administered Dose 100 mls @ as directed .ROUTE .STK-MED ONE Stop: 01/18/21 09:40 Last Admin: 01/18/21 10:08 Dose: Not Given Documented by: Sodium Chloride (Normal Saline Advbag) Confirm Administered Dose 250 mls @ as directed .ROUTE .STK-MED ONE Stop: 01/18/21 09:41 Last Admin: 01/18/21 10:41 Dose: 30 mls/hr Documented by: Magnesium Sulfate 2 gm/ Premix 50 mls @ 25 mls/hr IV ONETIME ONE Stop: 01/19/21 10:25 Last Admin: 01/19/21 09:57 Dose: 25 mls/hr Documented by: Potassium Chloride 10 meq/ (Premix) 100 mls @ 100 mls/hr IV Q1H [facility] Stop: 01/19/21 12:29 Last Admin: 01/19/21 13:48 Dose: 100 mls/hr Documented by: Potassium Chloride 10 meq/ (Premix) 100 mls @ 100 mls/hr IV Q1H [facility] Stop: 01/20/21 11:14 Last Admin: 01/20/21 13:50 Dose: 100 mls/hr Documented by: Magnesium Sulfate 4 gm/ Premix 50 mls @ 12.5 mls/hr IV ONETIME ONE Stop: 01/20/21 11:04 Last Admin: 01/20/21 08:34 Dose: 12.5 mls/hr Documented by: Potassium Chloride 10 meq/ (Premix) 100 mls @ 75 mls/hr IV ONETIME ONE Stop: 01/20/21 15:19 Last Admin: 01/20/21 18:54 Dose: Not Given Documented by: Lorazepam (Lorazepam 1 Mg Tab) 0 mg PO Q1H PRN; Protocol PRN Reason: Withdrawal Symptoms Last Admin: 01/14/21 11:04 Dose: 1 mg Documented by: Lorazepam (Lorazepam 2 Mg/Ml Sdv) 0 mg IVPUSH Q15M PRN; Protocol PRN Reason: Withdrawal Symptoms Last Admin: 01/14/21 09:51 Dose: 1 mg Documented by: Lorazepam (Lorazepam 2 Mg/Ml Sdv) 1 - 3 mg IVPUSH Q1H PRN; Protocol PRN Reason: withdrawl Lorazepam (Lorazepam 2 Mg/Ml Sdv) 2 mg IVPUSH ONETIME [facility] Stop: 01/14/21 12:37 Last Admin: 01/14/21 20:56 Dose: Not Given Documented by: Magnesium Oxide (Magnesium Oxide 400 Mg Tab) 400 mg PO BID [facility] Last Admin: 01/17/21 09:44 Dose: 400 mg Documented by: Midazolam HCl (Midazolam 1 Mg/Ml 2 Ml Sdv) Confirm Administered Dose 2 mg .ROUTE .STK-MED ONE Stop: 01/13/21 10:42 Miscellaneous Information (Remove Patch) 0 ea TRDERM ONETIME ONE Stop: 01/13/21 10:31 Last Admin: 01/13/21 15:48 Dose: Not Given Documented by: Miscellaneous Medication (Phenylephrine Hcl In 0.9% Nacl 1 Mg/10 Ml Syringe) Confirm Administered Dose 1 mg .ROUTE .STK-MED ONE Stop: 01/13/21 12:19 Nicotine (Nicotine 14 Mg/24 Hr Patch) 14 mg TRDERM ONETIME ONE Stop: 01/13/21 16:01 Last Admin: 01/13/21 15:54 Dose: 14 mg Documented by: Ondansetron HCl (Ondansetron 4 Mg/2 Ml Sdv) Confirm Administered Dose 4 mg .ROUTE .STK-MED ONE Stop: 01/13/21 10:42 Potassium Bicarbonate (Potassium Bicarbonate/Cit Ac 20 Meq Effervescent Tab) 40 meq PO ONETIME ONE Stop: 01/19/21 08:26 Last Admin: 01/19/21 09:57 Dose: 40 meq Documented by: Potassium Bicarbonate (Potassium Bicarbonate/Cit Ac 20 Meq Effervescent Tab) 40 meq PO ONETIME ONE Stop: 01/20/21 07:05 Last Admin: 01/20/21 08:39 Dose: 40 meq Documented by: Potassium Bicarbonate (Potassium Bicarbonate/Cit Ac 20 Meq Effervescent Tab) 20 meq PO ONETIME ONE Stop: 01/21/21 07:37 Potassium Chloride (Potassium Chloride 20 Meq Tab.Er) 40 meq PO BID [facility] Last Admin: 01/13/21 20:58 Dose: Not Given Documented by: Potassium Chloride (Potassium Chloride 20 Meq Tab.Er) 40 meq PO ONETIME ONE Stop: 01/16/21 08:50 Last Admin: 01/16/21 10:05 Dose: 40 meq Documented by: Propofol (Propofol 200 Mg/20 Ml Sdv) Confirm Administered Dose 200 mg .ROUTE .STK-MED ONE Stop: 01/13/21 10:42 Quetiapine Fumarate (Quetiapine 25 Mg Tab) 50 mg PO BEDTIME [facility] Last Admin: 01/16/21 22:27 Dose: 50 mg Documented by: Rocuronium [place] (Rocuronium 50 Mg/5 Ml Vial) Confirm Administered Dose 50 mg .ROUTE .STK-MED ONE Stop: 01/13/21 10:42 Senna/Docusate Sodium (Docusate Sodium/Sennosides 50-8.6 Mg Tab) 2 tab PO BID [facility] Last Admin: 01/19/21 08:15 Dose: Not Given Documented by: Tranexamic Acid (Tranexamic Acid 1,000 Mg/10 Ml Amp) Confirm Administered Dose 1,000 mg .ROUTE .STK-MED ONE Stop: 01/13/21 11:39 Last Admin: 01/13/21 13:13 Dose: 1,000 mg Documented by: Vancomycin HCl (Vancomycin 1 Gm Sdv) Confirm Administered Dose 1 gm .ROUTE .STK- MED ONE Stop: 01/13/21 11:39 Last Admin: 01/13/21 13:13 Dose: 1 gm Documented by: Vancomycin HCl (Pharmacy To Dose - Vancomycin) 1 dose .XX ASDIRECTED PRN PRN Reason: RX TO DOSE VANCO - Exam Quality Assessment: DVT Prophylaxis. No: Supplemental Oxygen, Urine Catheter Urinary Catheter Total Time: 3Days 6Hours General: Alert, Oriented, Cooperative, No Acute Distress HEENT: Pupils Equal, Pupils Reactive, Mucous Membr. Moist/[place] Neck: Supple, Trachea Midline Lungs: Clear to Auscultation, Normal Respiratory Effort Cardiovascular: Regular Rate, Regular Rhythm GI/Abdominal Exam: Normal Bowel Sounds, Soft, No Distention, Tender (Mildly tender to lower quadrants) (Female) Exam: Deferred Back Exam: Normal Inspection, Full Range of Motion Extremities: Normal Range of Motion, Non-Tender, No Pedal Edema, Normal Capillary Refill, Leg Pain (Minimal left hip and leg), Other (Bandage in place in left upper thigh) Peripheral Pulses: 2+: Radial (L), Radial (R), Dorsalis Pedis (L), Dorsalis Pedis (R) Skin: Warm, Dry, Intact Wound/Incisions: Dressing Dry and Intact Neurological: No New Focal Deficit Psy/Mental Status: Alert, Normal Affect, Normal Mood - Patient Data Lab Results Last 24 hrs: Laboratory Results - last 24 hr 01/21/21 01/21/21 Range/Units 06:04 06:04 WBC 13.90 H (3.98-10.04) K/mm3 RBC 3.75 L (3.98-5.22) M/mm3 Hgb 10.4 L (11.2-15.7) gm/dl Hct 32.7 L (34.1-44.9) % MCV 87.2 (79.4-94.8) fl MCH 27.7 (25.6-32.2) pg MCHC 31.8 L (32.2-35.5) g/dl RDW Std Deviation 45.1 (36.4-46.3) fL Plt Count 423 H (182-369) K/mm3 MPV 10.2 (9.4-12.3) fl Neut % (Auto) 73.4 H (34.0-71.1) % Lymph % (Auto) 13.1 L (19.3-51.7) % Adams % (Auto) 6.5 (4.7-12.5) % Eos % (Auto) 5.3 (0.7-5.8) Baso % (Auto) 0.2 (0.1-1.2) % Neut # (Auto) 10.20 H (1.56-6.13) K/mm3 Lymph # (Auto) 1.82 (1.18-3.74) K/mm3 Adams # (Auto) 0.90 H (0.24-0.36) K/mm3 Eos # (Auto) 0.74 H (0.04-0.36) K/mm3 Baso # (Auto) 0.03 (0.01-0.08) K/mm3 Sodium 133 L (136-145) mEq/L Potassium 3.5 (3.5-5.1) mEq/L Chloride 96 L (98-107) mEq/L Carbon Dioxide 27 (21-32) mEq/L Anion Gap 13.5 (5-15) BUN 13 (7-18) mg/dL Creatinine 0.9 (0.55-1.02) mg/dL Est Cr Clr Drug Dosing 50.23 mL/min Estimated GFR (MDRD) > 60 (>60) mL/min BUN/Creatinine Ratio 14.4 (14-18) Glucose 98 (70-99) mg/dL Calcium 8.6 (8.5-10.1) mg/dL Magnesium 2.0 (1.8-2.4) mg/dL Total Bilirubin 0.3 (0.2-1.0) mg/dL AST 25 (15-37) U/L ALT 22 (14-59) U/L Alkaline Phosphatase 105 (46-116) U/L C-Reactive Protein 9.6 H* (<1.0) mg/dL Total Protein 5.7 L (6.4-8.2) g/dl Albumin 2.2 L (3.4-5.0) g/dl Globulin 3.5 gm/dL Albumin/Globulin Ratio 0.6 L (1-2) Result Diagrams: 01/21/21 06:04 01/21/21 06:04 Sepsis Event Note - Evaluation Sepsis Screening Result: No Definite Risk - Focused Exam Vital Signs: Vital Signs Temp Pulse Resp BP Pulse Ox Pulse Ox 01/21/21 03:37 97.3 F 91 16 144/78 H 96 01/21/21 02:54 96 01/21/21 00:09 98.2 F 87 16 144/84 H 95 01/20/21 20:26 97 - Problem List & Annotations (1) Acute kidney injury SNOMED Code(s): 72303938, 50136543 Code(s): N17.9 - ACUTE KIDNEY FAILURE, UNSPECIFIED Status: Resolved Priority: High Current Visit: Yes (2) Alcohol abuse SNOMED Code(s): 99378026 Code(s): F10.10 - ALCOHOL ABUSE, UNCOMPLICATED Status: Chronic Priority: High Current Visit: Yes (3) COPD (chronic obstructive pulmonary disease) with emphysema SNOMED Code(s): 17871599 Code(s): J43.9 - EMPHYSEMA, UNSPECIFIED Status: Chronic Priority: Medium Current Visit: Yes Qualifiers: Emphysema type: unspecified Qualified Code(s): J43.9 - Emphysema, unspecified (4) Hyponatremia SNOMED Code(s): 78943889 Code(s): E87.1 - HYPO-OSMOLALITY AND HYPONATREMIA Status: Resolved Priority: Medium Current Visit: Yes (5) Left displaced femoral neck fracture SNOMED Code(s): 0495116, 581435026, 343198875, 58081997923262121 Code(s): S72.002A - FRACTURE OF UNSP PART OF NECK OF LEFT FEMUR, INIT Status: Acute Priority: High Current Visit: Yes (6) Recurrent falls SNOMED Code(s): 842151724 Code(s): R29.6 - REPEATED FALLS Status: Chronic Priority: Medium Current Visit: Yes (7) Tobacco abuse SNOMED Code(s): 610057402 Code(s): Z72.0 - TOBACCO USE Status: Chronic Priority: Medium Current Visit: Yes (8) Alcohol withdrawal SNOMED Code(s): 430415963 Code(s): F10.239 - ALCOHOL DEPENDENCE WITH WITHDRAWAL, UNSPECIFIED Status: Resolved Priority: High Current Visit: Yes Qualifiers: Complication of substance-induced condition: with delirium Qualified Code(s): F10.231 - Alcohol dependence with withdrawal delirium (9) S/P hip hemiarthroplasty SNOMED Code(s): 020724042, 642024973, 867663442, 228607605 Code(s): Z96.649 - PRESENCE OF UNSPECIFIED ARTIFICIAL HIP JOINT Status: Acute Priority: High Current Visit: Yes (10) Fever SNOMED Code(s): 210830569 Code(s): R50.9 - FEVER, UNSPECIFIED Status: Resolved Priority: High Current Visit: Yes Qualifiers: Fever type: unspecified Qualified Code(s): R50.9 - Fever, unspecified (11) UTI (urinary tract infection) SNOMED Code(s): 72914750 Code(s): N39.0 - URINARY TRACT INFECTION, SITE NOT SPECIFIED Status: Ruled- out Priority: High Current Visit: Yes Qualifiers: Urinary tract infection type: acute cystitis Hematuria presence: with hematuria Qualified Code(s): N30.01 - Acute cystitis with hematuria (12) Sepsis SNOMED Code(s): 85196988 Code(s): A41.9 - SEPSIS, UNSPECIFIED ORGANISM Status: Resolved Priority: High Current Visit: Yes Qualifiers: Sepsis type: sepsis due to unspecified organism Sepsis acute organ dysfunction status: with acute organ dysfunction Severe sepsis acute organ dysfunction type: acute renal failure Acute renal failure type: unspecified Severe sepsis shock status: without septic shock Qualified Code(s): A41.9 - Sepsis, unspecified organism; R65.20 - Severe sepsis without septic shock; N17.9 - Acute kidney failure, unspecified (13) Hypomagnesemia SNOMED Code(s): 175089224 Code(s): E83.42 - HYPOMAGNESEMIA Status: Resolved Priority: Medium Current Visit: Yes (14) Hypokalemia SNOMED Code(s): 40820418 Code(s): E87.6 - HYPOKALEMIA Status: Acute Priority: High Current Visit: Yes (15) Leukocytosis SNOMED Code(s): 030891277, 575008576 Code(s): D72.829 - ELEVATED WHITE BLOOD CELL COUNT, UNSPECIFIED Status: Acute Priority: High Current Visit: Yes Qualifiers: Leukocytosis type: unspecified Qualified Code(s): D72.829 - Elevated white blood cell count, unspecified (16) Elevated C-reactive protein (CRP) SNOMED Code(s): 315145032441014 Code(s): R79.82 - ELEVATED C-REACTIVE PROTEIN (CRP) Status: Acute Priority: High Current Visit: Yes (17) C. difficile diarrhea SNOMED Code(s): 5601155379127 Code(s): A04.72 - ENTEROCOLITIS D/T CLOSTRIDIUM DIFFICILE, NOT SPCF RECUR Status: Acute Priority: High Current Visit: Yes - Problem List Review Problem List Initiated/Reviewed/Updated: Yes - My Orders Last 24 Hours: My Active Orders 01/21/21 07:45 Potassium Chloride [KCl in Water 10 MEQ/100 ML] 10 meq Premix Bag 1 bag IV Q1H 01/22/21 05:11 MAGNESIUM [CHEM] AM - Plan Plan:: 70-year-old female from [place], [place] transferred from [place] emergency department with left femoral neck fracture. Symptoms of pain started the day after Thanksgiving. 01/12/2021 Left femoral neck fracture * Dr. Mayes in orthopedics consulted * Patient denies recent fall History of recurrent falls Alcohol abuse with previous fractures secondary to falls * Patient admits to 2 mixed drinks with [place]ball whiskey per day * Multiple bruises on her arms indicative of recent falls. * She is on Seroquel 50 mg nightly. Tobacco abuse * Admits to 1 pack/day COPD * Home meds include budesonide and albuterol Chronic hyponatremia * Sodium 131 on admission Acute kidney injury * Creatinine prior to arrival was 1.22 this morning. After receiving Toradol and on arrival here creatinine increased to 1.7 Dementia History of stroke * Patient has unreliable history secondary to the above. History of atrial fibrillation currently in sinus rhythm 01/13/2021 70-year-old female admitted to floor with a left hip fracture requiring surgical fixation. Dr. Mayes, orthopedic surgeon is consulted and will perform surgery later today. Patient remains on bedrest. Normal saline continues at 100 mL/h. Renal function has slightly improved although we are unsure of her baseline. She does have a history of daily alcohol use. CIWAA score has been 5-6. She remains on CIWAA protocol. She is on a daily folic acid and we have added thiamine. She denies any history of withdrawal seizures. She is a daily nicotine user and on a nicotine patch. She remains tachycardic. WBC today is elevated 11.72 which is likely due to stress. Hemoglobin is down to 10.3 we will monitor. Neutrophils are elevated 75.4. Sodium remains 131. Potassium 5.1. Chloride 99. Carbon dioxide 23. Anion gap 14.1. BUN is 11. Creatinine is down to 1.6. GFR is up to 32. Glucose 104. Calcium 8.1. Magnesium 2.3. Total bilirubin 0.6. AST is 67, ALT 25, alkaline phosphatase 148. Protein is 6.2. Albumin is 2.8. She remains on 1.5 L of oxygen likely secondary to narcotic use. She is n.p.o. Home medications have been continued as ordered. She will have PT and OT after surgery. Plan will be for discharge tomorrow pending stability. 01/14/2021 Alcohol withdrawal * CIWA score up to 9 * Starting to hallucinate * Tremorous This is a 7-year-old female omitted the floor with a left hip fracture which was surgically repaired by Dr. Mayes on 01/13/2021 with a left hip hemiarthroplasty. Since that time patient has began displaying withdrawal symptoms. Her CIWA score has been up to 9 and she has been hallucinating at times. She is a daily drinker. CIWA protocol has been increased every hour. PT and OT did see her today and are recommending SNF placement although this evaluation is likely skewed by her withdrawal symptoms. In addition to her CIWA protocol Ativan we have started Librium 50 mg twice daily. We will consider upgrading to the ICU if her symptoms continue to worsen. Labs today show WBC of 10.74 which is likely stress related. Hemoglobin is 9.0. Platelet 285,000. Neutrophils are elevated at 78.0. Sodium is 139. Potassium 4.9. Chloride 104. Carbon dioxide 27. Anion gap is 12.9. BUN is 13. Creatinine 1.2. GFR 44. Glucose 105. Calcium 7.8. Magnesium 2.1. Total bilirubin 0.4. AST 62, ALT is 20, alkaline phosphatase 118. Protein is 5.6. Albumin is 2.4. MRSA screen was negative. We will continue with SCDs and PAO kay for VT prophylaxis and at patient's home aspirin and Plavix. Patient is a very high fall risk. Nursing has noted a concern with the patient choking on water and we will add his swallow evaluation. Unknown length of stay pending severity of detox and progression with therapies. 01/15/2021 Patient CIWA scores have been low this morning at 1 and 2. She is on lithium scheduled to help with withdrawal. She still has episodes of confusion, but according to nursing they are interspersed with times where she is alert and oriented. When asleep she does need 1 L nasal cannula. Patient is still requiring some oxycodone for pain. Patient will continue in the hospital for placement. 01/16/2021 70-year-old female with left hip fracture and alcohol withdrawal developed worsening mental status this morning and more difficulty taking her medications. Nurse reports that she did choke a little on her medications this morning. By this afternoon patient had a fever, became more lethargic and was less responsive. Morning labs were improved with a white count of 10.2. Potassium was down a little at 3.3 as well as a lower magnesium 1.7. Both of these were replaced. Renal function was normal with a creatinine of 0.9. AST was 51 and ALT 13. Patient is receiving oxycodone for breakthrough pain. Last dose of Librium 50 mg was last night at 9 PM and she was switched to 15 mg this morning. Sepsis protocol was started at approximately 1515, please see nursing note for exact timing. CBC, CMP, lactic acid, chest x-ray, blood cultures, UA were all ordered. Fluid bolus of 500 mL of normal saline was ordered. Zosyn after blood cultures obtained. Chest x-ray showed poor inspiration making it difficult to rule out vascular congestion. No significant infiltrates noted. 01/17/2021 SANTIAGO, Improved Sepsis Suspected UTI Fever Leukocytosis Elevated CRP * Fever 102.9 on evening of 01/16/2021 * UA obtained but contaminated * Urine culture pending * Mildly lethargic * Vikram lift currently * Blood cultures obtained and pending * Renal function improving * Started on Rocephin Hypomagnesemia * Magnesium 1.7 * Supplemented Hypokalemia * Potassium 3.2 * Supplemented This is a 70-year-old female admitted the floor after a fall resulting in a left hip hemireplacement which was performed by Dr. Mayes on 01/13/2021. Patient is a known chronic alcohol abuser and does report at least 2 large drinks per night. Unfortunately postsurgically she did begin to detox and was started on Librium which has since been stopped due to changes in her mentation. On the evening of 01/16/2021 she was noted to have acute fever of 102.9. Blood cultures were obtained along with a UA and chest x-ray. UA appears contaminated and unfortunately repeat was not obtained. Unfortunately antibiotic choice is somewhat limited due to patient's allergies to doxycycline and penicillins. She was ultimately started on 2 g Rocephin and today vancomycin with pharmacy to dose was added due to recent surgery and continued low-grade fevers. Patient remains quite confused and at times somewhat lethargic. Swallow eval was ordered and as this progressed patient begins to trail off and lose focus. At this time they are recommending nectar thickened liquids with clear liquid diet and they will attempt to reevaluate. CIWA score has been between 4 and 6 when assessed. This has been lengthened to every 6 4 hours. She remains on 1 L of oxygen. Labs today show an elevated WBC of 15.68. Hemoglobin is 10.9. Platelet are 407,000. Neutrophils are elevated at 89.2%. ABG was obtained in the right radial with a pH of 7.45. PCO2 of 38.2. PO2 57.0. HCO3 of 25.8. O2 saturation of 86.2. Base excess of 2.3. This was obtained on 1 L. Sodium is 141. Potassium is 3.2 and this will be supplemented IV. Chloride is 104. Carbon dioxide is 25. Anion gap is 15.2. BUN is 11. Creatinine 1.0. GFR is up to 55. Magnesium is 1.7 and this will be supplemented via IV. Total bilirubin 0.4. AST is 31, ALT 13, alkaline phosphatase 101. CRP is up to 17.7 although this may be skewed due to the patient's recent surgery. Protein is 6.1. Albumin is 2.3. Procalcitonin and blood and urine cultures are still pending we will watch for these. We will order a 2 view chest x-ray today. U nknown length of stay due to new onset fever with sepsis and suspected UTI. 01/18/2021 70-year-old female admitted to the floor for surgery after a fall. Left hip hemireplacement was performed by Dr. Mayes on 01/13/2021. Postsurgically patient was noted to go through alcohol withdrawals. She was on Librium and Ativan. Her CIWA score has greatly decreased and she has been stopped from Librium. For the past few days she has been noted to have a decreased mental status and yesterday was placed n.p.o. at advice of [employer]. Her home Seroquel was stopped. She has had no more fevers. Ammonia level was checked and was less than 10 due to her AMS. Head CT scan without contrast was obtained and showed senescent change but nothing acute. Chest x-ray yesterday showed atelectasis but no infiltrates. Urine culture obtained when patient was noted to have fevers shows no growth. Blood cultures are still pending. She remains on Rocephin 2 g daily and vancomycin with pharmacy to dose. Procalcitonin was mildly elevated at 0.19. Patient has otherwise become much more alert today. She remains mildly confused but is able to carry on a conversation. Diet will be advanced to clear liquids with nectar thick and we will have [employer] evaluate her again with the plan to further advance. PT and OT will resume. Labs today show WBC of 13.89 which is likely skewed due to her recent surgery. Hemoglobin is 10.5. Platelet 366,000. Neutrophils are elevated 86.3. Sodium is 143. Potassium is down to 2.7 and will be supplemented. This is likely low due to her not eating for a few days. Chloride is 104. Carbon dioxide is 26. Anion gap is 15.7. BUN is 13. Creatinine 0.9. GFR greater than 60. Glucose is 106. Calcium 7.9. Magnesium 2.1. Bilirubin 0.3. AST is 21, ALT 15, alkaline phosphatase 88. CRP is 16.0, again likely skewed due to patient's recent surgery. Protein is 5.7. Albumin is 2.1. Plan will be to advance diet and work with therapies today. We will look into antibiotics more once blood cultures return. Likely discharge in 1 to 2 days pending continued improvement and progression with therapies. 01/19/2021 C. difficile diarrhea * Multiple diarrhea stools noted by nursing * Patient reports generalized abdominal pain * Patient did receive antibiotics while here * C. difficile positive on 01/18/2021 This is a 70-year-old female admitted to the floor after a fall resulting in left hip fracture. She underwent surgical fixation and subsequently started to detox thereafter while recovering. She has since been doing well and CIWA protocol was discontinued. She was noted to have altered mental status and her home Seroquel was discontinued. She was having difficulty with eating and a swallow eval was ordered. This has improved with her mentation and she is now on NDD3 diet with thin liquids and crushed pills. Unfortunately she was noted to have significant watery diarrhea and C. difficile was obtained and was positive. Patient did have multiple antibiotics due to surgery and a postoperative fever. She has had no's fever since then. Blood and urine cultures remain negative. IV antibiotics have been discontinued and p.o. vancomycin has been started for her C. difficile. Today labs show WBC of 13.33. Hemoglobin is 10.3. Platelet 366,000. Neutrophils are elevated at 77.4%. Sodium is 138. Potassium is 2.8. Chloride is 100. Carbon dioxide is 27. Anion gap is 13.8. BUN is 9. Creatinine is 0.8. GFR is greater than 60. Glucose is 96. Magnesium is 1.6. Calcium is 8.2. Bilirubin is 0.2. AST is 34, ALT is 20. Alkaline phosphatase is 87. CRP is 12.8. Protein is 5.6. Albumin is 2.1. We will supplement magnesium and potassium which are likely low due to GI losses. Patient continues on PT and OT and will likely need placement. 01/20/2021 70-year-old female admitted to the floor for left hip fracture secondary to a fall. She underwent surgical fixation and started to display withdrawal symptoms thereafter. She has since recovered. She remains on a NDD 3 diet with thin liquids and crushed pills. She remains on p.o. vancomycin for her C. difficile diarrhea. She continues to improve. Her diarrhea has lessened. Labs today show WBC of 14.12. Hemoglobin is 10.9. Platelet 411,000. Neutrophils are elevated 78.4%. Sodium is down to 133. Potassium is up to 3.0, likely due to GI losses and we will continue to supplement this via IV and effervescent, due to her swallowing concerns. Chloride is 96. Carbon dioxide 27. Anion gap is 13.0. BUN is 11. Creatinine 0.9. GFR greater than 60. Glucose is 112. Calcium is 8.3. Magnesium is 1.6 and this will be supplemented via IV as well. Total bilirubin 0.3. AST is 23, ALT 19, alkaline phosphatase 100. CRP is 11.4. Protein is 5.9. Albumin is 2.3. Plan will be to discharge to [facility] once patient improves. Per social work the earliest they would be willing to take the patient is next week. Likely discharge on Sunday pending continued improvements. 01/21/2021 70-year-old female mid to the floor with a left hip fracture secondary to fall. Patient received a left hemiarthroplasty with Dr. Mayes and from that standpoint has been doing well. She has been working with therapies who recommends SNF placement. Postsurgically she was noted to begin alcohol withdrawals and has since recovered from this. She was also noted to have a fever although no so urce could be found. She was started on Rocephin and vancomycin, which were both discontinued after blood cultures, urine cultures, chest x-ray, and other labs returned showing no concerning findings for infection. Unfortunately she was noted to have significant diarrhea thereafter and tested positive for C. difficile. She was started on 125 mg 4 times daily vancomycin p.o. and this should continue for a total of 10 days. She continues to have some diarrhea although it is improved. Labs today show WBC of 13.90 which has improved. Hemoglobin is 10.4. Platelet are 423,000. Neutrophils 73.4%. Sodium is 133. Potassium 3.5. Chloride 96. Carbon dioxide 27. Anion gap 13.5. BUN is 13, c reatinine 0.9, GFR greater than 60. Glucose is 98. Calcium is 8.6. Magnesium 2.0. Bilirubin 0.3. AST is 25, ALT 22, alkaline phosphatase 105. CRP is down to 9.6. Albumin is down to 2.2. We will supplement potassium utilizing effervescent as patient reports the IV potassium has been irritating her arm significantly. Per case management early as patient will be accepted at [facility] is Sunday. We will plan for discharge then. Plan * Admitted to medical floor * Nicotine patch * Follow CBC, CMP, mag * Pain control * PT/OT * CM/SW consultation for placement * P.o. vancomycin 125 mg 4 times daily for a total of 10 days * Telemetry * Swallow evaluation -NDD3 diet with thin liquids and crushed pills * Home medications as ordered * Thiamine supplementation * Supplement potassium IV and effervescent due to swallowing difficulty * Supplement magnesium 4 g IV * CODE STATUS: Full code * VTE prophylaxis: SCDs and PAO hose, home ASA and Plavix <Josef Rodriguez Jr - Last Filed: 01/21/21 11:03> - Patient Data Vitals - Most Recent: Last Vital Signs Temp 97.3 F 01/21/21 03:37 Pulse 91 01/21/21 03:37 Resp 16 01/21/21 03:37 BP 144/78 H 01/21/21 03:37 Pulse Ox 96 01/21/21 09:27 I&O - Last 24 Hours: Intake & Output 01/20/21 01/21/21 01/21/21 22:59 06:59 14:59 Intake Total 540 800 Balance 540 800 Lab Results Last 24 Hours: Laboratory Results - last 24 hr 01/21/21 01/21/21 Range/Units 06:04 06:04 WBC 13.90 H (3.98-10.04) K/mm3 RBC 3.75 L (3.98-5.22) M/mm3 Hgb 10.4 L (11.2-15.7) gm/dl Hct 32.7 L (34.1-44.9) % MCV 87.2 (79.4-94.8) fl MCH 27.7 (25.6-32.2) pg MCHC 31.8 L (32.2-35.5) g/dl RDW Std Deviation 45.1 (36.4-46.3) fL Plt Count 423 H (182-369) K/mm3 MPV 10.2 (9.4-12.3) fl Neut % (Auto) 73.4 H (34.0-71.1) % Lymph % (Auto) 13.1 L (19.3-51.7) % Adams % (Auto) 6.5 (4.7-12.5) % Eos % (Auto) 5.3 (0.7-5.8) Baso % (Auto) 0.2 (0.1-1.2) % Neut # (Auto) 10.20 H (1.56-6.13) K/mm3 Lymph # (Auto) 1.82 (1.18-3.74) K/mm3 Adams # (Auto) 0.90 H (0.24-0.36) K/mm3 Eos # (Auto) 0.74 H (0.04-0.36) K/mm3 Baso # (Auto) 0.03 (0.01-0.08) K/mm3 Sodium 133 L (136-145) mEq/L Potassium 3.5 (3.5-5.1) mEq/L Chloride 96 L (98-107) mEq/L Carbon Dioxide 27 (21-32) mEq/L Anion Gap 13.5 (5-15) BUN 13 (7-18) mg/dL Creatinine 0.9 (0.55-1.02) mg/dL Est Cr Clr Drug Dosing 50.23 mL/min Estimated GFR (MDRD) > 60 (>60) mL/min BUN/Creatinine Ratio 14.4 (14-18) Glucose 98 (70-99) mg/dL Calcium 8.6 (8.5-10.1) mg/dL Magnesium 2.0 (1.8-2.4) mg/dL Total Bilirubin 0.3 (0.2-1.0) mg/dL AST 25 (15-37) U/L ALT 22 (14-59) U/L Alkaline Phosphatase 105 (46-116) U/L C-Reactive Protein 9.6 H* (<1.0) mg/dL Total Protein 5.7 L (6.4-8.2) g/dl Albumin 2.2 L (3.4-5.0) g/dl Globulin 3.5 gm/dL Albumin/Globulin Ratio 0.6 L (1-2) Med Orders - Current: Current Medications Acetaminophen (Acetaminophen 325 Mg Tab) 650 mg PO Q4H PRN PRN Reason: Pain (Mild 1-3)/fever Last Admin: 01/20/21 17:23 Dose: 650 mg Documented by: Albuterol (Albuterol 0.083% 2.5 Mg/3 Ml Neb Soln) 2.5 mg NEB Q2H PRN PRN Reason: Shortness Of Breath/wheezing Albuterol (Albuterol 6.7 Gm Inhaler) 0 gm INH Q4H PRN PRN Reason: shortness of breath Albuterol/Ipratropium (Albuterol/Ipratropium 3.0-0.5 Mg/3 Ml Neb Soln) 3 ml NEB Q6HRRT [facility] Last Admin: 01/21/21 09:27 Dose: 3 ml Documented by: Aspirin (Aspirin 81 Mg Tab.Ec) 81 mg PO DAILY [facility] Last Admin: 01/21/21 08:57 Dose: 81 mg Documented by: Budesonide (Budesonide 0.5 Mg/2 Ml Neb Susp) 0.5 mg NEB BID [facility] Last Admin: 01/21/21 09:27 Dose: 0.5 mg Documented by: Clopidogrel Bisulfate (Clopidogrel 75 Mg Tab) 75 mg PO DAILY [facility] Last Admin: 01/21/21 08:57 Dose: 75 mg Documented by: Diltiazem HCl (Diltiazem 180 Mg Cap.Cd) 180 mg PO DAILY [facility] Last Admin: 01/21/21 08:57 Dose: 180 mg Documented by: Duloxetine HCl (Duloxetine 30 Mg Cap) 30 mg PO BEDTIME [facility] Last Admin: 01/20/21 21:21 Dose: 30 mg Documented by: Ferrous Sulfate (Ferrous Sulfate 324 Mg Tab.Ec) 324 mg PO BID [facility] Last Admin: 01/21/21 08:57 Dose: 324 mg Documented by: Folic Acid (Folic Acid 1 Mg Tab) 1 mg PO DAILY [facility] Last Admin: 01/21/21 08:57 Dose: 1 mg Documented by: Furosemide (Furosemide 20 Mg Tab) 20 mg PO DAILY [facility] Last Admin: 01/21/21 08:57 Dose: 20 mg Documented by: Hydromorphone HCl (Hydromorphone 0.5 Mg/0.5 Ml Syringe) 0.5 mg IVPUSH Q2H PRN PRN Reason: Pain (severe 7-10) Last Admin: 01/17/21 13:42 Dose: 0.5 mg Documented by: Lorazepam (Lorazepam 2 Mg/Ml Sdv) 1 - 3 mg IVPUSH Q4H PRN; Protocol PRN Reason: withdrawl Melatonin (Melatonin 3 Mg Tab) 3 mg PO BEDTIME PRN PRN Reason: INSOMNIA Last Admin: 01/19/21 20:50 Dose: 3 mg Documented by: Ondansetron HCl (Ondansetron 4 Mg/2 Ml Sdv) 4 mg IV Q6H PRN PRN Reason: Nausea/Vomiting Oxycodone HCl (Oxycodone 5 Mg Tab) 5 mg PO Q4H PRN PRN Reason: Pain (moderate 4-6) Last Admin: 01/17/21 04:18 Dose: 5 mg Documented by: Pantoprazole Sodium (Pantoprazole 40 Mg Tab.Cr) 40 mg PO DAILY [facility] Last Admin: 01/21/21 08:57 Dose: 40 mg Documented by: Polyethylene Glycol (Polyethylene Glycol 3350 Powder 17 Gm Packet) 17 gm PO DAILY PRN PRN Reason: Constipation Pravastatin Sodium (Pravastatin 20 Mg Tab) 20 mg PO BEDTIME [facility] Last Admin: 01/20/21 21:21 Dose: 20 mg Documented by: Thiamine HCl (Thiamine 100 Mg Tab) 100 mg PO DAILY [facility] Last Admin: 01/21/21 08:57 Dose: 100 mg Documented by: Tramadol HCl (Tramadol 50 Mg Tab) 50 mg PO Q6H PRN PRN Reason: Pain Vancomycin HCl (Vancomycin 125 Mg Cap) 125 mg PO QID [facility] Stop: 01/28/21 17:01 Last Admin: 01/21/21 08:57 Dose: 125 mg Documented by: Discontinued Medications Acetaminophen (Acetaminophen 650 Mg Supp) 650 mg RECTAL ONETIME ONE Stop: 01/16/21 15:53 Last Admin: 01/16/21 16:03 Dose: 650 mg Documented by: Albuterol (Albuterol 6.7 Gm Inhaler) 0 gm INH QID PRN PRN Reason: shortness of breath Cefazolin Sodium (Cefazolin 1 Gm Vial) Confirm Administered Dose 2 gm .ROUTE .STK-MED ONE Stop: 01/13/21 10:48 Chlordiazepoxide HCl (Chlordiazepoxide 25 Mg Cap) 50 mg PO BID [facility] Last Admin: 01/15/21 21:13 Dose: 50 mg Documented by: Chlordiazepoxide HCl (Chlordiazepoxide 25 Mg Cap) 25 mg PO BID [facility] Last Admin: 01/16/21 10:05 Dose: 25 mg Documented by: Morphine Sulfate 8 mg/Epinephrine HCl 0.3 mg/Cefuroxime Sodium 750 mg/Ketorolac Tromethamine 30 mg/Sodium Chloride 7.9 ml 0 mg .XX ASDIRECTED PRN PRN Reason: Pain Stop: 01/13/21 18:00 Last Admin: 01/13/21 13:13 Dose: 788.3 mg Documented by: Diltiazem HCl (Diltiazem 120 Mg Cap.Cd) 120 mg PO DAILY [facility] Last Admin: 01/16/21 10:04 Dose: 120 mg Documented by: Diltiazem HCl (Diltiazem Ir 30 Mg Tab) 30 mg PO ONETIME ONE Stop: 01/16/21 19:56 Last Admin: 01/16/21 22:08 Dose: 30 mg Documented by: Fentanyl (Fentanyl 250 Mcg/5 Ml Sdv) Confirm Administered Dose 250 mcg .ROUTE .STK-MED ONE Stop: 01/13/21 10:42 Fentanyl (Fentanyl 250 Mcg/5 Ml Sdv) Confirm Administered Dose 250 mcg .ROUTE .STK-MED ONE Stop: 01/13/21 12:52 Fentanyl (Fentanyl 100 Mcg/2 Ml Sdv) 50 mcg IVPUSH Q5M PRN PRN Reason: Pain Stop: 01/13/21 18:00 Sodium Chloride (Normal Saline) 1,000 mls @ 100 mls/hr IV ASDIRECTED [facility] Last Admin: 01/14/21 02:16 Dose: 100 mls/hr Documented by: Lidocaine HCl (Xylocaine-Mpf 1%) Confirm Administered Dose 4 mls @ as directed .ROUTE .STK-MED ONE Stop: 01/13/21 10:43 Lactated Ringer's (Ringers, Lactated) Confirm Administered Dose 1,000 mls @ as directed .ROUTE .STK-MED ONE Stop: 01/13/21 11:06 Cefazolin Sodium/Dextrose 2 gm (/ Premix) 50 mls @ 100 mls/hr IV Q8H [facility] Stop: 01/14/21 11:29 Last Admin: 01/14/21 10:40 Dose: 100 mls/hr Documented by: Sodium Chloride (Normal Saline) 500 mls @ 999 mls/hr IV .BOLUS ONE Stop: 01/16/21 16:27 Last Admin: 01/16/21 16:16 Dose: 999 mls/hr Documented by: Sodium Chloride (Normal Saline) 1,000 mls @ 125 mls/hr IV ASDIRECTED [facility] Last Admin: 01/17/21 06:34 Dose: 125 mls/hr Documented by: Piperacillin Sod/Tazobactam (Sod 4.5 gm/ Sodium Chloride) 100 mls @ 200 mls/hr IV ONETIME ONE Stop: 01/16/21 21:24 Last Admin: 01/16/21 22:50 Dose: Not Given Documented by: Ceftriaxone Sodium 2 gm/ (Sodium Chloride) 100 mls @ 200 mls/hr IV Q24H [facility] Stop: 01/20/21 22:29 Last Admin: 01/18/21 21:49 Dose: 200 mls/hr Documented by: Potassium Chloride 10 meq/ (Premix) 100 mls @ 100 mls/hr IV Q1H [facility] Stop: 01/17/21 14:29 Last Admin: 01/17/21 15:17 Dose: 100 mls/hr Documented by: Vancomycin HCl 1 gm/Vancomycin HCl 250 mg/ Sodium Chloride 250 mls @ 166.667 mls/hr IV ONETIME ONE Stop: 01/17/21 12:59 Last Admin: 01/17/21 11:48 Dose: 166.667 mls/hr Documented by: Magnesium Sulfate 2 gm/ Premix 50 mls @ 25 mls/hr IV ONETIME ONE Stop: 01/17/21 13:29 Last Admin: 01/17/21 13:04 Dose: 25 mls/hr Documented by: Vancomycin HCl 1 gm/ Sodium (Chloride) 250 mls @ 250 mls/hr IV Q12H [facility] Last Admin: 01/17/21 22:32 Dose: 250 mls/hr Documented by: Potassium Chloride 10 meq/ (Premix) 100 mls @ 100 mls/hr IV Q1H [facility] Stop: 01/18/21 14:59 Last Admin: 01/18/21 16:23 Dose: 100 mls/hr Documented by: Sodium Chloride (Normal Saline Advbag) Confirm Administered Dose 100 mls @ as directed .ROUTE .STK-MED ONE Stop: 01/18/21 09:40 Last Admin: 01/18/21 10:08 Dose: Not Given Documented by: Sodium Chloride (Normal Saline Advbag) Confirm Administered Dose 250 mls @ as directed .ROUTE .STK-MED ONE Stop: 01/18/21 09:41 Last Admin: 01/18/21 10:41 Dose: 30 mls/hr Documented by: Magnesium Sulfate 2 gm/ Premix 50 mls @ 25 mls/hr IV ONETIME ONE Stop: 01/19/21 10:25 Last Admin: 01/19/21 09:57 Dose: 25 mls/hr Documented by: Potassium Chloride 10 meq/ (Premix) 100 mls @ 100 mls/hr IV Q1H [facility] Stop: 01/19/21 12:29 Last Admin: 01/19/21 13:48 Dose: 100 mls/hr Documented by: Potassium Chloride 10 meq/ (Premix) 100 mls @ 100 mls/hr IV Q1H [facility] Stop: 01/20/21 11:14 Last Admin: 01/20/21 13:50 Dose: 100 mls/hr Documented by: Magnesium Sulfate 4 gm/ Premix 50 mls @ 12.5 mls/hr IV ONETIME ONE Stop: 01/20/21 11:04 Last Admin: 01/20/21 08:34 Dose: 12.5 mls/hr Documented by: Potassium Chloride 10 meq/ (Premix) 100 mls @ 75 mls/hr IV ONETIME ONE Stop: 01/20/21 15:19 Last Admin: 01/20/21 18:54 Dose: Not Given Documented by: Potassium Chloride 10 meq/ (Premix) 100 mls @ 100 mls/hr IV Q1H [facility] Stop: 01/21/21 11:44 Last Admin: 01/21/21 08:56 Dose: 100 mls/hr Documented by: Lorazepam (Lorazepam 1 Mg Tab) 0 mg PO Q1H PRN; Protocol PRN Reason: Withdrawal Symptoms Last Admin: 01/14/21 11:04 Dose: 1 mg Documented by: Lorazepam (Lorazepam 2 Mg/Ml Sdv) 0 mg IVPUSH Q15M PRN; Protocol PRN Reason: Withdrawal Symptoms Last Admin: 01/14/21 09:51 Dose: 1 mg Documented by: Lorazepam (Lorazepam 2 Mg/Ml Sdv) 1 - 3 mg IVPUSH Q1H PRN; Protocol PRN Reason: withdrawl Lorazepam (Lorazepam 2 Mg/Ml Sdv) 2 mg IVPUSH ONETIME STA Stop: 01/14/21 12:37 Last Admin: 01/14/21 20:56 Dose: Not Given Documented by: Magnesium Oxide (Magnesium Oxide 400 Mg Tab) 400 mg PO BID [facility] Last Admin: 01/17/21 09:44 Dose: 400 mg Documented by: Midazolam HCl (Midazolam 1 Mg/Ml 2 Ml Sdv) Confirm Administered Dose 2 mg .ROUTE .STK-MED ONE Stop: 01/13/21 10:42 Miscellaneous Information (Remove Patch) 0 ea TRDERM ONETIME ONE Stop: 01/13/21 10:31 Last Admin: 01/13/21 15:48 Dose: Not Given Documented by: Miscellaneous Medication (Phenylephrine Hcl In 0.9% Nacl 1 Mg/10 Ml Syringe) Confirm Administered Dose 1 mg .ROUTE .STK-MED ONE Stop: 01/13/21 12:19 Nicotine (Nicotine 14 Mg/24 Hr Patch) 14 mg TRDERM ONETIME ONE Stop: 01/13/21 16:01 Last Admin: 01/13/21 15:54 Dose: 14 mg Documented by: Ondansetron HCl (Ondansetron 4 Mg/2 Ml Sdv) Confirm Administered Dose 4 mg .ROUTE .STK-MED ONE Stop: 01/13/21 10:42 Potassium Bicarbonate (Potassium Bicarbonate/Cit Ac 20 Meq Effervescent Tab) 40 meq PO ONETIME ONE Stop: 01/19/21 08:26 Last Admin: 01/19/21 09:57 Dose: 40 meq Documented by: Potassium Bicarbonate (Potassium Bicarbonate/Cit Ac 20 Meq Effervescent Tab) 40 meq PO ONETIME ONE Stop: 01/20/21 07:05 Last Admin: 01/20/21 08:39 Dose: 40 meq Documented by: Potassium Bicarbonate (Potassium Bicarbonate/Cit Ac 20 Meq Effervescent Tab) 20 meq PO ONETIME ONE Stop: 01/21/21 07:37 Last Admin: 01/21/21 08:55 Dose: 20 meq Documented by: Potassium Bicarbonate (Potassium Bicarbonate/Cit Ac 20 Meq Effervescent Tab) 20 meq PO ONETIME ONE Stop: 01/21/21 09:32 Potassium Chloride (Potassium Chloride 20 Meq Tab.Er) 40 meq PO BID [facility] Last Admin: 01/13/21 20:58 Dose: Not Given Documented by: Potassium Chloride (Potassium Chloride 20 Meq Tab.Er) 40 meq PO ONETIME ONE Stop: 01/16/21 08:50 Last Admin: 01/16/21 10:05 Dose: 40 meq Documented by: Propofol (Propofol 200 Mg/20 Ml Sdv) Confirm Administered Dose 200 mg .ROUTE .STK-MED ONE Stop: 01/13/21 10:42 Quetiapine Fumarate (Quetiapine 25 Mg Tab) 50 mg PO BEDTIME [facility] Last Admin: 01/16/21 22:27 Dose: 50 mg Documented by: Rocuronium [place] (Rocuronium 50 Mg/5 Ml Vial) Confirm Administered Dose 50 mg .ROUTE .STK-MED ONE Stop: 01/13/21 10:42 Senna/Docusate Sodium (Docusate Sodium/Sennosides 50-8.6 Mg Tab) 2 tab PO BID [facility] Last Admin: 01/19/21 08:15 Dose: Not Given Documented by: Tranexamic Acid (Tranexamic Acid 1,000 Mg/10 Ml Amp) Confirm Administered Dose 1,000 mg .ROUTE .STK-MED ONE Stop: 01/13/21 11:39 Last Admin: 01/13/21 13:13 Dose: 1,000 mg Documented by: Vancomycin HCl (Vancomycin 1 Gm Sdv) Confirm Administered Dose 1 gm .ROUTE .STK- MED ONE Stop: 01/13/21 11:39 Last Admin: 01/13/21 13:13 Dose: 1 gm Documented by: Vancomycin HCl (Pharmacy To Dose - Vancomycin) 1 dose .XX ASDIRECTED PRN PRN Reason: RX TO DOSE VANCO - Patient Data Lab Results Last 24 hrs: Laboratory Results - last 24 hr 01/21/21 01/21/21 Range/Units 06:04 06:04 WBC 13.90 H (3.98-10.04) K/mm3 RBC 3.75 L (3.98-5.22) M/mm3 Hgb 10.4 L (11.2-15.7) gm/dl Hct 32.7 L (34.1-44.9) % MCV 87.2 (79.4-94.8) fl MCH 27.7 (25.6-32.2) pg MCHC 31.8 L (32.2-35.5) g/dl RDW Std Deviation 45.1 (36.4-46.3) fL Plt Count 423 H (182-369) K/mm3 MPV 10.2 (9.4-12.3) fl Neut % (Auto) 73.4 H (34.0-71.1) % Lymph % (Auto) 13.1 L (19.3-51.7) % Adams % (Auto) 6.5 (4.7-12.5) % Eos % (Auto) 5.3 (0.7-5.8) Baso % (Auto) 0.2 (0.1-1.2) % Neut # (Auto) 10.20 H (1.56-6.13) K/mm3 Lymph # (Auto) 1.82 (1.18-3.74) K/mm3 Adams # (Auto) 0.90 H (0.24-0.36) K/mm3 Eos # (Auto) 0.74 H (0.04-0.36) K/mm3 Baso # (Auto) 0.03 (0.01-0.08) K/mm3 Sodium 133 L (136-145) mEq/L Potassium 3.5 (3.5-5.1) mEq/L Chloride 96 L (98-107) mEq/L Carbon Dioxide 27 (21-32) mEq/L Anion Gap 13.5 (5-15) BUN 13 (7-18) mg/dL Creatinine 0.9 (0.55-1.02) mg/dL Est Cr Clr Drug Dosing 50.23 mL/min Estimated GFR (MDRD) > 60 (>60) mL/min BUN/Creatinine Ratio 14.4 (14-18) Glucose 98 (70-99) mg/dL Calcium 8.6 (8.5-10.1) mg/dL Magnesium 2.0 (1.8-2.4) mg/dL Total Bilirubin 0.3 (0.2-1.0) mg/dL AST 25 (15-37) U/L ALT 22 (14-59) U/L Alkaline Phosphatase 105 (46-116) U/L C-Reactive Protein 9.6 H* (<1.0) mg/dL Total Protein 5.7 L (6.4-8.2) g/dl Albumin 2.2 L (3.4-5.0) g/dl Globulin 3.5 gm/dL Albumin/Globulin Ratio 0.6 L (1-2) Result Diagrams: 01/21/21 06:04 01/21/21 06:04 Sepsis Event Note - Focused Exam Vital Signs: Vital Signs Temp Pulse Resp BP Pulse Ox Pulse Ox 01/21/21 09:27 96 01/21/21 03:37 97.3 F 91 16 144/78 H 96 01/21/21 02:54 96 01/21/21 00:09 98.2 F 87 16 144/84 H 95 - Plan Plan:: Case discussed in full. Agree with evaluation, assessment, and plan. -Be Lopez Jr., DO
[2021-01-21] MEDS: Potassium Chloride 10 MEQ in Premix Bag 1 BAG IV SCH ×2 (08:56→12:02)
[2021-01-21] MEDS: Diltiazem 180 MG Cap.CD PO SCH (08:57)
[2021-01-21] MEDS: Aspirin 81 MG Tab.EC PO SCH (08:57)
[2021-01-21] MEDS: Clopidogrel 75 MG Tab PO SCH (08:57)
[2021-01-21] MEDS: Furosemide 20 MG Tab PO SCH (08:57)
[2021-01-21] MEDS: Ferrous Sulfate 324 MG Tab.EC PO SCH ×2 (08:57→20:33)
[2021-01-21] MEDS: Pantoprazole 40 MG Tab.CR PO SCH (08:57)
[2021-01-21] MEDS: Folic Acid 1 MG Tab PO SCH (08:57)
[2021-01-21] MEDS: Vancomycin 125 MG Cap PO SCH ×4 (08:57→20:33)
[2021-01-21] MEDS: Thiamine 100 MG Tab PO SCH (08:57)
[2021-01-21] MEDS: Budesonide 0.5 MG/2 ML Neb Susp NEB SCH ×2 (09:27→21:11)
[2021-01-21] MEDS: DULoxetine 30 MG Cap PO SCH (20:33)
[2021-01-21] MEDS: Pravastatin 20 MG Tab PO SCH (20:33)
[2021-01-21] MEDS: Acetaminophen 325 MG Tab PO PRN (20:44)
[2021-01-21] MEDS: traMADol 50 MG Tab PO PRN (20:45)
[2021-01-22] MEDS: Albuterol/Ipratropium 3.0-0.5 MG/3 ML Neb Soln NEB SCH ×4 (03:08→20:40)
[2021-01-22] MEDS: traMADol 50 MG Tab PO PRN ×2 (06:22→14:35)
[2021-01-22] MEDS: Budesonide 0.5 MG/2 ML Neb Susp NEB SCH ×2 (08:55→20:40)
[2021-01-22] MEDS: Clopidogrel 75 MG Tab PO SCH (09:19)
[2021-01-22] MEDS: Thiamine 100 MG Tab PO SCH (09:19)
[2021-01-22] MEDS: Aspirin 81 MG Tab.EC PO SCH (09:19)
[2021-01-22] MEDS: Folic Acid 1 MG Tab PO SCH (09:19)
[2021-01-22] MEDS: Furosemide 20 MG Tab PO SCH (09:20)
[2021-01-22] MEDS: Ferrous Sulfate 324 MG Tab.EC PO SCH ×3 (09:20→23:39)
[2021-01-22] MEDS: Pantoprazole 40 MG Tab.CR PO SCH (09:20)
[2021-01-22] MEDS: Diltiazem 180 MG Cap.CD PO SCH (09:20)
[2021-01-22] MEDS: Vancomycin 125 MG Cap PO SCH ×5 (09:20→23:39)
--- NOTE | 2021-01-22 17:56 | PCM.PN ---
- General Info Date of Service: 01/22/21 Admission Dx/Problem (Free Text): Admission Diagnosis/Problem Admission Diagnosis/Problem Fracture of left hip Subjective Update: No acute events overnight. No new nursing concerns. Continued loose stools overnight. No evidence of pseudomembrane or blood. No constitutional symptoms. Still awaiting placement. - Patient Data Vitals - Most Recent: Last Vital Signs Temp 98.4 F 01/22/21 16:05 Pulse 91 01/22/21 16:05 Resp 20 01/22/21 16:05 BP 103/25 L 01/22/21 16:05 Pulse Ox 95 01/22/21 16:05 Weight - Most Recent: 163 lb 12.8 oz I&O - Last 24 Hours: Intake & Output 01/22/21 01/22/21 01/22/21 06:59 14:59 22:59 Intake Total 400 800 Balance 400 800 Lab Results Last 24 Hours: Laboratory Results - last 24 hr 01/22/21 01/22/21 Range/Units 07:25 07:25 WBC 14.87 H (3.98-10.04) K/mm3 RBC 4.06 (3.98-5.22) M/mm3 Hgb 11.4 (11.2-15.7) gm/dl Hct 35.6 (34.1-44.9) % MCV 87.7 (79.4-94.8) fl MCH 28.1 (25.6-32.2) pg MCHC 32.0 L (32.2-35.5) g/dl RDW Std Deviation 46.1 (36.4-46.3) fL Plt Count 564 H D (182-369) K/mm3 MPV 10.2 (9.4-12.3) fl Neut % (Auto) 66.7 (34.0-71.1) % Lymph % (Auto) 15.7 L (19.3-51.7) % [place] % (Auto) 6.9 (4.7-12.5) % Eos % (Auto) 6.4 H (0.7-5.8) Baso % (Auto) 0.5 (0.1-1.2) % Neut # (Auto) 9.92 H (1.56-6.13) K/mm3 Lymph # (Auto) 2.33 (1.18-3.74) K/mm3 [place] # (Auto) 1.03 H (0.24-0.36) K/mm3 Eos # (Auto) 0.95 H (0.04-0.36) K/mm3 Baso # (Auto) 0.07 (0.01-0.08) K/mm3 Manual Slide Review Abnormal smear Sodium 131 L (136-145) mEq/L Potassium 4.1 (3.5-5.1) mEq/L Chloride 94 L (98-107) mEq/L Carbon Dioxide 27 (21-32) mEq/L Anion Gap 14.1 (5-15) BUN 13 (7-18) mg/dL Creatinine 1.1 H (0.55-1.02) mg/dL Est Cr Clr Drug Dosing 41.09 mL/min Estimated GFR (MDRD) 49 (>60) mL/min BUN/Creatinine Ratio 11.8 L (14-18) Glucose 102 H (70-99) mg/dL Calcium 9.4 (8.5-10.1) mg/dL Magnesium 1.8 (1.8-2.4) mg/dL C-Reactive Protein 9.9 H* (<1.0) mg/dL [facility] Results Last 24 Hours: Microbiology 01/16/21 17:15 Blood Culture - Final Blood - Venous - Lab Draw 01/16/21 16:57 Blood Culture - Final Blood - Venous Med Orders - Current: Current Medications Acetaminophen (Acetaminophen 325 Mg Tab) 650 mg PO Q4H PRN PRN Reason: Pain (Mild 1-3)/fever Last Admin: 01/21/21 20:44 Dose: 650 mg Documented by: Albuterol (Albuterol 0.083% 2.5 Mg/3 Ml Neb Soln) 2.5 mg NEB Q2H PRN PRN Reason: Shortness Of Breath/wheezing Albuterol (Albuterol 6.7 Gm Inhaler) 0 gm INH Q4H PRN PRN Reason: shortness of breath Albuterol/Ipratropium (Albuterol/Ipratropium 3.0-0.5 Mg/3 Ml Neb Soln) 3 ml NEB Q6HRRT [facility] Last Admin: 01/22/21 15:40 Dose: 3 ml Documented by: Aspirin (Aspirin 81 Mg Tab.Ec) 81 mg PO DAILY [facility] Last Admin: 01/22/21 09:19 Dose: 81 mg Documented by: Budesonide (Budesonide 0.5 Mg/2 Ml Neb Susp) 0.5 mg NEB BID [facility] Last Admin: 01/22/21 08:55 Dose: 0.5 mg Documented by: Clopidogrel Bisulfate (Clopidogrel 75 Mg Tab) 75 mg PO DAILY [facility] Last Admin: 01/22/21 09:19 Dose: 75 mg Documented by: Diltiazem HCl (Diltiazem 180 Mg Cap.Cd) 180 mg PO DAILY [facility] Last Admin: 01/22/21 09:20 Dose: 180 mg Documented by: Duloxetine HCl (Duloxetine 30 Mg Cap) 30 mg PO BEDTIME [facility] Last Admin: 01/21/21 20:33 Dose: 30 mg Documented by: Ferrous Sulfate (Ferrous Sulfate 324 Mg Tab.Ec) 324 mg PO BID [facility] Last Admin: 01/22/21 09:20 Dose: 324 mg Documented by: Folic Acid (Folic Acid 1 Mg Tab) 1 mg PO DAILY [facility] Last Admin: 01/22/21 09:19 Dose: 1 mg Documented by: Furosemide (Furosemide 20 Mg Tab) 20 mg PO DAILY [facility] Last Admin: 01/22/21 09:20 Dose: 20 mg Documented by: Hydromorphone HCl (Hydromorphone 0.5 Mg/0.5 Ml Syringe) 0.5 mg IVPUSH Q2H PRN PRN Reason: Pain (severe 7-10) Last Admin: 01/17/21 13:42 Dose: 0.5 mg Documented by: Lorazepam (Lorazepam 2 Mg/Ml Sdv) 1 - 3 mg IVPUSH Q4H PRN; Protocol PRN Reason: withdrawl Melatonin (Melatonin 3 Mg Tab) 3 mg PO BEDTIME PRN PRN Reason: INSOMNIA Last Admin: 01/19/21 20:50 Dose: 3 mg Documented by: Ondansetron HCl (Ondansetron 4 Mg/2 Ml Sdv) 4 mg IV Q6H PRN PRN Reason: Nausea/Vomiting Oxycodone HCl (Oxycodone 5 Mg Tab) 5 mg PO Q4H PRN PRN Reason: Pain (moderate 4-6) Last Admin: 01/17/21 04:18 Dose: 5 mg Documented by: Pantoprazole Sodium (Pantoprazole 40 Mg Tab.Cr) 40 mg PO DAILY [facility] Last Admin: 01/22/21 09:20 Dose: 40 mg Documented by: Polyethylene Glycol (Polyethylene Glycol 3350 Powder 17 Gm Packet) 17 gm PO DAILY PRN PRN Reason: Constipation Pravastatin Sodium (Pravastatin 20 Mg Tab) 20 mg PO BEDTIME [facility] Last Admin: 01/21/21 20:33 Dose: 20 mg Documented by: Thiamine HCl (Thiamine 100 Mg Tab) 100 mg PO DAILY [facility] Last Admin: 01/22/21 09:19 Dose: 100 mg Documented by: Tramadol HCl (Tramadol 50 Mg Tab) 50 mg PO Q6H PRN PRN Reason: Pain Last Admin: 01/22/21 14:35 Dose: 50 mg Documented by: Vancomycin HCl (Vancomycin 125 Mg Cap) 125 mg PO QID [facility] Stop: 01/28/21 17:01 Last Admin: 01/22/21 17:33 Dose: 125 mg Documented by: Discontinued Medications Acetaminophen (Acetaminophen 650 Mg Supp) 650 mg RECTAL ONETIME ONE Stop: 01/16/21 15:53 Last Admin: 01/16/21 16:03 Dose: 650 mg Documented by: Albuterol (Albuterol 6.7 Gm Inhaler) 0 gm INH QID PRN PRN Reason: shortness of breath Cefazolin Sodium (Cefazolin 1 Gm Vial) Confirm Administered Dose 2 gm .ROUTE .STK-MED ONE Stop: 01/13/21 10:48 Chlordiazepoxide HCl (Chlordiazepoxide 25 Mg Cap) 50 mg PO BID [facility] Last Admin: 01/15/21 21:13 Dose: 50 mg Documented by: Chlordiazepoxide HCl (Chlordiazepoxide 25 Mg Cap) 25 mg PO BID [facility] Last Admin: 01/16/21 10:05 Dose: 25 mg Documented by: Morphine Sulfate 8 mg/Epinephrine HCl 0.3 mg/Cefuroxime Sodium 750 mg/Ketorolac Tromethamine 30 mg/Sodium Chloride 7.9 ml 0 mg .XX ASDIRECTED PRN PRN Reason: Pain Stop: 01/13/21 18:00 Last Admin: 01/13/21 13:13 Dose: 788.3 mg Documented by: Diltiazem HCl (Diltiazem 120 Mg Cap.Cd) 120 mg PO DAILY [facility] Last Admin: 01/16/21 10:04 Dose: 120 mg Documented by: Diltiazem HCl (Diltiazem Ir 30 Mg Tab) 30 mg PO ONETIME ONE Stop: 01/16/21 19:56 Last Admin: 01/16/21 22:08 Dose: 30 mg Documented by: Fentanyl (Fentanyl 250 Mcg/5 Ml Sdv) Confirm Administered Dose 250 mcg .ROUTE .STK-MED ONE Stop: 01/13/21 10:42 Fentanyl (Fentanyl 250 Mcg/5 Ml Sdv) Confirm Administered Dose 250 mcg .ROUTE .STK-MED ONE Stop: 01/13/21 12:52 Fentanyl (Fentanyl 100 Mcg/2 Ml Sdv) 50 mcg IVPUSH Q5M PRN PRN Reason: Pain Stop: 01/13/21 18:00 Sodium Chloride (Normal Saline) 1,000 mls @ 100 mls/hr IV ASDIRECTED [facility] Last Admin: 01/14/21 02:16 Dose: 100 mls/hr Documented by: Lidocaine HCl (Xylocaine-Mpf 1%) Confirm Administered Dose 4 mls @ as directed .ROUTE .STK-MED ONE Stop: 01/13/21 10:43 Lactated Ringer's (Ringers, Lactated) Confirm Administered Dose 1,000 mls @ as directed .ROUTE .STK-MED ONE Stop: 01/13/21 11:06 Cefazolin Sodium/Dextrose 2 gm (/ Premix) 50 mls @ 100 mls/hr IV Q8H [facility] Stop: 01/14/21 11:29 Last Admin: 01/14/21 10:40 Dose: 100 mls/hr Documented by: Sodium Chloride (Normal Saline) 500 mls @ 999 mls/hr IV .BOLUS ONE Stop: 01/16/21 16:27 Last Admin: 01/16/21 16:16 Dose: 999 mls/hr Documented by: Sodium Chloride (Normal Saline) 1,000 mls @ 125 mls/hr IV ASDIRECTED [facility] Last Admin: 01/17/21 06:34 Dose: 125 mls/hr Documented by: Piperacillin Sod/Tazobactam (Sod 4.5 gm/ Sodium Chloride) 100 mls @ 200 mls/hr IV ONETIME ONE Stop: 01/16/21 21:24 Last Admin: 01/16/21 22:50 Dose: Not Given Documented by: Ceftriaxone Sodium 2 gm/ (Sodium Chloride) 100 mls @ 200 mls/hr IV Q24H [facility] Stop: 01/20/21 22:29 Last Admin: 01/18/21 21:49 Dose: 200 mls/hr Documented by: Potassium Chloride 10 meq/ (Premix) 100 mls @ 100 mls/hr IV Q1H [facility] Stop: 01/17/21 14:29 Last Admin: 01/17/21 15:17 Dose: 100 mls/hr Documented by: Vancomycin HCl 1 gm/Vancomycin HCl 250 mg/ Sodium Chloride 250 mls @ 166.667 mls/hr IV ONETIME ONE Stop: 01/17/21 12:59 Last Admin: 01/17/21 11:48 Dose: 166.667 mls/hr Documented by: Magnesium Sulfate 2 gm/ Premix 50 mls @ 25 mls/hr IV ONETIME ONE Stop: 01/17/21 13:29 Last Admin: 01/17/21 13:04 Dose: 25 mls/hr Documented by: Vancomycin HCl 1 gm/ Sodium (Chloride) 250 mls @ 250 mls/hr IV Q12H [facility] Last Admin: 01/17/21 22:32 Dose: 250 mls/hr Documented by: Potassium Chloride 10 meq/ (Premix) 100 mls @ 100 mls/hr IV Q1H [facility] Stop: 01/18/21 14:59 Last Admin: 01/18/21 16:23 Dose: 100 mls/hr Documented by: Sodium Chloride (Normal Saline Advbag) Confirm Administered Dose 100 mls @ as directed .ROUTE .STK-MED ONE Stop: 01/18/21 09:40 Last Admin: 01/18/21 10:08 Dose: Not Given Documented by: Sodium Chloride (Normal Saline Advbag) Confirm Administered Dose 250 mls @ as directed .ROUTE .STK-MED ONE Stop: 01/18/21 09:41 Last Admin: 01/18/21 10:41 Dose: 30 mls/hr Documented by: Magnesium Sulfate 2 gm/ Premix 50 mls @ 25 mls/hr IV ONETIME ONE Stop: 01/19/21 10:25 Last Admin: 01/19/21 09:57 Dose: 25 mls/hr Documented by: Potassium Chloride 10 meq/ (Premix) 100 mls @ 100 mls/hr IV Q1H [facility] Stop: 01/19/21 12:29 Last Admin: 01/19/21 13:48 Dose: 100 mls/hr Documented by: Potassium Chloride 10 meq/ (Premix) 100 mls @ 100 mls/hr IV Q1H [facility] Stop: 01/20/21 11:14 Last Admin: 01/20/21 13:50 Dose: 100 mls/hr Documented by: Magnesium Sulfate 4 gm/ Premix 50 mls @ 12.5 mls/hr IV ONETIME ONE Stop: 01/20/21 11:04 Last Admin: 01/20/21 08:34 Dose: 12.5 mls/hr Documented by: Potassium Chloride 10 meq/ (Premix) 100 mls @ 75 mls/hr IV ONETIME ONE Stop: 01/20/21 15:19 Last Admin: 01/20/21 18:54 Dose: Not Given Documented by: Potassium Chloride 10 meq/ (Premix) 100 mls @ 100 mls/hr IV Q1H [facility] Stop: 01/21/21 11:44 Last Admin: 01/21/21 12:02 Dose: Not Given Documented by: Lorazepam (Lorazepam 1 Mg Tab) 0 mg PO Q1H PRN; Protocol PRN Reason: Withdrawal Symptoms Last Admin: 01/14/21 11:04 Dose: 1 mg Documented by: Lorazepam (Lorazepam 2 Mg/Ml Sdv) 0 mg IVPUSH Q15M PRN; Protocol PRN Reason: Withdrawal Symptoms Last Admin: 01/14/21 09:51 Dose: 1 mg Documented by: Lorazepam (Lorazepam 2 Mg/Ml Sdv) 1 - 3 mg IVPUSH Q1H PRN; Protocol PRN Reason: withdrawl Lorazepam (Lorazepam 2 Mg/Ml Sdv) 2 mg IVPUSH ONETIME STA Stop: 01/14/21 12:37 Last Admin: 01/14/21 20:56 Dose: Not Given Documented by: Magnesium Oxide (Magnesium Oxide 400 Mg Tab) 400 mg PO BID [facility] Last Admin: 01/17/21 09:44 Dose: 400 mg Documented by: Midazolam HCl (Midazolam 1 Mg/Ml 2 Ml Sdv) Confirm Administered Dose 2 mg .ROUTE .STK-MED ONE Stop: 01/13/21 10:42 Miscellaneous Information (Remove Patch) 0 ea TRDERM ONETIME ONE Stop: 01/13/21 10:31 Last Admin: 01/13/21 15:48 Dose: Not Given Documented by: Miscellaneous Medication (Phenylephrine Hcl In 0.9% Nacl 1 Mg/10 Ml Syringe) Confirm Administered Dose 1 mg .ROUTE .STK-MED ONE Stop: 01/13/21 12:19 Nicotine (Nicotine 14 Mg/24 Hr Patch) 14 mg TRDERM ONETIME ONE Stop: 01/13/21 16:01 Last Admin: 01/13/21 15:54 Dose: 14 mg Documented by: Ondansetron HCl (Ondansetron 4 Mg/2 Ml Sdv) Confirm Administered Dose 4 mg .ROUTE .STK-MED ONE Stop: 01/13/21 10:42 Potassium Bicarbonate (Potassium Bicarbonate/Cit Ac 20 Meq Effervescent Tab) 40 meq PO ONETIME ONE Stop: 01/19/21 08:26 Last Admin: 01/19/21 09:57 Dose: 40 meq Documented by: Potassium Bicarbonate (Potassium Bicarbonate/Cit Ac 20 Meq Effervescent Tab) 40 meq PO ONETIME ONE Stop: 01/20/21 07:05 Last Admin: 01/20/21 08:39 Dose: 40 meq Documented by: Potassium Bicarbonate (Potassium Bicarbonate/Cit Ac 20 Meq Effervescent Tab) 20 meq PO ONETIME ONE Stop: 01/21/21 07:37 Last Admin: 01/21/21 08:55 Dose: 20 meq Documented by: Potassium Bicarbonate (Potassium Bicarbonate/Cit Ac 20 Meq Effervescent Tab) 20 meq PO ONETIME ONE Stop: 01/21/21 13:01 Last Admin: 01/21/21 12:36 Dose: 20 meq Documented by: Potassium Chloride (Potassium Chloride 20 Meq Tab.Er) 40 meq PO BID [facility] Last Admin: 01/13/21 20:58 Dose: Not Given Documented by: Potassium Chloride (Potassium Chloride 20 Meq Tab.Er) 40 meq PO ONETIME ONE Stop: 01/16/21 08:50 Last Admin: 01/16/21 10:05 Dose: 40 meq Documented by: Propofol (Propofol 200 Mg/20 Ml Sdv) Confirm Administered Dose 200 mg .ROUTE .STK-MED ONE Stop: 01/13/21 10:42 Quetiapine Fumarate (Quetiapine 25 Mg Tab) 50 mg PO BEDTIME [facility] Last Admin: 01/16/21 22:27 Dose: 50 mg Documented by: Rocuronium Claude (Rocuronium 50 Mg/5 Ml Vial) Confirm Administered Dose 50 mg .ROUTE .STK-MED ONE Stop: 01/13/21 10:42 Senna/Docusate Sodium (Docusate Sodium/Sennosides 50-8.6 Mg Tab) 2 tab PO BID [facility] Last Admin: 01/19/21 08:15 Dose: Not Given Documented by: Tranexamic Acid (Tranexamic Acid 1,000 Mg/10 Ml Amp) Confirm Administered Dose 1,000 mg .ROUTE .STK-MED ONE Stop: 01/13/21 11:39 Last Admin: 01/13/21 13:13 Dose: 1,000 mg Documented by: Vancomycin HCl (Vancomycin 1 Gm Sdv) Confirm Administered Dose 1 gm .ROUTE .STK- MED ONE Stop: 01/13/21 11:39 Last Admin: 01/13/21 13:13 Dose: 1 gm Documented by: Vancomycin HCl (Pharmacy To Dose - Vancomycin) 1 dose .XX ASDIRECTED PRN PRN Reason: RX TO DOSE VANCO - Exam Urinary Catheter Total Time: 3Days 6Hours General: Alert, No Acute Distress Lungs: Clear to Auscultation, Normal Respiratory Effort Cardiovascular: Regular Rate GI/Abdominal Exam: Normal Bowel Sounds, Soft, No Distention Extremities: Normal Inspection Skin: Warm, Dry - Patient Data Lab Results Last 24 hrs: Laboratory Results - last 24 hr 01/22/21 01/22/21 Range/Units 07:25 07:25 WBC 14.87 H (3.98-10.04) K/mm3 RBC 4.06 (3.98-5.22) M/mm3 Hgb 11.4 (11.2-15.7) gm/dl Hct 35.6 (34.1-44.9) % MCV 87.7 (79.4-94.8) fl MCH 28.1 (25.6-32.2) pg MCHC 32.0 L (32.2-35.5) g/dl RDW Std Deviation 46.1 (36.4-46.3) fL Plt Count 564 H D (182-369) K/mm3 MPV 10.2 (9.4-12.3) fl Neut % (Auto) 66.7 (34.0-71.1) % Lymph % (Auto) 15.7 L (19.3-51.7) % [place] % (Auto) 6.9 (4.7-12.5) % Eos % (Auto) 6.4 H (0.7-5.8) Baso % (Auto) 0.5 (0.1-1.2) % Neut # (Auto) 9.92 H (1.56-6.13) K/mm3 Lymph # (Auto) 2.33 (1.18-3.74) K/mm3 [place] # (Auto) 1.03 H (0.24-0.36) K/mm3 Eos # (Auto) 0.95 H (0.04-0.36) K/mm3 Baso # (Auto) 0.07 (0.01-0.08) K/mm3 Manual Slide Review Abnormal smear Sodium 131 L (136-145) mEq/L Potassium 4.1 (3.5-5.1) mEq/L Chloride 94 L (98-107) mEq/L Carbon Dioxide 27 (21-32) mEq/L Anion Gap 14.1 (5-15) BUN 13 (7-18) mg/dL Creatinine 1.1 H (0.55-1.02) mg/dL Est Cr Clr Drug Dosing 41.09 mL/min Estimated GFR (MDRD) 49 (>60) mL/min BUN/Creatinine Ratio 11.8 L (14-18) Glucose 102 H (70-99) mg/dL Calcium 9.4 (8.5-10.1) mg/dL Magnesium 1.8 (1.8-2.4) mg/dL C-Reactive Protein 9.9 H* (<1.0) mg/dL Result Diagrams: 01/22/21 07:25 01/22/21 07:25 [facility] Results Last 24 hrs: Microbiology 01/16/21 17:15 Blood Culture - Final Blood - Venous - Lab Draw 01/16/21 16:57 Blood Culture - Final Blood - Venous Sepsis Event Note - Evaluation Sepsis Screening Result: Sepsis Risk - Focused Exam Vital Signs: Vital Signs Temp Pulse Resp BP Pulse Ox Pulse Ox 01/22/21 16:05 98.4 F 91 20 103/25 L 95 01/22/21 15:41 92 L 01/22/21 11:44 97.9 F 01/22/21 11:36 106 H 20 103/61 93 L 01/22/21 08:55 92 L 01/22/21 07:52 96.1 F L 99 20 106/76 97 - Problem List Review Problem List Initiated/Reviewed/Updated: Yes - Plan Plan:: -year-old female admitted originally for femoral neck fracture. Problems: Femoral neck fracture. Presumed acute C. difficile infection. Acute kidney injury. Atrial fibrillation. Continue pulse therapy for acute C. difficile infection. She is on oral vancomycin on a 21-day course. Awaiting placement for further residential and rehab for femoral neck fracture status post repair. Acute kidney injury resolved. Patient occasionally in and out of atrial fibrillation. Was in sinus rhythm earlier today. No acute issues. Overall, no change in plan today. Awaiting placement. Awaiting word from case management and social work. Likely discharge on Sunday or Sunday depending on bed availability. CODE STATUS: Full code. DVT prophylaxis chemically.
[2021-01-22] MEDS: DULoxetine 30 MG Cap PO SCH ×2 (19:38→23:39)
[2021-01-22] MEDS: Pravastatin 20 MG Tab PO SCH ×2 (19:38→23:39)
[2021-01-23] MEDS: Albuterol/Ipratropium 3.0-0.5 MG/3 ML Neb Soln NEB SCH ×4 (03:10→20:04)
[2021-01-23] MEDS: Budesonide 0.5 MG/2 ML Neb Susp NEB SCH ×2 (08:18→20:04)
[2021-01-23] MEDS: Thiamine 100 MG Tab PO SCH (09:37)
[2021-01-23] MEDS: Pantoprazole 40 MG Tab.CR PO SCH (09:37)
[2021-01-23] MEDS: Folic Acid 1 MG Tab PO SCH (09:37)
[2021-01-23] MEDS: Vancomycin 125 MG Cap PO SCH ×4 (09:37→20:37)
[2021-01-23] MEDS: Furosemide 20 MG Tab PO SCH (09:37)
[2021-01-23] MEDS: Clopidogrel 75 MG Tab PO SCH (09:37)
[2021-01-23] MEDS: Ferrous Sulfate 324 MG Tab.EC PO SCH ×2 (09:37→20:38)
[2021-01-23] MEDS: Aspirin 81 MG Tab.EC PO SCH (09:38)
[2021-01-23] MEDS: Diltiazem 180 MG Cap.CD PO SCH (09:38)
[2021-01-23] MEDS: traMADol 50 MG Tab PO PRN (10:09)
--- NOTE | 2021-01-23 11:25 | PCM.PN ---
- General Info Date of Service: 01/23/21 Admission Dx/Problem (Free Text): Admission Diagnosis/Problem Admission Diagnosis/Problem Fracture of left hip Subjective Update: No acute events overnight. No new nursing concerns. A couple of loose stools last night without blood or black residue. Seen and examined in bedside while patient taking in some food. Patient does not endorse any new specific complaints. - Patient Data Vitals - Most Recent: Last Vital Signs Temp 98.8 F 01/23/21 04:33 Pulse 95 01/23/21 04:33 Resp 20 01/23/21 04:33 BP 134/71 01/23/21 04:33 Pulse Ox 91 L 01/23/21 08:19 Weight - Most Recent: 153 lb 1.6 oz I&O - Last 24 Hours: Intake & Output 01/22/21 01/23/21 01/23/21 22:59 06:59 14:59 Intake Total 800 400 Balance 800 400 Lab Results Last 24 Hours: Laboratory Results - last 24 hr 01/23/21 01/23/21 01/23/21 Range/Units 05:26 05:26 10:18 WBC 13.02 H (3.98-10.04) K/mm3 RBC 3.73 L (3.98-5.22) M/mm3 Hgb 10.5 L (11.2-15.7) gm/dl Hct 33.1 L (34.1-44.9) % MCV 88.7 (79.4-94.8) fl MCH 28.2 (25.6-32.2) pg MCHC 31.7 L (32.2-35.5) g/dl RDW Std Deviation 47.8 H (36.4-46.3) fL Plt Count 600 H (182-369) K/mm3 MPV 10.2 (9.4-12.3) fl Neut % (Auto) 54.7 (34.0-71.1) % Lymph % (Auto) 19.9 (19.3-51.7) % Dewey % (Auto) 11.5 (4.7-12.5) % Eos % (Auto) 6.2 H (0.7-5.8) Baso % (Auto) 0.6 (0.1-1.2) % Neut # (Auto) 7.11 H (1.56-6.13) K/mm3 Lymph # (Auto) 2.59 (1.18-3.74) K/mm3 Dewey # (Auto) 1.50 H (0.24-0.36) K/mm3 Eos # (Auto) 0.81 H (0.04-0.36) K/mm3 Baso # (Auto) 0.08 (0.01-0.08) K/mm3 Manual Slide Review Abnormal smear Sodium 134 L (136-145) mEq/L Potassium 4.4 (3.5-5.1) mEq/L Chloride 97 L (98-107) mEq/L Carbon Dioxide 25 (21-32) mEq/L Anion Gap 16.4 H (5-15) BUN 20 H (7-18) mg/dL Creatinine 1.4 H (0.55-1.02) mg/dL Est Cr Clr Drug Dosing 32.29 mL/min Estimated GFR (MDRD) 37 (>60) mL/min BUN/Creatinine Ratio 14.3 (14-18) Glucose 103 H (70-99) mg/dL Calcium 8.8 (8.5-10.1) mg/dL C-Reactive Protein 8.1 H* (<1.0) mg/dL SARS-CoV-2 RNA (BASIM) Negative (NEGATIVE) Christian Results Last 24 Hours: Microbiology 01/16/21 17:15 Blood Culture - Final Blood - Venous - Lab Draw 01/16/21 16:57 Blood Culture - Final Blood - Venous Med Orders - Current: Current Medications Acetaminophen (Acetaminophen 325 Mg Tab) 650 mg PO Q4H PRN PRN Reason: Pain (Mild 1-3)/fever Last Admin: 01/21/21 20:44 Dose: 650 mg Documented by: Albuterol (Albuterol 0.083% 2.5 Mg/3 Ml Neb Soln) 2.5 mg NEB Q2H PRN PRN Reason: Shortness Of Breath/wheezing Albuterol (Albuterol 6.7 Gm Inhaler) 0 gm INH Q4H PRN PRN Reason: shortness of breath Albuterol/Ipratropium (Albuterol/Ipratropium 3.0-0.5 Mg/3 Ml Neb Soln) 3 ml NEB Q6HRRT KRISHNA Last Admin: 01/23/21 08:18 Dose: 3 ml Documented by: Aspirin (Aspirin 81 Mg Tab.Ec) 81 mg PO DAILY [facility] Last Admin: 01/23/21 09:38 Dose: 81 mg Documented by: Budesonide (Budesonide 0.5 Mg/2 Ml Neb Susp) 0.5 mg NEB BID [facility] Last Admin: 01/23/21 08:18 Dose: 0.5 mg Documented by: Clopidogrel Bisulfate (Clopidogrel 75 Mg Tab) 75 mg PO DAILY [facility] Last Admin: 01/23/21 09:37 Dose: 75 mg Documented by: Diltiazem HCl (Diltiazem 180 Mg Cap.Cd) 180 mg PO DAILY [facility] Last Admin: 01/23/21 09:38 Dose: 180 mg Documented by: Duloxetine HCl (Duloxetine 30 Mg Cap) 30 mg PO BEDTIME [facility] Last Admin: 01/22/21 23:39 Dose: Not Given Documented by: Ferrous Sulfate (Ferrous Sulfate 324 Mg Tab.Ec) 324 mg PO BID [facility] Last Admin: 01/23/21 09:37 Dose: 324 mg Documented by: Folic Acid (Folic Acid 1 Mg Tab) 1 mg PO DAILY [facility] Last Admin: 01/23/21 09:37 Dose: 1 mg Documented by: Furosemide (Furosemide 20 Mg Tab) 20 mg PO DAILY [facility] Last Admin: 01/23/21 09:37 Dose: 20 mg Documented by: Hydromorphone HCl (Hydromorphone 0.5 Mg/0.5 Ml Syringe) 0.5 mg IVPUSH Q2H PRN PRN Reason: Pain (severe 7-10) Last Admin: 01/17/21 13:42 Dose: 0.5 mg Documented by: Lorazepam (Lorazepam 2 Mg/Ml Sdv) 1 - 3 mg IVPUSH Q4H PRN; Protocol PRN Reason: withdrawl Melatonin (Melatonin 3 Mg Tab) 3 mg PO BEDTIME PRN PRN Reason: INSOMNIA Last Admin: 01/19/21 20:50 Dose: 3 mg Documented by: Ondansetron HCl (Ondansetron 4 Mg/2 Ml Sdv) 4 mg IV Q6H PRN PRN Reason: Nausea/Vomiting Oxycodone HCl (Oxycodone 5 Mg Tab) 5 mg PO Q4H PRN PRN Reason: Pain (moderate 4-6) Last Admin: 01/17/21 04:18 Dose: 5 mg Documented by: Pantoprazole Sodium (Pantoprazole 40 Mg Tab.Cr) 40 mg PO DAILY [facility] Last Admin: 01/23/21 09:37 Dose: 40 mg Documented by: Polyethylene Glycol (Polyethylene Glycol 3350 Powder 17 Gm Packet) 17 gm PO DAILY PRN PRN Reason: Constipation Pravastatin Sodium (Pravastatin 20 Mg Tab) 20 mg PO BEDTIME [facility] Last Admin: 01/22/21 23:39 Dose: Not Given Documented by: Thiamine HCl (Thiamine 100 Mg Tab) 100 mg PO DAILY [facility] Last Admin: 01/23/21 09:37 Dose: 100 mg Documented by: Tramadol HCl (Tramadol 50 Mg Tab) 50 mg PO Q6H PRN PRN Reason: Pain Last Admin: 01/23/21 10:09 Dose: 50 mg Documented by: Vancomycin HCl (Vancomycin 125 Mg Cap) 125 mg PO QID [facility] Stop: 01/28/21 17:01 Last Admin: 01/23/21 09:37 Dose: 125 mg Documented by: Discontinued Medications Acetaminophen (Acetaminophen 650 Mg Supp) 650 mg RECTAL ONETIME ONE Stop: 01/16/21 15:53 Last Admin: 01/16/21 16:03 Dose: 650 mg Documented by: Albuterol (Albuterol 6.7 Gm Inhaler) 0 gm INH QID PRN PRN Reason: shortness of breath Cefazolin Sodium (Cefazolin 1 Gm Vial) Confirm Administered Dose 2 gm .ROUTE .STK-MED ONE Stop: 01/13/21 10:48 Chlordiazepoxide HCl (Chlordiazepoxide 25 Mg Cap) 50 mg PO BID [facility] Last Admin: 01/15/21 21:13 Dose: 50 mg Documented by: Chlordiazepoxide HCl (Chlordiazepoxide 25 Mg Cap) 25 mg PO BID [facility] Last Admin: 01/16/21 10:05 Dose: 25 mg Documented by: Morphine Sulfate 8 mg/Epinephrine HCl 0.3 mg/Cefuroxime Sodium 750 mg/Ketorolac Tromethamine 30 mg/Sodium Chloride 7.9 ml 0 mg .XX ASDIRECTED PRN PRN Reason: Pain Stop: 01/13/21 18:00 Last Admin: 01/13/21 13:13 Dose: 788.3 mg Documented by: Diltiazem HCl (Diltiazem 120 Mg Cap.Cd) 120 mg PO DAILY [facility] Last Admin: 01/16/21 10:04 Dose: 120 mg Documented by: Diltiazem HCl (Diltiazem Ir 30 Mg Tab) 30 mg PO ONETIME ONE Stop: 01/16/21 19:56 Last Admin: 01/16/21 22:08 Dose: 30 mg Documented by: Fentanyl (Fentanyl 250 Mcg/5 Ml Sdv) Confirm Administered Dose 250 mcg .ROUTE .STK-MED ONE Stop: 01/13/21 10:42 Fentanyl (Fentanyl 250 Mcg/5 Ml Sdv) Confirm Administered Dose 250 mcg .ROUTE .STK-MED ONE Stop: 01/13/21 12:52 Fentanyl (Fentanyl 100 Mcg/2 Ml Sdv) 50 mcg IVPUSH Q5M PRN PRN Reason: Pain Stop: 01/13/21 18:00 Sodium Chloride (Normal Saline) 1,000 mls @ 100 mls/hr IV ASDIRECTED [facility] Last Admin: 01/14/21 02:16 Dose: 100 mls/hr Documented by: Lidocaine HCl (Xylocaine-Mpf 1%) Confirm Administered Dose 4 mls @ as directed .ROUTE .STK-MED ONE Stop: 01/13/21 10:43 Lactated Ringer's (Ringers, Lactated) Confirm Administered Dose 1,000 mls @ as directed .ROUTE .STK-MED ONE Stop: 01/13/21 11:06 Cefazolin Sodium/Dextrose 2 gm (/ Premix) 50 mls @ 100 mls/hr IV Q8H [facility] Stop: 01/14/21 11:29 Last Admin: 01/14/21 10:40 Dose: 100 mls/hr Documented by: Sodium Chloride (Normal Saline) 500 mls @ 999 mls/hr IV .BOLUS ONE Stop: 01/16/21 16:27 Last Admin: 01/16/21 16:16 Dose: 999 mls/hr Documented by: Sodium Chloride (Normal Saline) 1,000 mls @ 125 mls/hr IV ASDIRECTED [facility] Last Admin: 01/17/21 06:34 Dose: 125 mls/hr Documented by: Piperacillin Sod/Tazobactam (Sod 4.5 gm/ Sodium Chloride) 100 mls @ 200 mls/hr IV ONETIME ONE Stop: 01/16/21 21:24 Last Admin: 01/16/21 22:50 Dose: Not Given Documented by: Ceftriaxone Sodium 2 gm/ (Sodium Chloride) 100 mls @ 200 mls/hr IV Q24H [facility] Stop: 01/20/21 22:29 Last Admin: 01/18/21 21:49 Dose: 200 mls/hr Documented by: Potassium Chloride 10 meq/ (Premix) 100 mls @ 100 mls/hr IV Q1H [facility] Stop: 01/17/21 14:29 Last Admin: 01/17/21 15:17 Dose: 100 mls/hr Documented by: Vancomycin HCl 1 gm/Vancomycin HCl 250 mg/ Sodium Chloride 250 mls @ 166.667 ml s/hr IV ONETIME ONE Stop: 01/17/21 12:59 Last Admin: 01/17/21 11:48 Dose: 166.667 mls/hr Documented by: Magnesium Sulfate 2 gm/ Premix 50 mls @ 25 mls/hr IV ONETIME ONE Stop: 01/17/21 13:29 Last Admin: 01/17/21 13:04 Dose: 25 mls/hr Documented by: Vancomycin HCl 1 gm/ Sodium (Chloride) 250 mls @ 250 mls/hr IV Q12H [facility] Last Admin: 01/17/21 22:32 Dose: 250 mls/hr Documented by: Potassium Chloride 10 meq/ (Premix) 100 mls @ 100 mls/hr IV Q1H [facility] Stop: 01/18/21 14:59 Last Admin: 01/18/21 16:23 Dose: 100 mls/hr Documented by: Sodium Chloride (Normal Saline Advbag) Confirm Administered Dose 100 mls @ as directed .ROUTE .STK-MED ONE Stop: 01/18/21 09:40 Last Admin: 01/18/21 10:08 Dose: Not Given Documented by: Sodium Chloride (Normal Saline Advbag) Confirm Administered Dose 250 mls @ as directed .ROUTE .STK-MED ONE Stop: 01/18/21 09:41 Last Admin: 01/18/21 10:41 Dose: 30 mls/hr Documented by: Magnesium Sulfate 2 gm/ Premix 50 mls @ 25 mls/hr IV ONETIME ONE Stop: 01/19/21 10:25 Last Admin: 01/19/21 09:57 Dose: 25 mls/hr Documented by: Potassium Chloride 10 meq/ (Premix) 100 mls @ 100 mls/hr IV Q1H [facility] Stop: 01/19/21 12:29 Last Admin: 12/08/21 13:48 Dose: 100 mls/hr Documented by: Potassium Chloride 10 meq/ (Premix) 100 mls @ 100 mls/hr IV Q1H [facility] Stop: 01/20/21 11:14 Last Admin: 01/20/21 13:50 Dose: 100 mls/hr Documented by: Magnesium Sulfate 4 gm/ Premix 50 mls @ 12.5 mls/hr IV ONETIME ONE Stop: 01/20/21 11:04 Last Admin: 01/20/21 08:34 Dose: 12.5 mls/hr Documented by: Potassium Chloride 10 meq/ (Premix) 100 mls @ 75 mls/hr IV ONETIME ONE Stop: 01/20/21 15:19 Last Admin: 01/20/21 18:54 Dose: Not Given Documented by: Potassium Chloride 10 meq/ (Premix) 100 mls @ 100 mls/hr IV Q1H [facility] Stop: 01/21/21 11:44 Last Admin: 01/21/21 12:02 Dose: Not Given Documented by: Lorazepam (Lorazepam 1 Mg Tab) 0 mg PO Q1H PRN; Protocol PRN Reason: Withdrawal Symptoms Last Admin: 01/14/21 11:04 Dose: 1 mg Documented by: Lorazepam (Lorazepam 2 Mg/Ml Sdv) 0 mg IVPUSH Q15M PRN; Protocol PRN Reason: Withdrawal Symptoms Last Admin: 01/14/21 09:51 Dose: 1 mg Documented by: Lorazepam (Lorazepam 2 Mg/Ml Sdv) 1 - 3 mg IVPUSH Q1H PRN; Protocol PRN Reason: withdrawl Lorazepam (Lorazepam 2 Mg/Ml Sdv) 2 mg IVPUSH ONETIME [facility] Stop: 01/14/21 12:37 Last Admin: 01/14/21 20:56 Dose: Not Given Documented by: Magnesium Oxide (Magnesium Oxide 400 Mg Tab) 400 mg PO BID [facility] Last Admin: 01/17/21 09:44 Dose: 400 mg Documented by: Midazolam HCl (Midazolam 1 Mg/Ml 2 Ml Sdv) Confirm Administered Dose 2 mg .ROUTE .STK-MED ONE Stop: 01/13/21 10:42 Miscellaneous Information (Remove Patch) 0 ea TRDERM ONETIME ONE Stop: 01/13/21 10:31 Last Admin: 01/13/21 15:48 Dose: Not Given Documented by: Miscellaneous Medication (Phenylephrine Hcl In 0.9% Nacl 1 Mg/10 Ml Syringe) Confirm Administered Dose 1 mg .ROUTE .STK-MED ONE Stop: 01/13/21 12:19 Nicotine (Nicotine 14 Mg/24 Hr Patch) 14 mg TRDERM ONETIME ONE Stop: 01/13/21 16:01 Last Admin: 01/13/21 15:54 Dose: 14 mg Documented by: Ondansetron HCl (Ondansetron 4 Mg/2 Ml Sdv) Confirm Administered Dose 4 mg .ROUTE .STK-MED ONE Stop: 01/13/21 10:42 Potassium Bicarbonate (Potassium Bicarbonate/Cit Ac 20 Meq Effervescent Tab) 40 meq PO ONETIME ONE Stop: 01/19/21 08:26 Last Admin: 01/19/21 09:57 Dose: 40 meq Documented by: Potassium Bicarbonate (Potassium Bicarbonate/Cit Ac 20 Meq Effervescent Tab) 40 meq PO ONETIME ONE Stop: 01/20/21 07:05 Last Admin: 01/20/21 08:39 Dose: 40 meq Documented by: Potassium Bicarbonate (Potassium Bicarbonate/Cit Ac 20 Meq Effervescent Tab) 20 meq PO ONETIME ONE Stop: 01/21/21 07:37 Last Admin: 01/21/21 08:55 Dose: 20 meq Documented by: Potassium Bicarbonate (Potassium Bicarbonate/Cit Ac 20 Meq Effervescent Tab) 20 meq PO ONETIME ONE Stop: 01/21/21 13:01 Last Admin: 01/21/21 12:36 Dose: 20 meq Documented by: Potassium Chloride (Potassium Chloride 20 Meq Tab.Er) 40 meq PO BID [facility] Last Admin: 01/13/21 20:58 Dose: Not Given Documented by: Potassium Chloride (Potassium Chloride 20 Meq Tab.Er) 40 meq PO ONETIME ONE Stop: 01/16/21 08:50 Last Admin: 01/16/21 10:05 Dose: 40 meq Documented by: Propofol (Propofol 200 Mg/20 Ml Sdv) Confirm Administered Dose 200 mg .ROUTE .STK-MED ONE Stop: 01/13/21 10:42 Quetiapine Fumarate (Quetiapine 25 Mg Tab) 50 mg PO BEDTIME [facility] Last Admin: 01/16/21 22:27 Dose: 50 mg Documented by: Rocuronium Zaleski (Rocuronium 50 Mg/5 Ml Vial) Confirm Administered Dose 50 mg .ROUTE .STK-MED ONE Stop: 01/13/21 10:42 Senna/Docusate Sodium (Docusate Sodium/Sennosides 50-8.6 Mg Tab) 2 tab PO BID [facility] Last Admin: 01/19/21 08:15 Dose: Not Given Documented by: Tranexamic Acid (Tranexamic Acid 1,000 Mg/10 Ml Amp) Confirm Administered Dose 1,000 mg .ROUTE .STK-MED ONE Stop: 01/13/21 11:39 Last Admin: 01/13/21 13:13 Dose: 1,000 mg Documented by: Vancomycin HCl (Vancomycin 1 Gm Sdv) Confirm Administered Dose 1 gm .ROUTE .STK- MED ONE Stop: 01/13/21 11:39 Last Admin: 01/13/21 13:13 Dose: 1 gm Documented by: Vancomycin HCl (Pharmacy To Dose - Vancomycin) 1 dose .XX ASDIRECTED PRN PRN Reason: RX TO DOSE VANCO - Exam Urinary Catheter Total Time: 3Days 6Hours General: Alert, No Acute Distress Lungs: Clear to Auscultation, Normal Respiratory Effort Cardiovascular: Regular Rate GI/Abdominal Exam: Normal Bowel Sounds, Soft, Non-Tender Extremities: Normal Inspection Skin: Warm, Dry - Patient Data Lab Results Last 24 hrs: Laboratory Results - last 24 hr 01/23/21 01/23/21 01/23/21 Range/Units 05:26 05:26 10:18 WBC 13.02 H (3.98-10.04) K/mm3 RBC 3.73 L (3.98-5.22) M/mm3 Hgb 10.5 L (11.2-15.7) gm/dl Hct 33.1 L (34.1-44.9) % MCV 88.7 (79.4-94.8) fl MCH 28.2 (25.6-32.2) pg MCHC 31.7 L (32.2-35.5) g/dl RDW Std Deviation 47.8 H (36.4-46.3) fL Plt Count 600 H (182-369) K/mm3 MPV 10.2 (9.4-12.3) fl Neut % (Auto) 54.7 (34.0-71.1) % Lymph % (Auto) 19.9 (19.3-51.7) % Dewey % (Auto) 11.5 (4.7-12.5) % Eos % (Auto) 6.2 H (0.7-5.8) Baso % (Auto) 0.6 (0.1-1.2) % Neut # (Auto) 7.11 H (1.56-6.13) K/mm3 Lymph # (Auto) 2.59 (1.18-3.74) K/mm3 Dewey # (Auto) 1.50 H (0.24-0.36) K/mm3 Eos # (Auto) 0.81 H (0.04-0.36) K/mm3 Baso # (Auto) 0.08 (0.01-0.08) K/mm3 Manual Slide Review Abnormal smear Sodium 134 L (136-145) mEq/L Potassium 4.4 (3.5-5.1) mEq/L Chloride 97 L (98-107) mEq/L Carbon Dioxide 25 (21-32) mEq/L Anion Gap 16.4 H (5-15) BUN 20 H (7-18) mg/dL Creatinine 1.4 H (0.55-1.02) mg/dL Est Cr Clr Drug Dosing 32.29 mL/min Estimated GFR (MDRD) 37 (>60) mL/min BUN/Creatinine Ratio 14.3 (14-18) Glucose 103 H (70-99) mg/dL Calcium 8.8 (8.5-10.1) mg/dL C-Reactive Protein 8.1 H* (<1.0) mg/dL SARS-CoV-2 RNA (BASIM) Negative (NEGATIVE) Result Diagrams: 01/23/21 05:26 01/23/21 05:26 Christian Results Last 24 hrs: Microbiology 01/16/21 17:15 Blood Culture - Final Blood - Venous - Lab Draw 01/16/21 16:57 Blood Culture - Final Blood - Venous Sepsis Event Note - Evaluation Sepsis Screening Result: No Definite Risk - Focused Exam Vital Signs: Vital Signs Temp Pulse Resp BP Pulse Ox Pulse Ox 01/23/21 08:19 91 L 01/23/21 04:33 98.8 F 95 20 134/71 90 L 01/23/21 03:12 91 L 01/23/21 00:28 97.9 F 100 16 115/67 89 L - Problem List Review Problem List Initiated/Reviewed/Updated: Yes - Plan Plan:: -year-old female admitted originally for femoral neck fracture. Problems: Femoral neck fracture. Presumed acute C. difficile infection. Acute kidney injury. Atrial fibrillation. Continue pulse therapy for acute C. difficile infection. She is on oral vancomycin on a 21-day course. Awaiting placement for further [facility] for femoral neck fracture status post repair. Acute kidney injury resolved. No new acute issues. Overall, still no change in plan today. Awaiting placement. Awaiting word from case management and social work. Likely discharge on Sunday or Sunday depending on bed availability. CODE STATUS: Full code. DVT prophylaxis chemically.
[2021-01-23] MEDS: DULoxetine 30 MG Cap PO SCH (20:38)
[2021-01-23] MEDS: Pravastatin 20 MG Tab PO SCH (20:38)
[2021-01-24] MEDS: Albuterol/Ipratropium 3.0-0.5 MG/3 ML Neb Soln NEB SCH (03:14)
--- NOTE | 2021-01-24 08:11 | PCM.DCSUM1 ---
<Carlos Ramirez - Last Filed: 01/24/21 10:11> Discharge Summary - Hospital Course HPI Initial Comments: 70-year-old female who was transferred from [place], [place] emergency department secondary to fracture of the left femoral neck. Patient states that she started having pain the day after Thanksgiving. She denies any specific fall, but in another breath she tells me she falls regularly and shows me her bruised arms. She was brought from home to the emergency department in excruciating pain, 9 out of 10, that had progressively worsened over the last couple of days. In the emergency department she was given ketorolac and Dilaudid for pain relief. X-ray of the hips showed fracture of the left femoral neck. Initially patient did have significant hypertension and tachycardia which was mainly felt to be secondary to pain. Patient also did not take her Cardizem this morning. There was initially some question if the patient had atrial fibrillation, but EKG done in the emergency department showed sinus tachycardia. Dr. Mayes was contacted who agreed to repair the hip fracture. Patient was then transferred to the medical floor for admission. Blood work from the emergency department in [place] showed white count 16.3, hemoglobin 11.4, platelets 401, sodium 128, potassium 4.7, BUN 7, creatinine 1.22, glucose 127, albumin 3.3, AST 16, ALT 17, alk phos 196, total bilirubin 0.5. On arrival to floor white count 10.68, sodium 131, potassium 4.6, BUN 9, creatinine 1.7 with an estimated GFR of 30, AST 26, ALT 19, alkaline phosphatase 177, albumin 3.1 Patient admits to 1 pack/day smoking and 2 mixed drinks with fireball daily Past medical history includes alcohol abuse, hyponatremia, tobacco abuse, emphysema, adult failure to thrive, SIADH, anemia, hypertension, hyperlipidemia, dementing neurological disease or syndrome, atrial fibrillation, acute kidney injury, stroke, distal radial fracture, physical deconditioning Diagnosis: Stroke: No - Discharge Data Discharge Date: 01/24/21 (Admit date: 01/12/2021) Discharge Disposition: DC/Tfer to SNF 03 Condition: Good - Referral to Home Health Primary Care Physician: Norma Penny MD - Discharge Diagnosis/Problem(s) (1) Acute kidney injury SNOMED Code(s): 48711446, 25716943 ICD Code: N17.9 - ACUTE KIDNEY FAILURE, UNSPECIFIED Status: Resolved Priority: High (2) Alcohol abuse SNOMED Code(s): 59254900 ICD Code: F10.10 - ALCOHOL ABUSE, UNCOMPLICATED Status: Chronic Priority: High (3) COPD (chronic obstructive pulmonary disease) with emphysema SNOMED Code(s): 34054982 ICD Code: J43.9 - EMPHYSEMA, UNSPECIFIED Status: Chronic Priority: Medium Qualifiers: Emphysema type: unspecified Qualified Code(s): J43.9 - Emphysema, unspecified (4) Hyponatremia SNOMED Code(s): 24104364 ICD Code: E87.1 - HYPO-OSMOLALITY AND HYPONATREMIA Status: Resolved Priority: Medium (5) Left displaced femoral neck fracture SNOMED Code(s): 3780108, 786052743, 934965658, 19489569578304287 ICD Code: S72.002A - FRACTURE OF UNSP PART OF NECK OF LEFT FEMUR, INIT Status: Acute Priority: High (6) Recurrent falls SNOMED Code(s): 343134234 ICD Code: R29.6 - REPEATED FALLS Status: Chronic Priority: Medium (7) Tobacco abuse SNOMED Code(s): 027101508 ICD Code: Z72.0 - TOBACCO USE Status: Chronic Priority: Medium (8) Alcohol withdrawal SNOMED Code(s): 936021408 ICD Code: F10.239 - ALCOHOL DEPENDENCE WITH WITHDRAWAL, UNSPECIFIED Status: Resolved Priority: High Qualifiers: Complication of substance-induced condition: with delirium Qualified Code(s): F10.231 - Alcohol dependence with withdrawal delirium (9) S/P hip hemiarthroplasty SNOMED Code(s): 029535957, 947705408, 545324101, 343332360 ICD Code: Z96.649 - PRESENCE OF UNSPECIFIED ARTIFICIAL HIP JOINT Status: Ac [place] Priority: High (10) Fever SNOMED Code(s): 083370231 ICD Code: R50.9 - FEVER, UNSPECIFIED Status: Resolved Priority: High Qualifiers: Fever type: unspecified Qualified Code(s): R50.9 - Fever, unspecified (11) UTI (urinary tract infection) SNOMED Code(s): 08242135 ICD Code: N39.0 - URINARY TRACT INFECTION, SITE NOT SPECIFIED Status: Ruled-out Priority: High Qualifiers: Urinary tract infection type: acute cystitis Hematuria presence: with hematuria Qualified Code(s): N30.01 - Acute cystitis with hematuria (12) Sepsis SNOMED Code(s): 65160187 ICD Code: A41.9 - SEPSIS, UNSPECIFIED ORGANISM Status: Resolved Priority: High Qualifiers: Sepsis type: sepsis due to unspecified organism Sepsis acute organ dysfunction status: with acute organ dysfunction Severe sepsis acute organ dysfunction type: acute renal failure Acute renal failure type: unspecified Severe sepsis shock status: without septic shock Qualified Code(s): A41.9 - Sepsis, unspecified organism; R65.20 - Severe sepsis without septic shock; N17.9 - Acute kidney failure, unspecified (13) Hypomagnesemia SNOMED Code(s): 205858893 ICD Code: E83.42 - HYPOMAGNESEMIA Status: Resolved Priority: Medium (14) Hypokalemia SNOMED Code(s): 09668390 ICD Code: E87.6 - HYPOKALEMIA Status: Acute Priority: High (15) Leukocytosis SNOMED Code(s): 909174133, 598269629 ICD Code: D72.829 - ELEVATED WHITE BLOOD CELL COUNT, UNSPECIFIED Status: Acute Priority: High Qualifiers: Leukocytosis type: unspecified Qualified Code(s): D72.829 - Elevated white blood cell count, unspecified (16) Elevated C-reactive protein (CRP) SNOMED Code(s): 757874289800798 ICD Code: R79.82 - ELEVATED C-REACTIVE PROTEIN (CRP) Status: Acute Priority: High (17) C. difficile diarrhea SNOMED Code(s): 0723297913550 ICD Code: A04.72 - ENTEROCOLITIS D/T CLOSTRIDIUM DIFFICILE, NOT SPCF RECUR Status: Acute Priority: High - Patient Summary/Data Operative Procedure(s) Performed: left hip hemiarthroplasty Consults: Consultations 01/12/21 16:29 Consult to Physician [CONS] Routine 01/13/21 14:32 OT Evaluation and Treatment [CONS] Routine PT Evaluation and Treatment [CONS] Routine 01/14/21 11:34 Consult to Speech Language Pathology [BARBERING TEACHER Evaluation and Treatment] [CONS] Routine Labs Pending at D/C: None Recommended Follow-up Testing/Procedures: Follow-up with primary care provider within 5 to 7 days of discharge, sooner if needed. * Patient should continue hip precautions. * Patient's Cardizem increased to 180 mg daily with better rate control. * All other home medications continued. * Patient discharged on as needed Tylenol for pain and daily thiamine due to her history of alcohol abuse. * Discharged on 100.5 mg 4 times daily vancomycin for C. difficile infection. 17 doses remain. * Patient discharged to [facility]. * Recommend repeat CBC, CMP and magnesium in follow-up. Follow-up with orthopedics as scheduled. Hospital Course: This is a 72-year-old female who underwent a rather complex stay with us. Patient was originally transferred here from the [place] and emergency room with a left hip fracture. Patient denies any recent falls however she was noted to have significant bruising scattered throughout her arms and legs. Patient did admit to 2 mixed drinks daily of fireball whiskey and 1 pack/day of smoking. She has chronic hyponatremia and COPD along with dementia and a history of stroke. She also carries a history of atrial fibrillation which was paroxysmal. She was noted to have SANTIAGO on arrival, likely exacerbated by Toradol given in the emergency department prior. She was started on her CIWA protocol and started on daily folic acid and thiamine. IV fluids were initiated and renal function did improve. Patient underwent left hip hemiarthroplasty on 01/13/[address] Mayes. Overall she tolerated this procedure well. She is working with physical therapy and Occupational Therapy. Unfortunately shortly after surgery patient was noted to have a CIWA score up to 9 and was tremorous. She was also hallucinating. She started on scheduled Librium and CIWA score frequency was increased. Pain was overall well-tolerated using Tylenol. Several days into her stay patient was noted to have a fever of 102.9 on the evening of 01/16/2021. UA was obtained and appeared contaminated. Patient was noted to be lethargic with significantly decreased mentation. Blood cultures were obtained and she was started on Rocephin and later vancomycin was added. Electrolytes were supplemented. Due to patient's altered mental status [employer]BERING TEACHER evaluation was ordered and they were recommending clear liquid diet. Patient was ultimately made n.p.o. due to her altered mental status. All sedative medications were discontinued. CT scan was obtained of the brain showing senescent change but nothing acute. Ammonia level was within normal limits. Ultimately blood cultures returned negative, there was no growth in her UA. And chest x-ray showed mild atelectasis but no infiltrates. Procalcitonin was also noted to be low at 0.19. On 01/18/2021 nursing noted patient was having significant watery diarrhea and C. difficile PCR test returned positive. IV antibiotics were stopped and patient was started on 125 mg 4 times daily oral vancomycin. Interestingly C. difficile toxin assay was negative. Patient was complaining of mild generalized abdominal pain and given her sudden watery diarrhea decision was made to continue vancomycin based on symptoms. Fortunately patient's mentation did rapidly improve. BARBERING TEACHER evaluation was ultimately performed and they were recommending NDD3 diet with thin liquids and crushed pills. Patient was ultimately accepted at [facility] and was esquivel sferred there today. Recommend patient continue hip precautions and physical therapy/Occupational Therapy at [facility]. While here she was noted to be tachycardic and her Cardizem was increased 180 mg daily. She will be discharged on this higher dosing. She was started on thiamine supplementation daily due to her chronic alcohol use and she will be discharged on this as well. She also be discharged on 125 mg 4 times daily oral vancomycin with 17 doses remaining. Recommend follow-up with PCP within 5 to 7 days of discharge, sooner if needed. Recommend repeat CBC, CMP, and magnesium in follow-up. Please monitor need for continuation of oral vancomycin. She does have an outpatient follow-up appointment scheduled with orthopedics. All other home medications continued. [facility] sent to [facility] as instructed by [facility]. Patient was requiring 1 L of oxygen on and off, which we will continue at [facility]. Recommend saturations remain above 90%. - Patient Instructions Diet: Usual Diet as Tolerated Activity: Apply Ice, As Tolerated, Elevate Extremity, Full Weight Bearing Activity, Other: Follow posterior hip precautions. Driving: Do Not Drive Showering/Bathing: May Shower Wound/Incision Care: Keep Operative Site/Wound Site Clean and Dry, Do NOT Change Dressing Notify Provider of: Fever, Increased Pain, Swelling and Redness, Drainage, Nausea and/or Vomiting Other/Special Instructions: Please get up and moving around EVERY HOUR while awake. This helps to prevent blood clots. Have help with mobility. Please use your walker and have help with mobility as needed. Take a short walk in your home every hour while awake. At home, please complete the exercises that you learned after surgery. Schedule for physical therapy. Follow the hip pr ecautions. Please discontinue use of the prescription pain medication as soon as able. The goal is to use the least amount of prescription pain medication as possible and to discontinue use of the prescription pain medication as soon as possible. Please do not use other medications that may cause drowsiness (other pain medications, anxiety pills, cold medications, sleeping pills, etc) while using the prescription pain medication. Do not use alcohol while using the pain medication. If you can tolerate use of the PAO hose, wear them during the day and remove them at night. Elevate the limb to decrease swelling. Elevating the limb above the level of the heart will be most effective. Elevating the foot higher than the knee will help to decrease swelling in the foot. Place ice to the area often. Place a towel between your skin and the blue pad. Please keep the dressing in place until follow-up. As long as the dressing is sealed and without a hole, the dressing is water resis tant and therefore, you may have a shower. Please do not soak that dressing in a tub, pool, whirlpool. Notify the Clinic if the dressing becomes saturated. It is normal to have swelling and bruising at the surgical site, as well as above and below the surgical site. If you have diabetes or have been instructed by your primary care provider to monitor your blood sugars, please closely monitor your sugars. Notify your primary care provider of the values. Elevated sugars can increase the risk of infection. If you have questions or concerns, please call [phone] and leave a message for the nurse. Your call will be returned. Resume home medications as directed. You should continue your oral vancomycin tablets 4 times a day. Your last dose will be on 01/28/2021 at 5 PM. Should your diarrhea continue discussed this with your primary care provider. Drink plenty of fluids. Follow-up with primary care provider within 5 to 7 days of discharge, sooner if needed. Follow-up with orthopedics as scheduled. Should symptoms return or worsen contact your primary care provider or return to the emergency room. - Discharge Plan *PRESCRIPTION DRUG MONITORING PROGRAM REVIEWED*: No *COPY OF PRESCRIPTION DRUG MONITORING REPORT IN PATIENT LIU: No Prescriptions/Med Rec: Diltiazem HCl [Diltiazem 24Hr Cd] 180 mg PO DAILY #20 cap.er.24h Acetaminophen [Tylenol] 650 mg PO Q4H PRN #20 tablet PRN Reason: Pain (Mild 1-3)/fever Vancomycin [Vancocin 125 MG Capsule] 125 mg PO QID #17 cap Thiamine [Vitamin B-1] 100 mg PO DAILY #20 tablet Tobacco Cessation Medication: Prescription Refused Home Medications: Home Meds Acetaminophen [Tylenol] 2 tab PO Q6H PRN 01/12/21 [History] Albuterol [Proventil HFA] 2 puff INH Q4H PRN 01/12/21 [History] Aspirin [Ecotrin EC] 81 mg PO DAILY 01/12/21 [History] Budesonide [Pulmicort] 2 ml NEB BID 01/12/21 [History] Cholecalciferol (Vitamin D3) [Vitamin D3] 1 tab PO DAILY 01/12/21 [History] Clopidogrel Bisulfate [Plavix] 1 tab PO DAILY 01/12/21 [History] DULoxetine [Cymbalta] 1 tab PO BEDTIME 01/12/21 [History] Ferrous Sulfate [Iron] 1 tab PO BID 01/12/21 [History] Folic Acid 1 tab PO DAILY 01/12/21 [History] Furosemide [Lasix] 20 mg PO DAILY 01/12/21 [History] Hydrocodone/Acetaminophen [HYDROcodone-Acetaminophen 5-325 MG] 1 tab PO Q6H PRN 01/12/21 [History] Melatonin 1 tab PO BEDTIME PRN 01/12/21 [History] Pantoprazole Sodium [Protonix] 40 mg PO DAILY 01/12/21 [History] Potassium Chloride [Klor-Con M20] 2 tab PO BID 01/12/21 [History] Pravastatin [Pravachol] 1 tab PO BEDTIME 01/12/21 [History] QUEtiapine Fumarate [Seroquel] 50 mg PO BEDTIME 01/12/21 [History] Sennosides/Docusate Sodium [Senna-Docusate Sodium Tablet] 2 tab PO BID 01/12/21 [History] Trolamine Salicylate/Aloe Vera [Aspercreme 10%] 1 applic TOP BID PRN 01/12/21 [History] traMADol [Ultram] 1 tab PO Q6H PRN 01/12/21 [History] Acetaminophen [Tylenol] 650 mg PO Q4H PRN #20 tablet 01/24/21 [Rx] Diltiazem HCl [Diltiazem 24Hr Cd] 180 mg PO DAILY #20 cap.er.24h 01/24/21 [Rx] Thiamine [Vitamin B-1] 100 mg PO DAILY #20 tablet 01/24/21 [Rx] Vancomycin [Vancocin 125 MG Capsule] 125 mg PO QID #17 cap 01/24/21 [Rx] Oxygen Therapy Mode: Nasal Cannula Oxygen Flow Rate (L/min): 1 Maintain SpO2% greater than: 90 Patient Handouts: Smoking Tobacco Information, Adult, Steps to Quit Smoking, Sepsis, Self Care, Adult Referrals: Norma Penny MD [Primary Care Provider] - (Please follow up with rounds at the long-term for follow up appt.) Deangelo Holly NP [Ordering Only Provider] - 01/26/21 1:20 pm (This appointment is at [facility] in [place] and this is [place] time.) - Discharge Summary/Plan Comment DC Time >30 min.: Yes Total # of Minutes for Discharge Time: 60 - General Info Date of Service: 01/24/21 Admission Dx/Problem (Free Text: Admission Diagnosis/Problem Admission Diagnosis/Problem Fracture of left hip Functional Status: Reports: Pain Controlled, Tolerating Diet, Ambulating, Urinating, Incentive Spirometry. Denies: New Symptoms - Review of Systems General: Reports: Weakness. Denies: Fever, Fatigue, Malaise, Chills HEENT: Reports: No Symptoms. Denies: Headaches, Sore Throat Pulmonary: Reports: No Symptoms. Denies: Shortness of Breath, Cough, Sputum, Wheezing Cardiovascular: Reports: No Symptoms. Denies: Chest Pain, Palpitations, Dyspnea on Exertion, Edema Gastrointestinal: Reports: Diarrhea (Greatly improved ). Denies: Abdominal Pain, Constipation, Hematochezia, Melena, Nausea, Vomiting Genitourinary: Reports: No Symptoms. Denies: Pain Musculoskeletal: Reports: Leg Pain (improved left leg), Joint Pain (improved left hip) Skin: Reports: No Symptoms Neurological: Reports: Difficulty Walking, Weakness, Gait Disturbance. Denies: Confusion, Dizziness, Headache, Numbness, Pre-Existing Deficit, Seizure, Syncope, Tingling Psychiatric: Reports: No Symptoms - Patient Data Vitals - Most Recent: Last Vital Signs Temp 98.1 F 01/24/21 04:08 Pulse 93 01/24/21 04:08 Resp 14 01/24/21 04:08 BP 110/71 01/24/21 04:08 Pulse Ox 95 01/24/21 04:08 Weight - Most Recent: 153 lb 11.2 oz I&O - Last 24 hours: Intake & Output 01/23/21 01/24/21 01/24/21 22:59 06:59 14:59 Intake Total 250 300 Balance 250 300 Lab Results - Last 24 hrs: Laboratory Results - last 24 hr 01/23/21 01/24/21 01/24/21 Range/Units 10:18 06:29 06:29 WBC 14.75 H (3.98-10.04) K/mm3 RBC 3.54 L (3.98-5.22) M/mm3 Hgb 9.9 L (11.2-15.7) gm/dl Hct 31.5 L (34.1-44.9) % MCV 89.0 (79.4-94.8) fl MCH 28.0 (25.6-32.2) pg MCHC 31.4 L (32.2-35.5) g/dl RDW Std Deviation 48.1 H (36.4-46.3) fL Plt Count 680 H D (182-369) K/mm3 MPV 9.7 (9.4-12.3) fl Neut % (Auto) 62.7 (34.0-71.1) % Lymph % (Auto) 14.8 L (19.3-51.7) % Cook % (Auto) 11.2 (4.7-12.5) % Eos % (Auto) 4.6 (0.7-5.8) Baso % (Auto) 0.5 (0.1-1.2) % Neut # (Auto) 9.24 H (1.56-6.13) K/mm3 Lymph # (Auto) 2.18 (1.18-3.74) K/mm3 Cook # (Auto) 1.65 H (0.24-0.36) K/mm3 Eos # (Auto) 0.68 H (0.04-0.36) K/mm3 Baso # (Auto) 0.08 (0.01-0.08) K/mm3 Sodium 137 (136-145) mEq/L Potassium 3.9 (3.5-5.1) mEq/L Chloride 100 (98-107) mEq/L Carbon Dioxide 27 (21-32) mEq/L Anion Gap 13.9 (5-15) BUN 19 H (7-18) mg/dL Creatinine 1.3 H (0.55-1.02) mg/dL Est Cr Clr Drug Dosing 34.77 mL/min Estimated GFR (MDRD) 40 (>60) mL/min BUN/Creatinine Ratio 14.6 (14-18) Glucose 110 H (70-99) mg/dL Calcium 8.1 L (8.5-10.1) mg/dL C-Reactive Protein 7.9 H* (<1.0) mg/dL SARS-CoV-2 RNA (BASIM) Negative (NEGATIVE) Med Orders - Current: Current Medications Acetaminophen (Acetaminophen 325 Mg Tab) 650 mg PO Q4H PRN PRN Reason: Pain (Mild 1-3)/fever Last Admin: 01/21/21 20:44 Dose: 650 mg Documented by: Albuterol (Albuterol 0.083% 2.5 Mg/3 Ml Neb Soln) 2.5 mg NEB Q2H PRN PRN Reason: Shortness Of Breath/wheezing Albuterol (Albuterol 6.7 Gm Inhaler) 0 gm INH Q4H PRN PRN Reason: shortness of breath Albuterol/Ipratropium (Albuterol/Ipratropium 3.0-0.5 Mg/3 Ml Neb Soln) 3 ml NEB Q6HRRT [facility] Last Admin: 01/24/21 03:14 Dose: 3 ml Documented by: Aspirin (Aspirin 81 Mg Tab.Ec) 81 mg PO DAILY [facility] Last Admin: 01/23/21 09:38 Dose: 81 mg Documented by: Budesonide (Budesonide 0.5 Mg/2 Ml Neb Susp) 0.5 mg NEB BID [facility] Last Admin: 01/23/21 20:04 Dose: 0.5 mg Documented by: Clopidogrel Bisulfate (Clopidogrel 75 Mg Tab) 75 mg PO DAILY [facility] Last Admin: 01/23/21 09:37 Dose: 75 mg Documented by: Diltiazem HCl (Diltiazem 180 Mg Cap.Cd) 180 mg PO DAILY [facility] Last Admin: 01/23/21 09:38 Dose: 180 mg Documented by: Duloxetine HCl (Duloxetine 30 Mg Cap) 30 mg PO BEDTIME [facility] Last Admin: 01/23/21 20:38 Dose: 30 mg Documented by: Ferrous Sulfate (Ferrous Sulfate 324 Mg Tab.Ec) 324 mg PO BID [facility] Last Admin: 01/23/21 20:38 Dose: 324 mg Documented by: Folic Acid (Folic Acid 1 Mg Tab) 1 mg PO DAILY [facility] Last Admin: 01/23/21 09:37 Dose: 1 mg Documented by: Furosemide (Furosemide 20 Mg Tab) 20 mg PO DAILY [facility] Last Admin: 01/23/21 09:37 Dose: 20 mg Documented by: Hydromorphone HCl (Hydromorphone 0.5 Mg/0.5 Ml Syringe) 0.5 mg IVPUSH Q2H PRN PRN Reason: Pain (severe 7-10) Last Admin: 01/17/21 13:42 Dose: 0.5 mg Documented by: Lorazepam (Lorazepam 2 Mg/Ml Sdv) 1 - 3 mg IVPUSH Q4H PRN; Protocol PRN Reason: withdrawl Melatonin (Melatonin 3 Mg Tab) 3 mg PO BEDTIME PRN PRN Reason: INSOMNIA Last Admin: 01/19/21 20:50 Dose: 3 mg Documented by: Ondansetron HCl (Ondansetron 4 Mg/2 Ml Sdv) 4 mg IV Q6H PRN PRN Reason: Nausea/Vomiting Oxycodone HCl (Oxycodone 5 Mg Tab) 5 mg PO Q4H PRN PRN Reason: Pain (moderate 4-6) Last Admin: 01/17/21 04:18 Dose: 5 mg Documented by: Pantoprazole Sodium (Pantoprazole 40 Mg Tab.Cr) 40 mg PO DAILY [facility] Last Admin: 01/23/21 09:37 Dose: 40 mg Documented by: Polyethylene Glycol (Polyethylene Glycol 3350 Powder 17 Gm Packet) 17 gm PO DAILY PRN PRN Reason: Constipation Pravastatin Sodium (Pravastatin 20 Mg Tab) 20 mg PO BEDTIME [facility] Last Admin: 01/23/21 20:38 Dose: 20 mg Documented by: Thiamine HCl (Thiamine 100 Mg Tab) 100 mg PO DAILY [facility] Last Admin: 01/23/21 09:37 Dose: 100 mg Documented by: Tramadol HCl (Tramadol 50 Mg Tab) 50 mg PO Q6H PRN PRN Reason: Pain Last Admin: 01/23/21 10:09 Dose: 50 mg Documented by: Vancomycin HCl (Vancomycin 125 Mg Cap) 125 mg PO QID [facility] Stop: 01/28/21 13:01 Last Admin: 01/23/21 20:37 Dose: 125 mg Documented by: Discontinued Medications Acetaminophen (Acetaminophen 650 Mg Supp) 650 mg RECTAL ONETIME ONE Stop: 01/16/21 15:53 Last Admin: 01/16/21 16:03 Dose: 650 mg Documented by: Albuterol (Albuterol 6.7 Gm Inhaler) 0 gm INH QID PRN PRN Reason: shortness of breath Cefazolin Sodium (Cefazolin 1 Gm Vial) Confirm Administered Dose 2 gm .ROUTE .STK-MED ONE Stop: 01/13/21 10:48 Chlordiazepoxide HCl (Chlordiazepoxide 25 Mg Cap) 50 mg PO BID [facility] Last Admin: 01/15/21 21:13 Dose: 50 mg Documented by: Chlordiazepoxide HCl (Chlordiazepoxide 25 Mg Cap) 25 mg PO BID [facility] Last Admin: 01/16/21 10:05 Dose: 25 mg Documented by: Morphine Sulfate 8 mg/Epinephrine HCl 0.3 mg/Cefuroxime Sodium 750 mg/Ketorolac Tromethamine 30 mg/Sodium Chloride 7.9 ml 0 mg .XX ASDIRECTED PRN PRN Reason: Pain Stop: 01/13/21 18:00 Last Admin: 01/13/21 13:13 Dose: 788.3 mg Documented by: Diltiazem HCl (Diltiazem 120 Mg Cap.Cd) 120 mg PO DAILY [facility] Last Admin: 01/16/21 10:04 Dose: 120 mg Documented by: Diltiazem HCl (Diltiazem Ir 30 Mg Tab) 30 mg PO ONETIME ONE Stop: 01/16/21 19:56 Last Admin: 01/16/21 22:08 Dose: 30 mg Documented by: Fentanyl (Fentanyl 250 Mcg/5 Ml Sdv) Confirm Administered Dose 250 mcg .ROUTE .STK-MED ONE Stop: 01/13/21 10:42 Fentanyl (Fentanyl 250 Mcg/5 Ml Sdv) Confirm Administered Dose 250 mcg .ROUTE .STK-MED ONE Stop: 01/13/21 12:52 Fentanyl (Fentanyl 100 Mcg/2 Ml Sdv) 50 mcg IVPUSH Q5M PRN PRN Reason: Pain Stop: 01/13/21 18:00 Sodium Chloride (Normal Saline) 1,000 mls @ 100 mls/hr IV ASDIRECTED [facility] Last Admin: 01/14/21 02:16 Dose: 100 mls/hr Documented by: Lidocaine HCl (Xylocaine-Mpf 1%) Confirm Administered Dose 4 mls @ as directed .ROUTE .STK-MED ONE Stop: 01/13/21 10:43 Lactated Ringer's (Ringers, Lactated) Confirm Administered Dose 1,000 mls @ as directed .ROUTE .STK-MED ONE Stop: 01/13/21 11:06 Cefazolin Sodium/Dextrose 2 gm (/ Premix) 50 mls @ 100 mls/hr IV Q8H [facility] Stop: 01/14/21 11:29 Last Admin: 01/14/21 10:40 Dose: 100 mls/hr Documented by: Sodium Chloride (Normal Saline) 500 mls @ 999 mls/hr IV .BOLUS ONE Stop: 01/16/21 16:27 Last Admin: 01/16/21 16:16 Dose: 999 mls/hr Documented by: Sodium Chloride (Normal Saline) 1,000 mls @ 125 mls/hr IV ASDIRECTED [facility] Last Admin: 01/17/21 06:34 Dose: 125 mls/hr Documented by: Piperacillin Sod/Tazobactam (Sod 4.5 gm/ Sodium Chloride) 100 mls @ 200 mls/hr IV ONETIME ONE Stop: 01/16/21 21:24 Last Admin: 01/16/21 22:50 Dose: Not Given Documented by: Ceftriaxone Sodium 2 gm/ (Sodium Chloride) 100 mls @ 200 mls/hr IV Q24H [facility] Stop: 01/20/21 22:29 Last Admin: 01/18/21 21:49 Dose: 200 mls/hr Documented by: Potassium Chloride 10 meq/ (Premix) 100 mls @ 100 mls/hr IV Q1H [facility] Stop: 01/17/21 14:29 Last Admin: 01/17/21 15:17 Dose: 100 mls/hr Documented by: Vancomycin HCl 1 gm/Vancomycin HCl 250 mg/ Sodium Chloride 250 mls @ 166.667 mls/hr IV ONETIME ONE Stop: 01/17/21 12:59 Last Admin: 01/17/21 11:48 Dose: 166.667 mls/hr Documented by: Magnesium Sulfate 2 gm/ Premix 50 mls @ 25 mls/hr IV ONETIME ONE Stop: 01/17/21 13:29 Last Admin: 01/17/21 13:04 Dose: 25 mls/hr Documented by: Vancomycin HCl 1 gm/ Sodium (Chloride) 250 mls @ 250 mls/hr IV Q12H [facility] Last Admin: 01/17/21 22:32 Dose: 250 mls/hr Documented by: Potassium Chloride 10 meq/ (Premix) 100 mls @ 100 mls/hr IV Q1H [facility] Stop: 01/18/21 14:59 Last Admin: 01/18/21 16:23 Dose: 100 mls/hr Documented by: Sodium Chloride (Normal Saline Advbag) Confirm Administered Dose 100 mls @ as directed .ROUTE .STK-MED ONE Stop: 01/18/21 09:40 Last Admin: 01/18/21 10:08 Dose: Not Given Documented by: Sodium Chloride (Normal Saline Advbag) Confirm Administered Dose 250 mls @ as directed .ROUTE .STK-MED ONE Stop: 01/18/21 09:41 Last Admin: 01/18/21 10:41 Dose: 30 mls/hr Documented by: Magnesium Sulfate 2 gm/ Premix 50 mls @ 25 mls/hr IV ONETIME ONE Stop: 01/19/21 10:25 Last Admin: 01/19/21 09:57 Dose: 25 mls/hr Documented by: Potassium Chloride 10 meq/ (Premix) 100 mls @ 100 mls/hr IV Q1H [facility] Stop: 01/19/21 12:29 Last Admin: 01/19/21 13:48 Dose: 100 mls/hr Documented by: Potassium Chloride 10 meq/ (Premix) 100 mls @ 100 mls/hr IV Q1H [facility] Stop: 01/20/21 11:14 Last Admin: 01/20/21 13:50 Dose: 100 mls/hr Documented by: Magnesium Sulfate 4 gm/ Premix 50 mls @ 12.5 mls/hr IV ONETIME ONE Stop: 01/20/21 11:04 Last Admin: 01/20/21 08:34 Dose: 12.5 mls/hr Documented by: Potassium Chloride 10 meq/ (Premix) 100 mls @ 75 mls/hr IV ONETIME ONE Stop: 01/20/21 15:19 Last Admin: 01/20/21 18:54 Dose: Not Given Documented by: Potassium Chloride 10 meq/ (Premix) 100 mls @ 100 mls/hr IV Q1H [facility] Stop: 01/21/21 11:44 Last Admin: 01/21/21 12:02 Dose: Not Given Documented by: Lorazepam (Lorazepam 1 Mg Tab) 0 mg PO Q1H PRN; Protocol PRN Reason: Withdrawal Symptoms Last Admin: 01/14/21 11:04 Dose: 1 mg Documented by: Lorazepam (Lorazepam 2 Mg/Ml Sdv) 0 mg IVPUSH Q15M PRN; Protocol PRN Reason: Withdrawal Symptoms Last Admin: 01/14/21 09:51 Dose: 1 mg Documented by: Lorazepam (Lorazepam 2 Mg/Ml Sdv) 1 - 3 mg IVPUSH Q1H PRN; Protocol PRN Reason: withdrawl Lorazepam (Lorazepam 2 Mg/Ml Sdv) 2 mg IVPUSH ONETIME STA Stop: 01/14/21 12:37 Last Admin: 01/14/21 20:56 Dose: Not Given Documented by: Magnesium Oxide (Magnesium Oxide 400 Mg Tab) 400 mg PO BID [facility] Last Admin: 01/17/21 09:44 Dose: 400 mg Documented by: Midazolam HCl (Midazolam 1 Mg/Ml 2 Ml Sdv) Confirm Administered Dose 2 mg .ROUTE .STK-MED ONE Stop: 01/13/21 10:42 Miscellaneous Information (Remove Patch) 0 ea TRDERM ONETIME ONE Stop: 01/13/21 10:31 Last Admin: 01/13/21 15:48 Dose: Not Given Documented by: Miscellaneous Medication (Phenylephrine Hcl In 0.9% Nacl 1 Mg/10 Ml Syringe) Confirm Administered Dose 1 mg .ROUTE .STK-MED ONE Stop: 01/13/21 12:19 Nicotine (Nicotine 14 Mg/24 Hr Patch) 14 mg TRDERM ONETIME ONE Stop: 01/13/21 16:01 Last Admin: 01/13/21 15:54 Dose: 14 mg Documented by: Ondansetron HCl (Ondansetron 4 Mg/2 Ml Sdv) Confirm Administered Dose 4 mg .ROUTE .STK-MED ONE Stop: 01/13/21 10:42 Potassium Bicarbonate (Potassium Bicarbonate/Cit Ac 20 Meq Effervescent Tab) 40 meq PO ONETIME ONE Stop: 01/19/21 08:26 Last Admin: 01/19/21 09:57 Dose: 40 meq Documented by: Potassium Bicarbonate (Potassium Bicarbonate/Cit Ac 20 Meq Effervescent Tab) 40 meq PO ONETIME ONE Stop: 01/20/21 07:05 Last Admin: 01/20/21 08:39 Dose: 40 meq Documented by: Potassium Bicarbonate (Potassium Bicarbonate/Cit Ac 20 Meq Effervescent Tab) 20 meq PO ONETIME ONE Stop: 01/21/21 07:37 Last Admin: 01/21/21 08:55 Dose: 20 meq Documented by: Potassium Bicarbonate (Potassium Bicarbonate/Cit Ac 20 Meq Effervescent Tab) 20 meq PO ONETIME ONE Stop: 01/21/21 13:01 Last Admin: 01/21/21 12:36 Dose: 20 meq Documented by: Potassium Chloride (Potassium Chloride 20 Meq Tab.Er) 40 meq PO BID [facility] Last Admin: 01/13/21 20:58 Dose: Not Given Documented by: Potassium Chloride (Potassium Chloride 20 Meq Tab.Er) 40 meq PO ONETIME ONE Stop: 01/16/21 08:50 Last Admin: 01/16/21 10:05 Dose: 40 meq Documented by: Propofol (Propofol 200 Mg/20 Ml Sdv) Confirm Administered Dose 200 mg .ROUTE .STK-MED ONE Stop: 01/13/21 10:42 Quetiapine Fumarate (Quetiapine 25 Mg Tab) 50 mg PO BEDTIME [facility] Last Admin: 01/16/21 22:27 Dose: 50 mg Documented by: Rocuronium Cassatt (Rocuronium 50 Mg/5 Ml Vial) Confirm Administered Dose 50 mg .ROUTE .STK-MED ONE Stop: 01/13/21 10:42 Senna/Docusate Sodium (Docusate Sodium/Sennosides 50-8.6 Mg Tab) 2 tab PO BID [facility] Last Admin: 01/19/21 08:15 Dose: Not Given Documented by: Tranexamic Acid (Tranexamic Acid 1,000 Mg/10 Ml Amp) Confirm Administered Dose 1,000 mg .ROUTE .STK-MED ONE Stop: 01/13/21 11:39 Last Admin: 01/13/21 13:13 Dose: 1,000 mg Documented by: Vancomycin HCl (Vancomycin 1 Gm Sdv) Confirm Administered Dose 1 gm .ROUTE .STK- MED ONE Stop: 01/13/21 11:39 Last Admin: 01/13/21 13:13 Dose: 1 gm Documented by: Vancomycin HCl (Pharmacy To Dose - Vancomycin) 1 dose .XX ASDIRECTED PRN PRN Reason: RX TO DOSE VANCO - Exam Quality Assessment: Reports: DVT Prophylaxis. Denies: Supplemental Oxygen, Urine Catheter General: Reports: Alert, Oriented (mostly ), Cooperative, No Acute Distress HEENT: Reports: Pupils Equal, Pupils Reactive, Mucous Membr. Moist/[place] Neck: Reports: Supple, Trachea Midline Lungs: Reports: Clear to Auscultation, Normal Respiratory Effort Cardiovascular: Reports: Regular Rate, Regular Rhythm GI/Abdominal Exam: Normal Bowel Sounds, Soft, Non-Tender, No Distention (Female) Exam: Deferred Rectal (Female) Exam: Deferred Back Exam: Reports: Normal Inspection, Decreased Range of Motion Extremities: Normal Range of Motion, No Pedal Edema, Normal Capillary Refill, Leg Pain (Left hip and legmild and greatly improving), Other (Bandage in place on left hip) Skin: Reports: Warm, Dry, Intact Wound/Incisions: Reports: Dressing Dry and Intact Neurological: Reports: No New Focal Deficit Psy/Mental Status: Reports: Alert, Normal Affect, Normal Mood <Josef Rodriguez Jr - Last Filed: 01/25/21 07:07> Discharge Summary - Referral to Home Health Primary Care Physician: Norma Penny MD - Patient Summary/Data Consults: Consultations 01/12/21 16:29 Consult to Physician [CONS] Routine 01/13/21 14:32 OT Evaluation and Treatment [CONS] Routine PT Evaluation and Treatment [CONS] Routine 01/14/21 11:34 Consult to Speech Language Pathology [[employer] Evaluation and Treatment] [CONS] Routine - Discharge Summary/Plan Comment Discharge Summary/Plan Comment: Case discussed in full. Agree with evaluation, assessment and plan. -Be Lopez Jr., DO - Patient Data Vitals - Most Recent: Last Vital Signs Temp 97.5 F 01/24/21 07:34 Pulse 90 01/24/21 07:34 Resp 19 01/24/21 07:34 BP 126/83 01/24/21 07:34 Pulse Ox 89 L 01/24/21 07:34 Lab Results - Last 24 hrs: Laboratory Results - last 24 hr 01/24/21 01/24/21 Range/Units 06:29 06:29 WBC 14.75 H (3.98-10.04) K/mm3 RBC 3.54 L (3.98-5.22) M/mm3 Hgb 9.9 L (11.2-15.7) gm/dl Hct 31.5 L (34.1-44.9) % MCV 89.0 (79.4-94.8) fl MCH 28.0 (25.6-32.2) pg MCHC 31.4 L (32.2-35.5) g/dl RDW Std Deviation 48.1 H (36.4-46.3) fL Plt Count 680 H D (182-369) K/mm3 MPV 9.7 (9.4-12.3) fl Neut % (Auto) 62.7 (34.0-71.1) % Lymph % (Auto) 14.8 L (19.3-51.7) % Cook % (Auto) 11.2 (4.7-12.5) % Eos % (Auto) 4.6 (0.7-5.8) Baso % (Auto) 0.5 (0.1-1.2) % Neut # (Auto) 9.24 H (1.56-6.13) K/mm3 Lymph # (Auto) 2.18 (1.18-3.74) K/mm3 Cook # (Auto) 1.65 H (0.24-0.36) K/mm3 Eos # (Auto) 0.68 H (0.04-0.36) K/mm3 Baso # (Auto) 0.08 (0.01-0.08) K/mm3 Sodium 137 (136-145) mEq/L Potassium 3.9 (3.5-5.1) mEq/L Chloride 100 (98-107) mEq/L Carbon Dioxide 27 (21-32) mEq/L Anion Gap 13.9 (5-15) BUN 19 H (7-18) mg/dL Creatinine 1.3 H (0.55-1.02) mg/dL Est Cr Clr Drug Dosing 34.77 mL/min Estimated GFR (MDRD) 40 (>60) mL/min BUN/Creatinine Ratio 14.6 (14-18) Glucose 110 H (70-99) mg/dL Calcium 8.1 L (8.5-10.1) mg/dL C-Reactive Protein 7.9 H* (<1.0) mg/dL Med Orders - Current: Current Medications Discontinued Medications Acetaminophen (Acetaminophen 325 Mg Tab) 650 mg PO Q4H PRN PRN Reason: Pain (Mild 1-3)/fever Last Admin: 01/21/21 20:44 Dose: 650 mg Documented by: Acetaminophen (Acetaminophen 650 Mg Supp) 650 mg RECTAL ONETIME ONE Stop: 01/16/21 15:53 Last Admin: 01/16/21 16:03 Dose: 650 mg Documented by: Albuterol (Albuterol 0.083% 2.5 Mg/3 Ml Neb Soln) 2.5 mg NEB Q2H PRN PRN Reason: Shortness Of Breath/wheezing Albuterol (Albuterol 6.7 Gm Inhaler) 0 gm INH QID PRN PRN Reason: shortness of breath Albuterol (Albuterol 6.7 Gm Inhaler) 0 gm INH Q4H PRN PRN Reason: shortness of breath Albuterol/Ipratropium (Albuterol/Ipratropium 3.0-0.5 Mg/3 Ml Neb Soln) 3 ml NEB Q6HRRT [facility] Last Admin: 01/24/21 03:14 Dose: 3 ml Documented by: Aspirin (Aspirin 81 Mg Tab.Ec) 81 mg PO DAILY [facility] Last Admin: 01/23/21 09:38 Dose: 81 mg Documented by: Budesonide (Budesonide 0.5 Mg/2 Ml Neb Susp) 0.5 mg NEB BID [facility] Last Admin: 01/23/21 20:04 Dose: 0.5 mg Documented by: Cefazolin Sodium (Cefazolin 1 Gm Vial) Confirm Administered Dose 2 gm .ROUTE .STK-MED ONE Stop: 01/13/21 10:48 Chlordiazepoxide HCl (Chlordiazepoxide 25 Mg Cap) 50 mg PO BID [facility] Last Admin: 01/15/21 21:13 Dose: 50 mg Documented by: Chlordiazepoxide HCl (Chlordiazepoxide 25 Mg Cap) 25 mg PO BID [facility] Last Admin: 01/16/21 10:05 Dose: 25 mg Documented by: Clopidogrel Bisulfate (Clopidogrel 75 Mg Tab) 75 mg PO DAILY [facility] Last Admin: 01/23/21 09:37 Dose: 75 mg Documented by: Morphine Sulfate 8 mg/Epinephrine HCl 0.3 mg/Cefuroxime Sodium 750 mg/Ketorolac Tromethamine 30 mg/Sodium Chloride 7.9 ml 0 mg .XX ASDIRECTED PRN PRN Reason: Pain Stop: 01/13/21 18:00 Last Admin: 01/13/21 13:13 Dose: 788.3 mg Documented by: Diltiazem HCl (Diltiazem 120 Mg Cap.Cd) 120 mg PO DAILY [facility] Last Admin: 01/16/21 10:04 Dose: 120 mg Documented by: Diltiazem HCl (Diltiazem 180 Mg Cap.Cd) 180 mg PO DAILY [facility] Last Admin: 01/23/21 09:38 Dose: 180 mg Documented by: Diltiazem HCl (Diltiazem Ir 30 Mg Tab) 30 mg PO ONETIME ONE Stop: 01/16/21 19:56 Last Admin: 01/16/21 22:08 Dose: 30 mg Documented by: Duloxetine HCl (Duloxetine 30 Mg Cap) 30 mg PO BEDTIME [facility] Last Admin: 01/23/21 20:38 Dose: 30 mg Documented by: Fentanyl (Fentanyl 250 Mcg/5 Ml Sdv) Confirm Administered Dose 250 mcg .ROUTE .STK-MED ONE Stop: 01/13/21 10:42 Fentanyl (Fentanyl 250 Mcg/5 Ml Sdv) Confirm Administered Dose 250 mcg .ROUTE .STK-MED ONE Stop: 01/13/21 12:52 Fentanyl (Fentanyl 100 Mcg/2 Ml Sdv) 50 mcg IVPUSH Q5M PRN PRN Reason: Pain Stop: 01/13/21 18:00 Ferrous Sulfate (Ferrous Sulfate 324 Mg Tab.Ec) 324 mg PO BID [facility] Last Admin: 01/23/21 20:38 Dose: 324 mg Documented by: Folic Acid (Folic Acid 1 Mg Tab) 1 mg PO DAILY [facility] Last Admin: 01/23/21 09:37 Dose: 1 mg Documented by: Furosemide (Furosemide 20 Mg Tab) 20 mg PO DAILY [facility] Last Admin: 01/23/21 09:37 Dose: 20 mg Documented by: Hydromorphone HCl (Hydromorphone 0.5 Mg/0.5 Ml Syringe) 0.5 mg IVPUSH Q2H PRN PRN Reason: Pain (severe 7-10) Last Admin: 01/17/21 13:42 Dose: 0.5 mg Documented by: Sodium Chloride (Normal Saline) 1,000 mls @ 100 mls/hr IV ASDIRECTED [facility] Last Admin: 01/14/21 02:16 Dose: 100 mls/hr Documented by: Lidocaine HCl (Xylocaine-Mpf 1%) Confirm Administered Dose 4 mls @ as directed .ROUTE .STK-MED ONE Stop: 01/13/21 10:43 Lactated Ringer's (Ringers, Lactated) Confirm Administered Dose 1,000 mls @ as directed .ROUTE .STK-MED ONE Stop: 01/13/21 11:06 Cefazolin Sodium/Dextrose 2 gm (/ Premix) 50 mls @ 100 mls/hr IV Q8H [facility] Stop: 01/14/21 11:29 Last Admin: 01/14/21 10:40 Dose: 100 mls/hr Documented by: Sodium Chloride (Normal Saline) 500 mls @ 999 mls/hr IV .BOLUS ONE Stop: 01/16/21 16:27 Last Admin: 01/16/21 16:16 Dose: 999 mls/hr Documented by: Sodium Chloride (Normal Saline) 1,000 mls @ 125 mls/hr IV ASDIRECTED [facility] Last Admin: 01/17/21 06:34 Dose: 125 mls/hr Documented by: Piperacillin Sod/Tazobactam (Sod 4.5 gm/ Sodium Chloride) 100 mls @ 200 mls/hr IV ONETIME ONE Stop: 01/16/21 21:24 Last Admin: 01/16/21 22:50 Dose: Not Given Documented by: Ceftriaxone Sodium 2 gm/ (Sodium Chloride) 100 mls @ 200 mls/hr IV Q24H [facility] Stop: 01/20/21 22:29 Last Admin: 01/18/21 21:49 Dose: 200 mls/hr Documented by: Potassium Chloride 10 meq/ (Premix) 100 mls @ 100 mls/hr IV Q1H [facility] Stop: 01/17/21 14:29 Last Admin: 01/17/21 15:17 Dose: 100 mls/hr Documented by: Vancomycin HCl 1 gm/Vancomycin HCl 250 mg/ Sodium Chloride 250 mls @ 166.667 mls/hr IV ONETIME ONE Stop: 01/17/21 12:59 Last Admin: 01/17/21 11:48 Dose: 166.667 mls/hr Documented by: Magnesium Sulfate 2 gm/ Premix 50 mls @ 25 mls/hr IV ONETIME ONE Stop: 01/17/21 13:29 Last Admin: 01/17/21 13:04 Dose: 25 mls/hr Documented by: Vancomycin HCl 1 gm/ Sodium (Chloride) 250 mls @ 250 mls/hr IV Q12H [facility] Last Admin: 01/17/21 22:32 Dose: 250 mls/hr Documented by: Potassium Chloride 10 meq/ (Premix) 100 mls @ 100 mls/hr IV Q1H [facility] Stop: 01/18/21 14:59 Last Admin: 01/18/21 16:23 Dose: 100 mls/hr Documented by: Sodium Chloride (Normal Saline Advbag) Confirm Administered Dose 100 mls @ as directed .ROUTE .STK-MED ONE Stop: 01/18/21 09:40 Last Admin: 01/18/21 10:08 Dose: Not Given Documented by: Sodium Chloride (Normal Saline Advbag) Confirm Administered Dose 250 mls @ as directed .ROUTE .STK-MED ONE Stop: 01/18/21 09:41 Last Admin: 01/18/21 10:41 Dose: 30 mls/hr Documented by: Magnesium Sulfate 2 gm/ Premix 50 mls @ 25 mls/hr IV ONETIME ONE Stop: 01/19/21 10:25 Last Admin: 01/19/21 09:57 Dose: 25 mls/hr Documented by: Potassium Chloride 10 meq/ (Premix) 100 mls @ 100 mls/hr IV Q1H [facility] Stop: 01/19/21 12:29 Last Admin: 01/19/21 13:48 Dose: 100 mls/hr Documented by: Potassium Chloride 10 meq/ (Premix) 100 mls @ 100 mls/hr IV Q1H [facility] Stop: 01/20/21 11:14 Last Admin: 01/20/21 13:50 Dose: 100 mls/hr Documented by: Magnesium Sulfate 4 gm/ Premix 50 mls @ 12.5 mls/hr IV ONETIME ONE Stop: 01/20/21 11:04 Last Admin: 01/20/21 08:34 Dose: 12.5 mls/hr Documented by: Potassium Chloride 10 meq/ (Premix) 100 mls @ 75 mls/hr IV ONETIME ONE Stop: 01/20/21 15:19 Last Admin: 01/20/21 18:54 Dose: Not Given Documented by: Potassium Chloride 10 meq/ (Premix) 100 mls @ 100 mls/hr IV Q1H [facility] Stop: 01/21/21 11:44 Last Admin: 01/21/21 12:02 Dose: Not Given Documented by: Lorazepam (Lorazepam 1 Mg Tab) 0 mg PO Q1H PRN; Protocol PRN Reason: Withdrawal Symptoms Last Admin: 01/14/21 11:04 Dose: 1 mg Documented by: Lorazepam (Lorazepam 2 Mg/Ml Sdv) 0 mg IVPUSH Q15M PRN; Protocol PRN Reason: Withdrawal Symptoms Last Admin: 01/14/21 09:51 Dose: 1 mg Documented by: Lorazepam (Lorazepam 2 Mg/Ml Sdv) 1 - 3 mg IVPUSH Q1H PRN; Protocol PRN Reason: withdrawl Lorazepam (Lorazepam 2 Mg/Ml Sdv) 2 mg IVPUSH ONETIME STA Stop: 01/14/21 12:37 Last Admin: 01/14/21 20:56 Dose: Not Given Documented by: Lorazepam (Lorazepam 2 Mg/Ml Sdv) 1 - 3 mg IVPUSH Q4H PRN; Protocol PRN Reason: withdrawl Magnesium Oxide (Magnesium Oxide 400 Mg Tab) 400 mg PO BID [facility] Last Admin: 01/17/21 09:44 Dose: 400 mg Documented by: Melatonin (Melatonin 3 Mg Tab) 3 mg PO BEDTIME PRN PRN Reason: INSOMNIA Last Admin: 01/19/21 20:50 Dose: 3 mg Documented by: Midazolam HCl (Midazolam 1 Mg/Ml 2 Ml Sdv) Confirm Administered Dose 2 mg .ROUTE .STK-MED ONE Stop: 01/13/21 10:42 Miscellaneous Information (Remove Patch) 0 ea TRDERM ONETIME ONE Stop: 01/13/21 10:31 Last Admin: 01/13/21 15:48 Dose: Not Given Documented by: Miscellaneous Medication (Phenylephrine Hcl In 0.9% Nacl 1 Mg/10 Ml Syringe) Confirm Administered Dose 1 mg .ROUTE .STK-MED ONE Stop: 01/13/21 12:19 Nicotine (Nicotine 14 Mg/24 Hr Patch) 14 mg TRDERM ONETIME ONE Stop: 01/13/21 16:01 Last Admin: 01/13/21 15:54 Dose: 14 mg Documented by: Ondansetron HCl (Ondansetron 4 Mg/2 Ml Sdv) 4 mg IV Q6H PRN PRN Reason: Nausea/Vomiting Ondansetron HCl (Ondansetron 4 Mg/2 Ml Sdv) Confirm Administered Dose 4 mg .ROUTE .STK-MED ONE Stop: 01/13/21 10:42 Oxycodone HCl (Oxycodone 5 Mg Tab) 5 mg PO Q4H PRN PRN Reason: Pain (moderate 4-6) Last Admin: 01/17/21 04:18 Dose: 5 mg Documented by: Pantoprazole Sodium (Pantoprazole 40 Mg Tab.Cr) 40 mg PO DAILY [facility] Last Admin: 01/23/21 09:37 Dose: 40 mg Documented by: Polyethylene Glycol (Polyethylene Glycol 3350 Powder 17 Gm Packet) 17 gm PO DAILY PRN PRN Reason: Constipation Potassium Bicarbonate (Potassium Bicarbonate/Cit Ac 20 Meq Effervescent Tab) 40 meq PO ONETIME ONE Stop: 01/19/21 08:26 Last Admin: 01/19/21 09:57 Dose: 40 meq Documented by: Potassium Bicarbonate (Potassium Bicarbonate/Cit Ac 20 Meq Effervescent Tab) 40 meq PO ONETIME ONE Stop: 01/20/21 07:05 Last Admin: 01/20/21 08:39 Dose: 40 meq Documented by: Potassium Bicarbonate (Potassium Bicarbonate/Cit Ac 20 Meq Effervescent Tab) 20 meq PO ONETIME ONE Stop: 01/21/21 07:37 Last Admin: 01/21/21 08:55 Dose: 20 meq Documented by: Potassium Bicarbonate (Potassium Bicarbonate/Cit Ac 20 Meq Effervescent Tab) 20 meq PO ONETIME ONE Stop: 01/21/21 13:01 Last Admin: 01/21/21 12:36 Dose: 20 meq Documented by: Potassium Chloride (Potassium Chloride 20 Meq Tab.Er) 40 meq PO BID [facility] Last Admin: 01/13/21 20:58 Dose: Not Given Documented by: Potassium Chloride (Potassium Chloride 20 Meq Tab.Er) 40 meq PO ONETIME ONE Stop: 01/16/21 08:50 Last Admin: 01/16/21 10:05 Dose: 40 meq Documented by: Pravastatin Sodium (Pravastatin 20 Mg Tab) 20 mg PO BEDTIME [facility] Last Admin: 01/23/21 20:38 Dose: 20 mg Documented by: Propofol (Propofol 200 Mg/20 Ml Sdv) Confirm Administered Dose 200 mg .ROUTE .STK-MED ONE Stop: 01/13/21 10:42 Quetiapine Fumarate (Quetiapine 25 Mg Tab) 50 mg PO BEDTIME [facility] Last Admin: 01/16/21 22:27 Dose: 50 mg Documented by: Rocuronium Cassatt (Rocuronium 50 Mg/5 Ml Vial) Confirm Administered Dose 50 mg .ROUTE .STK-MED ONE Stop: 01/13/21 10:42 Senna/Docusate Sodium (Docusate Sodium/Sennosides 50-8.6 Mg Tab) 2 tab PO BID [facility] Last Admin: 01/19/21 08:15 Dose: Not Given Documented by: Thiamine HCl (Thiamine 100 Mg Tab) 100 mg PO DAILY [facility] Last Admin: 01/23/21 09:37 Dose: 100 mg Documented by: Tramadol HCl (Tramadol 50 Mg Tab) 50 mg PO Q6H PRN PRN Reason: Pain Last Admin: 01/23/21 10:09 Dose: 50 mg Documented by: Tranexamic Acid (Tranexamic Acid 1,000 Mg/10 Ml Amp) Confirm Administered Dose 1,000 mg .ROUTE .STK-MED ONE Stop: 01/13/21 11:39 Last Admin: 01/13/21 13:13 Dose: 1,000 mg Documented by: Vancomycin HCl (Vancomycin 1 Gm Sdv) Confirm Administered Dose 1 gm .ROUTE .STK- MED ONE Stop: 01/13/21 11:39 Last Admin: 01/13/21 13:13 Dose: 1 gm Documented by: Vancomycin HCl (Pharmacy To Dose - Vancomycin) 1 dose .XX ASDIRECTED PRN PRN Reason: RX TO DOSE VANCO Vancomycin HCl (Vancomycin 125 Mg Cap) 125 mg PO QID [facility] Stop: 01/28/21 13:01 Last Admin: 01/23/21 20:37 Dose: 125 mg Documented by:
== END 2021-01-24 08:01 | DRG 521 ==
LOC: UNDOADMIN 12:39 → JD.MS 12:39
PROVIDERS: ADMIT Family Medicine; ATTEND Family Medicine
PROC: 0SRS0JZ Replacement of Left Hip Joint, Femoral Surface with Synthetic Substitute, Open Approach (ICD-10-PCS; principal; 2021-01-12)
DX: S72.002A Fracture of unspecified part of neck of left femur, initial encounter for closed fracture (principal); A41.9 Sepsis, unspecified organism; R65.20 Severe sepsis without septic shock; N17.9 Acute kidney failure, unspecified; E87.1 Hypo-osmolality and hyponatremia; F10.231 Alcohol dependence with withdrawal delirium; N30.01 Acute cystitis with hematuria; A04.72 Enterocolitis due to Clostridium difficile, not specified as recurrent; J43.9 Emphysema, unspecified; R29.6 Repeated falls; E83.42 Hypomagnesemia; E87.6 Hypokalemia; R79.82 Elevated C-reactive protein (CRP); Z86.73 Personal history of transient ischemic attack (TIA), and cerebral infarction without residual deficits; I48.0 Paroxysmal atrial fibrillation; W19.XXXA Unspecified fall, initial encounter; Z20.822 Contact with and (suspected) exposure to COVID-19; F17.210 Nicotine dependence, cigarettes, uncomplicated; D64.9 Anemia, unspecified; I10 Essential (primary) hypertension; E78.5 Hyperlipidemia, unspecified
CPT/HCPCS: 0240U; 36415; 36600; 51701; 70450; 71045; 71046; 73501; 80048; 80053; 81001; 82140; 82803; 83605; 83735; 84100; 84145; 85025; 85027; 85610; 86140; 87040; 87086; 87324; 87493; 87641; 92526; 92610; 94640; 94760; 94761; 97110; 97116; 97162; 97530; 01230; 99100; A9270-GY; C1776; J0171; J0690; J0696; J0697; J1170; J1885; J2060; J2250; J2270; J2370; J2405; J2704; J3010; J3370; J3475; J3480; J7030; J7050; J7120; J7620-GY; U0002